=== PATIENT | female | born 1980 | race Caucasian/White ===

== ENCOUNTER 2016-09-22 16:44 | Inpatient (IN) | payer OTHER ==
[2016-09-22 17:58] LABS: Glucose,Whole Blood 66 mg/dL (75-99)
[2016-09-22] MEDS ORDERED: NALOXONE 0.4 MG/ML 1 ML VIAL IV PRN (18:19)
--- NOTE | 2016-09-22 18:25 | P.GSHP ---
History of Present Illness H&P Date: 09/22/16 Chief Complaint: Acute abdominal pain The patient is a 35-year-old female with history of previous gastric bypass. She reports severe onset abdominal pain of the left upper quadrant. She is unable to eat. She reports intractable nausea and vomiting. She has been dehydrated for at least 3 days with poor oral intake. She reports that her pain is moderate to severe and comes in spasms. She also reports symptom and diarrhea. As result she has developed food fear. She has episodes of hypoglycemic event with blood sugars between 30-60. With a history of gastric bypass, presentation with intestinal adhesions including internal hernia, intussusception and volvulus were described hence her admission. - Review of Systems Comment: CONSTITUTIONAL: Denies any fever or chills. History of unwanted weight gain and last one year. HEENT: Denies any trouble with vision, hearing or nosebleeds. No difficulty swallowing. LYMPHATIC: The patient denies any lumps and bumps around the neck. ENDOCRINE: Has thyroid disorders. Has recurrent hypoglycemic events. RESPIRATORY: Denies pneumonia. Denies any troubles with breathing or dyspnea on exertion. CARDIOVASCULAR: Denies any chest pain, palpitations, or recent heart attacks. GASTROINTESTINAL: Denies heart burn or bright red blood per rectum. Has intermittent constipation. GENITOURINARY: Denies any blood in urine or increased urinary frequency. She reports dark urine. MUSCULOSKELETAL: Has back pain, stiffness and joint arthritis. History of fracture of the cervical spine. NEUROLOGIC: Has intermittent numbness or tingling along the left upper arm. No seizure disorders or headaches. PSYCHIATRIC: Denies suidical ideation. History of depression. HEMATOLOGIC: Denies any abnormal bleeding or bruising. Past Medical History Past Medical History: Deep Vein Thrombosis (DVT), GERD/Reflux, Seizure Disorder , Thyroid Disorder Additional Past Medical History / Comment(s): HERNIATED CERVICAL DISC'S C4-C5. Panniculitis with surgery, DVT in right leg in 2007, VARICOSE VEINS, hypothyroid, recurrent UTIs, R leg numbness/tingling with foot drop, esophageal anastomatic stricture, dysphagia in past, seizure 2005, hiatal hernia, PUD, hypoglycemia intussusception of the bowel, morbid obesity status post Dalia-en-Y. History of Any Multi-Drug Resistant Organisms: MRSA Date of last positivie culture/infection: 01/2008 MDRO Source:: right arm Past Surgical History: Appendectomy, Bariatric Surgery, Section, Cholecystectomy, Orthopedic Surgery, Tonsillectomy Additional Past Surgical History / Comment(s): RECONSTRUCTION RT KNEE, C- SECTION x 3, DALIA-EN-Y(AUG 2012) Pt had panniculectomy 02/10/2014, diagnostic laproscopy with lysis of adhesions, EGD with dilation and foreign body removal, colonoscopy, hiatal hernia repair.LUMBAR PUNCTURE(NEG) 07/04/16 ADMISSION Past Anesthesia/Blood Transfusion Reactions: No Reported Reaction Past Psychological History: Depression Additional Psychological History / Comment(s): POST DEPRESSION. Pt resides with her spouse and 3 children. She is independent. She drives. Smoking Status: Never smoker Past Alcohol Use History: None Reported Additional Past Alcohol Use History / Comment(s): Patient is a lifelong nonsmoker. She denies any medical marijuana, marijuana, street drug. She drinks alcohol on a rare basis. She lives at home with her and 3 children that are 8, 10, 12 years of age. There are 2 dogs in the home. 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 Past Drug Use History: None Reported - Past Family History Father Family Medical History: GERD/Reflux, Hyperlipidemia, Hypertension, Sleep Apnea/ CPAP/BIPAP Additional Family Medical History / Comment(s): arthritis Mother Family Medical History: Asthma, Fibromyalgia, GERD/Reflux, Hyperlipidemia, Hypertension Additional Family Medical History / Comment(s): MS and spinal stenosis, depression Medications and Allergies Home Medications Medication Instructions Recorded Confirmed Type Calcium Carb-Vit D 250Mg-125Un 1 tab PO HS 07/04/16 09/22/16 History [Oscal 250+D] Cyanocobalamin [Vitamin B-12] 1,000 mcg PO HS 07/04/16 09/22/16 History Diazepam [Valium] 5 mg PO HS PRN 07/04/16 09/22/16 History Levothyroxine Sodium [Synthroid] 75 mcg PO HS 07/04/16 09/22/16 History Zolpidem [Ambien] 10 mg PO HS PRN 07/04/16 09/22/16 History ALPRAZolam [Xanax] 0.5 mg PO HS PRN 08/31/16 09/22/16 History Cholecalciferol [Vitamin D3] 1,000 unit PO HS 08/31/16 09/22/16 History Menthol [Icy Hot] 1 patch TRANSDERM DAILY PRN 08/31/16 09/22/16 History Multivitamins, Thera [Multivitamin] 1 tab PO HS 08/31/16 09/22/16 History Sertraline [Zoloft] 100 mg PO HS 08/31/16 09/22/16 History Acarbose [Precose] 300 mg PO HS 09/22/16 09/22/16 History HYDROcodone/APAP 7.5-325MG [Tillson 1 tab PO Q6HR PRN 09/22/16 09/22/16 History 7.5-325] Polyethylene Glycol 3350 [Miralax] 17 gm PO DAILY PRN 09/22/16 09/22/16 History Allergies Allergy/AdvReac Type Severity Reaction Status Date / Time latex Allergy Severe Anaphylaxis Verified 09/22/16 18:00 Penicillins Allergy Unknown Itching Verified 09/22/16 18:00 Surgical - Exam Vital Signs Temp Pulse Resp BP Pulse Ox 97.8 F 61 16 123/76 100 09/22/16 17:40 09/22/16 17:40 09/22/16 17:40 09/22/16 17:40 09/22/16 17:40 GENERAL: Well developed and in moderate distress. HEENT: No sclera icterus. Extraocular movements grossly intact. Moist buccal mucosa. Head is atraumatic, normocephalic. Hears conversational speech. No nasal drainage. NECK: Supple without lymphadenopathy. No JV distention. CHEST: Non-labored respirations and equal bilateral excursions. CARDIOVASCULAR: Regular rate and rhythm. Palpable 2+ radial pulses. ABDOMEN: Soft, focal tenderness along the left upper quadrant. She has left upper quadrant guarding. No rebound. No palpable masses on exam. MUSCULOSKELETAL: No clubbing, cyanosis or edema. NEUROLOGIC: No focal or lateralizing signs. Cranial nerves II-12 grossly within normal limits. PSYCH: Appropriate affect. Alert and oriented to person, place and time. Results - Labs 09/22/16 18:37 Abnormal Lab Results - Last 24 Hours (Table) 09/22/16 Range/Units 17:55 POC Glucose (mg/dL) 66 L (75-99) mg/dL Assessment and Plan (1) Hypoglycemia Status: Chronic (2) Morbid obesity Status: Chronic (3) BMI 45.0-49.9, adult Status: Chronic (4) Volvulus Status: Acute (5) Intussusception intestine Status: Acute (6) Chronic constipation Status: Chronic (7) Chronic pain Status: Chronic (8) Bowel obstruction Status: Acute (9) Hypothyroidism Status: Chronic (10) Intractable abdominal pain Status: Acute (11) History of Dalia-en-Y gastric bypass Status: Chronic Plan: 1. During my evaluation, she had a severe attack and spasm of her dominant pain along the left upper quadrant. Intramuscular and IV Dilaudid were immediately ordered. 2. With her history of gastric bypass, she will need urgent laparoscopy. Small bowel resection was described as intussusception and volvulus cannot be excluded for cause of her abdominal pain. 3. Recommend full inpatient hospitalization to spit for 2 nights. 4. Hypoglycemia protocol for history of recurrent hypoglycemic events. 5. IV fluid hydration for persistent dehydration 6. DVT prophylaxis. 7. Antibiotic prophylaxis for surgical intervention. 8. Recheck electrolytes for history of hypo-magnesia and chronic nausea. 9. Antiemetics advised. 10. Surgical distention with laparoscopy and small bowel resection were reviewed in detail including possibility of open technique for which patient and family had agreed to proceed.
[2016-09-22] MEDS ORDERED: HYDROmorphone 2 MG/ML 1 ML SYRINGE IV STA (18:27)
[2016-09-22] MEDS: HYDROmorphone 1 MG/ML 1 ML SYRINGE IVP PRN ×2 (18:52→22:37)
[2016-09-22 18:54] LABS: Glucose,Whole Blood 116 mg/dL (75-99)
[2016-09-22 18:59] LABS: Basophils # (A) 0.1 k/uL (0-0.2); Basophils % (A) 1 %; CH 31.4; CHCM 33.3; Eosinophils # (A) 0.1 k/uL (0-0.7); Eosinophils % (A) 2 %; HCT 41.1 % (34.0-46.0); HDW 2.19; HGB 13.4 gm/dL (11.4-16.0); Luc % (Auto) 2; Lymphocytes # (A) 2.1 k/uL (1.0-4.8); Lymphocytes % (A) 36 %; MCH 30.9 pg (25.0-35.0); MCHC 32.6 g/dL (31.0-37.0); MCV 94.7 fL (80.0-100.0); Mean Platelet Volume 6.6; Monocytes # (A) 0.4 k/uL (0-1.0); Monocytes % (A) 6 %; Neutrophils # (A) 3.1 k/uL (1.3-7.7); Neutrophils % (A) 54 %; RBC 4.34 m/uL (3.80-5.40); RDW 12.1 % (11.5-15.5); WBC 5.8 k/uL (3.8-10.6)
[2016-09-22] MEDS: ONDANSETRON 4 MG/2 ML VIAL IVP PRN (19:12)
[2016-09-22 19:15] LABS: ALT 40 U/L (9-52); AST 29 U/L (14-36); Alkaline Phosphatase 61 U/L (38-126); Anion Gap 11 mmol/L; Blood Urea Nitrogen 9 mg/dL (7-17); Calcium 9.5 mg/dL (8.4-10.2); Carbon Dioxide 30 mmol/L (22-30); Chloride 99 mmol/L (98-107); Glucose 110 mg/dL (74-99); Magnesium 1.9 mg/dL (1.6-2.3); Non-African American GFR(MDRD) >60 (>60 ml/min/1.73 sqM); Potassium 3.7 mmol/L (3.5-5.1); Sodium 140 mmol/L (137-145); Total Bilirubin 0.5 mg/dL (0.2-1.3); Total Protein 7.2 g/dL (6.3-8.2)
[2016-09-22] MEDS: ALBUTEROL NEBULIZED 2.5 MG/3 ML INHALATION SCH (19:18)
[2016-09-22] MEDS: METOCLOPRAMIDE 5 MG/ML 2 ML VIAL IVP SCH ×2 (19:19→23:47)
[2016-09-22] MEDS ORDERED: ZOLPIDEM 10 MG TAB PO PRN (19:21)
[2016-09-22] MEDS ORDERED: DIAZEPAM 5 MG TAB PO PRN (19:21)
[2016-09-22] MEDS ORDERED: ALPRAZolam 0.5 MG TAB PO PRN (19:21)
[2016-09-22] MEDS ORDERED: MENTHOL TRANSDERM PRN (19:21)
[2016-09-22] MEDS: SODIUM CHLORIDE 0.9% 1,000 ML IV SCH ×4 (20:05→23:39)
[2016-09-22] MEDS: DICYCLOMINE 20 MG TAB PO SCH (21:28)
[2016-09-22] MEDS: LEVOTHYROXINE 75 MCG TAB PO SCH (21:28)
[2016-09-22] MEDS: SERTRALINE 100 MG TAB PO SCH (21:28)
[2016-09-22 21:57] VITALS: BMI 45.2
[2016-09-23] MEDS: DEXTROSE 5%-0.9% NACL 1,000 ML IV SCH ×2 (01:27→11:06)
[2016-09-23] MEDS: ALBUTEROL NEBULIZED 2.5 MG/3 ML INHALATION SCH ×4 (07:32→19:04)
[2016-09-23] MEDS: DICYCLOMINE 20 MG TAB PO SCH ×2 (07:35→14:28)
[2016-09-23] MEDS: METOCLOPRAMIDE 5 MG/ML 2 ML VIAL IVP SCH ×2 (08:01→13:50)
[2016-09-23] MEDS: PANTOPRAZOLE 40 MG/10 ML VIAL IV SCH (08:01)
--- NOTE | 2016-09-23 09:05 | P.HPADDEND ---
H&P Addendum H&P Addendum Date: 09/23/16 Patient continues to have persistent abdominal pain. We'll proceed with laparoscopic exploration with possible small bowel resection possible open for intussusception versus volvulus.
[2016-09-23] MEDS: HYDROmorphone 1 MG/ML 1 ML SYRINGE IVP PRN ×2 (09:56→13:53)
[2016-09-23] MEDS: ONDANSETRON 4 MG/2 ML VIAL IVP PRN (09:57)
[2016-09-23] MEDS: ENOXAPARIN 40 MG/0.4 ML SYRINGE SQ SCH (09:58)
[2016-09-23] MEDS ORDERED: GENTAMICIN 400 MG in SODIUM CHLORIDE 0.9% 100 ML IVPB ONE (13:00)
[2016-09-23] MEDS ORDERED: CLINDAMYCIN 900 MG in DEXTROSE 5% IN WATER 50 ML IVPB ONE ×2 (13:00)
[2016-09-23] MEDS ORDERED: LACTATED RINGERS 1,000 ML IV ONE ×2 (15:12→20:15)
[2016-09-23] MEDS ORDERED: ONDANSETRON 4 MG/2 ML VIAL IVP ONE (15:17)
[2016-09-23] MEDS ORDERED: ePHEDrine 50 MG/ML 1 ML AMP ONE (16:39)
[2016-09-23] MEDS ORDERED: GLYCOPYRROLATE 0.2 MG/ML 2 ML VIAL ONE (16:39)
[2016-09-23] MEDS ORDERED: SUCCINYLCHOLINE CHLORIDE VIAL 200 MG/10 ML VIAL IV ONE (16:39)
[2016-09-23] MEDS ORDERED: NEOSTIGMINE 1 MG/ML 10 ML VIAL ONE (16:39)
[2016-09-23] MEDS ORDERED: LIDOCAINE 1% INJ 10MG/ML (20 ML MDV) ONE (16:39)
[2016-09-23] MEDS ORDERED: PROPOFOL 10 MG/ML 20 ML VIAL IV ONE (16:39)
[2016-09-23] MEDS ORDERED: ROCURONIUM BROMIDE 10 MG/ML 10 ML VIAL IV ONE (16:39)
[2016-09-23] MEDS ORDERED: MIDAZOLAM 2 MG/2 ML VIAL ONE (16:39)
[2016-09-23] MEDS ORDERED: fentaNYL (PF) 50 MCG/ML 2 ML AMP ONE (16:39)
[2016-09-23] MEDS ORDERED: ONDANSETRON 4 MG/2 ML VIAL ONE (16:39)
[2016-09-23] MEDS ORDERED: HYDROmorphone (PF) 1 MG/ML ONE (16:39)
[2016-09-23] MEDS ORDERED: BUPIVACAIN-EPI 0.25%-1:200,000 30 ML VIAL SQ ONE ×2 (17:20)
--- NOTE | 2016-09-23 19:41 | P.PCN ---
Date of Procedure: 09/23/16 Preoperative Diagnosis: Acute abdomen, history of gastric bypass, intermittent bowel obstruction obstruction, morbid obesity, BMI 45.2 Postoperative Diagnosis: Same, intussusception at the jejunojejunostomy, intra-abdominal adhesions, gastrojejunal ulcer without perforation, chronic Procedure(s) Performed: Laparoscopic lysis adhesions, laparoscopic revision of jejunojejunostomy with small bowel resection 2 with small bowel anastomoses 2, intraoperative esophagogastrojejunoscopy Anesthesia: GETA, local (60 mL 0.25 percent Marcaine with epinephrine) Surgeon: Nallely Bautista Estimated Blood Loss (ml): 50 Pathology: other (Jejunojejunostomy with intussusception) Condition: stable Disposition: floor Operative Findings: Intussusception jejunojejunostomy completely resected. Dalia limb anastomosed 20 cm distal to the biliopancreatic limb along the common channel. Biliopancreatic limb intact with Surgidac or green suture, common channel intact with Polysorb white suture, Dalia limb intact with silk or black suture, mesenteric defect completely closed, the scope demonstrates chronic gastrojejunal ulcer, [id number] anastomoses created. Diagram of new anatomy placed in chart for review.
[2016-09-23] MEDS ORDERED: SIMETHICONE 40 MG/0.6 ML DROPS 2,000 MG/30 ML BOTTLE PO PRN (19:52)
[2016-09-23] MEDS ORDERED: diphenhydrAMINE 50 MG/ML 1 ML VIAL IVP PRN (19:52)
[2016-09-23] MEDS ORDERED: HYOSCYAMINE ORAL DROPS 1.875 MG/15 ML BOTTLE PO PRN (19:52)
[2016-09-23] MEDS: HYDROmorphone 1 MG/ML 1 ML SYRINGE IVP ONE ×6 (19:56→20:24)
[2016-09-23] MEDS ORDERED: HYDROmorphone 1 MG/ML 1 ML SYRINGE IVP PRN (19:56)
[2016-09-23] MEDS ORDERED: SCOPOLAMINE 1.5MG/72HR PATCH TRANSDERM STA (19:58)
[2016-09-23] MEDS ORDERED: NALOXONE 0.4 MG/ML 1 ML VIAL IV PRN (20:00)
[2016-09-23] MEDS: ACETAMINOPHEN IV (For NPO) 1,000 MG in EMPTY BAG 1 BAG IVPB SCH ×2 (20:05→20:15)
[2016-09-23] MEDS ORDERED: LEVOFLOXACIN 750MG-D5W PMX 750 MG in DEXTROSE/WATER 1 150ML.BAG IVPB STA (20:06)
[2016-09-23] MEDS ORDERED: ACARBOSE 25 MG TAB PO SCH (21:00)
[2016-09-23] MEDS: 0.9% NACL WITH KCL 20 MEQ/L 1,000 ML IV SCH (22:21)
[2016-09-23] MEDS: HYDROmorphone PCA 5 MG/25 ML SYRINGE IV PRN (22:27)
[2016-09-23] MEDS: LEVOTHYROXINE 75 MCG TAB PO SCH (22:34)
[2016-09-23] MEDS: FAMOTIDINE 20 MG TAB PO SCH (22:34)
[2016-09-24 04:02] VITALS: RESP 16
[2016-09-24] MEDS: ACETAMINOPHEN IV (For NPO) 1,000 MG in EMPTY BAG 1 BAG IVPB SCH ×2 (05:02→16:19)
[2016-09-24] MEDS: DEXTROSE 5%-0.9% NACL 1,000 ML IV SCH ×4 (06:06→20:00)
[2016-09-24] MEDS: SERTRALINE 100 MG TAB PO SCH ×2 (06:07→20:14)
[2016-09-24] MEDS: 0.9% NACL WITH KCL 20 MEQ/L 1,000 ML IV SCH ×2 (06:08→07:07)
[2016-09-24 07:24] LABS: Basophils % (A) 0 %; CH 31.3; CHCM 32.8; Eosinophils # (A) 0.1 k/uL (0-0.7); Eosinophils % (A) 1 %; HCT 36.9 % (34.0-46.0); HGB 11.8 gm/dL (11.4-16.0); Luc # (Auto) 0.07; Luc % (Auto) 1; Lymphocytes # (A) 0.9 k/uL (1.0-4.8); Lymphocytes % (A) 13 %; MCH 30.7 pg (25.0-35.0); MCV 95.8 fL (80.0-100.0); Mean Platelet Volume 6.7; Monocytes # (A) 0.4 k/uL (0-1.0); Monocytes % (A) 6 %; Neutrophils # (A) 5.3 k/uL (1.3-7.7); Neutrophils % (A) 79 %; RBC 3.85 m/uL (3.80-5.40); RDW 12.2 % (11.5-15.5); WBC 6.8 k/uL (3.8-10.6)
[2016-09-24] MEDS: ALBUTEROL NEBULIZED 2.5 MG/3 ML INHALATION SCH ×4 (07:26→19:43)
[2016-09-24 07:32] LABS: Anion Gap 9 mmol/L; Blood Urea Nitrogen 5 mg/dL (7-17); Carbon Dioxide 23 mmol/L (22-30); Chloride 109 mmol/L (98-107); Magnesium 1.7 mg/dL (1.6-2.3); Non-African American GFR(MDRD) >60 (>60 ml/min/1.73 sqM); Potassium 3.9 mmol/L (3.5-5.1); Sodium 141 mmol/L (137-145)
[2016-09-24] MEDS: ENOXAPARIN 40 MG/0.4 ML SYRINGE SQ SCH (10:28)
[2016-09-24] MEDS: PANTOPRAZOLE 40 MG/10 ML VIAL IV SCH (10:28)
[2016-09-24] MEDS: FAMOTIDINE 20 MG TAB PO SCH ×2 (10:29→20:13)
--- NOTE | 2016-09-24 10:46 | OP ---
DATE OF SERVICE: 09/23/2016 SURGEON: CARLITA MATIAS MD FLOOR COVERING CONTRACTOR: NONE. PREOPERATIVE DIAGNOSES: 1. History of Dalia-en-Y gastric bypass. 2. Acute abdomen. 3. Intractable nausea and vomiting. 4. Dehydration. 5. Depression. 6. Chronic pain syndrome. 7. Reactive hypoglycemia. 8. Morbid obesity. 9. Body mass index 45.7. 10. Hypothyroidism. 11. History of small bowel obstruction. 12. Left upper quadrant abdominal pain. POSTOPERATIVE DIAGNOSES: 1. History of Dalia-en-Y gastric bypass. 2. Acute abdomen. 3. Intractable nausea and vomiting. 4. Dehydration. 5. Depression. 6. Chronic pain syndrome. 7. Reactive hypoglycemia. 8. Morbid obesity. 9. Body mass index 45.7. 10. Hypothyroidism. 11. History of small bowel obstruction. 12. Intussusception of the small intestine, left upper quadrant. 13. Intra-abdominal adhesions. 14. 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 OPERATION: 1. Laparoscopic enterectomy 2 with small bowel anastomosis 2. 2. Laparoscopic revision of jejunojejunostomy. 3. Intraoperative esophagogastrojejunoscopy. 4. Laparoscopic lysis adhesions over 1 hr. ANESTHESIA: General with 60 mL 0.25% Marcaine with epinephrine. ESTIMATED BLOOD LOSS: 50 mL. SPECIMENS: Jejunojejunostomy with intussusception. COMPLICATIONS: None. FINDINGS: 1. Intussusception along jejunojejunostomy causing acute and chronic abdominal pain. 2. Intra-abdominal adhesions about the Dalia limb including gastrojejunal anastomosis. 3. Gastrojejunal ulceration without perforation or hemorrhage. 4. Reconstruction of Dalia limb and common channel, 20 cm distal to anastomosis of biliopancreatic limb. 5. Common channel marked with Polysorb white suture. 6. Dalia limb marked with silk or black suture. 7. Biliopancreatic marked with Surgidac or green suture. 8. All the mesenteric defect including the newly reconstructed biliopancreatic and Dalia limb defects were closed using 2-0 silk. 9. Chronic gastrojejunal ulcer. 10. Diagram of new anatomy placed in chart for review. INDICATIONS: Selin Bowles is a 35-year-old female who has a history of Dalia-en-Y gastric bypas in August 2012. She had been doing well for the last 3+ years, however, in the last 1 to 2 years she had developed intermittent abdominal pain. As a result, she developed food fear including poor oral intake. She presented to the hospital with intractable nausea, vomiting, dehydration including acute abdomen. Given her history of gastric bypass, risks of volvulus was expected. Urgent surgical intervention with a diagnostic laparoscopy and small bowel resection were described. Prior to surgical intervention, she underwent IV fluid hydration. Possibilities of bowel resection was also described at length. Benefits and risks of surgical intervention were reviewed in detail. Informed consent was obtained. DESCRIPTION OF PROCEDURE: Patient was brought to the operating room, laid in supine on a split leg table. After general induction, the abdomen had been prepped and draped in standard fashion including placement of a Johnson catheter. With her history of Dalia-en-Y gastric bypass, an orogastric tube was held. Initial attention was brought to the right upper quadrant away from the foci of her pain of her left upper quadrant. A 0 degrees 10 mm millimeters laparoscopic trocar entry was performed along the right upper quadrant under direct localization. The abdomen was insufflated to 15 mmHg pressure, which she had tolerated well. Diagnostic laparoscopy did not demonstrate any adhesions of the lower abdomen or ventral abdominal wall hernias. Next, another 12 mm trocar had been placed along about the epigastrium. Her umbilicus was absent given her previous panniculectomy. Another 12 mm port was placed along the right anterior axillary line under direct visualization. Two more 12 mm trocars were placed in a similar fashion along the left anterior axillary line including along the left midclavicular line. Next a Yandel liver retractor was used to elevate the left lobe of liver and had been held in place using an iron collector of internal revenue. Adhesions of the Dalia limb, including gastric pouch were identified and taken down carefully using Sonicision. No injury had occurred to the small bowel or gastric pouch. Next attention was brought to identify her anatomy which included identifying the Dalia limb to the jejunojejunostomy. Similarly, the biliopancreatic limb was investigated. Attention was brought to evaluating the ileocecal valve proximally. The small bowel was ran proximal to the jejunojejunostomy whereby an active intussusception was indeed identified consistent with her history of acute abdomen including chronic intermittent abdominal pain. No active herniation of small bowel was found either along the previous jejunojejunostomy mesenteric defect or along the Morrow defect. As the three main portions of her surgery was identified, including the Dalia limb, common channel and biliopancreatic limb, each limb were carefully tagged. The Dalia limb was tagged using a silk suture otherwise black suture. The common channel was then marked using 2-0 Polysorb otherwise white suture. Finally, the biliopancreatic limb was marked with green suture, otherwise 2-0 Surgidac. Each sutures were tacked using Endo Stitch. Next attention was then brought to initial resection and reanastomosis of the resected jejunojejunostomy. Dalia limb was initially identified and then divided using a 60 mm vigil load. Next, the Dalia limb was reanastomosed 20 cm distal to the resected jejunostomy. Side to side anastomosis was performed. Along the antemesenteric border, electro- Bovie cautery was used to create enterotomies. One directional firing using 60 mm vigil load was performed. Next the enterotomy was closed after reapproximating the defect using 2-0 silk on an Endo stitch. The defect was then permanent closed using a 60 mm vigil load. Along the most proximal portion of the common channel, the biliopancreatic limb was still attached and the previous jejunostomy was completely resected using a 60 mm vigil load. The specimen was temporarily placed along the left upper quadrant under direct visualization. As to maintain the natural orientation and anatomy, the biliopancreatic limb was proposed for anastomosis along the common channel. The biliopancreatic limb and common channel were brought into position in a [id number] fashion. Enterotomies were performed along the antermesenteric border. Stay sutures of 2-0 silk was placed. Next 60 mm vigil CovMobile Iron TriStapler was fired in a one direction technique. Next, the enterotomy was closed after reapproximating the enterotomy using 2-0 silk. The enterotomy was finally closed using 60 mm vigil load. To address closure of the mesenteric defect, 2-0 silk on an Endo stitch and Lapra-Ty and was used to completely close the defect. Final endoscopic imaging were obtained. Hemostasis had been checked. Along the old jejunojejunostomy, the specimen was removed using an Endo Catch bag via the right upper quadrant midclavicular port. Final inspection demonstrated excellent hemostasis. All instruments and pneumoperitoneum were evacuated from the abdominal cavity. The fascial defects were found to be less than 8 mm in size. The incisions were reapproximated using 3-0 Polysorb for deep subcutaneous tissue and dermis. 4-0 Monocryl in a running subcuticular fashion was placed at the rest of incisions. Total of 60 mL 0.25% Marcaine with epinephrine was infiltrated to all wounds for postop analgesia. Dermabond was applied to the skin. Next attention was brought to the endoscopic portion of the case, whereby I went to the head of the bed. An Olympus adult gastroscope was passed along the posterior oropharynx down to the distal esophagus. Immediately along the gastrojejunal anastomosis at 12:00 position, a chronic ulceration was identified without perforation. The scope was placed 60 cm distal to the incisors. No other mucosal defects were identified. The GI tract was desufflated. The patient had tolerated the procedure well. The patient was extubated and taken to the postanesthesia care unit in stable condition. A diagram of her previous including her current reconstruction was placed in her chart. Intraoperative imaging was reviewed and discussed with her including a copy of the diagram as to her new anatomy. Her family was pleased with the level of care. JOHN
[2016-09-24] MEDS: MAGNESIUM SULFATE-D5W PMX 1 GM in DEXTROSE/WATER 1 100ML.BAG IVPB SCH ×3 (10:51→15:26)
[2016-09-24] MEDS: METOCLOPRAMIDE 5 MG/ML 2 ML VIAL IVP SCH (10:58)
[2016-09-24] MEDS: DICYCLOMINE 20 MG TAB PO SCH (10:58)
[2016-09-24] MEDS: HYDROmorphone PCA 5 MG/25 ML SYRINGE IV PRN (11:21)
--- NOTE | 2016-09-24 13:55 | P.PN ---
Subjective Principal diagnosis: Intussusception The patient is a 35-year-old female now postoperative day 1 status post small bowel resection 2 with revision of her jejunojejunostomy secondary to intussusception. She is now tolerating diet. Her abdominal pain is resolved. No reports of fevers or chills. She no longer has intermittent or chronic abdominal pain with eating. No further hypoglycemic episodes. Objective - Vital Signs Vital signs: Vital Signs Temp 98.6 F 09/24/16 07:00 Pulse 92 09/24/16 07:34 Resp 16 09/24/16 07:00 BP 125/79 09/24/16 07:00 Pulse Ox 95 09/24/16 07:00 Intake & Output 09/23/16 09/24/16 09/24/16 18:59 06:59 18:59 Intake Total 2066 500 320 Output Total 1000 250 Balance 1066 250 320 Intake: IV 2066 500 Oral 320 Output: Urine 1000 200 Estimated Blood Loss 50 Other: Voiding Method Toilet - Exam GENERAL: Well developed and in no acute distress. Pleasant. HEENT: No sclera icterus. Extraocular movements grossly intact. Moist buccal mucosa. Head is atraumatic, normocephalic. Hears conversational speech. No nasal drainage. NECK: Supple without lymphadenopathy. No JV distention. CHEST: Non-labored respirations and equal bilateral excursions. CARDIOVASCULAR: Regular rate and rhythm. Palpable 2+ radial pulses. ABDOMEN: Soft. Nondistended. Incisions clean dry and intact with Dermabond. Minimal gi-incisional tenderness. MUSCULOSKELETAL: No clubbing, cyanosis or edema. NEUROLOGIC: No focal or lateralizing signs. PSYCH: Appropriate affect. Alert and oriented to person, place and time. - Labs CBC & Chem 7: 09/24/16 00:01 09/24/16 06:45 Labs: Abnormal Lab Results - Last 24 Hours (Table) 09/24/16 09/24/16 Range/Units 00: 06:45 Lymphocytes # 0.9 L (1.0-4.8) k/uL Chloride 109 H (98-107) mmol/L BUN 5 L (7-17) mg/dL Calcium 8.0 L (8.4-10.2) mg/dL Assessment and Plan (1) Hypoglycemia Status: Chronic (2) Morbid obesity Status: Chronic (3) BMI 45.0-49.9, adult Status: Chronic (4) Volvulus Status: Acute (5) Intussusception intestine Status: Acute (6) Chronic constipation Status: Chronic (7) Chronic pain Status: Chronic (8) Bowel obstruction Status: Acute (9) Hypothyroidism Status: Chronic (10) Intractable abdominal pain Status: Acute (11) History of Dalia-en-Y gastric bypass Status: Chronic (12) S/P small bowel resection Status: Acute (13) Gastrojejunal ulcer Status: Acute (14) Dietary surveillance and counseling Status: Acute Plan: 1. She has responded well to surgery. Her acute on chronic abdominal pain is resolved. 2. New dietary guidelines including high protein diet of 75 g daily was reviewed. 3. Medical reconciliation was performed with discontinuation of absorbable some. Hypoglycemic events should now resolved but she is now able to tolerate diet. 4. Discharge instructions including no lifting over 4 pounds in 4 weeks were reviewed. 5. Continue with advancement of diet. Anticipate discharge in 24 hours. 6. Will start on Carafate including omeprazole for 4 weeks to treat chronic gastrojejunal ulcer.
--- NOTE | 2016-09-24 14:02 | P.DS ---
Providers Date of admission: 09/22/16 17:21 Expected date of discharge: 09/25/16 Attending physician: Nallely Bautista Primary care physician: Stated None - Discharge Diagnosis(es) (1) Hypoglycemia Current Visit: Yes Status: Chronic (2) Morbid obesity Current Visit: Yes Status: Chronic (3) BMI 45.0-49.9, adult Current Visit: Yes Status: Chronic (4) Volvulus Current Visit: Yes Status: Acute (5) Intussusception intestine Current Visit: Yes Status: Acute (6) Chronic constipation Current Visit: Yes Status: Chronic (7) Chronic pain Current Visit: Yes Status: Chronic (8) Bowel obstruction Current Visit: No Status: Acute (9) Hypothyroidism Current Visit: No Status: Chronic (10) Intractable abdominal pain Current Visit: No Status: Acute (11) History of Dalia-en-Y gastric bypass Current Visit: No Status: Chronic (12) S/P small bowel resection Current Visit: Yes Status: Acute (13) Gastrojejunal ulcer Current Visit: Yes Status: Acute (14) Dietary surveillance and counseling Current Visit: Yes Status: Acute Hospital Course: The patient was admitted for acute and chronic abdominal pain secondary to presumed volvulus versus intussusception. She underwent urgent surgical intervention whereby findings were consistent with active intussusception along the jejunojejunostomy from previous gastric bypass. She also had adhesions of the abdomen which were addressed. Her jejunojejunostomy was revised. Separately upper endoscopy demonstrated a chronic gastrojejunal ulceration without acute perforation or bleeding. She was started on antacids. She was able tolerate diet without further chronic abdominal pain which is now improved. Discharge diet of high protein shakes were addressed to also circumvent history of hypoglycemic episodes. Procedures: 1. Diagnostic laparoscopy. 2. Laparoscopic small bowel resection 2 with small bowel anastomosis 2, revision of jejunojejunostomy. 3. Intraoperative esophagogastrojejunoscopy. Patient Condition at Discharge: Stable Plan - Discharge Summary New Discharge Prescriptions: HYDROcodone/APAP [[place] Elixir 7.5-325Mg/15Ml] 15 ml PO Q6H PRN #480 solution PRN Reason: Pain Omeprazole 40 mg PO DAILY #30 capsule. Sucralfate [Carafate] 1 gm PO BID #480 ml Discharge Medication List Calcium Carb-Vit D 250Mg-125Un [Oscal 250+D] 1 tab PO HS 07/04/16 [History] Diazepam [Valium] 5 mg PO HS PRN 07/04/16 [History] Levothyroxine Sodium [Synthroid] 75 mcg PO HS 07/04/16 [History] Zolpidem [Ambien] 10 mg PO HS PRN 07/04/16 [History] ALPRAZolam [Xanax] 0.5 mg PO HS PRN 08/31/16 [History] Multivitamins, Thera [Multivitamin] 1 tab PO HS 08/31/16 [History] Sertraline [Zoloft] 100 mg PO HS 08/31/16 [History] Polyethylene Glycol 3350 [Miralax] 17 gm PO DAILY PRN 09/22/16 [History] HYDROcodone/APAP [[place] Elixir 7.5-325Mg/15Ml] 15 ml PO Q6H PRN #480 solution [Rx] Omeprazole 40 mg PO DAILY #30 capsule. 09/24/16 [Rx] Sucralfate [Carafate] 1 gm PO BID #480 ml 09/24/16 [Rx] Follow up Appointment(s)/Referral(s): Nallely Bautista MD [STAFF PHYSICIAN] - 09/28/16 ([place]) Patient Instructions/Handouts: *Surgery [facility] - Laparoscopy Discharge Instructions, Hydrocodone/Acetaminophen (By mouth), High Protein Diet (GEN), Bowel Resection (DC), Nutrition after Bariatric Surgery (GEN), Dalia-en-Y Gastric Bypass (DC) Activity/Diet/Wound Care/Special Instructions: No lifting over 4 pounds in 4 weeks. May shower. Recommend high protein diet at least 75 g daily with protein shakes. Bariatric full liquid diet. Discharge Disposition: HOME SELF-CARE
--- NOTE | 2016-09-24 14:04 | P.PN ---
Progress Note - Text To Whom It May Concern: Deni Bowles is under my general surgical care. She may return to work on 09/26/2016. She will remain under close surgical observation in the meantime. Sincerely, Nallely Bautista M.D., FACS, FICS, Dip ABOM Director of [facility] [place] Chief of General Surgery
--- NOTE | 2016-09-24 14:11 | P.PN ---
Progress Note - Text To Whom It May Concern: Selin Bowles is under my general surgical care. She may return to work on 09/26/2016. She will remain under close surgical observation in the meantime. Sincerely, Nallely Bautista M.D., FACS, FICS, Dip ABOM Director of [facility] [place] Chief of General Surgery
[2016-09-24] MEDS: HYDROcodone/APAP 15 ML SOLUTION PO PRN (20:13)
[2016-09-24] MEDS: LEVOTHYROXINE 75 MCG TAB PO SCH (20:13)
[2016-09-25] MEDS: HYDROcodone/APAP 15 ML SOLUTION PO PRN ×2 (01:20→09:38)
[2016-09-25 02:05] VITALS: PULSE 64
[2016-09-25] MEDS: DEXTROSE 5%-0.9% NACL 1,000 ML IV SCH (03:28)
[2016-09-25 07:31] VITALS: BP 122/57; TEMP 98.7
[2016-09-25] MEDS: ALBUTEROL NEBULIZED 2.5 MG/3 ML INHALATION SCH (07:36)
[2016-09-25] MEDS ORDERED: BISACODYL 5 MG TABLET.DR PO PRN (08:00)
--- NOTE | 2016-09-25 09:00 | P.PN ---
Progress Note - Text Patient reports needing more time for recovery. She will follow-up in the office prior to return to work.
[2016-09-25] MEDS: ENOXAPARIN 40 MG/0.4 ML SYRINGE SQ SCH (09:37)
[2016-09-25] MEDS: PANTOPRAZOLE 40 MG/10 ML VIAL IV SCH (09:38)
[2016-09-25] MEDS: FAMOTIDINE 20 MG TAB PO SCH (09:38)
== END 2016-09-25 11:11 | disposition home or self-care (01) | DRG 327 ==
LOC: 6PED 17:21 → 3SUR 09-23 17:03
PROVIDERS: ADMIT Surgery Plastic and Reconstructive Surgery; ATTEND Surgery Plastic and Reconstructive Surgery
PROC: 0DNA4ZZ Release Jejunum, Percutaneous Endoscopic Approach (ICD-10-PCS; principal; 2016-09-22)
PROC: 0DBA4ZZ Excision of Jejunum, Percutaneous Endoscopic Approach (ICD-10-PCS; principal; 2016-09-22)
PROC: 0D164ZA Bypass Stomach to Jejunum, Percutaneous Endoscopic Approach (ICD-10-PCS; principal; 2016-09-22)
DX: K95.89 Other complications of other bariatric procedure (principal); Z68.42 Body mass index [BMI] 45.0-49.9, adult; K28.9 Gastrojejunal ulcer, unspecified as acute or chronic, without hemorrhage or perforation; E16.1 Other hypoglycemia; E03.9 Hypothyroidism, unspecified; K91.3 Postprocedural intestinal obstruction; E86.0 Dehydration; F32.9 Major depressive disorder, single episode, unspecified; G89.4 Chronic pain syndrome; K21.9 Gastro-esophageal reflux disease without esophagitis; K66.0 Peritoneal adhesions (postprocedural) (postinfection); E66.01 Morbid (severe) obesity due to excess calories; Z82.49 Family history of ischemic heart disease and other diseases of the circulatory system; Z87.11 Personal history of peptic ulcer disease; Z87.440 Personal history of urinary (tract) infections; Z79.899 Other long term (current) drug therapy
CPT/HCPCS: 80051; 80053; 81025; 82310; 82565; 83735; 84100; 84520; 85025; 88307; 94640

== ENCOUNTER → 2017-09-14 | Outpatient (CLI) | payer OTHER ==
[2017-09-14 09:13] VITALS: BP 130/79; PULSE 80; RESP 20; TEMP 98.2; BMI 47.5
--- NOTE | 2017-11-04 17:58 | P.PN ---
Subjective Progress Note Date: 09/14/17 DATE OF SERVICE: 09/14/2017 CHIEF COMPLAINT: Follow up gastric bypass HISTORY OF PRESENT ILLNESS: Selin Bowles is a 36-year-old female who has a history of Dalia-en-Y gastric bypass performed in August of 2012. She is 5 years out. Her highest weight was 439 pounds for her 5 feet 6 inch frame. Her body mass index was 71.0. Her lowest weight was 223 pounds. She has gained 50 pounds since her lowest weight. Her body mass index is now up from 36.1 to 44.2. Her maintained weight loss is 145 pounds. Percent excess weight loss of 51%. She has gained 21 pounds in 1.5 years. She reports developing a stroke 1 year ago. She has been diagnosed with a broken cervical vertebra. She is now on Plavix and aspirin. She reported obtaining 70 pounds in 6 months as her previous weight was 295 pounds. She has completed a NAVA. She also complains of developing abdominal pain after starting medications. She had neck surgery with removal of the cervical vertebra. PAST MEDICAL HISTORY: 1. Super super morbid obesity. 2. Prior body mass index 71.0 3. Panniculitis, resolved. 4. Hypothyroidism. 5. Osteoarthritis. 6. Prior history of depression. 7. History of varicose veins. 8. History of methicillin-resistant Staphylococcus aureus infection. 9. History of stroke. PAST SURGICAL HISTORY: 1. Appendectomy. 2. Dalia-en-Y gastric bypass. 3. . 4. Cholecystectomy. 5. Reconstruction of the right ankle. 6. Tonsillectomy. 7. Panniculectomy of the abdomen. 8. Colonoscopy. 9. Removal of cervical vertebra. MEDICATIONS: 1. Zoloft. 2. Multivitamin. 3. Synthroid. 4. Xanax. 5. Plavix. 6. Aspirin. 7. Omeprazole. 8. Valium. ALLERGIES: 1. LATEX. 2. PENICILLIN. SOCIAL HISTORY: Lifelong nontobacco user. She is with her at bedside. FAMILY HISTORY: Pertinent for morbid obesity including diabetes and dyslipidemia, also hypertension within her family. REVIEW OF SYSTEMS: CONSTITUTIONAL: Highest weight of 439 pounds. Percent excess weight loss reduced from 74% down to 51%. Total weight gain of 71 pounds over the last 4 years. Body mass index reduced from 71.0 to 47.6. Percent excess weight loss of 51%. GASTROINTESTINAL: No reports of dumping syndrome. esophageal reflux disease. ENDOCRINE: Hypothyroidism. No reports of diabetes. MUSCULOSKELETAL: Osteoarthritis of right ankle, resolved. GENITOURINARY: History of pelvic pain. No kidney stones. HEENT: Denies any troubles with vision or hearing. CARDIOVASCULAR: No report of chest pain or heart attack. Prior history of DVT from the orthopedic procedures. RESPIRATORY: Prior history of dyspnea on exertion, resolved. No reports of sleep apnea. NEURO: No reports of stroke or seizure disorders. PSYCH: History of depression. No reports of anxiety or suicidal ideation. PHYSICAL EXAM: 0VITAL SIGNS: 5 feet 6 inches, 294 pounds. Body mass index 47.6. Vital Signs Temp 98.2 F 09/14/17 09:06 Pulse 80 09/14/17 09:06 Resp 20 09/14/17 09:06 BP 130/79 09/14/17 09:06 Pulse Ox GENERAL: Well-developed female in no acute distress. ABDOMEN: Actually soft, nontender, nondistended. HEENT: No scleral icterus. Extraocular movements grossly intact. No troubles with hearing. NECK: Supple with no lymphadenopathy. CHEST: Nonlabored respirations with equal bilateral excursion. MUSCULOSKELETAL: No clubbing, cyanosis or edema. NEURO: No focal or lateralizing signs. Cranial nerves 2 through 12 grossly within normal limits. PSYCH: Appropriate Affect. Alert and oriented to person, place and time. SKIN: Well perfused. Good skin turgor. ASSESSMENT: 1. Morbid obesity due to excess caloric intake. 2. Body mass index reduced from 71.0 down to 47.6 3. Status post Dalia-en-Y gastric bypass. 4. Status post massive weight loss of 145 pounds. 5. Weight regain following bariatric procedure. 6. History of hypothyroidism. 7. History of stroke. 8. Epigastric abdominal pain. PLAN: 1. Recommend bariatric panel. 2. Recommend CT of the abdomen and pelvis for history of abdominal pain where diverticulitis cannot be excluded. 3. Recommend upper endoscopy for evaluation of gastric stricture. Objective - Vital Signs Vital signs: Vital Signs Temp 98.2 F 09/14/17 09:06 Pulse 80 09/14/17 09:06 Resp 20 09/14/17 09:06 BP 130/79 09/14/17 09:06 Pulse Ox Intake & Output 09/13/17 09/14/17 09/14/17 18:59 06:59 18:59 Weight 133.719 kg
== END | disposition home or self-care (01) ==
LOC: BARWHC3 08:43
PROVIDERS: ATTEND Surgery Plastic and Reconstructive Surgery
DX: Z09 Encounter for follow-up examination after completed treatment for conditions other than malignant neoplasm (principal); E66.01 Morbid (severe) obesity due to excess calories; R63.4 Abnormal weight loss; E03.9 Hypothyroidism, unspecified; R10.13 Epigastric pain; M19.90 Unspecified osteoarthritis, unspecified site; Z86.14 Personal history of Methicillin resistant Staphylococcus aureus infection; Z90.49 Acquired absence of other specified parts of digestive tract; Z79.82 Long term (current) use of aspirin; Z79.02 Long term (current) use of antithrombotics/antiplatelets; Z79.899 Other long term (current) drug therapy; Z88.0 Allergy status to penicillin; Z68.42 Body mass index [BMI] 45.0-49.9, adult; Z98.890 Other specified postprocedural states; Z98.84 Bariatric surgery status; Z86.73 Personal history of transient ischemic attack (TIA), and cerebral infarction without residual deficits; Z91.040 Latex allergy status; Z83.3 Family history of diabetes mellitus
CPT/HCPCS: 99211

== ENCOUNTER 2017-10-18 08:35 | Day surgery (SDC) | payer OTHER ==
[2017-10-16 11:42] VITALS: BMI 48.7
--- NOTE | 2017-10-18 07:39 | P.GSHP ---
History of Present Illness H&P Date: 10/18/17 CHIEF COMPLAINT: GERD HISTORY OF PRESENT ILLNESS: The patient is a 36-year-old female who presents reports gastroesophageal reflux disease. Upper endoscopy was offered for further evaluation and management. PAST MEDICAL HISTORY: Please see list. PAST SURGICAL HISTORY: Please see list. MEDICATIONS: Please see list. ALLERGIES: Please see list. SOCIAL HISTORY: No illicit drug use FAMILY HISTORY: No reports of Crohn disease or ulcerative colitis. REVIEW OF ORGAN SYSTEMS: CONSTITUTIONAL: No reports of fevers or chills. GI: Denies any blood in stools or constipation. PHYSICAL EXAM: VITAL SIGNS: Stable GENERAL: Well-developed and pleasant in no acute distress. HEENT: No scleral icterus. Extraocular movements grossly intact. Moist buccal mucosa. NECK: Supple without lymphadenopathy. CHEST: Unlabored respirations. Equal bilateral excursions. CARDIOVASCULAR: Regular rate and rhythm. Distal 2+ pulses. ABDOMEN: Soft, nondistended. MUSCULOSKELETAL: No clubbing, cyanosis, or edema. ASSESSMENT: 1. Gastroesophageal reflux disease PLAN: 1. Recommend proceeding with an upper endoscopy Past Medical History Past Medical History: CVA/TIA, GERD/Reflux, Seizure Disorder, Thyroid Disorder Additional Past Medical History / Comment(s): HERNIATED CERVICAL DISC'S C4-C5. PFO CLOSURE 07/2017. RT SIDED NT FROM CVA 2016. OLD HX SEIZURES, NONE SINCE 2005. ABD PAIN LT SIDE 3-6 MONTHS; HX GASTRIC BYPASS 2011. Panniculitis with surgery, DVT in right leg in 2007, VARICOSE VEINS, hypothyroid, recurrent UTIs , R leg numbness/tingling with foot drop, esophageal anastomatic stricture, dysphagia in past, seizure 2005, hiatal hernia, PUD, hypoglycemia intussusception of the bowel, morbid obesity status post Dalia-en-Y. History of Any Multi-Drug Resistant Organisms: MRSA Date of last positivie culture/infection: 01/2008 MDRO Source:: right arm Past Surgical History: Appendectomy, Bariatric Surgery, Section, Cholecystectomy, Orthopedic Surgery, Tonsillectomy, Tubal Ligation Additional Past Surgical History / Comment(s): RECONSTRUCTION RT KNEE, C- SECTION x 3, DALIA-EN-Y(AUG 2012). Panniculectomy 02/10/2014. diagnostic laproscopy with lysis of adhesions, EGD, W/ dilation, FB EXC. Colonoscopy, hiatal hernia repair. C-5 removed May 17, 2017. NAVA; PFO closure in heart 07/11. RECONSTRUCTION DALIA-EN-Y 2016. Past Anesthesia/Blood Transfusion Reactions: No Reported Reaction Smoking Status: Never smoker - Past Family History Father Family Medical History: GERD/Reflux, Hyperlipidemia, Hypertension, Sleep Apnea/ CPAP/BIPAP Additional Family Medical History / Comment(s): arthritis Mother Family Medical History: Asthma, Fibromyalgia, GERD/Reflux, Hyperlipidemia, Hypertension Additional Family Medical History / Comment(s): MS and spinal stenosis, depression Medications and Allergies Home Medications Medication Instructions Recorded Confirmed Type Calcium Carb-Vit D 250Mg-125Un 1 tab PO HS 07/04/16 10/16/17 History [Oscal 250+D] Diazepam [Valium] 5 mg PO HS PRN 07/04/16 10/16/17 History Levothyroxine Sodium [Synthroid] 75 mcg PO HS 07/04/16 10/16/17 History ALPRAZolam [Xanax] 0.5 mg PO HS PRN 08/31/16 10/16/17 History Multivitamins, Thera [Multivitamin] 1 tab PO HS 08/31/16 10/16/17 History Sertraline [Zoloft] 100 mg PO HS 08/31/16 10/16/17 History Omeprazole 40 mg PO DAILY #30 capsule. 09/24/16 10/16/17 Rx Aspirin 81 mg PO DAILY 09/15/17 10/16/17 History Clopidogrel Bisulfate [Plavix] 75 mg PO DAILY 09/15/17 10/16/17 History Ferrous Sulfate [Feosol] 325 mg PO DAILY 10/16/17 10/16/17 History Zonisamide [Zonegran] 100 mg PO HS 10/16/17 10/16/17 History Allergies Allergy/AdvReac Type Severity Reaction Status Date / Time latex Allergy Severe Anaphylaxis Verified 10/16/17 11:20 Penicillins Allergy Unknown Itching Verified 10/16/17 11:20
[2017-10-18 09:11] VITALS: RESP 16; TEMP 97.6
[2017-10-18] MEDS ORDERED: LACTATED RINGERS 1,000 ML IV ONE (09:24)
[2017-10-18] MEDS ORDERED: GLYCOPYRROLATE 0.2 MG/ML 2 ML VIAL ONE (09:25)
[2017-10-18] MEDS ORDERED: PROPOFOL 10 MG/ML 20 ML VIAL IV ONE (09:25)
[2017-10-18] MEDS ORDERED: LIDOCAINE 1% INJ 10MG/ML (20 ML MDV) ONE (09:25)
--- NOTE | 2017-10-18 09:56 | P.PCN ---
Date of Procedure: 10/18/17 Description of Procedure: PREOPERATIVE DIAGNOSIS: Dysphagia. Epigastric abdominal pain. Morbid obesity. POSTOPERATIVE DIAGNOSIS: Dysphagia. Epigastric abdominal pain. Morbid obesity. Gastritis. Gastrojejunal stricture with chronic ulcer without perforation OPERATION: Esophagogastrojejunoscopy with balloon dilatation from 15 to 20 mm. Esophagogastrojejunoscopy with cold biopsy forceps along the gastric pouch. SURGEON: Nallely Bautista MD ANESTHESIA: MAC. INDICATIONS: The patient is a 36-year-old female who presents with a history of dysphagia, epigastric abdominal pain, nausea and vomiting. Benefits and risks of the procedure were described. Informed consent was obtained. DESCRIPTION: The patient was brought into the endoscopy suite and laid in the left lateral decubitus position. After a timeout was confirmed, the procedure was initiated. An Olympus gastroscope was passed along the posterior oropharynx down to the distal esophagus where the squamocolumnar junction was unremarkable. The gastric pouch was entered. A gastrojejunal stricture of 15 mm was found as the adult gastroscope was 9.5 mm in size. A [employer] balloon dilator was placed through the scope. Final insufflation up to 20 mm was performed with a total of 2 minutes. The scope was advanced up to 60 cm from the incisors into the Dalia limb. The mucosa of the gastrojejunal anastomosis was intact. However no chronic gastrojejunal marginal ulcer was encountered. No full-thickness injury was encountered. The GI tract was desufflated. The patient tolerated the procedure well. FINDINGS: Squamocolumnar junction unremarkable at 37 cm. Stricture of approximately 15 mm encountered. No chronic gastrojejunal ulceration encountered. Successful balloon dilatation to 20 mm. RECOMMENDATIONS: Upper endoscopy as needed Plan - Discharge Summary New Discharge Prescriptions: No Action Diazepam [Valium] 5 mg PO HS PRN PRN Reason: Insomnia Levothyroxine Sodium [Synthroid] 75 mcg PO HS Calcium Carb-Vit D 250Mg-125Un [Oscal 250+D] 1 tab PO HS Multivitamins, Thera [Multivitamin] 1 tab PO HS Sertraline [Zoloft] 100 mg PO HS ALPRAZolam [Xanax] 0.5 mg PO HS PRN PRN Reason: Anxiety Omeprazole 40 mg PO DAILY #30 capsule. Clopidogrel Bisulfate [Plavix] 75 mg PO DAILY Aspirin 81 mg PO DAILY Ferrous Sulfate [Feosol] 325 mg PO DAILY Zonisamide [Zonegran] 100 mg PO HS Discharge Medication List Calcium Carb-Vit D 250Mg-125Un [Oscal 250+D] 1 tab PO HS 07/04/16 [History] Diazepam [Valium] 5 mg PO HS PRN 07/04/16 [History] Levothyroxine Sodium [Synthroid] 75 mcg PO HS 07/04/16 [History] ALPRAZolam [Xanax] 0.5 mg PO HS PRN 08/31/16 [History] Multivitamins, Thera [Multivitamin] 1 tab PO HS 08/31/16 [History] Sertraline [Zoloft] 100 mg PO HS 08/31/16 [History] Omeprazole 40 mg PO DAILY #30 capsule. 09/24/16 [Rx] Aspirin 81 mg PO DAILY 09/15/17 [History] Clopidogrel Bisulfate [Plavix] 75 mg PO DAILY 09/15/17 [History] Ferrous Sulfate [Feosol] 325 mg PO DAILY 10/16/17 [History] Zonisamide [Zonegran] 100 mg PO HS 10/16/17 [History]
[2017-10-18 10:24] VITALS: BP 125/85; PULSE 67
== END 2017-10-18 10:37 | disposition home or self-care (01) ==
LOC: ORWHC2ENDO 08:35
PROVIDERS: ATTEND Surgery Plastic and Reconstructive Surgery
DX: K31.89 Other diseases of stomach and duodenum (principal); K29.50 Unspecified chronic gastritis without bleeding; K21.9 Gastro-esophageal reflux disease without esophagitis; E66.01 Morbid (severe) obesity due to excess calories; Z68.42 Body mass index [BMI] 45.0-49.9, adult; Z98.84 Bariatric surgery status; E16.2 Hypoglycemia, unspecified; I69.398 Other sequelae of cerebral infarction; M21.371 Foot drop, right foot; R20.9 Unspecified disturbances of skin sensation; R20.0 Anesthesia of skin; Z86.718 Personal history of other venous thrombosis and embolism; G40.909 Epilepsy, unspecified, not intractable, without status epilepticus; E03.9 Hypothyroidism, unspecified; Z86.14 Personal history of Methicillin resistant Staphylococcus aureus infection; F41.9 Anxiety disorder, unspecified; Z79.02 Long term (current) use of antithrombotics/antiplatelets; Z79.82 Long term (current) use of aspirin; Z79.899 Other long term (current) drug therapy
CPT/HCPCS: 81025; 88305; 43239; 43245; J2001; J2704; C1726; 43249

== ENCOUNTER → 2017-12-13 | Outpatient (CLI) | payer OTHER ==
[2017-12-13 16:01] VITALS: BP 135/79; PULSE 60; TEMP 98.1; BMI 47.5
--- NOTE | 2017-12-31 17:24 | P.PN ---
Subjective Progress Note Date: 12/13/17 DATE OF SERVICE: 12/13/2017 CHIEF COMPLAINT: Follow up gastric bypass HISTORY OF PRESENT ILLNESS: Selin Bowles is a 36-year-old female who has a history of Dalia-en-Y gastric bypass performed in August of 2012. She is over 5 years out. She is very concerned about her weight regain. She was reports left upper quadrant abdominal pain similar to her previous pain years ago. Prior, she had diagnostic laparoscopy with lysis of adhesions and revision of her jejunojejunostomy. Her highest weight was 439 pounds for her 5 feet 6 inch frame. Her body mass index was 71.0. Her lowest weight was 223 pounds. She has gained 50 pounds since her lowest weight. Her body mass index is now up from 36.1 to 47.5. Her maintained weight loss is 146 pounds. She has gained 1 pound in 3 months. Percent excess weight loss of 51%. She has gained 22 pounds in 1.5 years. PAST MEDICAL HISTORY: 1. Super super morbid obesity. 2. Prior body mass index 71.0, initial 3. Panniculitis, resolved. 4. Hypothyroidism. 5. Osteoarthritis. 6. Prior history of depression. 7. History of varicose veins. 8. History of methicillin-resistant Staphylococcus aureus infection. 9. History of stroke. PAST SURGICAL HISTORY: 1. Appendectomy. 2. Dalia-en-Y gastric bypass. 3. . 4. Cholecystectomy. 5. Reconstruction of the right ankle. 6. Tonsillectomy. 7. Panniculectomy of the abdomen. 8. Colonoscopy. 9. Removal of cervical vertebra. MEDICATIONS: 1. Zoloft. 2. Multivitamin. 3. Synthroid. 4. Xanax. 5. Plavix. 6. Aspirin. 7. Omeprazole. 8. Valium. ALLERGIES: 1. LATEX. 2. PENICILLIN. SOCIAL HISTORY: Lifelong nontobacco user. She is with her at bedside. FAMILY HISTORY: Pertinent for morbid obesity including diabetes and dyslipidemia, also hypertension within her family. REVIEW OF SYSTEMS: CONSTITUTIONAL: Her highest weight was 439 pounds for her 5 feet 6 inch frame. Her body mass index was 71.0. Her lowest weight was 223 pounds. She has gained 50 pounds since her lowest weight. Her body mass index is now up from 36.1 to 47.5. Her maintained weight loss is 146 pounds. She has gained 1 pound in 3 months. Percent excess weight loss of 51%. She has gained 22 pounds in 1.5 years. GASTROINTESTINAL: No reports of dumping syndrome. Esophageal reflux disease resolved. ENDOCRINE: Hypothyroidism. No reports of diabetes. MUSCULOSKELETAL: Osteoarthritis of right ankle, resolved. GENITOURINARY: History of pelvic pain, resolved. No kidney stones. HEENT: Denies any troubles with vision or hearing. CARDIOVASCULAR: No report of chest pain or heart attack. Prior history of DVT from the orthopedic procedures. RESPIRATORY: Prior history of dyspnea on exertion, resolved. No reports of sleep apnea. NEURO: No reports of stroke or seizure disorders. PSYCH: History of depression. No reports of anxiety or suicidal ideation. PHYSICAL EXAM: 0VITAL SIGNS: 5 feet 6 inches, 293 pounds. Body mass index 47.5 Vital Signs Temp 98.1 F 12/13/17 15:58 Pulse 60 12/13/17 15:58 Resp BP 135/79 12/13/17 15:58 Pulse Ox GENERAL: Well-developed female in no acute distress. ABDOMEN: Actually soft, nontender, nondistended. HEENT: No scleral icterus. Extraocular movements grossly intact. No troubles with hearing. NECK: Supple with no lymphadenopathy. CHEST: Nonlabored respirations with equal bilateral excursion. MUSCULOSKELETAL: No clubbing, cyanosis or edema. NEURO: No focal or lateralizing signs. Cranial nerves 2 through 12 grossly within normal limits. PSYCH: Appropriate Affect. Alert and oriented to person, place and time. SKIN: Well perfused. Good skin turgor. ASSESSMENT: 1. Morbid obesity due to excess caloric intake. 2. Body mass index reduced from 71.0 down to 47.5 3. Status post Dalia-en-Y gastric bypass. 4. Status post massive weight loss of 145 pounds. 5. Weight regain following bariatric procedure. 6. History of hypothyroidism. 7. History of stroke. 8. Epigastric abdominal pain. PLAN: 1. Recommend thyroid panel. 2. Recommend diagnostic laparoscopy for further evaluation and management. 3. Follow-up in January 2018. 4. Recommend food diary journal. Objective - Vital Signs Vital signs: Vital Signs Temp 98.1 F 12/13/17 15:58 Pulse 60 12/13/17 15:58 Resp BP 135/79 12/13/17 15:58 Pulse Ox Intake & Output 12/12/17 12/13/17 12/13/17 18:59 06:59 18:59 Weight 133.402 kg
== END | disposition home or self-care (01) ==
LOC: BARWHC3 15:18
PROVIDERS: ATTEND Surgery Plastic and Reconstructive Surgery
DX: Z09 Encounter for follow-up examination after completed treatment for conditions other than malignant neoplasm (principal); E66.01 Morbid (severe) obesity due to excess calories; R63.4 Abnormal weight loss; R10.13 Epigastric pain; Z86.69 Personal history of other diseases of the nervous system and sense organs; Z86.39 Personal history of other endocrine, nutritional and metabolic disease; Z98.84 Bariatric surgery status; Z68.42 Body mass index [BMI] 45.0-49.9, adult; Z88.0 Allergy status to penicillin; Z91.040 Latex allergy status; Z79.899 Other long term (current) drug therapy; Z79.82 Long term (current) use of aspirin
CPT/HCPCS: 99211

== ENCOUNTER → 2018-02-23 | Outpatient (CLI) | payer OTHER | END | disposition home or self-care (01) | LOC: LABPAT 11:07 | PROVIDERS: ATTEND Surgery Plastic and Reconstructive Surgery | DX: K46.0 Unspecified abdominal hernia with obstruction, without gangrene (principal) | CPT/HCPCS: 36415; 86850; 86900; 86901 ==

== ENCOUNTER 2018-03-02 09:19 | Day surgery (SDC) | payer OTHER ==
[2018-02-20 14:12] VITALS: BMI 46.7
--- NOTE | 2018-03-02 07:37 | P.GSHP ---
History of Present Illness H&P Date: 03/02/18 CHIEF COMPLAINT: History of intra-abdominal adhesions HISTORY OF PRESENT ILLNESS: The patient is a 37-year-old female who presents with history of intra-abdominal adhesions from multiple prior surgeries including increasing abdominal pain. She now presents for diagnostic laparoscopy including lysis of adhesions. PAST MEDICAL HISTORY: Please see list. PAST SURGICAL HISTORY: Please see list. MEDICATIONS: Please see list. ALLERGIES: Please see list. SOCIAL HISTORY: No illicit drug use FAMILY HISTORY: No reports of Crohn disease or ulcerative colitis. REVIEW OF ORGAN SYSTEMS: CONSTITUTIONAL: No reports of fevers or chills. GI: Denies any blood in stools or constipation. PHYSICAL EXAM: VITAL SIGNS: Stable GENERAL: Well-developed pleasant and in no acute distress. HEENT: No scleral icterus. Extraocular movements grossly intact. Moist buccal mucosa. NECK: Supple without lymphadenopathy. CHEST: Unlabored respirations. Equal bilateral excursions. CARDIOVASCULAR: Regular rate and rhythm. Distal 2+ pulses. ABDOMEN: Soft, diffuse abdominal tenderness. No peritonitis. MUSCULOSKELETAL: No clubbing, cyanosis, or edema. ASSESSMENT: 1. Diffuse abdominal pain. 2. History of multiple abdominal surgeries. 3. Intra-abdominal adhesions. PLAN: 1. Diagnostic laparoscopy with robotic lysis of adhesions were described in detail including risk of injury to the intestine, need for further surgery, and open technique. 2. DVT prophylaxis. 3. Antibiotic prophylaxis. Past Medical History Past Medical History: CVA/TIA, Deep Vein Thrombosis (DVT), GERD/Reflux, Neurologic Disorder, Seizure Disorder, Thyroid Disorder Additional Past Medical History / Comment(s): HERNIATED CERVICAL DISC'S C4-C5. PFO CLOSURE 07/2017. RT SIDED NT FROM CVA 2016. OLD HX SEIZURES, NONE SINCE 2005. ABD PAIN LT SIDE 3-6 MONTHS; HX GASTRIC BYPASS 2011, Migraines, DVT 2007 , easy bruises, hx intussusception,neck pain. Panniculitis with surgery, DVT in right leg in 2007, VARICOSE VEINS, hypothyroid, recurrent UTIs, R leg numbness/tingling with foot drop, esophageal anastomatic stricture, dysphagia in past, seizure 2005, hiatal hernia, PUD, hypoglycemia intussusception of the bowel, morbid obesity status post Dalia-en-Y. History of Any Multi-Drug Resistant Organisms: MRSA Date of last positivie culture/infection: 01/2008 MDRO Source:: right arm Past Surgical History: Adenoidectomy, Appendectomy, Bariatric Surgery, Section, Cholecystectomy, Orthopedic Surgery, Tonsillectomy, Tubal Ligation Additional Past Surgical History / Comment(s): RECONSTRUCTION RT KNEE, C- SECTION x 3, DALIA-EN-Y(AUG 2012). Panniculectomy 02/10/2014. diagnostic laproscopy with lysis of adhesions, EGD, W/ dilation, FB EXC. Colonoscopy, hiatal hernia repair. C-5 removed May 17, 2017. NAVA; PFO closure in heart 07/11. RECONSTRUCTION DALIA-EN-Y 2017. Past Anesthesia/Blood Transfusion Reactions: No Reported Reaction Past Psychological History: Depression Additional Psychological History / Comment(s): Hx POST DEPRESSION. Smoking Status: Never smoker Past Alcohol Use History: Rare Additional Past Alcohol Use History / Comment(s): Patient is a lifelong nonsmoker. She denies any medical marijuana, marijuana, street drug. She drinks alcohol on a rare basis. She lives at home with her and 3 children that are 8, 10, 12 years of age. There are 2 dogs in the home. 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 Past Drug Use History: None Reported - Past Family History Father Family Medical History: GERD/Reflux, Hyperlipidemia, Hypertension, Sleep Apnea/ CPAP/BIPAP Additional Family Medical History / Comment(s): arthritis Mother Family Medical History: Asthma, Fibromyalgia, GERD/Reflux, Hyperlipidemia, Hypertension Additional Family Medical History / Comment(s): MS and spinal stenosis, depression Medications and Allergies Home Medications Medication Instructions Recorded Confirmed Type Calcium Carb-Vit D 250Mg-125Un 1 tab PO HS 07/04/16 02/20/18 History [Oscal 250+D] Levothyroxine Sodium [Synthroid] 75 mcg PO DAILY 07/04/16 02/20/18 History Multivitamins, Thera [Multivitamin] 1 tab PO HS 08/31/16 02/20/18 History Aspirin 81 mg PO DAILY 09/15/17 02/20/18 History Zonisamide [Zonegran] 100 mg PO HS 10/16/17 02/20/18 History tiZANidine HCL [Zanaflex] 4 mg PO BID 12/13/17 02/20/18 History HYDROcodone/APAP 7.5-325MG [[place] 1 tab PO BID 02/20/18 02/20/18 History 7.5-325] Omeprazole 40 mg PO HS 02/20/18 02/20/18 History Allergies Allergy/AdvReac Type Severity Reaction Status Date / Time latex Allergy Severe Anaphylaxis Verified 02/20/18 13:55 Penicillins Allergy Unknown Itching Verified 02/20/18 13:55
[~2018-03-02 09:19] MED LIST: ACETAMINOPHEN IV (For NPO) 1,000 MG in EMPTY BAG 1 BAG IVPB ONE; DEXAMETHASONE SOD PHOSPHATE 10 MG/ML 1 ML VIAL IV ONE; ENOXAPARIN 40 MG/0.4 ML SYRINGE SQ STA; LACTATED RINGERS 1,000 ML IV SCH; ONDANSETRON 4 MG/2 ML VIAL IVP ONE; Pre Op ABX Message 1 EACH MISC MISCELLANE ONE; ceFAZolin IN SWFI 2 GM/20 ML SYRINGE IVP STA
[2018-03-02] MEDS ORDERED: CLINDAMYCIN 600 MG in DEXTROSE 5% IN WATER 50 ML IVPB STA ×2 (11:04)
[2018-03-02] MEDS ORDERED: GENTAMICIN 300 MG in SODIUM CHLORIDE 0.9% 100 ML IVPB ONE (11:15)
[2018-03-02] MEDS ORDERED: LIDOCAINE 1% 20 ML VIAL (10MG/ML) FOR IV START INTRADERMA ONE (11:35)
[2018-03-02 11:46] LABS: Basophils # (A) 0.1 k/uL (0-0.2); Basophils % (A) 1 %; Eosinophils # (A) 0.1 k/uL (0-0.7); Eosinophils % (A) 3 %; HCT 39.2 % (34.0-46.0); HGB 13.5 gm/dL (11.4-16.0); Lymphocytes # (A) 1.4 k/uL (1.0-4.8); Lymphocytes % (A) 32 %; MCH 32.7 pg (25.0-35.0); MCHC 34.5 g/dL (31.0-37.0); MCV 94.7 fL (80.0-100.0); Mean Platelet Volume 7.1; Monocytes # (A) 0.3 k/uL (0-1.0); Monocytes % (A) 6 %; Neutrophils # (A) 2.5 k/uL (1.3-7.7); Neutrophils % (A) 57 %; Platelet Count 242 k/uL (150-450); RBC 4.14 m/uL (3.80-5.40); RDW 12.6 % (11.5-15.5); WBC 4.4 k/uL (3.8-10.6)
[2018-03-02 11:56] LABS: Potassium 4.2 mmol/L (3.5-5.1)
[2018-03-02] MEDS ORDERED: MIDAZOLAM 2 MG/2 ML VIAL ONE (13:44)
[2018-03-02] MEDS ORDERED: NEOSTIGMINE 1 MG/ML 10 ML VIAL ONE (13:44)
[2018-03-02] MEDS ORDERED: ROCURONIUM BROMIDE 10 MG/ML 10 ML VIAL IV ONE (13:44)
[2018-03-02] MEDS ORDERED: fentaNYL (PF) 50 MCG/ML 2 ML AMP ONE (13:44)
[2018-03-02] MEDS ORDERED: PROPOFOL 10 MG/ML 20 ML VIAL IV ONE (13:44)
[2018-03-02] MEDS ORDERED: SUCCINYLCHOLINE CHLORIDE 100 MG/5 ML SYR IV ONE (13:44)
[2018-03-02] MEDS ORDERED: GLYCOPYRROLATE 0.2 MG/ML 2 ML VIAL ONE (13:44)
[2018-03-02] MEDS ORDERED: LIDOCAINE 1% INJ 10MG/ML (20 ML MDV) ONE (13:44)
[2018-03-02] MEDS ORDERED: BUPIVACAINE (PF) 0.5% 30 ML VIAL SQ ONE (14:18)
--- NOTE | 2018-03-02 15:11 | P.PCN ---
Date of Procedure: 03/02/18 Preoperative Diagnosis: Left upper quadrant abdominal pain, history of peritoneal adhesions, history of gastric bypass Postoperative Diagnosis: Same, internal hernia left upper quadrant, intermittent small bowel obstruction due to internal hernia Procedure(s) Performed: Robotics assisted lysis of adhesions, reduction and closure of internal hernia left upper quadrant mid to distal jejunal mesenteric defect Anesthesia: GETA, local Surgeon: Nallely Bautista Estimated Blood Loss (ml): 5 Pathology: none sent Condition: stable Disposition: same day Operative Findings: 1. Active partial small bowel obstruction from internal hernia and mesenteric defect along the jejunum. 2. Internal hernia reduced with closure of mesenteric defect consistent with left upper quadrant abdominal pain 3. Rest of small bowel investigated including gastrojejunostomy Dalia limb and common channel without additional volvulus identified
[2018-03-02 15:22] VITALS: RESP 18; TEMP 98.5
[2018-03-02] MEDS: HYDROmorphone 0.5 MG/0.5 ML SYRINGE IVP PRN ×3 (15:24→15:45)
[2018-03-02] MEDS: HYDROmorphone 1 MG/ML 1 ML SYRINGE IVP ONE ×2 (15:45→15:51)
[2018-03-02] MEDS ORDERED: fentaNYL (PF) 50 MCG/ML 2 ML AMP IV ONE (16:14)
[2018-03-02 16:49] VITALS: BP 119/76; PULSE 64
--- NOTE | 2018-03-05 18:12 | P.OP ---
Date of Procedure: 03/02/18 Description of Procedure: Date of Procedure: 03/02/18 SURGEON: CARLITA BAUTISTA MD PREOPERATIVE DIAGNOSES: 1. Left upper abdominal pain 2. History of peritoneal adhesions 3. Status post gastric bypass. 4. Status post massive weight loss, over 150+ pounds 5. Morbid obesity due to excess calories 6. Body mass index reduced from 73.1 down to 46.8 7. Hypothyroidism 8. Depressive disorder 9. Chronic pain syndrome POSTOPERATIVE DIAGNOSES: 1. Left upper abdominal pain 2. History of peritoneal adhesions 3. Status post gastric bypass. 4. Status post massive weight loss, over 150+ pounds 5. Morbid obesity due to excess calories 6. Body mass index reduced from 73.1 down to 46.8 7. Hypothyroidism 8. Depressive disorder 9. Chronic pain syndrome 10. Internal hernia, left upper quadrant 11. Intermittent small bowel obstruction due to internal hernia OPERATION: 1. Robotic-assisted laparoscopic lysis of adhesions with reduction and closure of internal hernia left upper quadrant mid to distal jejunal mesenteric defect Anesthesia: LILIBETHA, local Surgeon: Carlita Bautista Estimated Blood Loss (ml): 5 Pathology: none sent Condition: stable Disposition: same day COMPLICATIONS: None. Operative Findings: 1. Active partial small bowel obstruction from internal hernia and mesenteric defect along the jejunal mesenteric defect. 2. Internal hernia reduced with closure of mesenteric defect consistent with left upper quadrant abdominal pain 3. Rest of small bowel investigated including gastrojejunostomy Dalia limb and common channel without additional volvulus identified INDICATIONS: The patient is a 37-year-old female who presents over 6+ year out from a gastric bypass. She reports developing primarily left upper quadrant abdominal pain including new small bowel obstruction. She has a personal history of peritoneal adhesions. As her symptoms have progressed, diagnostic laparoscopy with lysis of adhesions was described. Robotic-assisted approach was described. Benefits and risks, including possibility of open technique were described at length. Informed consent was obtained. DESCRIPTION OF PROCEDURE: The patient was brought into the operating room and laid in supine position. After general induction, the abdomen had been prepped and draped in standard sterile fashion. Ioban draping was also placed. Prior to incision, a timeout protocol was confirmed with surgical team regarding the patient's name including procedures to be performed. The robot was primed prior to the procedure. A field block using local anestheti was placed along the proposed port sites. Initial incision was made with an #11 blade along the left upper quadrant. A 0 degree 5 mm laparoscopic trocar entry was performed. The abdomen was insufflated to 15 mmHg pressure she tolerated well. Diagnostic laparoscopy demonstrated redundant sigmoid colon. The liver was unremarkable. No inguinal hernias were identified. A 8 mm trocar was placed along the right lateral abdominal wall approximately 12 cm lateral to the lower midline. An 8 mm port was placed along the right lower quadrant under direct localization. A 8 mm robotic port was positioned along the right upper quadrant. Placements of the ports were 20 cm from the target anatomy and approximately 10 cm apart. The da Clementina XI robot was previously primed, prepped and draped. I then sat at the robot Da Clementina XI console where working arms of the robot including Bovie cautery connected to robotic scissors, graspers and vessel sealer by the assistant prosecuting attorney. In anterograde fashion, the gastric pouch including Dalia limb was investigated towards the jejunojejunostomy. No Morrow's defect was identified. Small bowel was found emanating from internal hernia of the jejunojejunostomy mesenteric defect. The jejunojejunostomy mesenteric defect was found and closed using 3-0 silk. The small bowel was re-investigated in a retrograde fashion as well as the antegrade fashion to confirm closure of all internal hernias including reduction of any small bowel volvulus. Adhesions by the Dalia limb was lysed using vessel sealer. Final inspection of the abdomen demonstrated adequate hemostasis including no enterotomies. All instruments and pneumoperitoneum were evacuated from the abdominal cavity. The da Clementina XI robot was undocked from the patient. I re-scrubbed into the case for closure of incisions. The incisions were reapproximated using 4-0 Monocryl in an interrupted subcuticular fashion. Liquid glue was applied to the skin. At the end of the procedure, needle, sponge, and instrument count had been verified correct by trim technician. The patient was taken to the postanesthesia care unit in stable condition.
== END 2018-03-02 17:18 | disposition home or self-care (01) ==
LOC: OR 09:19
PROVIDERS: ATTEND Surgery Plastic and Reconstructive Surgery
DX: K46.0 Unspecified abdominal hernia with obstruction, without gangrene (principal); K66.0 Peritoneal adhesions (postprocedural) (postinfection); K21.9 Gastro-esophageal reflux disease without esophagitis; Z98.84 Bariatric surgery status; E66.01 Morbid (severe) obesity due to excess calories; Z68.42 Body mass index [BMI] 45.0-49.9, adult; R63.4 Abnormal weight loss; E03.9 Hypothyroidism, unspecified; F32.9 Major depressive disorder, single episode, unspecified; G89.4 Chronic pain syndrome; M21.371 Foot drop, right foot; I69.898 Other sequelae of other cerebrovascular disease; Z86.718 Personal history of other venous thrombosis and embolism; Z79.82 Long term (current) use of aspirin; Z79.890 Hormone replacement therapy; Z79.891 Long term (current) use of opiate analgesic; Z79.899 Other long term (current) drug therapy; Z88.0 Allergy status to penicillin; Z91.040 Latex allergy status
CPT/HCPCS: 44238; S2900; 36415; 80051; 85025; 86850; 86900; 86901

== ENCOUNTER → 2022-01-19 | Outpatient (CLI) | payer OTHER ==
[2022-01-19 16:26] VITALS: BP 128/85; PULSE 64; TEMP 98.2; BMI 41.8
--- NOTE | 2022-01-19 16:52 | P.HPBAR ---
Bariatric H&P - History & Physicial H&P Date: 01/19/22 History & Physicial: Visit/CC: abdominal pain Patient initial contact: Initial weight: 187.787 kg Initial weight in pounds: 414.00 Height: 5 ft 6 in Initial BMI: 66.8 Last weight: Current weight: 117.48 kg Current weight in pounds: 259.00 Current BMI: 41.8 [place] body weight (based on NIH guidelines): 58.967 kg Excess body weight loss: 54.5% The patient is a 41 year-old F who presents for Bariatric Assessment. She comes in with weight loss of 40 pounds in 4 years. She reports pain along the left upper quadrant. Pain is worse with eating. She ate oatmeal and had problems with eating including mash potatoes and jello. Her pain is severe. May be an internal hernia. Recommend admission for possible bowel obstruction. Needs labs. Pain is going on for 1 year. Past Medical History Past Medical History: CVA/TIA, Deep Vein Thrombosis (DVT), GERD/Reflux, Neurologic Disorder, Seizure Disorder, Thyroid Disorder Additional Past Medical History / Comment(s): HERNIATED CERVICAL DISC'S C4-C5. PFO CLOSURE 07/2017. RT SIDED NT FROM CVA 2016. OLD HX SEIZURES, NONE SINCE 2005. ABD PAIN LT SIDE 3-6 MONTHS; HX GASTRIC BYPASS 2011, Migraines, DVT 2007, easy bruises, hx intussusception,neck pain. Panniculitis with surgery, DVT in right leg in 2007, VARICOSE VEINS, hypothyroid, recurrent UTIs, R leg numbness/tingling with foot drop, esophageal anastomatic stricture, dysphagia in past, seizure 2005, hiatal hernia, PUD, hypoglycemia intussusception of the bowel, morbid obesity status post Dalia-en-Y. History of Any Multi-Drug Resistant Organisms: MRSA Year Discovered:: 01/2008 MDRO Source:: right arm Past Surgical History: Adenoidectomy, Appendectomy, Bariatric Surgery, Section, Cholecystectomy, Orthopedic Surgery, Tonsillectomy, Tubal Ligation Additional Past Surgical History / Comment(s): RECONSTRUCTION RT KNEE, x 3, DALIA-EN-Y(AUG 2012). Panniculectomy 02/10/2014. diagnostic laproscopy with lysis of adhesions, EGD, W/ dilation, FB EXC. Colonoscopy, hiatal hernia repair. C-5 removed May 17, 2017. NAVA; PFO closure in heart 07/11/17. RECONSTRUCTION DALIA-EN-Y 2017. Past Anesthesia/Blood Transfusion Reactions: No Reported Reaction Past Psychological History: Depression Additional Psychological History / Comment(s): Hx POST DEPRESSION. Smoking Status: Never smoker Past Alcohol Use History: Rare Additional Past Alcohol Use History / Comment(s): Patient is a lifelong nonsmoker. She denies any medical marijuana, marijuana, street drug. She drinks alcohol on a rare basis. She lives at home with her and 3 children that are 8, 10, 12 years of age. There are 2 dogs in the home. 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 Past Drug Use History: None Reported - Past Family History Father Family Medical History: GERD/Reflux, Hyperlipidemia, Hypertension, Sleep Apnea/CPAP/BIPAP Additional Family Medical History / Comment(s): arthritis Mother Family Medical History: Asthma, Fibromyalgia, GERD/Reflux, Hyperlipidemia, Hypertension Additional Family Medical History / Comment(s): MS and spinal stenosis, depression Surgical - Exam Vital Signs Temp Pulse BP 98.2 F 64 128/85 01/19/22 16:17 01/19/22 16:17 01/19/22 16:17 Bariatric Checklist Checklist: Plan: Checklist: EGD: 1. Hiatal hernia: 2. H. Pylori: HgbA1c: Vitamin D: Smoking: Never smoker Primary care physician referral: Ashley THAPA in [facility] Psychiatry clearance: Cardiology clearance: Sleep study: Diet journal: VTE risk score: VTE risk level: Rehab needs at discharge:
== END | disposition home or self-care (01) ==
LOC: BARWHC3 15:04
PROVIDERS: ATTEND Surgery Plastic and Reconstructive Surgery
DX: R10.32 Left lower quadrant pain (principal)
CPT/HCPCS: 99211

== ENCOUNTER → 2022-01-21 | Outpatient (CLI) | payer OTHER ==
[2022-01-21 17:21] LABS: INR 0.9 (<1.2); Prothrombin Time 10.2 sec (9.0-12.0)
[2022-01-21 17:22] LABS: Partial Thromboplastin Time 22.7 sec (22.0-30.0)
[2022-01-21 23:11] LABS: HCT 36.5 % (37.2-46.3); HGB 11.3 g/dL (12.0-15.0); MCH 27.6 pg (27.0-32.0); Mean Platelet Volume 10.3 fL (9.5-12.2); NRBC Per 100 WBC 0 /100 WBCS (0.0-0.0); Platelet Count 312 X 10*3/uL (140-440); RDW 13.4 % (11.5-14.5); WBC 5.97 X 10*3/uL (4.50-10.00)
[2022-01-21 23:13] LABS: Magnesium 2.3 mg/dL (1.5-2.4)
[2022-01-21 23:14] LABS: ALT 19 U/L (8-44); AST 22 U/L (13-35); African American GFR (CKD) 127.5 (60.0-200.0); Albumin 4.3 g/dL (3.8-4.9); Albumin/Globulin Ratio 1.83 (1.60-3.17); Alkaline Phosphatase 70 U/L (41-126); BUN/Creat Ratio 16.84 Ratio (12.00-20.00); Blood Urea Nitrogen 11.5 mg/dL (9.0-27.0); Calcium 9.4 mg/dL (8.7-10.3); Carbon Dioxide 26.6 mmol/L (20.0-27.5); Chloride 106 mmol/L (96-109); Ferritin 8.8 ng/mL (10.0-291.0); Globulin 2.4 g/dL (1.6-3.3); Glucose 89 mg/dL (70-110); Iron 27 ug/dL (50-170); Phosphorus 3.6 mg/dL (2.4-5.1); Potassium 4.4 mmol/L (3.5-5.5); Sodium 143 mmol/L (135-145); Total Iron Binding Capacity 449 ug/dL (228-460); Total Protein 6.7 g/dL (6.2-8.2)
[2022-01-21 23:25] LABS: Chol/HDL Ratio 2.59 Ratio; LDL Cholesterol,Calculated 79.4 mg/dL (0.0-131.0); Prealbumin 19.7 mg/dL (18.0-42.0); VLDL Calculation 10.94 mg/dL (5.00-40.00)
[2022-01-24 08:56] LABS: Vit B1(Thiamine) 77 ug/L (38-122)
== END | disposition home or self-care (01) ==
LOC: LABWHC1 16:23
PROVIDERS: ATTEND Surgery Plastic and Reconstructive Surgery
DX: E66.01 Morbid (severe) obesity due to excess calories (principal)
CPT/HCPCS: 36415; 80053; 80061; 82306; 82525; 82607; 82728; 82746; 83036; 83540; 83550; 83735; 83970; 84100; 84134; 84255; 84425; 84443; 84590; 84630; 85027; 85610; 85730; 93005

== ENCOUNTER 2022-01-27 18:54 | Day surgery (SDC) | payer OTHER ==
[2022-01-26 13:38] VITALS: BMI 41.9
--- NOTE | 2022-01-27 08:03 | P.GSHP ---
History of Present Illness H&P Date: 01/27/22 CHIEF COMPLAINT: History of intra-abdominal adhesions HISTORY OF PRESENT ILLNESS: The patient is a 41-year-old female who presents with history of intra-abdominal adhesions from multiple prior surgeries including increasing abdominal pain. She now presents for diagnostic laparoscopy including lysis of adhesions. PAST MEDICAL HISTORY: Please see list. PAST SURGICAL HISTORY: Please see list. MEDICATIONS: Please see list. ALLERGIES: Please see list. SOCIAL HISTORY: No illicit drug use FAMILY HISTORY: No reports of Crohn disease or ulcerative colitis. REVIEW OF ORGAN SYSTEMS: CONSTITUTIONAL: No reports of fevers or chills. GI: Denies any blood in stools or constipation. PHYSICAL EXAM: VITAL SIGNS: Stable GENERAL: Well-developed pleasant and in no acute distress. HEENT: No scleral icterus. Extraocular movements grossly intact. Moist buccal mucosa. NECK: Supple without lymphadenopathy. CHEST: Unlabored respirations. Equal bilateral excursions. CARDIOVASCULAR: Regular rate and rhythm. Distal 2+ pulses. ABDOMEN: Soft, diffuse abdominal tenderness. No peritonitis. MUSCULOSKELETAL: No clubbing, cyanosis, or edema. ASSESSMENT: 1. Diffuse abdominal pain. 2. History of multiple abdominal surgeries. 3. Intra-abdominal adhesions. PLAN: 1. Robotic lysis of adhesions were described in detail including risk of injury to the intestine, need for further surgery, and open technique. 2. DVT prophylaxis. 3. Antibiotic prophylaxis. Past Medical History Past Medical History: CVA/TIA, Deep Vein Thrombosis (DVT), GERD/Reflux, Neurologic Disorder, Seizure Disorder, Thyroid Disorder Additional Past Medical History / Comment(s): HERNIATED CERVICAL DISC'S C4-C5. RT leg SIDED NT FROM CVA 2016. HX SEIZURES- NONE SINCE 2005. ABD PAIN LT SIDE 3-6 MONTHS; Migraines, DVT 2007, easy bruises, hx intussusception,neck pain, fx vertebra. Panniculitis with surgery, DVT in right leg in 2007, VARICOSE VEINS, hypothyroid, recurrent UTIs, R leg numbness/tingling with foot drop, esophageal anastomatic stricture, dysphagia in past, seizure 2005, hiatal hernia, PUD, hypoglycemia intussusception of the bowel, morbid obesity status post Dalia-en-Y. History of Any Multi-Drug Resistant Organisms: MRSA Date of last positivie culture/infection: 01/2008 MDRO Source:: right arm Past Surgical History: Adenoidectomy, Appendectomy, Bariatric Surgery, Section, Cholecystectomy, Orthopedic Surgery, Tonsillectomy, Tubal Ligation Additional Past Surgical History / Comment(s): RECONSTRUCTION RT KNEE, x 3, DALIA-EN-Y(AUG 2012). Panniculectomy , diagnostic laproscopy with lysis of adhesions, EGD, W/ dilation, . Colonoscopy, hiatal hernia repair. C-5 removed May 17, 2017. NAVA; PFO closure with disk in heart 07/11/17. RECONSTRUCTION DALIA-EN-Y 2016. Past Anesthesia/Blood Transfusion Reactions: No Reported Reaction Smoking Status: Never smoker - Past Family History Father Family Medical History: GERD/Reflux, Hyperlipidemia, Hypertension, Sleep Apnea/CPAP/BIPAP Additional Family Medical History / Comment(s): arthritis Mother Family Medical History: Cancer Additional Family Medical History / Comment(s): . Medications and Allergies Home Medications Medication Instructions Recorded Confirmed Type Levothyroxine Sodium [Synthroid] 100 mcg PO DAILY 07/04/16 01/26/22 History tiZANidine HCL [Zanaflex] 4 mg PO BID PRN 12/13/17 01/26/22 History HYDROcodone/APAP 7.5-325MG [[place] 1 tab PO TID 01/19/22 01/26/22 History 7.5-325] Terbinafine [LamISIL] 250 mg PO HS 01/19/22 01/26/22 History Allergies Allergy/AdvReac Type Severity Reaction Status Date / Time latex Allergy Severe Anaphylaxis Verified 01/26/22 13:27 Penicillins Allergy Severe Swelling Verified 01/26/22 13:27
[2022-01-27 17:42] VITALS: RESP 16; TEMP 96.9
--- NOTE | 2022-01-27 17:58 | P.OP ---
Date of Procedure: 01/27/22 Description of Procedure: SURGEON: CARLITA MATIAS MD PREOPERATIVE DIAGNOSES: 1. Left upper quadrant abdominal pain 2. History of intra-abdominal adhesions 3. History of gastric bypass 4. Morbid obesity due to excess calories, BMI 42.0 POSTOPERATIVE DIAGNOSES: 1. Left upper quadrant abdominal pain 2. History of intra-abdominal adhesions 3. History of gastric bypass 4. Morbid obesity due to excess calories, BMI 42.0 OPERATION: 1. Robotic-assisted da Clementina Xi laparoscopic lysis of adhesions ESTIMATED BLOOD LOSS: 5 mL. SPECIMENS REMOVED: None. COMPLICATIONS: None. OPERATIVE FINDINGS: 1. No ventral hernias identified. 2. Reconstruction of gastric bypass with Dalia-en-Y limb 100 cm Dalia limb to common channel 3. Biliopancreatic limb to common channel proximal to insertion of dalia limb 4. Abnormal adhesion at biliopancreatic limb to jejunum reconstruction lysed 5. Closure of mesenteric defect at jejunojejunostomy 6. Redundant sigmoid colon with moderate distention with risk of sigmoid volvulus INDICATIONS: The patient is a 41-year-old female who presents with abdominal distention, intermittent, severe generalized abdominal pain and history of multiple abdominal surgeries and adhesions. Surgical intervention with diagnostic laparoscopy, lysis of adhesions including small bowel resection were described. Informed consent was obtained. Robotic assisted laparoscopic approach was described. Benefits and risks of the procedure including but not limited to bleeding, infection, injury to the small bowel was described. Informed consent was obtained. DESCRIPTION OF PROCEDURE: Patient was brought to the operating room, placed in supine position. After general induction, the abdomen had been prepped and draped in standard sterile fashion. The robotic da Clementina XI system was primed. After a timeout protocol was performed, the patient had been prepped and draped in standard sterile fashion. The robot was docked along the right lateral abdomen. The patient was repositioned in with right side up. Please note prior to docking of the robot; however, a 5 mm 0 degrees laparoscopic trocar entry was performed along the left upper quadrant. The abdomen was insufflated to 15 mmHg pressure which she tolerated well. Diagnostic laparoscopy was performed. Next, three 8 mm robotic ports were placed along the right lateral abdominal wall. The camera 8-mm port was maintained along mid-lateral abdomen. Please note that the ports were placed at least 10 to 15 cm away from the target anatomy. Instruments including graspers and vessel sealer were interchanged by the assistant property manager. I had sat at the console. No evidence of incisional hernia was identified. The small bowel from the dalia limb to distal ileum was inspected. The small bowel was investigated from the terminal ileum to the ligament of Treitz with finding of abnormal adhesions of the reconstructed biliopancreatic limb to common channel just proximal to the Dalia limb. The dalia length was 100 cm. The adhesion was lysed. Intermesenteric defect of the biliopancreatic limb and common channel was identified for internal hernia and closed using 2-0 VLOC. The jejunojejunal mesenteric defect was closed completely to prevent bowel obstruction. The rest of the small bowel was unremarkable. Moderately distended and redundant sigmoid colon was identified with clinical risk of sigmoid volvulus. All pneumoperitoneum instruments were evacuated from the abdominal cavity. The incisions were reapproximated using 4-0 Monocryl in an interrupted subcuticular fashion. Please note along the trocar sites, local anesthetic was placed as a field block prior to insertion of all instruments. Exofin was applied to the skin. At the end of the procedure needle, sponge, and instrument count had been verified correct by the surgical tech. The patient was transferred to pos tanesthesia care unit in stable condition. Plan - Discharge Summary Discharge Rx Participant: Yes New Discharge Prescriptions: New Simethicone [Gas-X] 125 mg PO AC-TID PRN #20 capsule PRN Reason: Pain Acetaminophen Tab [Tylenol Tab] 1,000 mg PO Q6HR PRN #30 tablet PRN Reason: Pain Levothyroxine Sodium 125 mcg PO DAILY #30 tablet Continue tiZANidine HCL [Zanaflex] 4 mg PO BID PRN PRN Reason: Pain HYDROcodone/APAP 7.5-325MG [Poth 7.5-325] 1 tab PO TID Terbinafine [LamISIL] 250 mg PO HS Discontinued Levothyroxine Sodium [Synthroid] 100 mcg PO DAILY Discharge Medication List tiZANidine HCL [Zanaflex] 4 mg PO BID PRN 12/13/17 [History] HYDROcodone/APAP 7.5-325MG [Poth 7.5-325] 1 tab PO TID 01/19/22 [History] Terbinafine [LamISIL] 250 mg PO HS 01/19/22 [History] Acetaminophen Tab [Tylenol Tab] 1,000 mg PO Q6HR PRN #30 tablet 01/27/22 [Rx] Levothyroxine Sodium 125 mcg PO DAILY #30 tablet 01/27/22 [Rx] Simethicone [Gas-X] 125 mg PO AC-TID PRN #20 capsule 01/27/22 [Rx] [facility]Ref[facility] [place] [facility] [place] [facility] Patient Instructions/Handouts: Lysis of Abdominal Adhesions (DC), *Surgery [facility] - Managing Your Pain After Surgery Without Opioids Activity/Diet/Wound Care/Special Instructions: No lifting over 10 pounds in 2 weeks until February 10. January shower. No bath tub soaks for two weeks until February 10. Diet as tolerated. Use Tylenol, simethicone scheduled for the next 24-48 hours for best pain relief. Use ice along incisions for today to prevent swelling. Discharge Disposition: HOME SELF-CARE
[~2022-01-27 18:54] MED LIST changes: -ACETAMINOPHEN IV (For NPO) 1,000 MG in EMPTY BAG 1 BAG IVPB ONE; +ACETAMINOPHEN TAB 500 MG TAB ONE; +BUPIVACAIN-EPI 0.5%-1:200,000 30 ML VIAL SQ ONE; -DEXAMETHASONE SOD PHOSPHATE 10 MG/ML 1 ML VIAL IV ONE; +DEXAMETHASONE SOD PHOSPHATE 4 MG/ML 1 ML VIAL IV ONE; -ENOXAPARIN 40 MG/0.4 ML SYRINGE SQ STA; +GLYCOPYRROLATE 0.2 MG/ML 2 ML VIAL ONE; +HEPARIN SODIUM,PORCINE/PF 5,000 UNIT/0.5 ML SYRINGE SQ ONE; +HYDROmorphone (PF) 1 MG/ML ONE; +HYDROmorphone 0.5 MG/0.5 ML SYRINGE IVP PRN; +IV FLUID CONTINUATION 1,000 ML IV ONE; +KETOROLAC 15 MG/ML 1 ML VIAL ONE; +LACTATED RINGERS 1,000 ML IV ONE; +LIDOCAINE 1% (10MG/ML) FOR IV START INTRADERMA PRN; +LIDOCAINE 2% INJ 20 MG/ML (2 ML VIAL) ONE; +MIDAZOLAM 2 MG/2 ML VIAL IV PRN; +MIDAZOLAM 2 MG/2 ML VIAL ONE; +NEOSTIGMINE 1 MG/ML 10 ML VIAL ONE; +PROPOFOL 10 MG/ML 20 ML VIAL IV ONE; -Pre Op ABX Message 1 EACH MISC MISCELLANE ONE; +ROCURONIUM 10 MG/ML (5 ML VIAL) IV ONE; +SUCCINYLCHOLINE CHLORIDE 100 MG/5 ML SYR IV ONE; -ceFAZolin IN SWFI 2 GM/20 ML SYRINGE IVP STA; +diphenhydrAMINE 50 MG/ML 1 ML VIAL IVP ONE; +fentaNYL (PF) 50 MCG/ML 2 ML AMP ONE
[2022-01-27 19:15] VITALS: BP 109/69; PULSE 76
== END 2022-01-27 19:31 | disposition home or self-care (01) ==
LOC: OR 18:54
PROVIDERS: ATTEND Surgery Plastic and Reconstructive Surgery
DX: K66.0 Peritoneal adhesions (postprocedural) (postinfection) (principal); K56.1 Intussusception; Z86.73 Personal history of transient ischemic attack (TIA), and cerebral infarction without residual deficits; K21.9 Gastro-esophageal reflux disease without esophagitis; E03.9 Hypothyroidism, unspecified; G40.909 Epilepsy, unspecified, not intractable, without status epilepticus; Z87.19 Personal history of other diseases of the digestive system; G43.909 Migraine, unspecified, not intractable, without status migrainosus; I83.90 Asymptomatic varicose veins of unspecified lower extremity; Z87.440 Personal history of urinary (tract) infections; E66.01 Morbid (severe) obesity due to excess calories; Z68.41 Body mass index [BMI] 40.0-44.9, adult; Z98.84 Bariatric surgery status; Z87.11 Personal history of peptic ulcer disease; Z90.49 Acquired absence of other specified parts of digestive tract; Z98.891 History of uterine scar from previous surgery; Z98.51 Tubal ligation status; Z98.890 Other specified postprocedural states; Z83.79 Family history of other diseases of the digestive system; Z83.438 Family history of other disorder of lipoprotein metabolism and other lipidemia; Z82.49 Family history of ischemic heart disease and other diseases of the circulatory system; Z82.61 Family history of arthritis; Z84.89 Family history of other specified conditions; Z86.718 Personal history of other venous thrombosis and embolism; Z79.890 Hormone replacement therapy; Z79.891 Long term (current) use of opiate analgesic; Z79.899 Other long term (current) drug therapy; Z88.0 Allergy status to penicillin; Z91.040 Latex allergy status
CPT/HCPCS: 81025; 44180; J2250; J1200; J2710; J0690; J2405; J3010; J1170 ×2; J1885; J0330; J2704; J2001

== ENCOUNTER → 2022-01-27 | Outpatient (CLI) | payer OTHER ==
--- NOTE | 2022-01-23 12:24 | CT ---
EXAMINATION TYPE: CT abdomen pelvis w con DATE OF EXAM: 01/21/2022 HISTORY: Abd pain LUQ for months, diverticulitis CT DLP: 1626.6mGycm Automated Exposure Control for Dose Reduction was Utilized. CONTRAST: CT scan of the abdomen and pelvis is performed with oral and with IV Contrast, patient injected with 100ml mL of Isovue 300. COMPARISON: Prior CT August 11, 2016 FINDINGS: LUNG BASES: No significant abnormality is appreciated. LIVER/GB: Cholecystectomy clips are redemonstrated. PANCREAS: No significant abnormality is seen. SPLEEN: No significant abnormality is seen. ADRENALS: No significant abnormality is seen. KIDNEYS: No significant abnormality is seen. BOWEL: Oral contrast reaches level of the proximal transverse colon. Surgical changes from gastric by pass redemonstrated in the epigastric region. No suspicious small or large bowel dilatation. No signi ficant diverticulosis or CT evidence for acute diverticulitis. UTERUS/ADNEXA: Anteverted uterus redemonstrated. Tubal ligation clip along right aspect again seen. S econd clip posterior left cul-de-sac axial image 68 redemonstrated. LYMPH NODES: No greater than 1cm abdominal or pelvic lymph nodes are appreciated. OSSEOUS STRUCTURES: No significant abnormality is seen. OTHER: No significant additional abnormality is seen. IMPRESSION: No significant new or acute finding is seen to account for patient's clinical symptoms of left upper quadrant pain. No significant diverticulosis or CT evidence for acute diverticulitis.
== END | disposition home or self-care (01) ==
LOC: RADCTMAIN 11:59
PROVIDERS: ATTEND Surgery Plastic and Reconstructive Surgery
DX: K57.01 Diverticulitis of small intestine with perforation and abscess with bleeding (principal)
CPT/HCPCS: 74177; Q9967

== ENCOUNTER 2022-02-02 15:11 | Inpatient (IN) | payer OTHER ==
--- NOTE | 2022-02-02 16:07 | P.PN ---
Progress Note - Text Progress Note Date: 02/02/22 Patient sent from [facility] to [facility]. Xray shows bowel obstruction per report. Patient sent to ER for admission for bowel obstruction, history of gastric bypass.
[2022-02-02] MEDS ORDERED: SODIUM CHLORIDE 0.9% 2,000 ML IV STA (18:31)
[2022-02-02] MEDS ORDERED: MORPHINE SULFATE 4 MG/ML SYRINGE IV STA (18:47)
[2022-02-02] MEDS ORDERED: ONDANSETRON 4 MG/2 ML VIAL IVP STA (18:47)
--- NOTE | 2022-02-02 19:09 | ED ---
General Adult HPI - General Chief complaint: Recheck/Abnormal Lab/Rx Stated complaint: Recheck/Dehydration Time Seen by Provider: 02/02/22 18:31 Source: patient, RN notes reviewed Mode of arrival: ambulatory Limitations: no limitations - History of Present Illness Initial comments: This is a pleasant 41-year-old female who presents complaining of abdominal pain. The patient was sent in by her surgeon, Dr. Gillis for small bowel obstruction. Patient has not been able to eat. Patient states she had a bowel movement yesterday. Passing a minimal amount of gas. Had plain film x-rays done today at the surgeon's office and sent for hydration. Patient states the surgery was for adhesions. Patient has had continued pain since last when the surgery took place. This was a laparoscopic procedure. No headache, no fever or chills, no changes in vision or hearing, no sore throat or difficulty with speech, no neck pain, no chest pain or shortness of breath, no abdominal pain, no numbness or tingling, no extremity pain, no skin rashes or lesions. - Related Data Home Medications Medication Instructions Recorded Confirmed HYDROcodone/APAP 7.5-325MG [[place] 1 tab PO TID 01/19/22 02/02/22 7.5-325] Terbinafine [LamISIL] 250 mg PO HS 01/19/22 02/02/22 Cyanocobalamin [Vitamin B-12 1,000 mcg SQ QMONTHLY 02/02/22 02/02/22 Injection] Levothyroxine Sodium 125 mcg PO HS 02/02/22 02/02/22 Simethicone [Gas-X] 125 mg PO TID 02/02/22 02/02/22 Previous Rx's Medication Instructions Recorded Acetaminophen Tab [Tylenol Tab] 1,000 mg PO Q6HR PRN #30 tablet 01/27/22 Allergies Allergy/AdvReac Type Severity Reaction Status Date / Time latex Allergy Severe Anaphylaxis Verified 02/02/22 18:46 Penicillins Allergy Severe Swelling/Hi Verified 02/02/22 18:46 ves Review of Systems ROS Statement: Those systems with pertinent positive or pertinent negative responses have been documented in the HPI. ROS Other: All systems not noted in ROS Statement are negative. Past Medical History Past Medical History: CVA/TIA, Deep Vein Thrombosis (DVT), GERD/Reflux, Neurologic Disorder, Seizure Disorder, Thyroid Disorder Additional Past Medical History / Comment(s): HERNIATED CERVICAL DISC'S C4-C5. RT leg SIDED NT FROM CVA 2016. HX SEIZURES- NONE SINCE 2005. ABD PAIN LT SIDE 3-6 MONTHS; Migraines, DVT 2007, easy bruises, hx intussusception,neck pain, fx vertebra. Panniculitis with surgery, DVT in right leg in 2007, VARICOSE VEINS, hypothyroid, recurrent UTIs, R leg numbness/tingling with foot drop, esophageal anastomatic stricture, dysphagia in past, seizure 2005, hiatal hernia, PUD, hypoglycemia intussusception of the bowel, morbid obesity status post Dalia-en-Y. History of Any Multi-Drug Resistant Organisms: MRSA Date of last positivie culture/infection: 01/2008 MDRO Source:: right arm Past Surgical History: Adenoidectomy, Appendectomy, Bariatric Surgery, Section, Cholecystectomy, Orthopedic Surgery, Tonsillectomy, Tubal Ligation Additional Past Surgical History / Comment(s): RECONSTRUCTION RT KNEE, x 3, DALIA-EN-Y(AUG 2012). Panniculectomy , diagnostic laproscopy with lysis of adhesions, EGD, W/ dilation, . Colonoscopy, hiatal hernia repair. C-5 removed May 17, 2017. NAVA; PFO closure with disk in heart 07/11/17. RECONSTRUCTION DALIA-EN-Y 2016. Past Anesthesia/Blood Transfusion Reactions: No Reported Reaction Past Psychological History: Anxiety, Depression Smoking Status: Never smoker Past Alcohol Use History: Rare Past Drug Use History: None Reported - Past Family History Mother Family Medical History: Cancer Additional Family Medical History / Comment(s): . General Exam Limitations: no limitations General appearance: alert, in distress Head exam: Present: atraumatic, normocephalic, normal inspection Eye exam: Present: normal appearance, PERRL, EOMI. Absent: scleral icterus, conjunctival injection, periorbital swelling ENT exam: Present: normal exam, mucous membranes moist Neck exam: Present: normal inspection. Absent: tenderness, meningismus, lymphadenopathy Respiratory exam: Present: normal lung sounds bilaterally. Absent: respiratory distress, wheezes, rales, rhonchi, stridor Cardiovascular Exam: Present: regular rate, normal rhythm, normal heart sounds. Absent: systolic murmur, diastolic murmur, rubs, gallop, clicks GI/Abdominal exam: Present: soft, tenderness (Patient has tenderness to the left lower quadrant on palpation), guarding, normal bowel sounds. Absent: distended, rebound, rigid Extremities exam: Present: normal inspection, full ROM, normal capillary refill. Absent: tenderness, pedal edema, joint swelling, calf tenderness Back exam: Present: normal inspection Neurological exam: Present: alert, oriented X3, CN II-XII intact Psychiatric exam: Present: normal affect, normal mood Skin exam: Present: warm, dry, intact, normal color. Absent: rash Course Vital Signs 02/02/22 15:16 Temperature 98 F Pulse Rate 68 Respiratory 20 Rate Blood Pressure 126/81 O2 Sat by Pulse 97 Oximetry - Reevaluation(s) Reevaluation #1: 02/02/22 20:47 Medical record is reviewed Symptoms are improved pain montelongo, although the patient does have a bit more nausea Patient is informed of results and questions answered Patient in no distress - Consultations Consultation #1: Case discussed in detail with Dr. Gillis who requested admission for the patient. Medical Decision Making - Medical Decision Making Patient presents after having surgery last for adhesions. Patient has a partial small bowel obstruction. Patient was seen and assessed by her general surgeon. I spoke with Dr. Bautista who requests admission and hydration. Patient informed. She isn't feeling a bit better, pain montelongo, after fluids and pain medication. We'll keep the patient nothing by mouth. Patient admitted to surgery. The case was discussed in detail with ED attending physician. Presentation, findings, treatment plan discussed in detail. SupervisorDr. Rich - Lab Data Result diagrams: 02/02/22 19:04 02/02/22 19:04 Lab Results 02/02/22 02/02/22 02/02/22 Range/Units 19:04 19:04 19:04 WBC 6.6 (3.8-10.6) k/uL RBC 5.08 (3.80-5.40) m/uL Hgb 14.0 (11.4-16.0) gm/dL Hct 45.7 (34.0-46.0) % MCV 90.0 (80.0-100.0) fL MCH 27.5 (25.0-35.0) pg MCHC 30.5 L (31.0-37.0) g/dL RDW 13.6 (11.5-15.5) % Plt Count 289 (150-450) k/uL MPV 7.6 Neutrophils % 59 % Lymphocytes % 30 % Monocytes % 7 % Eosinophils % 2 % Basophils % 1 % Neutrophils # 3.9 (1.3-7.7) k/uL Lymphocytes # 2.0 (1.0-4.8) k/uL Monocytes # 0.4 (0-1.0) k/uL Eosinophils # 0.2 (0-0.7) k/uL Basophils # 0.0 (0-0.2) k/uL Sodium (137-145) mmol/L Potassium (3.5-5.1) mmol/L Chloride (98-107) mmol/L Carbon Dioxide (22-30) mmol/L Anion Gap mmol/L BUN (7-17) mg/dL Creatinine (0.52-1.04) mg/dL Est GFR (CKD-EPI)AfAm (>60 ml/min/1.73 sqM) Est GFR (CKD-EPI)NonAf (>60 ml/min/1.73 sqM) Glucose (74-99) mg/dL Calcium (8.4-10.2) mg/dL Total Bilirubin (0.2-1.3) mg/dL AST (14-36) U/L ALT (4-34) U/L Alkaline Phosphatase (38-126) U/L Total Protein (6.3-8.2) g/dL Albumin (3.5-5.0) g/dL Lipase (23-300) U/L Urine Color Yellow Urine Appearance Cloudy H (Clear) Urine pH 5.5 (5.0-8.0) Ur Specific Walton 1.030 (1.001-1.035) Urine Protein Trace H (Negative) Urine Glucose (UA) Negative (Negative) Urine Ketones 2+ H (Negative) Urine Blood Negative (Negative) Urine Nitrite Negative (Negative) Urine Bilirubin Negative (Negative) Urine Urobilinogen 3.0 (<2.0) mg/dL Ur Leukocyte Esterase Negative (Negative) Urine RBC 1 (0-5) /hpf Urine WBC 2 (0-5) /hpf Ur Squamous Epith Cells 5 H (0-4) /hpf Urine Bacteria Rare H (None) /hpf Urine Mucus Many H (None) /hpf Urine HCG, Qual Not Detected (Not Detectd) 02/02/22 Range/Units 19:04 WBC (3.8-10.6) k/uL RBC (3.80-5.40) m/uL Hgb (11.4-16.0) gm/dL Hct (34.0-46.0) % MCV (80.0-100.0) fL MCH (25.0-35.0) pg MCHC (31.0-37.0) g/dL RDW (11.5-15.5) % Plt Count (150-450) k/uL MPV Neutrophils % % Lymphocytes % % Monocytes % % Eosinophils % % Basophils % % Neutrophils # (1.3-7.7) k/uL Lymphocytes # (1.0-4.8) k/uL Monocytes # (0-1.0) k/uL Eosinophils # (0-0.7) k/uL Basophils # (0-0.2) k/uL Sodium 139 (137-145) mmol/L Potassium 4.2 (3.5-5.1) mmol/L Chloride 104 (98-107) mmol/L Carbon Dioxide 26 (22-30) mmol/L Anion Gap 9 mmol/L BUN 12 (7-17) mg/dL Creatinine 0.65 (0.52-1.04) mg/dL Est GFR (CKD-EPI)AfAm >90 (>60 ml/min/1.73 sqM) Est GFR (CKD-EPI)NonAf >90 (>60 ml/min/1.73 sqM) Glucose 86 (74-99) mg/dL Calcium 9.6 (8.4-10.2) mg/dL Total Bilirubin 0.6 (0.2-1.3) mg/dL AST 28 (14-36) U/L ALT 25 (4-34) U/L Alkaline Phosphatase 85 (38-126) U/L Total Protein 8.3 H (6.3-8.2) g/dL Albumin 5.1 H (3.5-5.0) g/dL Lipase 102 (23-300) U/L Urine Color Urine Appearance (Clear) Urine pH (5.0-8.0) Ur Specific Walton (1.001-1.035) Urine Protein (Negative) Urine Glucose (UA) (Negative) Urine Ketones (Negative) Urine Blood (Negative) Urine Nitrite (Negative) Urine Bilirubin (Negative) Urine Urobilinogen (<2.0) mg/dL Ur Leukocyte Esterase (Negative) Urine RBC (0-5) /hpf Urine WBC (0-5) /hpf Ur Squamous Epith Cells (0-4) /hpf Urine Bacteria (None) /hpf Urine Mucus (None) /hpf Urine HCG, Qual (Not Detectd) Disposition Clinical Impression: Partial small bowel obstruction Disposition: ADMITTED IP TO THIS [facility] Condition: Stable Time of Disposition: 20:46 Decision to Admit Reason: Admit from EC Decision Time: 20:46
[2022-02-02 19:42] LABS: Basophils % (A) 1 %; Eosinophils # (A) 0.2 k/uL (0-0.7); Eosinophils % (A) 2 %; HCT 45.7 % (34.0-46.0); Lymphocytes % (A) 30 %; MCH 27.5 pg (25.0-35.0); MCHC 30.5 g/dL (31.0-37.0); Mean Platelet Volume 7.6; Monocytes # (A) 0.4 k/uL (0-1.0); Monocytes % (A) 7 %; Neutrophils # (A) 3.9 k/uL (1.3-7.7); Neutrophils % (A) 59 %; Platelet Count 289 k/uL (150-450); RBC 5.08 m/uL (3.80-5.40); RDW 13.6 % (11.5-15.5); WBC 6.6 k/uL (3.8-10.6)
[2022-02-02 19:46] LABS: Appearance,Urine Cloudy (Clear); Bacteria,Urine Rare /hpf; Bilirubin,Urine Negative (Negative); Blood,Urine Negative (Negative); Color,Urine Yellow; Glucose,Urine (UA) Negative (Negative); Leukocyte Esterase,Urine Negative (Negative); Mucus,Urine Many /hpf; Nitrite,Urine Negative (Negative); PH, Urine 5.5 (5.0-8.0); Protein,Urine Trace (Negative); RBC,Urine 1 /hpf (0-5); Squamous Epithelial Cell,Urine 5 /hpf (0-4); WBC,Urine 2 /hpf (0-5)
[2022-02-02 19:53] LABS: ALT 25 U/L (4-34); AST 28 U/L (14-36); African American GFR (CKD) >90 (>60 ml/min/1.73 sqM); Albumin 5.1 g/dL (3.5-5.0); Alkaline Phosphatase 85 U/L (38-126); Anion Gap 9 mmol/L; Blood Urea Nitrogen 12 mg/dL (7-17); Calcium 9.6 mg/dL (8.4-10.2); Carbon Dioxide 26 mmol/L (22-30); Chloride 104 mmol/L (98-107); Glucose 86 mg/dL (74-99); Lipase 102 U/L (23-300); Non-African American GFR(CKD) >90 (>60 ml/min/1.73 sqM); Potassium 4.2 mmol/L (3.5-5.1); Sodium 139 mmol/L (137-145); Total Bilirubin 0.6 mg/dL (0.2-1.3); Total Protein 8.3 g/dL (6.3-8.2)
[2022-02-02 19:55] LABS: Ketones,Urine 2+ (Negative)
[2022-02-02] MEDS ORDERED: MORPHINE SULFATE 4 MG/ML SYRINGE IV PRN (20:48)
[2022-02-02] MEDS ORDERED: NALOXONE 0.4 MG/ML 1 ML VIAL IV PRN (20:48)
[2022-02-02] MEDS ORDERED: diphenhydrAMINE 50 MG/ML 1 ML VIAL IVP STA (21:17)
[2022-02-02] MEDS ORDERED: ACETAMINOPHEN IV (For NPO) 1,000 MG in EMPTY BAG 1 BAG IVPB ONE (21:21)
[2022-02-02] MEDS: PANTOPRAZOLE 40 MG/10 ML VIAL IV SCH (21:27)
[2022-02-02] MEDS: HYDROmorphone 1 MG/ML 1 ML SYRINGE IVP PRN (21:29)
[2022-02-02] MEDS: LORazepam 2 MG/ML INJ IV PRN (23:19)
[2022-02-02] MEDS: SODIUM CHLORIDE 0.9% 1,000 ML IV SCH (23:21)
[2022-02-03] MEDS: HYDROmorphone 1 MG/ML 1 ML SYRINGE IVP PRN ×4 (01:23→19:41)
[2022-02-03] MEDS: ONDANSETRON 4 MG/2 ML VIAL IVP PRN ×3 (01:29→17:19)
[2022-02-03] MEDS: LORazepam 2 MG/ML INJ IV PRN ×3 (05:57→21:40)
[2022-02-03] MEDS: SODIUM CHLORIDE 0.9% 1,000 ML IV SCH ×3 (06:19→17:10)
[2022-02-03] MEDS: PANTOPRAZOLE 40 MG/10 ML VIAL IV SCH (07:29)
[2022-02-03] MEDS: diphenhydrAMINE 50 MG/ML 1 ML VIAL IVP PRN (07:32)
--- NOTE | 2022-02-03 08:55 | XR ---
EXAMINATION TYPE: XR abdomen 2V DATE OF EXAM: 02/03/2022 CLINICAL DATA: 41-year-old female with abdominal pain, [facility] COMPARISON: 02/02/2022 FINDINGS: Lung bases are clear. PFO device noted. Surgical material below the GE junction. Additional cholecystectomy clips. No evidence for free intraperitoneal air. Surgical material left mid abdomen also noted. Scattered small air-fluid levels are present. Some increasing colonic air. No significant stool burde n. Bilateral tubal ligation clips located in the right side of the, unchanged from prior. IMPRESSION: Improving bowel gas pattern. Only a few scattered small air-fluid levels remain and there is increasi ng colonic air. Either improving small bowel obstruction or improving ileus.
[2022-02-03] MEDS: ACETAMINOPHEN IV (For NPO) 1,000 MG in EMPTY BAG 1 BAG IVPB SCH ×3 (10:34→23:01)
[2022-02-03] MEDS ORDERED: IV FLUID CONTINUATION 950 ML IV ONE (14:50)
[2022-02-03] MEDS ORDERED: PROPOFOL 10 MG/ML 20 ML VIAL IV ONE (14:50)
[2022-02-03] MEDS ORDERED: LIDOCAINE 2% INJ 20 MG/ML (2 ML VIAL) ONE (14:50)
[2022-02-03] MEDS ORDERED: HYDROmorphone (PF) 1 MG/ML ONE (14:50)
[2022-02-03] MEDS ORDERED: IOPAMIDOL CONTRAST (ORAL USE) VIAL PO PRN (15:04)
--- NOTE | 2022-02-03 15:04 | P.PCN ---
Date of Procedure: 02/03/22 Description of Procedure: PREOPERATIVE DIAGNOSES: 1. History of gastric ulcers 2. Nausea and vomiting. 3. History of gastric bypass. 4. Epigastric abdominal pain. POSTOPERATIVE DIAGNOSES: 1. History of gastric ulcers 2. Nausea and vomiting. 3. History of gastric bypass. 4. Epigastric abdominal pain. PROCEDURE PERFORMED: Esophagogastrojejunoscopy. SURGEON: Nallely Bautista MD ANESTHESIA: MAC. INDICATIONS: The patient is a 41-year-old female with prior history of Dalia-en-Y gastric bypass. She presents with history of gastrojejunal ulcer, epigastric abdominal pain, history obstruction. With history of Dalia-en-Y gastric bypass, upper endoscopy was offered for further evaluation and management. DESCRIPTION: Patient was brought to the endoscopy suite and laid in the left lateral decubitus position. After adequate IV sedation, a bite block was placed. An Olympus gastroscope was passed along the posterior oropharynx down to the distal esophagus where the squamocolumnar junction was found at approximately 38 cm from the incisors. The anastomosis was found at 42 cm, consistent with approximately 4 cm gastric pouch. The scope was advanced 60 cm from the incisors. No evidence of foreign body was found. No evidence of active gastrojejunal ulcerations were encountered. The GI tract was desufflated. The patient tolerated the procedure well. FINDINGS: 1. No acute gastrojejunal ulceration. 2. No foreign body found along the anastomosis. 3. Gastric pouch 4 cm 4. Jejunal limb 4 cm PLAN: 1. Recommend upper endoscopy as needed.
--- NOTE | 2022-02-03 17:06 | CT ---
EXAMINATION TYPE: CT abdomen pelvis w con CT DLP: 1811 mGycm, Automated exposure control for dose reduction was used. DATE OF EXAM: 02/03/2022 4:36 PM COMPARISON: CT abdomen pelvis most recent from 01/23/2022. CLINICAL INDICATION:Female, 41 years old with history of Bowel obstruction, gastric bypass; small bow el obstruction TECHNIQUE: Standard CT of the abdomen and pelvis following the administration of 75 cc of Isovue 37 0 IV contrast material. 3-D and MIP reformatted images were obtained from a separate workstation and submitted for review. Coronal and sagittal reformats were performed. FINDINGS: LOWER CHEST: Partially visualized atrial septum closure device. ABDOMEN LIVER: Unremarkable GALLBLADDER AND BILE DUCTS: Gallbladder is surgically absent with mild intrahepatic and extra hepatic biliary dilatation likely physiologic and a postcholecystectomy change. No evidence of choledocholit hiasis. PANCREAS: Unremarkable. SPLEEN: Unremarkable. ADRENAL GLANDS: Unremarkable. KIDNEYS AND URETERS: No evidence of hydronephrosis or renal calculus. The ureters are unremarkable. PELVIS BLADDER: Unremarkable REPRODUCTIVE: Right-sided surgical clips likely representing tubal ligation clip. ABDOMEN & PELVIS STOMACH AND BOWEL: Lack of oral contrast limits evaluation of the bowel. There is a few left upper qu adrant gas-filled small bowel loops of bowel measuring up to 2.8 cm. No definitive transition point t o suggest bowel obstruction. There is postsurgical change the stomach and small bowel consistent prio r history of gastric bypass. The transverse colon appears nondistended however the wall appears sligh tly thickened. There is stool within the cecum and ascending colon and descending colon to the rectum . PERITONEUM: No evidence of pneumoperitoneum or free fluid. VASCULATURE: No evidence of aortic aneurysm. MUSCULOSKELETAL: No acute osseous abnormalities. LYMPH NODES: No gross evidence for lymphadenopathy. SOFT TISSUE/ABDOMINAL WALL: Unremarkable IMPRESSION: 1. Postsurgical changes consistent with gastric bypass with a few loops of small bowel which are wit hin normal limits for distention and contain gas. Evaluation is limited without oral contrast. There is ingested contents within the colon and distal small bowel. Consider dedicated small bowel follow-t hrough if there remains concern for small bowel obstruction. 2. The transverse colon is nondistended with circumferentially thickened appearance of the eubanks, cor relate for colitis.
--- NOTE | 2022-02-03 19:59 | P.PN ---
Subjective Progress Note Date: 02/03/22 CHIEF COMPLAINT: Bowel obstruction HISTORY OF PRESENT ILLNESS: The patient is a 41-year-old female status post lysis of adhesions a week ago who presented back with abdominal pain. Initial diagnostic x-rays demonstrated ileus versus bowel obstruction and hence her admission. Patient complained primarily of epigastric and left upper quadrant abdominal pain. She completed upper endoscopy still with persistent pain. As a result additional diagnostic images were obtained. ROS: No bowel movements. No fevers or chills. No new chest pain. No productive sputum PHYSICAL EXAM: VITAL SIGNS: Reviewed CONSTITUTIONAL: Well developed and in no acute distress. EYES: Conjuctivae without sclera icterus. Extraocular movements grossly intact. HEAD, EARS, NOSE, THROAT: Moist buccal mucosa. Head is atraumatic, normocephalic. Hears conversational speech. No nasal drainage. RESPIRATORY: Non-labored respirations and equal bilateral excursions. CARDIOVASCULAR: Palpable 2+ radial pulses. ABDOMEN: Protuberant. Localized epigastric and left lower quadrant abdominal pain. MUSCULOSKELETAL: No gross deformity of the lower extremities noted. No clubbing. No cyanosis. SKIN: Good skin turgor. Well perfused. NEUROLOGIC: Cranial nerves II through XII grossly intact. No focal or lateralizing signs. PSYCH: Appropriate affect. Alert and oriented to person, place and time. CLINICAL LABS: Reviewed. STUDIES: Abdominal x-ray in the pelvic review demonstrates improved bowel gas pattern with air within the rectum. Abdominal x-ray report demonstrates improvement of ileus. ASSESSMENT: 1. Bowel obstruction, epigastric left lower quadrant abdominal pain 2. Status post gastric bypass 3. Morbid obesity excess calories, BMI 40.7 PLAN: 1. CT of the abdomen and pelvis was obtained to further elucidate bowel obstruction 2. In the interim pending computed tomography scan results, may start Bentyl for abdominal pain. 3. Upper endoscopy findings reviewed without ulcers. ADDENDUM: CT of the abdomen and pelvis reviewed without bowel obstruction. We'll start Bentyl. Objective - Vital Signs Vital signs: Vital Signs Temp 98.1 F 02/03/22 12:11 Pulse 60 02/03/22 12:11 Resp 16 02/03/22 12:11 BP 119/69 02/03/22 12:11 Pulse Ox 99 02/03/22 12:11 FiO2 Intake & Output 02/03/22 02/03/22 02/04/22 06:59 18:59 06:59 Intake Total 1560 1810 Balance 1560 1810 Weight 114.305 kg Intake: IV 50 Intake, IV Titration 1560 1760 Amount ACETAMINOPHEN IV (For NPO 200 ) 1,000 mg In Empty Bag 1 bag @ 400 mls/hr IVPB Q6H [facility] Rx#:[id number] Sodium Chloride 0.9% 1, 1560 1560 000 ml @ 130 mls/hr IV . Q7H42M [facility] Rx#:[id number] Other: Voiding Method Toilet Toilet # Bowel Movements 0 # Emeses 0 - Labs CBC & Chem 7: 02/02/22 19:04 02/02/22 19:04
[2022-02-03] MEDS: DICYCLOMINE 10 MG CAP PO SCH (20:27)
[2022-02-04] MEDS: HYDROmorphone 1 MG/ML 1 ML SYRINGE IVP PRN ×3 (01:04→16:03)
[2022-02-04] MEDS: diphenhydrAMINE 50 MG/ML 1 ML VIAL IVP PRN ×2 (02:47→10:33)
[2022-02-04] MEDS: ACETAMINOPHEN IV (For NPO) 1,000 MG in EMPTY BAG 1 BAG IVPB SCH (05:22)
[2022-02-04] MEDS: SODIUM CHLORIDE 0.9% 1,000 ML IV SCH ×2 (05:23→13:35)
[2022-02-04] MEDS: PANTOPRAZOLE 40 MG/10 ML VIAL IV SCH (08:35)
[2022-02-04] MEDS: DICYCLOMINE 10 MG CAP PO SCH ×2 (08:35→13:35)
[2022-02-04] MEDS: ONDANSETRON 4 MG/2 ML VIAL IVP PRN (09:58)
[2022-02-04] MEDS ORDERED: diphenhydrAMINE 50 MG CAP PO PRN (11:32)
[2022-02-04 12:30] VITALS: BP 96/63; PULSE 62; RESP 16; TEMP 97.7
--- NOTE | 2022-02-04 14:44 | P.DS ---
Providers Date of admission: 02/02/22 20:54 Expected date of discharge: 02/04/22 Attending physician: Nallely Bautista Consults: 02/04/22 13:34 Consult Physician Routine Consulting Provider: Sol Pickard Consult Reason/Comments: left abdominal rash, possible shingles Do you want consulting provider notified?: Yes Primary care physician: Nallely Bautista Hospital Course: Clinically improve her Bentyl. Diagnostic studies demonstrate resolution of bowel obstruction. Discharge home today. Patient Condition at Discharge: Stable Plan - Discharge Summary New Discharge Prescriptions: New Dicyclomine [Bentyl] 10 mg PO QID #120 capsule Continue HYDROcodone/APAP 7.5-325MG [[place] 7.5-325] 1 tab PO TID Terbinafine [LamISIL] 250 mg PO HS Acetaminophen Tab [Tylenol] 1,000 mg PO Q6HR PRN #30 tablet PRN Reason: Pain Simethicone [Gas-X] 125 mg PO TID Cyanocobalamin [Vitamin B-12 Injection] 1,000 mcg SQ QMONTHLY Levothyroxine Sodium 125 mcg PO HS Discharge Medication List HYDROcodone/APAP 7.5-325MG [[place] 7.5-325] 1 tab PO TID 01/19/22 [History] Terbinafine [LamISIL] 250 mg PO HS 01/19/22 [History] Acetaminophen Tab [Tylenol] 1,000 mg PO Q6HR PRN #30 tablet 01/27/22 [Rx] Cyanocobalamin [Vitamin B-12 Injection] 1,000 mcg SQ QMONTHLY 02/02/22 [History] Levothyroxine Sodium 125 mcg PO HS 02/02/22 [History] Simethicone [Gas-X] 125 mg PO TID 02/02/22 [History] Dicyclomine [Bentyl] 10 mg PO QID #120 capsule 02/04/22 [Rx] [place] [facility]ment[facility]Ref[place] [facility] [place] - [place]22 Patient Instructions/Handouts: Ileus (DC) Discharge Disposition: HOME SELF-CARE
== END 2022-02-04 16:45 | disposition home or self-care (01) | DRG 389 ==
LOC: EC 15:11 → 5NMEDONC 20:54
PROVIDERS: ADMIT Surgery Plastic and Reconstructive Surgery; ATTEND Surgery Plastic and Reconstructive Surgery
PROC: 0DJ08ZZ Inspection of Upper Intestinal Tract, Via Natural or Artificial Opening Endoscopic (ICD-10-PCS; principal; 2022-02-03 08:50)
DX: K56.600 Partial intestinal obstruction, unspecified as to cause (principal); Z68.41 Body mass index [BMI] 40.0-44.9, adult; K56.7 Ileus, unspecified; R21 Rash and other nonspecific skin eruption; E66.01 Morbid (severe) obesity due to excess calories; Z98.84 Bariatric surgery status; E03.9 Hypothyroidism, unspecified; E86.0 Dehydration; G40.909 Epilepsy, unspecified, not intractable, without status epilepticus; Z86.718 Personal history of other venous thrombosis and embolism; Z86.73 Personal history of transient ischemic attack (TIA), and cerebral infarction without residual deficits; Z87.11 Personal history of peptic ulcer disease; Z87.440 Personal history of urinary (tract) infections; Z87.74 Personal history of (corrected) congenital malformations of heart and circulatory system; Z88.0 Allergy status to penicillin; Z91.040 Latex allergy status; Z90.49 Acquired absence of other specified parts of digestive tract; Z87.19 Personal history of other diseases of the digestive system; Z98.51 Tubal ligation status
CPT/HCPCS: 36415; 43235; 74019; 74177; 80053; 81001; 81025; 83690; 85025; 96361; 96374; 96375; 99285

== ENCOUNTER → 2022-02-02 | Outpatient (CLI) | payer OTHER ==
--- NOTE | 2022-02-02 15:00 | XR ---
EXAMINATION TYPE: XR abdomen 2V DATE OF EXAM: 02/02/2022 COMPARISON: 11/05/2015 INDICATION: Possible scar tissue, colonic blockage TECHNIQUE: Abdomen is examined in the supine and upright views. FINDINGS: Nonspecific small bowel gas containing air is present. Air is within the transverse and proximal desc ending colon. Some differential air-fluid levels may be within the dilated small bowel loops. Psoas margins are normal. No organomegaly is present. Postsurgical bowel changes are in the left upper quadrant and within the mid left abdomen. IMPRESSION: 1. Nonspecific bowel gas within this prominent small bowel loops as well as normal transverse colon. Ileus and partial small bowel obstruction could be considered. No colonic obstruction is identified.
== END | disposition home or self-care (01) ==
LOC: RADXRMAIN 14:26
PROVIDERS: ATTEND Surgery Plastic and Reconstructive Surgery
DX: K56.600 Partial intestinal obstruction, unspecified as to cause (principal)
CPT/HCPCS: 74019

== ENCOUNTER 2022-02-24 08:27 | Day surgery (SDC) | payer OTHER ==
[2022-02-22 16:04] VITALS: BMI 41.9
[~2022-02-24 08:27] MED LIST changes: -ACETAMINOPHEN TAB 500 MG TAB ONE; -BUPIVACAIN-EPI 0.5%-1:200,000 30 ML VIAL SQ ONE; -DEXAMETHASONE SOD PHOSPHATE 4 MG/ML 1 ML VIAL IV ONE; -GLYCOPYRROLATE 0.2 MG/ML 2 ML VIAL ONE; -HEPARIN SODIUM,PORCINE/PF 5,000 UNIT/0.5 ML SYRINGE SQ ONE; -HYDROmorphone (PF) 1 MG/ML ONE; -HYDROmorphone 0.5 MG/0.5 ML SYRINGE IVP PRN; -IV FLUID CONTINUATION 1,000 ML IV ONE; -KETOROLAC 15 MG/ML 1 ML VIAL ONE; -LACTATED RINGERS 1,000 ML IV ONE; -LIDOCAINE 1% (10MG/ML) FOR IV START INTRADERMA PRN; -LIDOCAINE 2% INJ 20 MG/ML (2 ML VIAL) ONE; -MIDAZOLAM 2 MG/2 ML VIAL IV PRN; -MIDAZOLAM 2 MG/2 ML VIAL ONE; -NEOSTIGMINE 1 MG/ML 10 ML VIAL ONE; -ONDANSETRON 4 MG/2 ML VIAL IVP ONE; -PROPOFOL 10 MG/ML 20 ML VIAL IV ONE; -ROCURONIUM 10 MG/ML (5 ML VIAL) IV ONE; -SUCCINYLCHOLINE CHLORIDE 100 MG/5 ML SYR IV ONE; -diphenhydrAMINE 50 MG/ML 1 ML VIAL IVP ONE; -fentaNYL (PF) 50 MCG/ML 2 ML AMP ONE
--- NOTE | 2022-02-24 08:27 | P.GSHP ---
History of Present Illness H&P Date: 02/24/22 CHIEF COMPLAINT: Colon screen HISTORY OF PRESENT ILLNESS: The patient is a 41-year-old female who presents for colon screen. Lower endoscopy was offered for further evaluation and management. PAST MEDICAL HISTORY: Please see list. PAST SURGICAL HISTORY: Please see list. MEDICATIONS: Please see list. ALLERGIES: Please see list. SOCIAL HISTORY: No illicit drug use FAMILY HISTORY: No reports of Crohn disease or ulcerative colitis. REVIEW OF ORGAN SYSTEMS: CONSTITUTIONAL: No reports of fevers or chills. PHYSICAL EXAM: VITAL SIGNS: Stable GENERAL: Well-developed pleasant in no acute distress. HEENT: No scleral icterus. Extraocular movements grossly intact. Moist buccal mucosa. NECK: Supple without lymphadenopathy. CHEST: Unlabored respirations. Equal bilateral excursions. CARDIOVASCULAR: Regular rate and rhythm. Distal 2+ pulses. ABDOMEN: Soft, nontender, nondistended. MUSCULOSKELETAL: No clubbing, cyanosis, or edema. ASSESSMENT: 1. Colon screen. PLAN: 1. Recommend proceeding with a lower endoscopy Past Medical History Past Medical History: CVA/TIA, Deep Vein Thrombosis (DVT), GERD/Reflux, Neurologic Disorder, Seizure Disorder, Thyroid Disorder Additional Past Medical History / Comment(s): HERNIATED CERVICAL DISC'S C4-C5. RT leg SIDED NT FROM CVA 2016. HX SEIZURES- NONE SINCE 2005. ABD PAIN LT SIDE chronic; Migraines, DVT 2008 RIGHT LEG , easy bruises, hx intussusception,neck pain, fx vertebra,. Panniculitis with surgery, DVT in right leg in 2007, VARICOSE VEINS, hypothyroid, recurrent UTIs, R leg numbness/tingling with foot drop, esophageal anastomatic stricture, dysphagia in past, seizure 2005, hiatal hernia, PUD, hypoglycemia intussusception of the bowel, morbid obesity status post Dalia-en-Y. History of Any Multi-Drug Resistant Organisms: MRSA Date of last positivie culture/infection: 01/2008 MDRO Source:: right arm Past Surgical History: Adenoidectomy, Appendectomy, Bariatric Surgery, Section, Cholecystectomy, Orthopedic Surgery, Tonsillectomy, Tubal Ligation Additional Past Surgical History / Comment(s): RECONSTRUCTION RT KNEE, x 3, DALIA-EN-Y(AUG 2012). Panniculectomy, diagnostic laproscopy with lysis of adhesions x 3, EGD, W/ dilation, . Colonoscopy, hiatal hernia repair. C-5 FUSED May 17, 2017. NAVA; PFO closure with disk in heart 07/11/17. RECONSTRUCTION OF DALIA-EN-Y 2016. EGD Past Anesthesia/Blood Transfusion Reactions: No Reported Reaction Smoking Status: Never smoker - Past Family History Mother Family Medical History: Cancer Additional Family Medical History / Comment(s): Mom has MS. Medications and Allergies Home Medications Medication Instructions Recorded Confirmed Type HYDROcodone/APAP 7.5-325MG [[place] 1 tab PO TID 01/19/22 02/22/22 History 7.5-325] Terbinafine [LamISIL] 250 mg PO HS 01/19/22 02/22/22 History Cyanocobalamin [Vitamin B-12 1,000 mcg SQ QMONTHLY 02/02/22 02/22/22 History Injection] Levothyroxine Sodium 125 mcg PO HS 02/02/22 02/22/22 History Simethicone [Gas-X] 125 mg PO TID 02/02/22 02/22/22 History Dicyclomine [Bentyl] 20 mg PO BID 02/22/22 02/22/22 History Allergies Allergy/AdvReac Type Severity Reaction Status Date / Time latex Allergy Severe Anaphylaxis, Verified 02/22/22 14:46 TROUBLE BREATHING Penicillins Allergy Severe Swelling/Hi Verified 02/22/22 14:46 ves morphine Allergy Hives, Verified 02/22/22 14:46 ITCHING
[2022-02-24 09:32] VITALS: RESP 16; TEMP 97
[2022-02-24] MEDS ORDERED: PROPOFOL 10 MG/ML 20 ML VIAL IV ONE (10:10)
[2022-02-24 10:48] VITALS: BP 127/68; PULSE 72
--- NOTE | 2022-02-24 10:59 | P.PCN ---
Date of Procedure: 02/24/22 Description of Procedure: PREOPERATIVE DIAGNOSIS: Sigmoid volvulus Change in bowel habits POSTOPERATIVE DIAGNOSIS: Sigmoid volvulus Change in bowel habits OPERATION: Colonoscopy to the cecum, ileocecal valve and appendiceal orifice. Colonoscopy with cold forceps biopsy for microscopic colitis SURGEON: Nallely Bautista MD. ANESTHESIA: MAC. INDICATIONS: The patient is a 41-year-old female who presents with change in bowel habits. Benefits and risks were described and informed consent was obtained. DESCRIPTION OF PROCEDURE: The patient had undergone Sutab prep. The patient had been brought into the operating room and laid in the left lateral decubitus position. After adequate intravenous sedation, the rectum was examined with 2% lidocaine jelly. No external hemorrhoids were encountered. The rectal tone was within normal limits. No lesions were palpated in the rectal vault. An Olympus colonoscope was advanced until the cecum, ileocecal valve and appendiceal orifice were clearly viewed. The prep was good. No diverticulosis was encountered. No colonic polyps were found. No evidence of focal colitis was found. Retroflexion of the scope demonstrated grade 1 internal hemorrhoids without active bleeding or inflammation. The colon was desufflated. The patient had tolerated the procedure well. Withdrawal time was over 6 minutes. FINDINGS: Aronchick preparation quality scale 2 (1-5) Internal hemorrhoids, grade 1 No external prolapsed hemorrhoids. No arteriovenous malformations. No adenomatous polyps. Random biopsies for microscopic colitis RECOMMENDATIONS: Lower endoscopy in 6 years, 2027 Plan - Discharge Summary Discharge Rx Participant: Yes New Discharge Prescriptions: Continue HYDROcodone/APAP 7.5-325MG [[place] 7.5-325] 1 tab PO TID Terbinafine [LamISIL] 250 mg PO HS Simethicone [Gas-X] 125 mg PO TID Dicyclomine [Bentyl] 20 mg PO BID Cyanocobalamin [Vitamin B-12 Injection] 1,000 mcg SQ QMONTHLY Levothyroxine Sodium 125 mcg PO HS Discharge Medication List HYDROcodone/APAP 7.5-325MG [[place] 7.5-325] 1 tab PO TID 01/19/22 [History] Terbinafine [LamISIL] 250 mg PO HS 01/19/22 [History] Cyanocobalamin [Vitamin B-12 Injection] 1,000 mcg SQ QMONTHLY 02/02/22 [History] Levothyroxine Sodium 125 mcg PO HS 02/02/22 [History] Simethicone [Gas-X] 125 mg PO TID 02/02/22 [History] Dicyclomine [Bentyl] 20 mg PO BID 02/22/22 [History] Follow up Appointment(s)/Referral(s): Nallely Bautista MD [STAFF PHYSICIAN] - 03/04/22 (SURGERY DAY) Patient Instructions/Handouts: *Surgery [facility] - (Anesthesia) Endoscopy Discharge Instructions, Colonoscopy (DC) Activity/Diet/Wound Care/Special Instructions: Repeat colonoscopy at age [id number] Discharge Disposition: HOME SELF-CARE
[2022-02-24 11:07] LABS: HCT 38.6 % (34.0-46.0); HGB 12.6 gm/dL (11.4-16.0); MCH 29.7 pg (25.0-35.0); MCHC 32.7 g/dL (31.0-37.0); MCV 90.8 fL (80.0-100.0); Mean Platelet Volume 7.8; Platelet Count 249 k/uL (150-450); RBC 4.25 m/uL (3.80-5.40); RDW 14.2 % (11.5-15.5); WBC 5.6 k/uL (3.8-10.6)
== END 2022-02-24 11:23 | disposition home or self-care (01) ==
LOC: ORWHC2ENDO 08:27
PROVIDERS: ATTEND Surgery Plastic and Reconstructive Surgery
DX: R19.4 Change in bowel habit (principal); K57.30 Diverticulosis of large intestine without perforation or abscess without bleeding; K64.0 First degree hemorrhoids; G43.909 Migraine, unspecified, not intractable, without status migrainosus; R56.9 Unspecified convulsions; K21.9 Gastro-esophageal reflux disease without esophagitis; Z86.718 Personal history of other venous thrombosis and embolism; Z86.73 Personal history of transient ischemic attack (TIA), and cerebral infarction without residual deficits; Z79.890 Hormone replacement therapy; Z79.899 Other long term (current) drug therapy; Z88.5 Allergy status to narcotic agent; Z88.0 Allergy status to penicillin; Z91.040 Latex allergy status; Z98.1 Arthrodesis status
CPT/HCPCS: 81025; 86900; 86901; 88305; 85027; 86850; 45380; J2704

== ENCOUNTER 2022-03-04 05:32 | Inpatient (IN) | payer OTHER ==
[2022-03-02 09:53] VITALS: BMI 41.1
[~2022-03-04 05:32] MED LIST changes: +HEPARIN SODIUM,PORCINE/PF 5,000 UNIT/0.5 ML SYRINGE SQ PRN; -LACTATED RINGERS 1,000 ML IV SCH; +metroNIDAZOLE-NS PMX 500 MG in SALINE 1 100ML.BAG IVPB PRN
[2022-03-04] MEDS ORDERED: DEXAMETHASONE SOD PHOSPHATE 4 MG/ML 1 ML VIAL IV ONE (06:08)
[2022-03-04] MEDS ORDERED: MIDAZOLAM 2 MG/2 ML VIAL IV PRN (06:08)
[2022-03-04] MEDS ORDERED: SCOPOLAMINE 1 MG/72 HR PATCH TRANSDERM ONE (06:08)
[2022-03-04] MEDS ORDERED: ONDANSETRON 4 MG/2 ML VIAL IVP ONE (06:08)
[2022-03-04] MEDS: LACTATED RINGERS 1,000 ML IV SCH (06:45)
[2022-03-04] MEDS ORDERED: LIDOCAINE 1% (10MG/ML) FOR IV START INTRADERMA ONE (06:46)
[2022-03-04] MEDS ORDERED: HEPARIN SODIUM,PORCINE/PF 5,000 UNIT/0.5 ML SYRINGE SQ STA (06:54)
[2022-03-04] MEDS ORDERED: Antibiotics per Pharmacy 1 EACH MISC MISCELLANE PRN (06:54)
[2022-03-04] MEDS ORDERED: GABAPENTIN 300 MG CAP PO PRN (06:56)
[2022-03-04] MEDS ORDERED: SCOPOLAMINE 1 MG/72 HR PATCH TRANSDERM PRN (06:56)
--- NOTE | 2022-03-04 06:58 | P.GSHP ---
History of Present Illness H&P Date: 03/04/22 CHIEF COMPLAINT: History of sigmoid volvulus HISTORY OF PRESENT ILLNESS: The patient is a 41-year-old female with long- standing history of chronic constipation including large bowel obstruction secondary to sigmoid volvulus. She completed a colonoscopy which excluded underlying neoplasm. Now she presents for sigmoid colon resection. PAST MEDICAL HISTORY: Please see list. PAST SURGICAL HISTORY: Please see list. MEDICATIONS: Please see list. ALLERGIES: Please see list. SOCIAL HISTORY: No illicit drug use FAMILY HISTORY: No reports of Crohn disease or ulcerative colitis. REVIEW OF ORGAN SYSTEMS: CONSTITUTIONAL: Denies any fever or chills. HEENT: Denies any trouble with vision or nosebleeds. No difficulty swallowing. LYMPHATIC: The patient denies any lumps and bumps around the neck. ENDOCRINE: Denies any thyroid disorders. RESPIRATORY: Denies pneumonia. Denies any troubles with breathing or dyspnea on exertion. CARDIOVASCULAR: Denies any chest pain, palpitations, or recent heart attacks. GASTROINTESTINAL: Has constipation and recent colonoscopy 1 week ago. GENITOURINARY: Has increased urinary frequency. MUSCULOSKELETAL: Has back pain, stiffness, joint arthritis. NEUROLOGIC: Denies any numbness or tingling along the distal extremities. No se izure disorders or headaches. PSYCHIATRIC: Denies depression or suidical ideation. HEMATOLOGIC: Denies any abnormal bleeding or bruising. PHYSICAL EXAM: VITAL SIGNS: Stable GENERAL: Well-developed pleasant in no acute distress. HEENT: No scleral icterus. Extraocular movements grossly intact. Moist buccal mucosa. NECK: Supple without lymphadenopathy. CHEST: Unlabored respirations. Equal bilateral excursions. CARDIOVASCULAR: Regular rate and rhythm. Distal 2+ pulses. ABDOMEN: Soft, nontender, nondistended. MUSCULOSKELETAL: No clubbing, cyanosis, or edema. NERUO: Regular 2-12 grossly intact. PSYCH: Alert and oriented to person place and time. ASSESSMENT: 1. History of previous large bowel obstruction. 2. Sigmoid volvulus. 3. History of gastric bypass PLAN: 1. Benefits and risks of surgical intervention particular sigmoid volvulus reviewed in detail. Robotic-assisted approach was also described. 2. She has completed an enhanced colon recovery program. 3. DVT prophylaxis. 4. Antibiotic prophylaxis. Past Medical History Past Medical History: CVA/TIA, Deep Vein Thrombosis (DVT), GERD/Reflux, Neurologic Disorder, Seizure Disorder, Thyroid Disorder Additional Past Medical History / Comment(s): HERNIATED CERVICAL DISCS C4-C5 WITH NECK PAIN. Right leg numbness and tingling from CVA 2017. HX SEIZURES- NONE SINCE 2005. ABD PAIN LEFT SIDE chronic. Migraines. Hx DVT 2007, bruises easy. Hx Intussusception. Hx fractured vertebrae. Panniculitis with surgery, DVT in right leg in 2007, VARICOSE VEINS, hypothyroid, recurrent UTIs, R leg numbness/tingling with foot drop, esophageal anastomatic stricture, dysphagia in past, seizure 2005, hiatal hernia, PUD, hypoglycemia intussusception of the sherine wel, morbid obesity status post Dalia-en-Y. History of Any Multi-Drug Resistant Organisms: MRSA Date of last positivie culture/infection: 01/2008 MDRO Source:: right arm Past Surgical History: Adenoidectomy, Appendectomy, Bariatric Surgery, Section, Cholecystectomy, Orthopedic Surgery, Tonsillectomy, Tubal Ligation Additional Past Surgical History / Comment(s): RECONSTRUCTION RIGHT KNEE, C- SECTION X3, DALIA-EN-Y(AUG 2012), panniculectomy, diagnostic laproscopy with lysis of adhesions X3, EGD with dilation, colonoscopies, hiatal hernia repair, C-5 removed May 17, 2017, NAVA, PFO closure with disc in heart 07/11/17, RECONSTRUCTION OF DALIA-EN-Y 2017. Past Anesthesia/Blood Transfusion Reactions: No Reported Reaction Past Psychological History: Anxiety, Depression Additional Psychological History / Comment(s): Hx POST DEPRESSION. Smoking Status: Never smoker Past Alcohol Use History: Rare Additional Past Alcohol Use History / Comment(s): . Past Drug Use History: None Reported - Past Family History Father Family Medical History: GERD/Reflux, Hyperlipidemia, Hypertension, Sleep Apnea/CPAP/BIPAP Additional Family Medical History / Comment(s): arthritis Mother Family Medical History: Cancer Additional Family Medical History / Comment(s): Mom has MS. Medications and Allergies Home Medications Medication Instructions Recorded Confirmed Type HYDROcodone/APAP 7.5-325MG [[place] 1 tab PO TID 01/19/22 03/02/22 History 7.5-325] Terbinafine [LamISIL] 250 mg PO HS 01/19/22 03/02/22 History Cyanocobalamin [Vitamin B-12 1,000 mcg SQ QMONTHLY 02/02/22 03/04/22 History Injection] Levothyroxine Sodium 125 mcg PO HS 02/02/22 03/02/22 History Simethicone [Gas-X] 125 mg PO TID 02/02/22 03/02/22 History Dicyclomine [Bentyl] 20 mg PO BID 02/22/22 03/02/22 History Allergies Allergy/AdvReac Type Severity Reaction Status Date / Time latex Allergy Severe Anaphylaxis, Verified 03/02/22 09:42 TROUBLE BREATHING Penicillins Allergy Severe Swelling/Hi Verified 03/02/22 09:42 ves morphine Allergy Hives, Verified 03/02/22 09:42 ITCHING Surgical - Exam Vital Signs Temp Pulse Resp BP Pulse Ox 97.8 F 67 16 112/56 100 03/04/22 06:31 03/04/22 06:31 03/04/22 06:31 03/04/22 06:31 03/04/22 06:31
[2022-03-04] MEDS ORDERED: ACETAMINOPHEN TAB 500 MG TAB PO PRN (07:00)
[2022-03-04] MEDS ORDERED: ALVIMOPAN 12 MG CAPSULE PO PRN (07:00)
[2022-03-04 07:26] LABS: Basophils # (A) 0.1 k/uL (0-0.2); Basophils % (A) 1 %; Eosinophils # (A) 0.2 k/uL (0-0.7); Eosinophils % (A) 3 %; HCT 38.5 % (34.0-46.0); HGB 12.7 gm/dL (11.4-16.0); Lymphocytes # (A) 1.5 k/uL (1.0-4.8); Lymphocytes % (A) 32 %; MCH 29.6 pg (25.0-35.0); MCV 89.7 fL (80.0-100.0); Mean Platelet Volume 7.4; Monocytes # (A) 0.4 k/uL (0-1.0); Monocytes % (A) 9 %; Neutrophils # (A) 2.5 k/uL (1.3-7.7); Neutrophils % (A) 53 %; Platelet Count 234 k/uL (150-450); RBC 4.29 m/uL (3.80-5.40); RDW 14.2 % (11.5-15.5); WBC 4.7 k/uL (3.8-10.6)
[2022-03-04] MEDS: fentaNYL (PF) 50 MCG/ML 2 ML AMP IV PRN ×2 (07:30→13:00)
[2022-03-04 07:35] LABS: ALT 23 U/L (4-34); AST 32 U/L (14-36); African American GFR (CKD) >90 (>60 ml/min/1.73 sqM); Albumin 4.4 g/dL (3.5-5.0); Alkaline Phosphatase 71 U/L (38-126); Anion Gap 8 mmol/L; Blood Urea Nitrogen 13 mg/dL (7-17); Carbon Dioxide 24 mmol/L (22-30); Chloride 107 mmol/L (98-107); Glucose 89 mg/dL (74-99); Non-African American GFR(CKD) >90 (>60 ml/min/1.73 sqM); Potassium 4.4 mmol/L (3.5-5.1); Sodium 139 mmol/L (137-145); Total Bilirubin 0.3 mg/dL (0.2-1.3); Total Protein 7.1 g/dL (6.3-8.2)
[2022-03-04] MEDS ORDERED: SUCCINYLCHOLINE CHLORIDE VIAL 200 MG/10 ML VIAL IV ONE (07:42)
[2022-03-04] MEDS ORDERED: fentaNYL (PF) 50 MCG/ML 2 ML AMP ONE (07:42)
[2022-03-04] MEDS ORDERED: ROPIVACAINE 5 MG/ML 30 ML VIAL ONE (07:42)
[2022-03-04] MEDS ORDERED: NEOSTIGMINE 1 MG/ML 10 ML VIAL ONE (07:42)
[2022-03-04] MEDS ORDERED: SODIUM CHLORIDE 0.9% (PF) 10 ML VIAL ONE (07:42)
[2022-03-04] MEDS ORDERED: HYDROmorphone (PF) 1 MG/ML ONE (07:42)
[2022-03-04] MEDS ORDERED: LIDOCAINE 2% INJ 20 MG/ML (2 ML VIAL) ONE (07:42)
[2022-03-04] MEDS ORDERED: GLYCOPYRROLATE 0.2 MG/ML 2 ML VIAL ONE (07:42)
[2022-03-04] MEDS ORDERED: PROPOFOL 10 MG/ML 20 ML VIAL IV ONE (07:42)
[2022-03-04] MEDS ORDERED: MIDAZOLAM 2 MG/2 ML VIAL ONE (07:42)
[2022-03-04] MEDS ORDERED: ROCURONIUM 10 MG/ML (5 ML VIAL) IV ONE (07:42)
[2022-03-04] MEDS ORDERED: BUPIVACAIN-EPI 0.25%-1:200,000 30 ML VIAL SQ ONE (08:31)
[2022-03-04] MEDS ORDERED: LACTATED RINGERS 1,000 ML IV ONE ×2 (08:35→09:42)
--- NOTE | 2022-03-04 10:21 | P.ANPRN ---
Procedure Note - Anesthesia - Nerve Block Performed Bilateral Erector Spinae Single Time Out Performed: Yes ([id number]) Date of Procedure: 03/04/22 Procedure Start Time: :30 Procedure Stop Time: :34 Location of Patient: PreOp Indication: Acute Post-Operative Pain, Requested by Surgeon Specifically requested for management of pain by : Nallely Bautista Sedation Type: Sedate with meaningful contact maintained Preparation: Sterile Prep Position: Prone Catheter: None Needle Types: Pajunk Needle Gauge: 21 Ultrasound used to visualize needle placement: Yes Ultrasound used to observe medication spread: Yes Injectate: 0.5% Ropivacaine (see comment for volume) (15cc + 15cc nacl pf each side) Blood Aspirated: No Pain Paresthesia on Injection Noted: No Resistance on Injection: Normal Image Stored and Saved: Yes Events: Uneventful and Well Tolerated
--- NOTE | 2022-03-04 11:18 | P.OP ---
Date of Procedure: 03/04/22 Description of Procedure: SURGEON: CARLITA MATIAS MD PREOPERATIVE DIAGNOSES: 1. Intermittent large bowel obstruction due to recurrent sigmoid volvulus POSTOPERATIVE DIAGNOSES: 1. Intermittent large bowel obstruction due to recurrent sigmoid volvulus OPERATION: 1. Robotic-assisted daVinci Xi laparoscopic sigmoid colectomy with low anterior resection using 29 mm EEA Ethicon powered stapler 2. Intraoperative flexible sigmoidoscopy using colonoscope Anesthesia: GETA, local ESTIMATED BLOOD LOSS: 5 mL SPECIMENS REMOVED: Sigmoid colon COMPLICATIONS: None. Pathology: other (Sigmoid colectomy) Condition: stable Disposition: floor FINDINGS: 1. Low anterior resection with 29 mm EEA powered stapler INDICATIONS: The patient is a 41-year-old female with chronic abdominal pain due to recurrent intermittent bowel obstruction due to sigmoid volvulus. Surgical resection with colectomy described. Benefits and risks, including infection, bowel injury, ureteral injury, colostomy creation and possibility for additional surgery was discussed at length. Informed consent was obtained. All questions of the patient and family were answered. DESCRIPTION: Earlier the patient had undergone a bowel prep using the enhanced colon recovery program. The patient was transferred to the operating room and placed supine. A Johnson catheter was placed. The perineum was prepped and draped in the standard sterile fashion. The abdomen was then prepped and draped in standard sterile fashion as [place]an was placed along the abdomen to minimize any contamination of skin floor. After a timeout protocol was performed, attention was then brought to the left upper quadrant whereby a 0 degree 5 mm laparoscopic trocar entry was performed. The abdominal cavity was entered and insufflated to 15 mmHg pressure, which was tolerated well. Next a robotic 8-mm trocar was placed along the epigastrium 20 cm superior from the pelvis. A 12 mm port was placed along the right lateral upper quadrant. Ports were placed 10 cm apart from each other including 15-20 cm away from the target anatomy of the left pelvis. The 5-mm port was exchanged for an 8 mm robotic port. A 12 mm was placed along the left lateral abdominal wall. The 8- mm port was arranged along the left upper abdominal wall. The patient was the n placed in Trendelenburg position, at least 21. The robotic da Clementina XI system was primed. The robot was docked from the right side of the patient. Using atraumatic graspers and vessel sealer, the robotic system was docked and primed as described. Instruments were interchanged by the assistant professor of psychology including scissors, needle courtesy car driver, robotic stapler and vessel sealer. The robot stapler was prepared along the right lateral abdominal wall. Next, attention was brought to identify the sigmoid colon. The descending colon and sigmoid colon was mobilized along the white line of Toldt towards the pelvis. A stay suture using 3-0 silk was placed along the anterior serosa of the descending colon. The sigmoid mesentery was mobilized using a vessel sealer whereby the distal sigmoid colon was marked and tagged. Using fires of the robot stapler 60 mm green loads, the distal sigmoid colon was divided. Mobilization of the colon was performed to the pelvic brim along the sacral promontory. The mesentery of the sigmoid colon was mobilized towards the descending colon using a vessel sealer. The rest of the sigmoid colon mesentery was mobilized using vessel sealer. Additionally, the sigmoid colon was mobilized onto the colon to minimize injury to the ureters. Adhesions within the pelvis were dressed using vessel sealer. An intraoperative sigmoid colonoscopy was performed to decompress the area of the sigmoid volvulus including identifying sizers allowable up to 31 mm. Once confirmed I went back to the console. The colon was resected along the proximal rectum using green 60 mm loads. Next, I went back to the patient bedside where a 29 mm anvil was entered via the left upper quadrant 12 mm trocar site. A distal descending colotomy was made at the staple line for the anvil. The colotomy was closed using 60 mm green loads. The anvil was projected through the staple line and prepared for connection. A powered 29 mm EEA Ethicon stapler was entered via the rectum. The anvil was mated with the stapler for 1 minute. Both donuts were complete on both sides. I went to the foot of the bed to perform a sigmoidoscopy. A flexible colonoscope was inserted along the rectum and advanced to the anastomosis and proximally. No evidence of leaks were identified after normal saline solution over the anastomosis. The anastomosis was completely hemostatic. All irrigation fluid was removed. All needles were removed from the abdominal cavity. The robot was undocked. Via the left upper quadrant stapler site, the resected colon was brought out through incision. The fascial defect was oversewn using 0 Vicryl and a Stone Britt. Next all pneumoperitoneum including instruments were evacuated from the abdominal cavity. All incisions were copiously irrigated using dilute normal saline and hydrogen peroxide mixture. The trocar sites were reapproximated using 4-0 Monocryl in an interrupted subcuticular fashion. Local anesthetic was infiltrated to all wounds for postop analgesia. An Optifoam surgical dressing was placed over the colon extraction site. Exofin skin glue was applied to the rest of the skin incisions. The patient was extubated successfully. The patient was transferred to the postanesthesia care unit in stable condition. Patient's daughter Verito called over the telephone with updates on her mother's care.
[2022-03-04] MEDS ORDERED: diphenhydrAMINE 50 MG/ML 1 ML VIAL IVP ONE (11:24)
[2022-03-04] MEDS ORDERED: HYDROmorphone 0.5 MG/0.5 ML SYRINGE IVP ONE ×2 (11:35→13:15)
[2022-03-04] MEDS: HYDROmorphone 1 MG/ML 1 ML SYRINGE IVP PRN ×2 (14:31→20:14)
[2022-03-04] MEDS ORDERED: NALOXONE 0.4 MG/ML 1 ML VIAL IV PRN (19:01)
[2022-03-04] MEDS ORDERED: diphenhydrAMINE 50 MG/ML 1 ML VIAL IVP PRN (19:01)
[2022-03-04] MEDS: 0.9% NACL WITH KCL 20 MEQ/L 1,000 ML IV SCH (20:02)
[2022-03-04] MEDS: ACETAMINOPHEN IV (For NPO) 1,000 MG in EMPTY BAG 1 BAG IVPB SCH (20:02)
[2022-03-04] MEDS: METOCLOPRAMIDE 5 MG/ML 2 ML VIAL IVP PRN (20:04)
[2022-03-04] MEDS: DICYCLOMINE 10 MG CAP PO SCH (21:45)
[2022-03-04] MEDS: HEPARIN SODIUM,PORCINE/PF 5,000 UNIT/0.5 ML SYRINGE SQ SCH (21:46)
[2022-03-04] MEDS: FAMOTIDINE 20 MG TAB PO SCH (21:46)
[2022-03-04] MEDS: GABAPENTIN 300 MG CAP PO SCH (21:46)
[2022-03-04] MEDS: LEVOTHYROXINE 125 MCG TAB PO SCH (21:46)
[2022-03-04] MEDS: ONDANSETRON 4 MG/2 ML VIAL IVP SCH (23:45)
[2022-03-04] MEDS: metroNIDAZOLE-NS PMX 500 MG in SALINE 1 100ML.BAG IVPB SCH (23:46)
--- NOTE | 2022-03-05 01:50 | P.CONS ---
History of Present Illness - Reason for Consult Consult date: 03/05/22 - History of Present Illness The patient is a 31-year-old female with a PMH of hypothyroidism, seizure disorder, history of CVA, and recurrent sigmoid volvulus with bowel obstruction who was admitted for planned sigmoid colectomy. The patient underwent the procedure earlier today and was seen postoperatively on the surgical unit. She reported good control of her pain, currently at a 2 out of 10 at the time of interview on the left side of her abdomen. She reports having gotten out of bed to use the restroom. She has passed urine but has not had a bowel movement. Denied experiencing chest discomfort, shortness at, nausea, cough. Review of systems: Pertinent positives and negatives as discussed in HPI, a complete review of systems was performed and all other systems are negative. Physical examination: General: non toxic, no distress, appears at stated age, morbidly obese Derm: no unusual rashes/lesions, warm Head: atraumatic, normocephalic, symmetric Eyes: EOMI, no lid lag, anicteric sclera, pupils equal round reactive to light ENT: Nose and ears atraumatic Neck: No cervical lymphadenopathy, trachea midline, supple Mouth: no lip lesion, mucus membranes moist Cardiovascular: S1S2 reg, no murmur, positive dorsalis pedis pulse bilateral, no edema Lungs: CTA bilateral, no rhonchi, no rales, no accessory muscle use Abdominal: soft, postsurgical incisions intact, no guarding Ext: muscle strength 5 out of 5 in all 4 extremities grossly, no gross muscle atrophy, no contractures, Neuro: CN II-XI grossly intact, no gross focal neuro deficits Psych: Alert, oriented, appropriate affect Assessment/plan Chronic conditions: Hypothyroidism -Continue home medications Status post sigmoid resection -Defer management including pain control and DVT prophylaxis to the surgery service Past Medical History Past Medical History: CVA/TIA, Deep Vein Thrombosis (DVT), GERD/Reflux, Neurologic Disorder, Seizure Disorder, Thyroid Disorder Additional Past Medical History / Comment(s): HERNIATED CERVICAL DISCS C4-C5 WITH NECK PAIN. Right leg numbness and tingling from CVA 2016. HX SEIZURES- NONE SINCE 2005. ABD PAIN LEFT SIDE chronic. Migraines. Hx DVT 2007, bruises easy. Hx Intussusception. Hx fractured vertebrae. Panniculitis with surgery, DVT in right leg in 2007, VARICOSE VEINS, hypothyroid, recurrent UTIs, R leg numbness/tingling with foot drop, esophageal anastomatic stricture, dysphagia in past, seizure 2005, hiatal hernia, PUD, hypoglycemia intussusception of the bowel, morbid obesity status post Dalia-en-Y. History of Any Multi-Drug Resistant Organisms: MRSA Year Discovered:: 01/2008 MDRO Source:: right arm Past Surgical History: Adenoidectomy, Appendectomy, Bariatric Surgery, Section, Cholecystectomy, Orthopedic Surgery, Tonsillectomy, Tubal Ligation Additional Past Surgical History / Comment(s): RECONSTRUCTION RIGHT KNEE, C- SECTION X3, DALIA-EN-Y(AUG 2012), panniculectomy, diagnostic laproscopy with lysis of adhesions X3, EGD with dilation, colonoscopies, hiatal hernia repair, C-5 removed May 17, 2017, NAVA, PFO closure with disc in heart 07/11/17, RECONSTRUCTION OF DALIA-EN-Y 2016, Bowel blockage repaired 03/04/22 Past Anesthesia/Blood Transfusion Reactions: No Reported Reaction Past Psychological History: Anxiety, Depression Additional Psychological History / Comment(s): Hx POST DEPRESSION. Smoking Status: Never smoker Past Alcohol Use History: Rare Additional Past Alcohol Use History / Comment(s): . Past Drug Use History: None Reported - Past Family History Father Family Medical History: GERD/Reflux, Hyperlipidemia, Hypertension, Sleep Apnea/CPAP/BIPAP Additional Family Medical History / Comment(s): arthritis Mother Family Medical History: Cancer Additional Family Medical History / Comment(s): Mom has MS. Medications and Allergies Home Medications Medication Instructions Recorded Confirmed Type HYDROcodone/APAP 7.5-325MG [[place] 1 tab PO TID 01/19/22 03/02/22 History 7.5-325] Terbinafine [LamISIL] 250 mg PO HS 01/19/22 03/02/22 History Cyanocobalamin [Vitamin B-12 1,000 mcg SQ QMONTHLY 02/02/22 03/04/22 History Injection] Levothyroxine Sodium 125 mcg PO HS 02/02/22 03/02/22 History Simethicone [Gas-X] 125 mg PO TID 02/02/22 03/02/22 History Dicyclomine [Bentyl] 20 mg PO BID 02/22/22 03/02/22 History Allergies Allergy/AdvReac Type Severity Reaction Status Date / Time latex Allergy Severe Anaphylaxis, Verified 03/02/22 09:42 TROUBLE BREATHING Penicillins Allergy Severe Swelling/Hi Verified 03/02/22 09:42 ves morphine Allergy Hives, Verified 03/02/22 09:42 ITCHING Physical Exam Vitals: Vital Signs Temp Pulse Pulse Resp BP BP Pulse Ox 03/05/22 00:25 98.5 F 86 15 112/71 95 03/04/22 20:24 99.2 F 102 H 16 116/77 91 L 03/04/22 16:08 94 L 03/04/22 15:18 98.8 F 97 16 141/82 96 03/04/22 13:30 100 16 134/82 97 03/04/22 13:00 66 16 132/78 97 03/04/22 12:35 65 16 131/79 94 L 03/04/22 12:30 65 16 131/79 94 L 03/04/22 12:05 71 16 133/81 94 L 03/04/22 11:50 55 L 16 131/78 100 03/04/22 11:35 62 16 133/73 100 03/04/22 11:20 77 16 147/79 98 03/04/22 11:08 98.2 F 90 16 115/80 91 L 03/04/22 06:31 97.8 F 67 16 112/56 100 Intake and Output 03/04/22 03/04/22 03/05/22 14:59 22:59 06:59 Intake Total 2250 Output Total 160 250 650 Balance 2090 -250 -650 Intake: IV 2250 Output: Urine 110 250 650 Estimated Blood Loss 50 Other: Voiding Method Indwelling Catheter Weight 114.7 kg Results CBC & Chem 7: 03/04/22 07:16 03/04/22 07:16
[2022-03-05] MEDS: ACETAMINOPHEN IV (For NPO) 1,000 MG in EMPTY BAG 1 BAG IVPB SCH ×3 (03:23→12:37)
[2022-03-05] MEDS: ONDANSETRON 4 MG/2 ML VIAL IVP SCH ×3 (05:39→17:06)
[2022-03-05] MEDS: metroNIDAZOLE-NS PMX 500 MG in SALINE 1 100ML.BAG IVPB SCH ×3 (05:40→17:06)
[2022-03-05] MEDS: FAMOTIDINE 20 MG TAB PO SCH ×2 (07:22→21:03)
[2022-03-05] MEDS: ALVIMOPAN 12 MG CAPSULE PO SCH ×2 (07:22→21:03)
[2022-03-05] MEDS: DICYCLOMINE 10 MG CAP PO SCH ×2 (07:23→21:03)
[2022-03-05] MEDS: HEPARIN SODIUM,PORCINE/PF 5,000 UNIT/0.5 ML SYRINGE SQ SCH ×2 (07:23→21:06)
[2022-03-05] MEDS: GABAPENTIN 300 MG CAP PO SCH ×3 (07:23→21:06)
[2022-03-05] MEDS: LACTATED RINGERS 1,000 ML IV SCH (07:23)
[2022-03-05] MEDS: HYDROmorphone 1 MG/ML 1 ML SYRINGE IVP PRN ×4 (07:27→19:47)
[2022-03-05] MEDS: 0.9% NACL WITH KCL 20 MEQ/L 1,000 ML IV SCH ×3 (09:09→20:22)
[2022-03-05] MEDS: METOCLOPRAMIDE 5 MG/ML 2 ML VIAL IVP PRN ×2 (09:13→20:18)
[2022-03-05] MEDS: HYDROcodone/APAP 7.5-325MG 1 EACH TAB PO PRN (11:28)
[2022-03-05 11:31] LABS: Basophils # (A) 0.04 X 10*3/uL (0.00-0.10); Basophils % (A) 0.4 %; Eosinophils # (A) 0.06 X 10*3/uL (0.04-0.35); Eosinophils % (A) 0.6 %; HCT 34.7 % (37.2-46.3); HGB 10.9 g/dL (12.0-15.0); Immature Grans, Automated 0.2 %; Lymphocytes # (A) 1.34 X 10*3/uL (0.90-5.00); Lymphocytes % (A) 13.9 %; MCH 27.9 pg (27.0-32.0); MCHC 31.4 g/dL (32.0-37.0); MCV 88.7 fL (80.0-97.0); Mean Platelet Volume 10.8 fL (9.5-12.2); Monocytes # (A) 0.89 X 10*3/uL (0.20-1.00); Monocytes % (A) 9.2 %; NRBC Per 100 WBC 0 /100 WBCS (0.0-0.0); Neutrophils # (A) 7.28 X 10*3/uL (1.80-7.70); Neutrophils % (A) 75.7 %; Platelet Count 208 X 10*3/uL (140-440); RBC 3.91 X 10*6/uL (4.10-5.20); RDW 14.4 % (11.5-14.5); WBC 9.63 X 10*3/uL (4.50-10.00)
--- NOTE | 2022-03-05 11:44 | P.PN ---
Progress Note - Text Progress Note Date: 03/05/22 Patient is status post left colectomy for constipation. She feels mild incisional pain today. She's not had any flatus. On exam vital signs are stable. Abdomen soft. Status post colectomy for consultation. Patient will continue supportive care.
[2022-03-05 12:19] LABS: African American GFR (CKD) >90 (>60 ml/min/1.73 sqM); Anion Gap 3 mmol/L; Blood Urea Nitrogen 5 mg/dL (7-17); Calcium 8.2 mg/dL (8.4-10.2); Carbon Dioxide 26 mmol/L (22-30); Chloride 107 mmol/L (98-107); Glucose 88 mg/dL (74-99); Non-African American GFR(CKD) >90 (>60 ml/min/1.73 sqM); Potassium 4.3 mmol/L (3.5-5.1); Sodium 136 mmol/L (137-145)
[2022-03-05] MEDS ORDERED: ACETAMINOPHEN IV (For NPO) 1,000 MG in EMPTY BAG 1 BAG IVPB ONE (20:34)
[2022-03-05] MEDS: LEVOTHYROXINE 125 MCG TAB PO SCH (21:13)
[2022-03-06] MEDS: ONDANSETRON 4 MG/2 ML VIAL IVP SCH ×5 (01:14→23:56)
[2022-03-06] MEDS: HYDROmorphone 1 MG/ML 1 ML SYRINGE IVP PRN ×6 (01:33→23:56)
[2022-03-06] MEDS: 0.9% NACL WITH KCL 20 MEQ/L 1,000 ML IV SCH (05:49)
[2022-03-06] MEDS: DICYCLOMINE 10 MG CAP PO SCH ×2 (06:46→21:04)
[2022-03-06] MEDS: ALVIMOPAN 12 MG CAPSULE PO SCH ×2 (06:46→06:49)
[2022-03-06] MEDS: FAMOTIDINE 20 MG TAB PO SCH ×2 (06:46→21:04)
[2022-03-06] MEDS: HEPARIN SODIUM,PORCINE/PF 5,000 UNIT/0.5 ML SYRINGE SQ SCH ×2 (06:46→21:05)
[2022-03-06] MEDS: GABAPENTIN 300 MG CAP PO SCH ×3 (06:47→21:04)
[2022-03-06] MEDS: LACTATED RINGERS 1,000 ML IV SCH (06:47)
[2022-03-06 08:14] LABS: African American GFR (CKD) >90 (>60 ml/min/1.73 sqM); Anion Gap 6 mmol/L; Blood Urea Nitrogen 3 mg/dL (7-17); Calcium 8.3 mg/dL (8.4-10.2); Carbon Dioxide 21 mmol/L (22-30); Chloride 108 mmol/L (98-107); Glucose 84 mg/dL (74-99); Non-African American GFR(CKD) >90 (>60 ml/min/1.73 sqM); Sodium 135 mmol/L (137-145)
[2022-03-06 08:29] LABS: Potassium 5.6 mmol/L (3.5-5.1)
[2022-03-06] MEDS: SODIUM CHLORIDE 0.9% 1,000 ML IV SCH ×2 (10:12→21:16)
--- NOTE | 2022-03-06 10:15 | P.PN ---
Progress Note - Text Progress Note Date: 03/06/22 Patient's complaining of some incisional pain. She's had some flatus. On exam vital signs are stable. Abdomen soft. Incision sites are clean and intact. Patient will have her diet advanced to full liquid diet.
[2022-03-06] MEDS: METOCLOPRAMIDE 5 MG/ML 2 ML VIAL IVP PRN (10:44)
--- NOTE | 2022-03-06 14:21 | P.PN ---
Subjective Progress Note Date: 03/06/22 No new complaints today. Patient seen ambulate in the hallway without any distress. Still reports some pain in her abdomen after sitting down after walk. Her diet was advanced to full liquid diet. She has been passing flatus. Gen: awake, alert HEENT: normocephalic, atraumatic, good hearing acuity, moist mucous membranes Resp: good air exchange, breathing comfortably with no accessory muscle use CVS: good distal perfusion x 4, GI: soft, NTTP, ND : no SPT, no CVAT, simon catheter not present MSK: no pitting edema, no clubbing Neuro: non-focal, moving all extremities Psych: cooperative, euthymic mood Assessment/plan: Chronic conditions: Hypothyroidism -Continue home medications Status post sigmoid resection -Defer management including pain control and DVT prophylaxis to the surgery service Objective - Vital Signs Vital signs: Vital Signs Temp 97.6 F 03/06/22 13:54 Pulse 79 03/06/22 13:54 Resp 18 03/06/22 13:54 BP 119/82 03/06/22 13:54 Pulse Ox 97 03/06/22 13:54 FiO2 Intake & Output 03/05/22 03/06/22 03/06/22 18:59 06:59 18:59 Other: Voiding Method Indwelling Catheter Toilet Toilet # Voids 5 - Labs CBC & Chem 7: 03/05/22 07:55 03/06/22 07:10 Labs: Abnormal Lab Results - Last 24 Hours (Table) 03/06/22 Range/Units 07:10 Sodium 135 L (137-145) mmol/L Potassium 5.6 H (3.5-5.1) mmol/L Chloride 108 H (98-107) mmol/L Carbon Dioxide 21 L (22-30) mmol/L BUN 3 L (7-17) mg/dL Calcium 8.3 L (8.4-10.2) mg/dL
[2022-03-06] MEDS: HYDROcodone/APAP 7.5-325MG 1 EACH TAB PO PRN (18:07)
[2022-03-06] MEDS: LEVOTHYROXINE 125 MCG TAB PO SCH (21:04)
[2022-03-07] MEDS: ALVIMOPAN 12 MG CAPSULE PO SCH ×3 (00:18→20:37)
[2022-03-07] MEDS: HYDROmorphone 1 MG/ML 1 ML SYRINGE IVP PRN ×6 (05:09→20:39)
[2022-03-07] MEDS: ONDANSETRON 4 MG/2 ML VIAL IVP SCH ×3 (05:09→17:40)
[2022-03-07] MEDS: SODIUM CHLORIDE 0.9% 1,000 ML IV SCH ×2 (07:14→15:50)
[2022-03-07] MEDS: LACTATED RINGERS 1,000 ML IV SCH (07:15)
[2022-03-07] MEDS: DICYCLOMINE 10 MG CAP PO SCH ×2 (07:21→20:38)
[2022-03-07] MEDS: FAMOTIDINE 20 MG TAB PO SCH ×2 (07:22→20:38)
[2022-03-07] MEDS: GABAPENTIN 300 MG CAP PO SCH ×3 (07:22→20:38)
[2022-03-07] MEDS: HEPARIN SODIUM,PORCINE/PF 5,000 UNIT/0.5 ML SYRINGE SQ SCH ×2 (07:22→20:38)
--- NOTE | 2022-03-07 09:52 | P.PN ---
Subjective Progress Note Date: 03/07/22 No new complaints today. Plan for dc tomorrow if she tolerates advanced diet. Gen: awake, alert HEENT: normocephalic, atraumatic, good hearing acuity, moist mucous membranes Resp: good air exchange, breathing comfortably with no accessory muscle use CVS: good distal perfusion x 4, GI: soft, NTTP, ND : no SPT, no CVAT, simon catheter not present MSK: no pitting edema, no clubbing Neuro: non-focal, moving all extremities Psych: cooperative, euthymic mood Assessment/plan: Chronic conditions: Hypothyroidism -Continue home medications Status post sigmoid resection -Defer management including pain control and DVT prophylaxis to the surgery service Objective - Vital Signs Vital signs: Vital Signs Temp 98.5 F 03/07/22 07:50 Pulse 80 03/07/22 07:50 Resp 18 03/07/22 07:50 BP 110/63 03/07/22 07:50 Pulse Ox 96 03/07/22 07:50 FiO2 Intake & Output 03/06/22 03/07/22 03/07/22 18:59 06:59 18:59 Other: Voiding Method Toilet Toilet - Labs CBC & Chem 7: 03/05/22 07:55 03/06/22 07:10
[2022-03-07] MEDS: SIMETHICONE 80 MG CHEWABLE PO PRN (10:07)
[2022-03-07] MEDS: BENZOCAINE/MENTHOL LOZENG 1 EACH LOZENGE MUCOUS MEM PRN ×3 (10:17→23:08)
[2022-03-07] MEDS: NYSTATIN 100,000 UNIT/ML SUSP 500,000 UNIT/5 ML CUP PO SCH ×3 (13:10→20:39)
[2022-03-07] MEDS: HYDROcodone/APAP 7.5-325MG 1 EACH TAB PO PRN (15:03)
[2022-03-07] MEDS: LEVOTHYROXINE 125 MCG TAB PO SCH (20:38)
[2022-03-08] MEDS: HYDROmorphone 1 MG/ML 1 ML SYRINGE IVP PRN ×4 (00:30→12:49)
[2022-03-08] MEDS: SIMETHICONE 80 MG CHEWABLE PO PRN ×2 (00:30→11:31)
[2022-03-08] MEDS: ONDANSETRON 4 MG/2 ML VIAL IVP SCH ×3 (05:08→12:49)
[2022-03-08] MEDS: SODIUM CHLORIDE 0.9% 1,000 ML IV SCH (07:08)
[2022-03-08] MEDS: GABAPENTIN 300 MG CAP PO SCH (07:13)
[2022-03-08] MEDS: DICYCLOMINE 10 MG CAP PO SCH (07:13)
[2022-03-08] MEDS: FAMOTIDINE 20 MG TAB PO SCH (07:13)
[2022-03-08] MEDS: ALVIMOPAN 12 MG CAPSULE PO SCH (07:13)
[2022-03-08] MEDS: NYSTATIN 100,000 UNIT/ML SUSP 500,000 UNIT/5 ML CUP PO SCH ×2 (07:14→12:19)
[2022-03-08] MEDS: HEPARIN SODIUM,PORCINE/PF 5,000 UNIT/0.5 ML SYRINGE SQ SCH (07:14)
[2022-03-08 08:04] VITALS: BP 122/84; PULSE 91; RESP 18; TEMP 98.4
[2022-03-08] MEDS: HYDROcodone/APAP 7.5-325MG 1 EACH TAB PO PRN (09:46)
[2022-03-08] MEDS: BENZOCAINE/MENTHOL LOZENG 1 EACH LOZENGE MUCOUS MEM PRN (10:40)
[2022-03-08] MEDS: LACTATED RINGERS 1,000 ML IV SCH (11:17)
--- NOTE | 2022-03-08 11:29 | P.PN ---
Subjective Progress Note Date: 03/08/22 No new complaints today. Plan for dc tomorrow if she tolerates advanced diet. Gen: awake, alert HEENT: normocephalic, atraumatic, good hearing acuity, moist mucous membranes Resp: good air exchange, breathing comfortably with no accessory muscle use CVS: good distal perfusion x 4, GI: soft, NTTP, ND : no SPT, no CVAT, simon catheter not present MSK: no pitting edema, no clubbing Neuro: non-focal, moving all extremities Psych: cooperative, euthymic mood Assessment/plan: Chronic conditions: Hypothyroidism -Continue home medications Status post sigmoid resection -Defer management including pain control and DVT prophylaxis to the surgery service Objective - Vital Signs Vital signs: Vital Signs Temp 98.4 F 03/08/22 08:03 Pulse 91 03/08/22 08:03 Resp 18 03/08/22 08:03 BP 122/84 03/08/22 08:03 Pulse Ox 96 03/08/22 08:03 FiO2 Intake & Output 03/07/22 03/08/22 03/08/22 18:59 06:59 18:59 Intake Total 1000 Balance 1000 Intake: Intake, IV Titration 1000 Amount Sodium Chloride 0.9% 1, 1000 000 ml @ 100 mls/hr IV . Q10H [facility] Rx#:[id number] Other: Voiding Method Toilet # Bowel Movements 4 - Labs CBC & Chem 7: 03/05/22 07:55 03/06/22 07:10
--- NOTE | 2022-03-08 11:31 | P.PN ---
Subjective Progress Note Date: 03/08/22 CHIEF COMPLAINT: Sigmoid volvulus HISTORY OF PRESENT ILLNESS: The patient is a 41-year-old female status post low anterior resection/sigmoid resection due to sigmoid volvulus, 03/04/2022. Her pre-existing abdominal plane is now resolved. She reports appropriate incisional pain. She reports her last bowel movement did have some blood yesterday. She reports intolerance to bread that caused additional abdominal pain. She reports coughing and had felt a pop along the left upper quadrant incision followed by bruising. Overall, pain is tolerable. She is ambulating. ROS: No reports of nausea and vomiting. No fevers or chills. No new chest pain. No productive sputum PHYSICAL EXAM: VITAL SIGNS: Reviewed CONSTITUTIONAL: Well developed and in no acute distress. EYES: Conjuctivae without sclera icterus. Extraocular movements grossly intact. HEAD, EARS, NOSE, THROAT: Moist buccal mucosa. Head is atraumatic, normocephalic. Hears conversational speech. No nasal drainage. RESPIRATORY: Non-labored respirations and equal bilateral excursions. CARDIOVASCULAR: Palpable 2+ radial pulses. ABDOMEN: Dressing clean dry and intact. No shadowing. No peritonitis. Mild subcutaneous bruising of the left upper quadrant incision. No active bleeding. No signs of bleeding. MUSCULOSKELETAL: No gross deformity of the lower extremities noted. No clubbing. No cyanosis. SKIN: Good skin turgor. Well perfused. NEUROLOGIC: Cranial nerves II through XII grossly intact. No focal or laterali zing signs. PSYCH: Appropriate affect. Alert and oriented to person, place and time. CLINICAL LABS: Reviewed. Potassium elevated at 5.6 on 03/06/2022. ASSESSMENT: 1. Sigmoid volvulus status post low anterior resection PLAN: 1. Repeat CBC and basic metabolic panel. 2. Discharge instructions reviewed including low fiber diet without seeds for 4 weeks until April 04. 3. Discharge pending follow-up CBC and BMP Objective - Vital Signs Vital signs: Vital Signs Temp 98.4 F 03/08/22 08:03 Pulse 91 03/08/22 08:03 Resp 18 03/08/22 08:03 BP 122/84 03/08/22 08:03 Pulse Ox 96 03/08/22 08:03 FiO2 Intake & Output 07/04/22 07/05/22 07/05/22 18:59 06:59 18:59 Intake Total 1000 Balance 1000 Intake: Intake, IV Titration 1000 Amount Sodium Chloride 0.9% 1, 1000 000 ml @ 100 mls/hr IV . Q10H [facility] Rx#:[id number] Other: Voiding Method Toilet # Bowel Movements 4 - Labs CBC & Chem 7: 03/05/22 07:55 03/06/22 07:10
--- NOTE | 2022-03-08 12:40 | P.DS ---
Providers Date of admission: 03/04/22 05:32 Expected date of discharge: 03/08/22 Attending physician: Nallely Bautista Consults: 03/04/22 06:54 Consult Physician Routine Consulting Provider: [facility] Consult Reason/Comments: Anesthesia Care Do you want consulting provider notified?: Yes 03/04/22 19:06 Consult Physician Routine Consulting Provider: Kirstin Sinha Consult Reason/Comments: Medical management Do you want consulting provider notified?: Yes Primary care physician: Stated None Hospital Course: CHIEF COMPLAINT: Sigmoid volvulus HISTORY OF PRESENT ILLNESS: The patient is a 41-year-old female status post low anterior resection/sigmoid resection due to sigmoid volvulus, 03/04/2022. Her pre-existing abdominal plane is now resolved. She reports appropriate incisional pain. She reports her last bowel movement did have some blood yesterday. She reports intolerance to bread that caused additional abdominal pain. She reports coughing and had felt a pop along the left upper quadrant incision followed by bruising. Overall, pain is tolerable. She is ambulating. ROS: No reports of nausea and vomiting. No fevers or chills. No new chest pain. No productive sputum PHYSICAL EXAM: VITAL SIGNS: Reviewed CONSTITUTIONAL: Well developed and in no acute distress. EYES: Conjuctivae without sclera icterus. Extraocular movements grossly intact. HEAD, EARS, NOSE, THROAT: Moist buccal mucosa. Head is atraumatic, normocephalic. Hears conversational speech. No nasal drainage. RESPIRATORY: Non-labored respirations and equal bilateral excursions. CARDIOVASCULAR: Palpable 2+ radial pulses. ABDOMEN: Dressing clean dry and intact. No shadowing. No peritonitis. Mild subcutaneous bruising of the left upper quadrant incision. No active bleeding. No signs of bleeding. MUSCULOSKELETAL: No gross deformity of the lower extremities noted. No clubbing. No cyanosis. SKIN: Good skin turgor. Well perfused. NEUROLOGIC: Cranial nerves II through XII grossly intact. No focal or lateralizing signs. PSYCH: Appropriate affect. Alert and oriented to person, place and time. CLINICAL LABS: Reviewed. Potassium elevated at 5.6 on 03/06/2022. ASSESSMENT: 1. Sigmoid volvulus status post low anterior resection PLAN: 1. Repeat CBC and basic metabolic panel. 2. Discharge instructions reviewed including low fiber diet without seeds for 4 weeks until April 04. 3. Discharge pending follow-up CBC and BMP Patient Condition at Discharge: Stable Plan - Discharge Summary Discharge Rx Participant: Yes New Discharge Prescriptions: New Acetaminophen Tab [Tylenol Tab] 1,000 mg PO Q6HR PRN #30 tablet PRN Reason: Pain Continue HYDROcodone/APAP 7.5-325MG [[place] 7.5-325] 1 tab PO TID Terbinafine [LamISIL] 250 mg PO HS Simethicone [Gas-X] 125 mg PO TID Dicyclomine [Bentyl] 20 mg PO BID Cyanocobalamin [Vitamin B-12 Injection] 1,000 mcg SQ QMONTHLY Levothyroxine Sodium 125 mcg PO HS Discharge Medication List HYDROcodone/APAP 7.5-325MG [[place] 7.5-325] 1 tab PO TID 01/19/22 [History] Terbinafine [LamISIL] 250 mg PO HS 01/19/22 [History] Cyanocobalamin [Vitamin B-12 Injection] 1,000 mcg SQ QMONTHLY 02/02/22 [History] Levothyroxine Sodium 125 mcg PO HS 02/02/22 [History] Simethicone [Gas-X] 125 mg PO TID 02/02/22 [History] Dicyclomine [Bentyl] 20 mg PO BID 02/22/22 [History] Acetaminophen Tab [Tylenol Tab] 1,000 mg PO Q6HR PRN #30 tablet 03/08/22 [Rx] Follow up Appointment(s)/Referral(s): Nallely Bautsita MD [STAFF PHYSICIAN] - 03/15/22 (Telehealth) Patient Instructions/Handouts: *Surgery [facility] - Managing Your Pain After Surgery Without Opioids, Abdominal Binder (DC), Colectomy Diet (GEN), Laparoscopic Bowel Resection (GEN) Activity/Diet/Wound Care/Special Instructions: COLECTOMY Wear abdominal binder at all times for comfort. Please notify your pain specialist for narcotic pain meds. No lifting over 4 pounds in 4 weeks until Apr 04January shower. No bath tub soaks for two weeks until March 18. Avoid steak, tough meats and seeds such as raspberry seeds. No driving while on narcotics. Use Tylenol scheduled for the next 24-48 hours for best pain relief. Use ice along incisions for today to prevent swelling. Discharge Disposition: HOME SELF-CARE
[2022-03-08 13:49] LABS: African American GFR (CKD) >90 (>60 ml/min/1.73 sqM); Anion Gap 7 mmol/L; Blood Urea Nitrogen 5 mg/dL (7-17); Calcium 8.7 mg/dL (8.4-10.2); Carbon Dioxide 28 mmol/L (22-30); Chloride 103 mmol/L (98-107); Glucose 115 mg/dL (74-99); Non-African American GFR(CKD) >90 (>60 ml/min/1.73 sqM); Potassium 4.5 mmol/L (3.5-5.1); Sodium 138 mmol/L (137-145)
[2022-03-08 13:57] LABS: Basophils % (A) 0 %; Eosinophils # (A) 0.2 k/uL (0-0.7); Eosinophils % (A) 4 %; HCT 36.3 % (34.0-46.0); HGB 11.7 gm/dL (11.4-16.0); Lymphocytes # (A) 1.2 k/uL (1.0-4.8); Lymphocytes % (A) 20 %; MCH 29.7 pg (25.0-35.0); MCHC 32.2 g/dL (31.0-37.0); MCV 92.3 fL (80.0-100.0); Mean Platelet Volume 7.7; Monocytes # (A) 0.3 k/uL (0-1.0); Monocytes % (A) 6 %; Neutrophils # (A) 4.2 k/uL (1.3-7.7); Neutrophils % (A) 69 %; Platelet Count 254 k/uL (150-450); RBC 3.93 m/uL (3.80-5.40); RDW 14.5 % (11.5-15.5); WBC 6.1 k/uL (3.8-10.6)
== END 2022-03-08 14:29 | disposition home or self-care (01) | DRG 330 ==
LOC: 2ORMAIN 05:32 → 4SSUR 13:02
PROVIDERS: ADMIT Surgery Plastic and Reconstructive Surgery; ATTEND Surgery Plastic and Reconstructive Surgery
PROC: 0DJD8ZZ Inspection of Lower Intestinal Tract, Via Natural or Artificial Opening Endoscopic (ICD-10-PCS; principal; 2022-03-04 07:30)
PROC: 0DTN4ZZ Resection of Sigmoid Colon, Percutaneous Endoscopic Approach (ICD-10-PCS; principal; 2022-03-04 07:30)
PROC: 8E0W4CZ Robotic Assisted Procedure of Trunk Region, Percutaneous Endoscopic Approach (ICD-10-PCS; principal; 2022-03-04 07:30)
DX: K56.2 Volvulus (principal); Z68.41 Body mass index [BMI] 40.0-44.9, adult; E03.9 Hypothyroidism, unspecified; E66.01 Morbid (severe) obesity due to excess calories; K21.9 Gastro-esophageal reflux disease without esophagitis; I83.90 Asymptomatic varicose veins of unspecified lower extremity; Z79.891 Long term (current) use of opiate analgesic; Z79.899 Other long term (current) drug therapy; Z98.84 Bariatric surgery status; Z86.14 Personal history of Methicillin resistant Staphylococcus aureus infection; Z86.718 Personal history of other venous thrombosis and embolism; Z86.73 Personal history of transient ischemic attack (TIA), and cerebral infarction without residual deficits; Z87.74 Personal history of (corrected) congenital malformations of heart and circulatory system; Z88.5 Allergy status to narcotic agent; Z88.0 Allergy status to penicillin; Z91.040 Latex allergy status
CPT/HCPCS: 64999; 80048; 80053; 81025; 85025; 86850; 86900; 86901; 88307; 94760

== ENCOUNTER 2022-03-22 10:12 | Inpatient (IN) | payer OTHER ==
[2022-03-22] MEDS ORDERED: HYDROmorphone 0.5 MG/0.5 ML SYRINGE IVP PRN (10:22)
[2022-03-22] MEDS ORDERED: NALOXONE 0.4 MG/ML 1 ML VIAL IV PRN (10:22)
[2022-03-22] MEDS ORDERED: IOPAMIDOL CONTRAST (ORAL USE) VIAL PO PRN (10:23)
[2022-03-22] MEDS ORDERED: SODIUM CHLORIDE 0.9% 500 ML 500 ML IV STA (10:23)
--- NOTE | 2022-03-22 11:19 | ED ---
General Adult HPI - General Chief complaint: Abdominal Pain Stated complaint: Lower ABD Pain, PCP called Time Seen by Provider: 03/22/22 10:22 Source: patient, RN notes reviewed, old records reviewed Mode of arrival: ambulatory Limitations: no limitations - History of Present Illness Initial comments: 41-year-old female sent in by her surgeon Dr. Mack for computed tomography scan with oral contrast, IV fluids, antiemetics and pain medication. She is just over 2 weeks postop bowel resection. She's had significant vomiting and abdominal pain. She has had some small bowel movements. No fevers. She has had multiple abdominal surgeries in the past. - Related Data Home Medications Medication Instructions Recorded Confirmed HYDROcodone/APAP 7.5-325MG [[place] 1 tab PO TID 01/19/22 03/02/22 7.5-325] Terbinafine [LamISIL] 250 mg PO HS 01/19/22 03/02/22 Cyanocobalamin [Vitamin B-12 1,000 mcg SQ QMONTHLY 02/02/22 03/04/22 Injection] Levothyroxine Sodium 125 mcg PO HS 02/02/22 03/02/22 Simethicone [Gas-X] 125 mg PO TID 02/02/22 03/02/22 Dicyclomine [Bentyl] 20 mg PO BID 02/22/22 03/02/22 Previous Rx's Medication Instructions Recorded Acetaminophen Tab [Tylenol Tab] 1,000 mg PO Q6HR PRN #30 tablet 03/08/22 Simethicone [Gas-X] 125 mg PO AC-TID PRN #20 capsule 03/08/22 Allergies Allergy/AdvReac Type Severity Reaction Status Date / Time latex Allergy Severe Anaphylaxis, Verified 03/22/22 10:19 TROUBLE BREATHING Penicillins Allergy Severe Swelling/Hi Verified 03/22/22 10:19 ves morphine Allergy Hives, Verified 03/22/22 10:19 ITCHING Review of Systems ROS Statement: Those systems with pertinent positive or pertinent negative responses have been documented in the HPI. ROS Other: All systems not noted in ROS Statement are negative. Past Medical History Past Medical History: CVA/TIA, Deep Vein Thrombosis (DVT), GERD/Reflux, Neurologic Disorder, Seizure Disorder, Thyroid Disorder Additional Past Medical History / Comment(s): HERNIATED CERVICAL DISCS C4-C5 WITH NECK PAIN. Right leg numbness and tingling from CVA 2017. HX SEIZURES- NONE SINCE 2005. ABD PAIN LEFT SIDE chronic. Migraines. Hx DVT 2007, bruises easy. Hx Intussusception. Hx fractured vertebrae. Panniculitis with surgery, DVT in right leg in 2007, VARICOSE VEINS, hypothyroid, recurrent UTIs, R leg numbness/tingling with foot drop, esophageal anastomatic stricture, dysphagia in past, seizure 2005, hiatal hernia, PUD, hypoglycemia intussusception of the bowel, morbid obesity status post Dalia-en-Y. History of Any Multi-Drug Resistant Organisms: MRSA Date of last positivie culture/infection: 01/2008 MDRO Source:: right arm Past Surgical History: Adenoidectomy, Appendectomy, Bariatric Surgery, Section, Cholecystectomy, Orthopedic Surgery, Tonsillectomy, Tubal Ligation Additional Past Surgical History / Comment(s): RECONSTRUCTION RIGHT KNEE, C- SECTION X3, DALIA-EN-Y(AUG 2012), panniculectomy, diagnostic laproscopy with lysis of adhesions X3, EGD with dilation, colonoscopies, hiatal hernia repair, C-5 removed May 17, 2017, NAVA, PFO closure with disc in heart 07/11/17, RECONSTRUCTION OF DALIA-EN-Y 2017, Bowel blockage repaired 03/04/22 colonectomy 16 days ago Past Anesthesia/Blood Transfusion Reactions: No Reported Reaction Past Psychological History: Anxiety, Depression Smoking Status: Never smoker Past Alcohol Use History: Rare Past Drug Use History: None Reported - Past Family History Father Family Medical History: GERD/Reflux, Hyperlipidemia, Hypertension, Sleep Apnea/CPAP/BIPAP Additional Family Medical History / Comment(s): arthritis Mother Family Medical History: Cancer Additional Family Medical History / Comment(s): Mom has MS. General Exam Limitations: no limitations General appearance: alert, in no apparent distress Head exam: Present: atraumatic, normocephalic Eye exam: Present: normal appearance, PERRL ENT exam: Present: normal exam Neck exam: Present: normal inspection. Absent: tenderness, meningismus Respiratory exam: Present: normal lung sounds bilaterally. Absent: respiratory distress, wheezes Cardiovascular Exam: Present: regular rate, normal rhythm GI/Abdominal exam: Present: soft, tenderness, other (Incisions are well-healed). Absent: distended Extremities exam: Present: normal inspection, normal capillary refill Neurological exam: Present: alert, oriented X3, CN II-XII intact, normal gait. Absent: motor sensory deficit Psychiatric exam: Present: normal affect, normal mood Skin exam: Present: warm, dry, intact Course Vital Signs 03/22/22 10:15 Temperature 97.7 F Pulse Rate 65 Respiratory 18 Rate Blood Pressure 134/82 O2 Sat by Pulse 99 Oximetry Medical Decision Making - Medical Decision Making 41-year-old female sent over for admission with Dr. Bautista. IV will be established, laboratory testing will be performed these results are pending. CT with oral and IV contrast has been ordered, results pending. She'll be admitted for symptomatic control and further evaluation treatment. Disposition Clinical Impression: Abdominal pain, Intractable abdominal pain, Nausea & vomiting Disposition: ADMITTED IP TO THIS HOSP Condition: Stable Is patient prescribed a controlled substance at d/c from ED?: No Referrals: Rayna Guillen NPC [Primary Care Provider] - 1-2 days Time of Disposition: 11:18
[2022-03-22] MEDS: SODIUM CHLORIDE 0.9% 1,000 ML IV SCH ×2 (11:37→21:47)
[2022-03-22 11:39] LABS: Appearance,Urine Cloudy (Clear); Bilirubin,Urine Negative (Negative); Blood,Urine Negative (Negative); Color,Urine Yellow; Glucose,Urine (UA) Negative (Negative); Ketones,Urine Negative (Negative); Leukocyte Esterase,Urine Negative (Negative); Mucus,Urine Many /hpf; Nitrite,Urine Negative (Negative); Protein,Urine Trace (Negative); RBC,Urine 1 /hpf (0-5); Specific Gravity,Urine 1.038 (1.001-1.035); Squamous Epithelial Cell,Urine 6 /hpf (0-4); WBC,Urine 1 /hpf (0-5)
[2022-03-22] MEDS: ONDANSETRON 4 MG/2 ML VIAL IVP PRN ×2 (11:39→20:17)
[2022-03-22 11:47] LABS: ALT 20 U/L (4-34); AST 31 U/L (14-36); African American GFR (CKD) >90 (>60 ml/min/1.73 sqM); Alkaline Phosphatase 59 U/L (38-126); Amylase 53 U/L (30-110); Anion Gap 4 mmol/L; Blood Urea Nitrogen 14 mg/dL (7-17); Calcium 8.7 mg/dL (8.4-10.2); Carbon Dioxide 25 mmol/L (22-30); Chloride 109 mmol/L (98-107); Glucose 86 mg/dL (74-99); Lipase 118 U/L (23-300); Non-African American GFR(CKD) >90 (>60 ml/min/1.73 sqM); Potassium 4.7 mmol/L (3.5-5.1); Sodium 138 mmol/L (137-145); Total Bilirubin 0.5 mg/dL (0.2-1.3); Total Protein 6.8 g/dL (6.3-8.2)
[2022-03-22 12:00] LABS: Basophils # (A) 0.1 k/uL (0-0.2); Basophils % (A) 2 %; Eosinophils # (A) 0.1 k/uL (0-0.7); Eosinophils % (A) 2 %; HCT 37.5 % (34.0-46.0); HGB 11.5 gm/dL (11.4-16.0); Lymphocytes # (A) 1.6 k/uL (1.0-4.8); Lymphocytes % (A) 30 %; MCH 27.8 pg (25.0-35.0); MCHC 30.7 g/dL (31.0-37.0); MCV 90.7 fL (80.0-100.0); Mean Platelet Volume 7.4; Monocytes # (A) 0.3 k/uL (0-1.0); Monocytes % (A) 6 %; Neutrophils # (A) 3.2 k/uL (1.3-7.7); Neutrophils % (A) 59 %; Platelet Count 369 k/uL (150-450); RBC 4.13 m/uL (3.80-5.40); RDW 14.3 % (11.5-15.5); WBC 5.4 k/uL (3.8-10.6)
[2022-03-22 12:01] LABS: Partial Thromboplastin Time 22.5 sec (22.0-30.0); Prothrombin Time 10.7 sec (9.0-12.0)
[2022-03-22] MEDS: HYDROmorphone 1 MG/ML 1 ML SYRINGE IVP PRN ×3 (12:52→20:18)
--- NOTE | 2022-03-22 14:20 | CT ---
EXAMINATION TYPE: CT abdomen pelvis w con CT DLP: 2283.1 mGycm, Automated exposure control for dose reduction was used. DATE OF EXAM: 03/22/2022 1:41 PM COMPARISON: CT abdomen pelvis 02/03/2022 CLINICAL INDICATION:Female, 41 years old with history of abdominal pain; Abdominal pain surgery 16 da ys ago TECHNIQUE: Standard CT of the abdomen and pelvis following the administration of 100 cc of Isovue 3 00 IV contrast material and oral contrast. Coronal and sagittal reformats were performed. FINDINGS: LOWER CHEST: Atrial septum closer device. ABDOMEN LIVER: Unremarkable GALLBLADDER AND BILE DUCTS: Gallbladder is surgically absent with mild intrahepatic and extra hepatic biliary dilatation likely physiologic and a postcholecystectomy change. No evidence of choledocholit hiasis. PANCREAS: Unremarkable. SPLEEN: Unremarkable. ADRENAL GLANDS: Unremarkable. KIDNEYS AND URETERS: No evidence of hydronephrosis or renal calculus. Prominent left extrarenal pelvi s. PELVIS BLADDER: Unremarkable REPRODUCTIVE: Unremarkable. ABDOMEN & PELVIS STOMACH AND BOWEL: Postsurgical changes from gastric bypass. Additional postsurgical changes of the b owel with anastomosis demonstrated in the left upper quadrant and involving the sigmoid colon. A few left lower quadrant just filled small bowel loops measure up to 3.3 cm. No wall thickening or pneumat osis identified. PERITONEUM: No evidence of pneumoperitoneum or free fluid. VASCULATURE: No evidence of aortic aneurysm. MUSCULOSKELETAL: No acute osseous abnormalities LYMPH NODES: No gross evidence for lymphadenopathy. SOFT TISSUE/ABDOMINAL WALL: Subcutaneous foci stranding within the ventral wall likely related to med ication injection. IMPRESSION: Postsurgical changes of the stomach and bowel with a few loops of contrast filled mildly dilated smal l bowel in the left lower quadrant. Remaining bowel appears normal in caliber. This may represent a f ocal ileus versus partial small bowel obstruction. No wall thickening or pneumatosis identified. Cons ider dedicated small bowel follow-through if there is concern for small bowel obstruction.
[2022-03-22] MEDS ORDERED: ACETAMINOPHEN TAB 500 MG TAB PO PRN (17:08)
[2022-03-22] MEDS: DICYCLOMINE 20 MG TAB PO SCH (17:31)
[2022-03-22] MEDS: HYDROcodone/APAP 7.5-325MG 1 EACH TAB PO SCH ×2 (17:32→21:46)
[2022-03-22] MEDS: LEVOTHYROXINE 125 MCG TAB PO SCH (20:19)
--- NOTE | 2022-03-22 22:45 | P.GSHP ---
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 She was discharged home tolerating diet, pain controlled and having bowel movements. She had weekly follow ups in the office and was progressing. Today, she presented to the office with moderate to severe left upper quadrant and lower pain including inability to pass flatus. She reports having bowel movements. She reports going to her local ER with findings of diffuse gas. She reports her pain is severe with trouble with her bowel habits. She was directed to the ER for ileus including intractable abdominal pain. No hematemsis. No blood in stools. PAST MEDICAL HISTORY: See list and reviewed PAST SURGICAL HISTORY: See list and reviewed MEDICATIONS: See list and reviewed ALLERGIES: See list and reviewed SOCIAL HISTORY: See list and reviewed FAMILY HISTORY: See list and reviewed REVIEW OF ORGAN SYSTEMS: CONSTITUTIONAL: No fevers or chills. Has recent weight loss. Has morbid obesity. EYES: Denies any trouble with vision. No glasses. HEENT: No difficulties with hearing. No nosebleeds. No difficulty swallowing. RESPIRATORY: Denies pneumonia. Past DVT. CARDIOVASCULAR: Denies any chest pain, palpitations, or recent heart attacks. GASTROINTESTINAL: History of gastric bypass and intussussception. GENITOURINARY: Denies any blood in urine or increased urinary frequency. NEUROLOGICAL: History of stroke and prior seizure disorder. MUSCULOSKELETAL: Denies any back pain, stiffness or joint arthritis. SKIN: No current skin cancer. No rash. PSYCHIATRIC: Denies current depression or suicidal thoughts. ENDOCRINE: Denies current thyroid disorders. Denies any blood sugar glucose intolerance. HEME/LYMPHATIC: Denies any lumps and bumps around the neck. Past deep venous thrombosis. ALLERGY/IMMUNOLOGY: No immunoglobulin therapy. No immune deficiencies. BREAST: Denies current breast lumps, pain or nipple discharge. PHYSICAL EXAM: VITALS: Reviewed CONSTITUTIONAL: Well developed and in no acute distress. EYES: Conjuctivae without sclera icterus. Extraocular movements grossly intact . HEAD, EARS, NOSE, THROAT: Moist buccal mucosa. Head is atraumatic, normocephalic. Hears conversational speech. No nasal drainage. NECK: Supple. No JV distention. No thyroidomegaly. RESPIRATORY: Non-labored respirations and equal bilateral excursions. No gross wheezes. CARDIOVASCULAR: Palpable 2+ radial pulses. ABDOMEN: No infection. No cellulitis. Tender left lower quadrant and upper yary drant. LYMPH: No neck lymphadenopathy. MUSCULOSKELETAL: No clubbing cyanosis or edema. SKIN: Warm and well perfused with good skin turgor. NEUROLOGIC: Cranial nerves II through XII grossly intact. No focal or lateralizing signs. PSYCH: Appropriate affect. Alert and oriented to person, place and time. Displays appropriate insight. ASSESSMENT: 1. Intractable abdominal pain 2. History of sigmoid volvulus status post sigmoid resection 3. History of gastric bypass 4. Ileus PLAN: 1. Recommend CT of the abdomen and pelvis for assessment of obstruction vs ileus 2. Admission for intractable abdominal pain 3. IV fluid hydration. ADDENDUM: CT of the abdomen reviewed without anastomatic disruption of her sigmoid colectomy. No perforation. This is my independent interpretation CT report reviewed. LABS: Reviewed. PLAN: Resume home medications. Consultation to medicine. May need additional studies including small bowel follow through. Past Medical History Past Medical History: CVA/TIA, Deep Vein Thrombosis (DVT), GERD/Reflux, Neurologic Disorder, Seizure Disorder, Thyroid Disorder Additional Past Medical History / Comment(s): HERNIATED CERVICAL DISCS C4-C5 WITH NECK PAIN. Right leg numbness and tingling from CVA 2016. HX SEIZURES- NONE SINCE 2005. ABD PAIN LEFT SIDE chronic. Migraines. Hx DVT 2007, bruises easy. Hx Intussusception. Hx fractured vertebrae. Panniculitis with surgery, DVT in right leg in 2007, VARICOSE VEINS, hypothyroid, recurrent UTIs, R leg numbness/tingling with foot drop, esophageal anastomatic stricture, dysphagia in past, seizure 2005, hiatal hernia, PUD, hypoglycemia intussusception of the bowel, morbid obesity status post Dalia-en-Y. History of Any Multi-Drug Resistant Organisms: MRSA Date of last positivie culture/infection: 01/2008 MDRO Source:: right arm Past Surgical History: Adenoidectomy, Appendectomy, Bariatric Surgery, Section, Cholecystectomy, Orthopedic Surgery, Tonsillectomy, Tubal Ligation Additional Past Surgical History / Comment(s): RECONSTRUCTION RIGHT KNEE, C- SECTION X3, DALIA-EN-Y(AUG 2012), panniculectomy, diagnostic laproscopy with lysis of adhesions X3, EGD with dilation, colonoscopies, hiatal hernia repair, C-5 removed May 17, 2017, NAVA, PFO closure with disc in heart 07/11/17, RECONSTRUCTION OF DALIA-EN-Y 2016, Bowel blockage repaired 03/04/22 colonectomy 16 days ago Past Anesthesia/Blood Transfusion Reactions: No Reported Reaction Past Psychological History: Anxiety, Depression Additional Psychological History / Comment(s): Hx POST DEPRESSION. Smoking Status: Never smoker Past Alcohol Use History: Rare Additional Past Alcohol Use History / Comment(s): . Past Drug Use History: None Reported - Past Family History Father Family Medical History: GERD/Reflux, Hyperlipidemia, Hypertension, Sleep Apnea/CPAP/BIPAP Additional Family Medical History / Comment(s): arthritis Mother Family Medical History: Cancer Additional Family Medical History / Comment(s): Mom has MS. Medications and Allergies Home Medications Medication Instructions Recorded Confirmed Type HYDROcodone/APAP 7.5-325MG [[place] 1 tab PO QID 01/19/22 03/22/22 History 7.5-325] Terbinafine [LamISIL] 250 mg PO HS 01/19/22 03/22/22 History Cyanocobalamin [Vitamin B-12 1,000 mcg SQ QMONTHLY 02/02/22 03/22/22 History Injection] Levothyroxine Sodium 125 mcg PO HS 02/02/22 03/22/22 History Simethicone [Gas-X] 125 mg PO TID 02/02/22 03/22/22 History Dicyclomine [Bentyl] 20 mg PO BID 02/22/22 03/22/22 History Acetaminophen Tab [Tylenol Tab] 1,000 mg PO Q6HR PRN #30 tablet 03/08/22 03/22/22 Rx Simethicone [Gas-X] 125 mg PO AC-TID PRN #20 capsule 03/08/22 03/22/22 Rx Allergies Allergy/AdvReac Type Severity Reaction Status Date / Time latex Allergy Severe Anaphylaxis, Verified 03/22/22 11:51 TROUBLE BREATHING Penicillins Allergy Severe Swelling/Hi Verified 03/22/22 11:51 ves morphine Allergy Hives, Verified 03/22/22 11:51 ITCHING Surgical - Exam Vital Signs Temp Pulse Resp BP Pulse Ox 97.7 F 65 18 134/82 99 03/22/22 10:15 03/22/22 10:15 03/22/22 10:15 03/22/22 10:15 03/22/22 10:15 Results - Labs 03/22/22 10:55 03/22/22 10:55 Abnormal Lab Results - Last 24 Hours (Table) 03/22/22 03/22/22 03/22/22 Range/Units 10:55 10:55 10:55 MCHC 30.7 L (31.0-37.0) g/dL Chloride 109 H (98-107) mmol/L Urine Appearance Cloudy H (Clear) Ur Specific [place] 1.038 H (1.001-1.035) Urine Protein Trace H (Negative) Ur Squamous Epith Cells 6 H (0-4) /hpf Urine Mucus Many H (None) /hpf Diabetes panel 03/22/22 Range/Units 10:55 Sodium 138 (137-145) mmol/L Potassium 4.7 (3.5-5.1) mmol/L Chloride 109 H (98-107) mmol/L Carbon Dioxide 25 (22-30) mmol/L BUN 14 (7-17) mg/dL Creatinine 0.56 (0.52-1.04) mg/dL Glucose 86 (74-99) mg/dL Calcium 8.7 (8.4-10.2) mg/dL AST 31 (14-36) U/L ALT 20 (4-34) U/L Alkaline Phosphatase 59 (38-126) U/L Total Protein 6.8 (6.3-8.2) g/dL Albumin 4.0 (3.5-5.0) g/dL Calcium panel 03/22/22 Range/Units 10:55 Calcium 8.7 (8.4-10.2) mg/dL Albumin 4.0 (3.5-5.0) g/dL Pituitary panel 03/22/22 Range/Units 10:55 Sodium 138 (137-145) mmol/L Potassium 4.7 (3.5-5.1) mmol/L Chloride 109 H (98-107) mmol/L Carbon Dioxide 25 (22-30) mmol/L BUN 14 (7-17) mg/dL Creatinine 0.56 (0.52-1.04) mg/dL Glucose 86 (74-99) mg/dL Calcium 8.7 (8.4-10.2) mg/dL Adrenal panel 03/22/22 Range/Units 10:55 Sodium 138 (137-145) mmol/L Potassium 4.7 (3.5-5.1) mmol/L Chloride 109 H (98-107) mmol/L Carbon Dioxide 25 (22-30) mmol/L BUN 14 (7-17) mg/dL Creatinine 0.56 (0.52-1.04) mg/dL Glucose 86 (74-99) mg/dL Calcium 8.7 (8.4-10.2) mg/dL Total Bilirubin 0.5 (0.2-1.3) mg/dL AST 31 (14-36) U/L ALT 20 (4-34) U/L Alkaline Phosphatase 59 (38-126) U/L Total Protein 6.8 (6.3-8.2) g/dL Albumin 4.0 (3.5-5.0) g/dL
[2022-03-23] MEDS: HYDROmorphone 1 MG/ML 1 ML SYRINGE IVP PRN ×4 (00:49→23:41)
[2022-03-23] MEDS: DICYCLOMINE 20 MG TAB PO SCH ×3 (08:29→20:51)
[2022-03-23] MEDS: HYDROcodone/APAP 7.5-325MG 1 EACH TAB PO SCH ×4 (08:29→20:50)
[2022-03-23] MEDS: SODIUM CHLORIDE 0.9% 1,000 ML IV SCH ×2 (08:30→17:28)
[2022-03-23] MEDS ORDERED: PANTOPRAZOLE 40 MG/10 ML VIAL IVP SCH (10:15)
[2022-03-23] MEDS: PANTOPRAZOLE 40 MG TABLET PO SCH (10:16)
--- NOTE | 2022-03-23 10:47 | P.CONS ---
History of Present Illness - Reason for Consult Consult date: 03/23/22 Requesting physician: Nallely Bautista - Chief Complaint Abdominal Pain - History of Present Illness History of Presenting Illness: Patient is a very pleasant 41-year-old female with a past medical history of hypothyroidism, GERD, and extensive history of abdominal/gastric surgeries including Risa-en-Y gastric bypass in 2011 followed by rerouting of Risa-en-Y bypass in 2012, multiple colon dilation surgeries, surgeries x5 for removal of adhesions, and colon resection 19 days ago. Patient reports status post colon resection 19 days ago she began developing pain/discomfort in her abdomen approximately 5 days ago on 03/17/22 and reports on Monday03/18/22 had 2 episodes of "red slimy stool". She reports pain progressed and on Monday she continued to have worsening abdominal pain which was then accompanied by nausea and vomiting. Patient reports that she called her surgeon and made an appointment on Monday and after evaluation in office was instructed to come to the hospital for admission. Patient underwent full evaluation in the emergency department. CBC, coags, and CMP were unremarkable. Urinalysis was contaminated but not concerning for infection. Urine hCG was negative for . Patient underwent abdominal CT revealing postsurgical changes of the stomach and bowel with a few loops of contrast filled mildly dilated small bowel in the left lower quadrant possibly representing focal ileus versus partial small bowel obstruction. Patient was admitted under Gen. surgery team and we were consulted for medical management throughout her hospitalization. Patient seen and fully evaluated at the bedside this morning. She was eating breakfast and reports having increased pain after eating. Patient reports diffuse abdominal pain mainly left upper and lower quadrant. She denies having any recent fevers, chills, headache, lightheadedness, dizziness, chest pain, palpitations, or shortness of breath. She denies any further episodes of vomiting since arrival to the hospital. Patient reports last bowel movement was Monday03/18/22. Review of systems: Pertinent positives and negatives as discussed in HPI, a complete review of systems was performed and all other systems are negative. Physical exam: Vital signs reviewed and stable. General: Nontoxic, no distress and appears stated age. Derm: Skin warm and dry, normal coloration for ethnicity. Head: Atraumatic, normocephalic and symmetric. Eyes: EOMs intact, no lid lag, and anicteric sclera Mouth: no lip lesions, mucus membranes moist Cardiovascular: regular rate and rhythm with normal S1S2, no murmur, positive posterior tibial pulses bilaterally, and cap refill < 2 seconds. Lungs: Respirations even, regular, and unlabored on room air. Lungs CTA bilaterally, no rhonchi, no rales, no wheezing, and no accessory muscle usage. Abdominal: soft, postsurgical laparoscopic incisions appear to be healing well with no surrounding erythema or drainage. Abdomen nontender to palpation in left upper and lower quadrants., no guarding, no appreciable organomegaly Ext: ROM intact. No gross muscle atrophy, no edema, no contractures Neuro: Speech clear, face symmetrical and CN II-XII grossly intact with no noted focal neuro deficits Psych: Alert and oriented to person, place, time, and situation. Appropriate and pleasant affect. Assessment and Plan of Care: Intractable Abdominal pain Ileus Status post laparoscopic right colectomy with lower anterior resection 03/04/22 History of Risa-en-Y gastric bypass with revision/rerouting -Patient initially on low fiber diet, secondary to reports of increased pain and nausea diet has been decreased back down to clear liquid to general surgery team. -Maintain clear liquid diet and may advance after recommendations by general surgery team. -Continue IV fluid hydration -Continue medication regimen with Bentyl, Protonix, Mylicon, and Reglan -Management per primary admitting general surgery team -DVT prophylaxis with heparin Hypothyroidism -Continue daily medication regimen with levothyroxine Thank you for allowing us to participate in the care of this pleasant patient. Do not hesitate to contact us with questions. Someone can be reached from the [facility] hospitalist group all hours of the day at [phone] or via [employer] 8. David Best NP rendered care for this patient independently, reviewed the findings and plan as documented in the note above. I did not physically speak with or examine the patient on this date. Past Medical History Past Medical History: CVA/TIA, Deep Vein Thrombosis (DVT), GERD/Reflux, Neurologic Disorder, Seizure Disorder, Thyroid Disorder Additional Past Medical History / Comment(s): HERNIATED CERVICAL DISCS C4-C5 WITH NECK PAIN. Right leg numbness and tingling from CVA 2017. HX SEIZURES- NONE SINCE 2005. ABD PAIN LEFT SIDE chronic. Migraines. Hx DVT 2007, bruises easy. Hx Intussusception. Hx fractured vertebrae. Panniculitis with surgery, DVT in right leg in 2007, VARICOSE VEINS, hypothyroid, recurrent UTIs, R leg numbness/tingling with foot drop, esophageal anastomatic stricture, dysphagia in past, seizure 2005, hiatal hernia, PUD, hypoglycemia intussusception of the bowel, morbid obesity status post Risa-en-Y. History of Any Multi-Drug Resistant Organisms: MRSA Year Discovered:: 01/2008 MDRO Source:: right arm Past Surgical History: Adenoidectomy, Appendectomy, Bariatric Surgery, Section, Cholecystectomy, Orthopedic Surgery, Tonsillectomy, Tubal Ligation Additional Past Surgical History / Comment(s): RECONSTRUCTION RIGHT KNEE, C- SECTION X3, RISA-EN-Y(AUG 2012), panniculectomy, diagnostic laproscopy with lysis of adhesions X3, EGD with dilation, colonoscopies, hiatal hernia repair, C-5 removed May 17, 2017, NAVA, PFO closure with disc in heart 07/11/17, RECONSTRUCTION OF RSIA-EN-Y 2016, Bowel blockage repaired 03/04/22 colonectomy 16 days ago Past Anesthesia/Blood Transfusion Reactions: No Reported Reaction Past Psychological History: Anxiety, Depression Additional Psychological History / Comment(s): Hx POST DEPRESSION. Smoking Status: Never smoker Past Alcohol Use History: Rare Additional Past Alcohol Use History / Comment(s): . Past Drug Use History: None Reported - Past Family History Father Family Medical History: GERD/Reflux, Hyperlipidemia, Hypertension, Sleep Apnea/CPAP/BIPAP Additional Family Medical History / Comment(s): arthritis Mother Family Medical History: Cancer Additional Family Medical History / Comment(s): Mom has MS. Medications and Allergies Home Medications Medication Instructions Recorded Confirmed Type HYDROcodone/APAP 7.5-325MG [[place] 1 tab PO QID 01/19/22 03/22/22 History 7.5-325] Terbinafine [LamISIL] 250 mg PO HS 01/19/22 03/22/22 History Cyanocobalamin [Vitamin B-12 1,000 mcg SQ QMONTHLY 02/02/22 03/22/22 History Injection] Levothyroxine Sodium 125 mcg PO HS 02/02/22 03/22/22 History Simethicone [Gas-X] 125 mg PO TID 02/02/22 03/22/22 History Dicyclomine [Bentyl] 20 mg PO BID 02/22/22 03/22/22 History Acetaminophen Tab [Tylenol Tab] 1,000 mg PO Q6HR PRN #30 tablet 03/08/22 03/22/22 Rx Simethicone [Gas-X] 125 mg PO AC-TID PRN #20 capsule 03/08/22 03/22/22 Rx Allergies Allergy/AdvReac Type Severity Reaction Status Date / Time latex Allergy Severe Anaphylaxis, Verified 03/22/22 11:51 TROUBLE BREATHING Penicillins Allergy Severe Swelling/Hi Verified 03/22/22 11:51 ves morphine Allergy Hives, Verified 03/22/22 11:51 ITCHING Physical Exam Osteopathic Statement: *. No significant issues noted on an osteopathic structural exam other than those noted in the History and Physical/Consult. Vitals: Vital Signs Temp Pulse Pulse Resp BP BP Pulse Ox 03/23/22 01:48 98 F 62 16 95/62 98 03/22/22 20:20 77 16 03/22/22 19:28 97.7 F 77 16 105/65 99 03/22/22 14:43 97.6 F 50 L 16 122/82 100 03/22/22 14:00 97.6 F 52 L 16 122/82 100 03/22/22 12:50 69 20 119/76 100 03/22/22 10:15 97.7 F 65 18 134/82 99 Intake and Output 03/22/22 03/23/22 03/23/22 22:59 06:59 14:59 Intake Total 540 Balance 540 Intake: Oral 540 Other: # Voids 0 2 Results CBC & Chem 7: 03/22/22 10:55 03/22/22 10:55 Labs: Abnormal Lab Results - Last 24 Hours (Table) 03/22/22 03/22/22 03/22/22 Range/Units 10:55 10:55 10:55 MCHC 30.7 L (31.0-37.0) g/dL Chloride 109 H (98-107) mmol/L Urine Appearance Cloudy H (Clear) Ur Specific [place] 1.038 H (1.001-1.035) Urine Protein Trace H (Negative) Ur Squamous Epith Cells 6 H (0-4) /hpf Urine Mucus Many H (None) /hpf
--- NOTE | 2022-03-23 11:09 | XR ---
Abdomen HISTORY: Ileus Frontal view of the abdomen submitted and correlated to CT scan 03/22/2022 Contrast material is coarse into the colon. Postop changes are noted within the left hemiabdomen. No evident obstruction or pneumoperitoneum. Surgical clips present right upper quadrant. Lung bases are clear. Entire abdomen is not included on exam. IMPRESSION: Obstruction is not evident. Upper GI and small bowel follow-through not performed at this time due to patient's having had a meal. Reconsult as necessary.
[2022-03-23] MEDS: METOCLOPRAMIDE 5 MG/ML 2 ML VIAL IVP SCH ×3 (12:10→23:44)
--- NOTE | 2022-03-23 13:28 | P.PN ---
Subjective Progress Note Date: 03/23/22 CHIEF COMPLAINT: Intractable abdominal pain HISTORY OF PRESENT ILLNESS: The patient is a 41 year old female status post low anterior resection for sigmoid volvulus 03/04/22. Patient initially had been having small bowel movements at home with blood. Her last bowel movement was on Monday and again had small amount of blood and was small in size. Since then she has had no bowel movements or flatus. Patient reports having nausea. She complains of left sided abdominal pain. Patient does report pain after eating. She had pancakes this morning with increased pain and nausea. Computed tomography scan findings show evidence of ileus. Discussed with radiologist. Contrast goes through the whole bowel. Afebrile. WBC 5.4H 11.5 platelets 369 sodium 138 potassium 4.7 creatinine 0.6 abdominal x-ray obstruction is not evident. Upper GI and small bowel follow-through not performed at this time due to patient did have a meal and contrast went through the whole bowel on CAT scan. PHYSICAL EXAM: VITAL SIGNS: Reviewed GENERAL: Well-developed in no acute distress. HEENT: No sclera icterus. Extraocular movements grossly intact. Moist buccal mucosa. Head is atraumatic, normocephalic. Hears conversational speech. No nasal drainage. NECK: Supple without lymphadenopathy. CHEST: Non-labored respirations and equal bilateral excursions. CARDIOVASCULAR: Palpable 2+ radial pulses. ABDOMEN: Soft. Nondistended. Tenderness to palpation of the left side of the abdomen upper and lower. Incision sites clean dry and intact. MUSCULOSKELETAL: No clubbing or cyanosis. NEUROLOGIC: No focal or lateralizing signs. Cranial nerves II through XII grossly intact. PSYCH: Appropriate affect. Alert and oriented to person, place and time. SKIN: Well perfused. Good skin turgor. ASSESSMENT: 1. Intractable abdominal pain 2. Ileus 3. History of sigmoid volvulus status post sigmoid resection 4. History of gastric bypass PLAN: -Downgrade diet to clear liquids -Add Reglan 10 mg IV scheduled to help with bowel motility -Continue antiemetics -Add abdominal binder -Encourage patient to ambulate -Continue pain medication as needed -Continue gas drops -GI prophylaxis Protonix and DVT prophylaxis subcu heparin Physician Tool Trouble Shooter note has been reviewed by physician. Signing provider agrees with the documented findings, assessment, and plan of care. CHIEF COMPLAINT: Intractable abdominal pain HISTORY OF PRESENT ILLNESS: The patient is a 41 year old female status post low anterior resection for sigmoid volvulus 03/04/22. She comes in with intractable abdominal pain of the left upper abdomen after eating. She reports 10/10 pain with eating. She has history of gastric bypass. She reports no blood in stools. REVIEW OF ORGAN SYSTEMS: GASTROINTESTINAL: History of gastric bypass and intussussception. NEUROLOGICAL: History of stroke and prior seizure disorder. MUSCULOSKELETAL: Has chronic pain, stiffness. SKIN: No current skin cancer. No rash. PHYSICAL EXAM: VITALS: Reviewed CONSTITUTIONAL: Well developed and in no acute distress. EYES: Conjuctivae without sclera icterus. Extraocular movements grossly intact. HEAD, EARS, NOSE, THROAT: Moist buccal mucosa. Head is atraumatic, normocephalic. Hears conversational speech. No nasal drainage. RESPIRATORY: Non-labored respirations and equal bilateral excursions. No gross wheezes. CARDIOVASCULAR: Palpable 2+ radial pulses. ABDOMEN: Persistent left upper quadrant. No palpable hernia. MUSCULOSKELETAL: No clubbing cyanosis or edema. SKIN: Warm and well perfused with good skin turgor. NEUROLOGIC: Cranial nerves II through XII grossly intact. No focal or lateralizing signs. PSYCH: Appropriate affect. Alert and oriented to person, place and time. Displays appropriate insight. LABS: Reviewed. STUDIES: CT of the abdomen report reviewed with possible small bowel obstruction. ASSESSMENT: 1. Intractable abdominal pain, left upper/lower abdomen 2. History of sigmoid volvulus status post sigmoid resection 3. History of gastric bypass 4. Small bowel obstruction per CT scan PLAN: 1. Abdominal binder for abdominal pain 2. Reglan and motility agent for ileus 3. Additional studies pending clinical course Objective - Vital Signs Vital signs: Vital Signs Temp 97.9 F 03/23/22 07:10 Pulse 62 03/23/22 07:10 Resp 19 03/23/22 07:10 BP 101/65 03/23/22 07:10 Pulse Ox 98 03/23/22 07:10 FiO2 Intake & Output 03/22/22 03/23/22 03/23/22 18:59 06:59 18:59 Intake Total 540 180 Balance 540 180 Weight 116.12 kg Intake: Oral 540 180 Other: # Voids 0 2 - Labs CBC & Chem 7: 03/26/22 06:27 03/26/22 06:27
[2022-03-23] MEDS: ONDANSETRON 4 MG/2 ML VIAL IVP PRN ×2 (15:23→23:41)
[2022-03-23] MEDS: SIMETHICONE 80 MG CHEWABLE PO PRN (17:30)
[2022-03-23] MEDS: HEPARIN SODIUM,PORCINE/PF 5,000 UNIT/0.5 ML SYRINGE SQ SCH (20:51)
[2022-03-23] MEDS: LEVOTHYROXINE 125 MCG TAB PO SCH (20:51)
[2022-03-24] MEDS: METOCLOPRAMIDE 5 MG/ML 2 ML VIAL IVP SCH ×3 (05:55→18:02)
[2022-03-24] MEDS: SODIUM CHLORIDE 0.9% 1,000 ML IV SCH ×3 (05:55→22:12)
[2022-03-24] MEDS: ONDANSETRON 4 MG/2 ML VIAL IVP PRN ×2 (08:29→22:33)
[2022-03-24] MEDS: HYDROmorphone 1 MG/ML 1 ML SYRINGE IVP PRN ×5 (08:30→21:47)
[2022-03-24] MEDS: PANTOPRAZOLE 40 MG TABLET PO SCH (08:33)
[2022-03-24] MEDS: HEPARIN SODIUM,PORCINE/PF 5,000 UNIT/0.5 ML SYRINGE SQ SCH ×2 (08:33→22:13)
[2022-03-24] MEDS: DICYCLOMINE 20 MG TAB PO SCH ×4 (08:34→22:13)
[2022-03-24] MEDS ORDERED: SODIUM CHLORIDE 0.9% 500 ML 500 ML IV ONE (08:36)
--- NOTE | 2022-03-24 08:36 | P.PN ---
Subjective Progress Note Date: 03/24/22 Hospital Course: Patient is a very pleasant 41-year-old female with a past medical history of hypothyroidism, GERD, and extensive history of abdominal/gastric surgeries including Dalia-en-Y gastric bypass in 2011 followed by rerouting of Dalia-en-Y bypass in 2012, multiple colon dilation surgeries, surgeries x5 for removal of adhesions, and colon resection 19 days ago. Patient reports status post colon resection 19 days ago she began developing pain/discomfort in her abdomen approx imately 5 days ago on 03/17/22 and reports on Monday03/18/22 had 2 episodes of "red slimy stool". She reports pain progressed and on Monday03/20/22 she continued to have worsening abdominal pain which was then accompanied by nausea and vomiting. Patient reports that she called her surgeon and made an appointment on Monday and after evaluation in office was instructed to come to the hospital for admission. Patient underwent full evaluation in the emergency department. CBC, coags, and CMP were unremarkable. Urinalysis was contaminated but not concerning for infection. Urine hCG was negative for . Patient underwent abdominal CT revealing postsurgical changes of the stomach and bowel with a few loops of contrast filled mildly dilated small bowel in the left lower quadrant possibly representing focal ileus versus partial small bowel obstruction. Patient was admitted under Gen. surgery team and we were consulted for medical management throughout her hospitalization. Patient seen and fully evaluated at the bedside this morning. She was eating breakfast and reports having increased pain after eating. Patient reports diffuse abdominal pain mainly left upper and lower quadrant. She denies having any recent fevers, chills, headache, lightheadedness, dizziness, chest pain, palpitations, or shortness of breath. She denies any further episodes of vomiting since arrival to the hospital. Patient reports last bowel movement was Monday03/18/22. Physical exam: Pt seen and fully evaluated this morning. She reports continued abdominal cramping to left upper and lower quadrant accompanied by two episodes of nausea and vomiting overnight. She denies bowel movement or passing flatus, but does report having frequent eructation. Morning labs pending at this time. VSS with the exception of soft BPs with BP 94/60 this morning. Will administer a 500 cc bolus and reevaluate. Vital signs reviewed and stable. General: Nontoxic, no distress and appears stated age. Derm: Skin warm and dry, normal coloration for ethnicity. Head: Atraumatic, normocephalic and symmetric. Eyes: EOMs intact, no lid lag, and anicteric sclera Mouth: no lip lesions, mucus membranes moist Cardiovascular: regular rate and rhythm with normal S1S2, no murmur, positive posterior tibial pulses bilaterally, and cap refill < 2 seconds. Lungs: Respirations even, regular, and unlabored on room air. Lungs CTA bilaterally, no rhonchi, no rales, no wheezing, and no accessory muscle usage. Abdominal: soft, postsurgical laparoscopic incisions appear to be healing well with no surrounding erythema or drainage. Abdomen nontender to palpation in left upper and lower quadrants., no guarding, no appreciable organomegaly. BS hypoactive. Ext: ROM intact. No gross muscle atrophy, no edema, no contractures Neuro: Speech clear, face symmetrical and CN II-XII grossly intact with no noted focal neuro deficits Psych: Alert and oriented to person, place, time, and situation. Appropriate and pleasant affect. Assessment and Plan of Care: Intractable Abdominal pain Ileus Status post laparoscopic right colectomy with lower anterior resection 03/04/22 History of Dalia-en-Y gastric bypass with revision/rerouting -Patient initially on low fiber diet, secondary to reports of increased pain and nausea diet has been decreased back down to clear liquid to general surgery team. -Maintain clear liquid diet and may advance after recommendations by general surgery team. -Continue IV fluid hydration -Continue medication regimen with Bentyl, Protonix, Mylicon, and Reglan -Management per primary admitting general surgery team -DVT prophylaxis with heparin Hypotension -Administer 500 mL bolus and resume IV fluid hydration. -Monitor vital signs. Hypothyroidism -Continue daily medication regimen with levothyroxine Thank you for allowing us to participate in the care of this pleasant patient. Do not hesitate to contact us with questions. Someone can be reached from the [facility] [place] [place] all hours of the day at [phone] or via perfect serve. I reviewed the documentation as provided by the JENNY above, who is the original author of this note. I agree with the documented assessment and plan, with the following changes: none Objective - Vital Signs Vital signs: Vital Signs Temp 97.8 F 03/24/22 07:35 Pulse 61 03/24/22 07:35 Resp 20 03/24/22 07:35 BP 94/60 03/24/22 07:35 Pulse Ox 95 03/24/22 07:35 FiO2 Intake & Output 03/23/22 03/24/22 03/24/22 18:59 06:59 18:59 Intake Total 360 Balance 360 Intake: Oral 360 Other: Voiding Method Toilet # Voids 6 2 - Labs CBC & Chem 7: 03/24/22 06:57 03/24/22 06:57
[2022-03-24 10:50] LABS: HGB 10.2 g/dL (12.0-15.0); MCH 27.9 pg (27.0-32.0); MCHC 30.9 g/dL (32.0-37.0); MCV 90.4 fL (80.0-97.0); Mean Platelet Volume 10.6 fL (9.5-12.2); NRBC Per 100 WBC 0 /100 WBCS (0.0-0.0); Platelet Count 288 X 10*3/uL (140-440); RBC 3.65 X 10*6/uL (4.10-5.20); RDW 14.7 % (11.5-14.5); WBC 4.97 X 10*3/uL (4.50-10.00)
[2022-03-24 10:57] LABS: ALT 22 U/L (8-44); AST 22 U/L (13-35); African American GFR (CKD) 126.5 (60.0-200.0); Albumin 3.4 g/dL (3.8-4.9); Alkaline Phosphatase 51 U/L (41-126); BUN/Creat Ratio 11.71 Ratio (12.00-20.00); Blood Urea Nitrogen 8.2 mg/dL (9.0-27.0); Calcium 8.8 mg/dL (8.7-10.3); Carbon Dioxide 26.2 mmol/L (20.0-27.5); Chloride 105 mmol/L (96-109); Glucose 85 mg/dL (70-110); Non-African American GFR(CKD) 109.1 (60.0-200.0); Potassium 4.5 mmol/L (3.5-5.5); Sodium 140 mmol/L (135-145); Total Bilirubin <0.15 mg/dL (0.30-1.20); Total Protein 5.4 g/dL (6.2-8.2)
[2022-03-24] MEDS: HYDROcodone/APAP 7.5-325MG 1 EACH TAB PO SCH ×4 (11:28→21:44)
[2022-03-24] MEDS: SIMETHICONE 80 MG CHEWABLE PO PRN ×2 (11:56→18:03)
--- NOTE | 2022-03-24 15:46 | P.PN ---
Subjective Progress Note Date: 03/24/22 CHIEF COMPLAINT: Intractable abdominal pain HISTORY OF PRESENT ILLNESS: The patient is a 41 year old female status post low anterior resection for sigmoid volvulus 03/04/22. Patient continues to have left-sided abdominal pain. The pain is worse after eating. She describes it as a cramping pain. Patient still requiring the IV Dilaudid. Denies any bowel movements. She had 2 episodes of vomiting yesterday but those were after taking [place] on an empty stomach. Afebrile. BP 117/74 she did have some hypotension earlier in the morning. Patient reports that her blood pressure does usually run on the lower side. WBC is 4.97 Hgb 10.2 platelets are 288 sodium is 140 potassium 4.5 creatinine 0.7 PHYSICAL EXAM: VITAL SIGNS: Reviewed GENERAL: Well-developed in no acute distress. HEENT: No sclera icterus. Extraocular movements grossly intact. Moist buccal mucosa. Head is atraumatic, normocephalic. Hears conversational speech. No nasal drainage. NECK: Supple without lymphadenopathy. CHEST: Non-labored respirations and equal bilateral excursions. CARDIOVASCULAR: Palpable 2+ radial pulses. ABDOMEN: Soft. Nondistended. Tenderness to palpation of the left side of the abdomen upper and lower. Incision sites clean dry and intact. MUSCULOSKELETAL: No clubbing or cyanosis. NEUROLOGIC: No focal or lateralizing signs. Cranial nerves II through XII grossly intact. PSYCH: Appropriate affect. Alert and oriented to person, place and time. SKIN: Well perfused. Good skin turgor. ASSESSMENT: 1. Intractable abdominal pain possibly due to adhesions 2. Ileus 3. History of sigmoid volvulus status post sigmoid resection 4. History of gastric bypass PLAN: -Patient scheduled for robotic lysis of adhesions tomorrow, 03/25/[address] Bautista -Nothing by mouth after midnight -Continue Reglan -Continue antiemetics -Continue IV fluids -Encourage patient to ambulate -Continue pain medication as needed -Continue gas drops -GI prophylaxis Protonix and DVT prophylaxis subcu heparin Physician Chimney Builder note has been reviewed by physician. Signing provider agrees with the documented findings, assessment, and plan of care. CHIEF COMPLAINT: Intractable abdominal pain HISTORY OF PRESENT ILLNESS: The patient is a 41 year old female status post low anterior resection for sigmoid volvulus 03/04/22. She comes in with different character abdominal pain unrelated to her colectomy. No blood in stools. She reports decreased flatus. She has pain with any foods including liquids. REVIEW OF ORGAN SYSTEMS: GASTROINTESTINAL: History of gastric bypass and intussussception. NEUROLOGICAL: History of stroke and prior seizure disorder. MUSCULOSKELETAL: Has chronic pain, stiffness. SKIN: No current skin cancer. No rash. PHYSICAL EXAM: VITALS: Reviewed CONSTITUTIONAL: Well developed and in no acute distress. EYES: Conjuctivae without sclera icterus. Extraocular movements grossly intact. HEAD, EARS, NOSE, THROAT: Moist buccal mucosa. Head is atraumatic, normo cephalic. Hears conversational speech. No nasal drainage. RESPIRATORY: Non-labored respirations and equal bilateral excursions. No gross wheezes. CARDIOVASCULAR: Palpable 2+ radial pulses. ABDOMEN: Tender left upper quadrant. MUSCULOSKELETAL: No clubbing cyanosis or edema. SKIN: Warm and well perfused with good skin turgor. NEUROLOGIC: Cranial nerves II through XII grossly intact. No focal or lateralizing signs. PSYCH: Appropriate affect. Alert and oriented to person, place and time. Displays appropriate insight. LABS: Reviewed. Hgb down 11.5 to 10.2 STUDIES: CT of the abdomen report reviewed with possible small bowel obstruction. ASSESSMENT: 1. Intractable abdominal pain, left upper/lower abdomen 2. History of sigmoid volvulus status post sigmoid resection 3. History of gastric bypass 4. Small bowel obstruction per CT scan PLAN: 1. IV fluid hydration completed with persistent abdominal pain 2. Adhesions for cause of her abdominal pain described. Lysis of adhesions reviewed. 3. Recommend surgical intervention due to persistent abdominal pain despite conservative management. Objective - Vital Signs Vital signs: Vital Signs Temp 98.4 F 03/24/22 13:29 Pulse 70 03/24/22 13:29 Resp 20 03/24/22 13:29 BP 117/74 03/24/22 13:29 Pulse Ox 98 03/24/22 13:29 FiO2 Intake & Output 03/23/22 03/24/22 03/24/22 18:59 06:59 18:59 Intake Total 360 Balance 360 Intake: Oral 360 Other: Voiding Method Toilet # Voids 6 2 - Labs CBC & Chem 7: 03/26/22 06:27 03/26/22 06:27 Labs: Abnormal Lab Results - Last 24 Hours (Table) 03/24/22 03/24/22 Range/Units 06:57 06:57 RBC 3.65 L (4.10-5.20) X 10*6/uL Hgb 10.2 L (12.0-15.0) g/dL Hct 33.0 L (37.2-46.3) % MCHC 30.9 L (32.0-37.0) g/dL RDW 14.7 H (11.5-14.5) % Anion Gap 8.80 L (10.00-18.00) mmol/L BUN 8.2 L (9.0-27.0) mg/dL BUN/Creatinine Ratio 11.71 L (12.00-20.00) Ratio Total Bilirubin <0.15 L (0.30-1.20) mg/dL Total Protein 5.4 L (6.2-8.2) g/dL Albumin 3.4 L (3.8-4.9) g/dL
[2022-03-24] MEDS: LEVOTHYROXINE 125 MCG TAB PO SCH (22:13)
[2022-03-25] MEDS: METOCLOPRAMIDE 5 MG/ML 2 ML VIAL IVP SCH ×5 (00:27→23:46)
[2022-03-25] MEDS: HYDROmorphone 1 MG/ML 1 ML SYRINGE IVP PRN ×3 (01:52→11:50)
--- NOTE | 2022-03-25 07:06 | P.HPADDEND ---
H&P Addendum H&P Addendum Date: 03/25/22 Patient reports recurrent left upper quadrant abdominal pain 10 out of 10 in severity. Multiple diagnostic studies performed. Patient has history of peritoneal adhesions including gastric bypass. We'll proceed with diagnostic laparoscopy lysis of adhesions due to intractable abdominal pain.
[2022-03-25] MEDS: HEPARIN SODIUM,PORCINE/PF 5,000 UNIT/0.5 ML SYRINGE SQ SCH ×2 (07:29→21:07)
[2022-03-25] MEDS: HYDROcodone/APAP 7.5-325MG 1 EACH TAB PO SCH ×4 (08:03→21:07)
[2022-03-25] MEDS: PANTOPRAZOLE 40 MG TABLET PO SCH (08:03)
[2022-03-25] MEDS: SODIUM CHLORIDE 0.9% 1,000 ML IV SCH ×2 (08:03→18:23)
[2022-03-25] MEDS: DICYCLOMINE 20 MG TAB PO SCH ×4 (08:03→21:06)
--- NOTE | 2022-03-25 08:44 | P.PN ---
Subjective Progress Note Date: 03/25/22 Hospital Course: Patient is a very pleasant 41-year-old female with a past medical history of hypothyroidism, GERD, and extensive history of abdominal/gastric surgeries including Dalia-en-Y gastric bypass in 2011 followed by rerouting of Dalia-en-Y bypass in 2012, multiple colon dilation surgeries, surgeries x5 for removal of adhesions, and colon resection 19 days ago. Patient reports status post colon resection 19 days ago she began developing pain/discomfort in her abdomen approx imately 5 days ago on 03/17/22 and reports on Monday03/18/22 had 2 episodes of "red slimy stool". She reports pain progressed and on Monday03/20/22 she continued to have worsening abdominal pain which was then accompanied by nausea and vomiting. Patient reports that she called her surgeon and made an appointment on Monday and after evaluation in office was instructed to come to the hospital for admission. Patient underwent full evaluation in the emergency department. CBC, coags, and CMP were unremarkable. Urinalysis was contaminated but not concerning for infection. Urine hCG was negative for . Patient underwent abdominal CT revealing postsurgical changes of the stomach and bowel with a few loops of contrast filled mildly dilated small bowel in the left lower quadrant possibly representing focal ileus versus partial small bowel obstruction. Patient was admitted under Gen. surgery team and we were consulted for medical management throughout her hospitalization. Patient seen and fully evaluated at the bedside this morning. She was eating breakfast and reports having increased pain after eating. Patient reports diffuse abdominal pain mainly left upper and lower quadrant. She denies having any recent fevers, chills, headache, lightheadedness, dizziness, chest pain, palpitations, or shortness of breath. She denies any further episodes of vomiting since arrival to the hospital. Patient reports last bowel movement was Monday03/18/22. Physical exam: Pt seen and fully evaluated this morning. She reports left upper and lower abdominal quadrant cramping remains unchanged. She is scheduled to undergo lysis of adhesions later today with Dr. Bautista. Patient denies having any other complaints or concerns at this time. She is medically stable. Previous hypotension noted yesterday morning has remained improved since receiving 500 mL bolus. Vital signs reviewed and stable. General: Nontoxic, no distress and appears stated age. Derm: Skin warm and dry, normal coloration for ethnicity. Head: Atraumatic, normocephalic and symmetric. Eyes: EOMs intact, no lid lag, and anicteric sclera Mouth: no lip lesions, mucus membranes moist Cardiovascular: regular rate and rhythm with normal S1S2, no murmur, positive posterior tibial pulses bilaterally, and cap refill < 2 seconds. Lungs: Respirations even, regular, and unlabored on room air. Lungs CTA bilaterally, no rhonchi, no rales, no wheezing, and no accessory muscle usage. Abdominal: soft, postsurgical laparoscopic incisions appear to be healing well with no surrounding erythema or drainage. Abdomen nontender to palpation in left upper and lower quadrants., no guarding, no appreciable organomegaly. BS hypoactive. Ext: ROM intact. No gross muscle atrophy, no edema, no contractures Neuro: Speech clear, face symmetrical and CN II-XII grossly intact with no noted focal neuro deficits Psych: Alert and oriented to person, place, time, and situation. Appropriate and pleasant affect. Assessment and Plan of Care: Intractable Abdominal pain Ileus Status post laparoscopic right colectomy with lower anterior resection 03/04/22 History of Dalia-en-Y gastric bypass with revision/rerouting -NPO pending scheduled surgery later today and may advance diet as directed by primary admitting general surgery team. -Continue IV fluid hydration -Continue medication regimen with Bentyl, Protonix, Mylicon, and Reglan -Management per primary admitting general surgery team, patient is scheduled to undergo lysis of adhesions later today with Dr. Bautista. -DVT prophylaxis with heparin Hypotension, improved after IV fluid bolus. -Continue to monitor vital signs closely. Hypothyroidism -Continue daily medication regimen with levothyroxine Thank you for allowing us to participate in the care of this pleasant patient. Do not hesitate to contact us with questions. Someone can be reached from the [facility] [place] hospitalist group all hours of the day at [phone] or via [email or web address]. Objective - Vital Signs Vital signs: Vital Signs Temp 98.1 F 03/25/22 01:11 Pulse 67 03/25/22 01:11 Resp 15 03/25/22 01:11 BP 103/65 03/25/22 01:11 Pulse Ox 96 03/25/22 01:11 FiO2 Intake & Output 07/21/22 07/22/22 07/22/22 18:59 06:59 18:59 Other: Voiding Method Toilet # Voids 4 2 - Labs CBC & Chem 7: 03/24/22 06:57 03/24/22 06:57 Labs: Abnormal Lab Results - Last 24 Hours (Table) 03/24/22 03/24/22 Range/Units 06:57 06:57 RBC 3.65 L (4.10-5.20) X 10*6/uL Hgb 10.2 L (12.0-15.0) g/dL Hct 33.0 L (37.2-46.3) % MCHC 30.9 L (32.0-37.0) g/dL RDW 14.7 H (11.5-14.5) % Anion Gap 8.80 L (10.00-18.00) mmol/L BUN 8.2 L (9.0-27.0) mg/dL BUN/Creatinine Ratio 11.71 L (12.00-20.00) Ratio Total Bilirubin <0.15 L (0.30-1.20) mg/dL Total Protein 5.4 L (6.2-8.2) g/dL Albumin 3.4 L (3.8-4.9) g/dL
[2022-03-25] MEDS ORDERED: IV FLUID CONTINUATION 800 ML IV ONE (12:26)
[2022-03-25] MEDS ORDERED: DEXAMETHASONE SOD PHOSPHATE 4 MG/ML 1 ML VIAL IVP ONE (12:30)
[2022-03-25] MEDS ORDERED: ONDANSETRON 4 MG/2 ML VIAL IVP ONE ×2 (12:30→15:37)
[2022-03-25] MEDS ORDERED: SUCCINYLCHOLINE CHLORIDE 200 MG/10 ML VIAL IV ONE (12:44)
[2022-03-25] MEDS ORDERED: GLYCOPYRROLATE 0.2 MG/ML 2 ML VIAL ONE (12:44)
[2022-03-25] MEDS ORDERED: HYDROmorphone (PF) 1 MG/ML ONE (12:44)
[2022-03-25] MEDS ORDERED: fentaNYL (PF) 50 MCG/ML 2 ML AMP ONE (12:44)
[2022-03-25] MEDS ORDERED: PROPOFOL 10 MG/ML 20 ML VIAL IV ONE (12:44)
[2022-03-25] MEDS ORDERED: MIDAZOLAM 2 MG/2 ML VIAL ONE (12:44)
[2022-03-25] MEDS ORDERED: SODIUM CHLORIDE 0.9% 100 ML BAG ONE (12:44)
[2022-03-25] MEDS ORDERED: NEOSTIGMINE 1 MG/ML 10 ML VIAL ONE (12:44)
[2022-03-25] MEDS ORDERED: KETAMINE 10 MG/ML 20 ML VIAL ONE (12:44)
[2022-03-25] MEDS ORDERED: ceFAZolin 1,000 MG VIAL ONE (12:44)
[2022-03-25] MEDS ORDERED: LIDOCAINE 2% INJ 20 MG/ML (2 ML VIAL) ONE (12:44)
[2022-03-25] MEDS ORDERED: ROCURONIUM 10 MG/ML (5 ML VIAL) IV ONE (12:44)
[2022-03-25] MEDS ORDERED: BUPIVACAIN-EPI 0.25%-1:200,000 30 ML VIAL SQ ONE (13:12)
[2022-03-25] MEDS ORDERED: HYDROmorphone 0.5 MG/0.5 ML SYRINGE IVP ONE ×3 (15:37→16:02)
--- NOTE | 2022-03-25 15:42 | P.OP ---
Date of Procedure: 03/25/22 Description of Procedure: SURGEON: CARLITA MATIAS MD PREOPERATIVE DIAGNOSES: 1. Intractable left sided abdominal pain 2. Abnormal computed tomography scan for small bowel obstruction 3. History of gastric bypass 4. History of peritoneal adhesions 5. Morbid obesity due to excess calories, BMI 41.3 6. Hypothyroidism 7. Chronic pain syndrome 8. History of transient ischemic attack 9. History of deep venous thrombosis 10. History of seizure disorder POSTOPERATIVE DIAGNOSES: 1. Intussussception with intermittent small bowel obstruction, peritoneal adhesions 2. Interloop adhesions, left upper quadrant 3. History of gastric bypass 4. History of peritoneal adhesions 5. Morbid obesity due to excess calories, BMI 41.3 6. Hypothyroidism 7. Chronic pain syndrome 8. History of transient ischemic attack 9. History of deep venous thrombosis 10. History of seizure disorder 11. Intractable left sided abdominal pain 12. Abnormal computed tomography scan for small bowel obstruction OPERATION: 1. Robotic-assisted da Clementina Xi laparoscopic with extensive lysis of adhesions over 1 hr 2. Robotic-assisted da Clementina Xi laparoscopic small bowel enterectomy for intussussception ESTIMATED BLOOD LOSS: 10 mL. COMPLICATIONS: None. Pathology: other (small bowel) Condition: stable Disposition: floor Operative Findings: 1. Small bowel intussusception involving jejujenunostomy resected. 2. Abnormal interloop adhesions, left upper qaudrant lysed 3. No incisional hernias identified. 4. Long mesentery of the small bowel 5. Recent colectomy unremarkable 6. Abnormal adhesions of ileum to right pelvis, lysed 7. Biliopancreatic to common channel reconstruction with moderate adhesions lysed 8. No internal hernias identified of the jejunojejunostomy INDICATIONS: The patient is a 41-year-old female with recent colectomy who presents with new intractable left upper quadrant abdominal pain are related to recent surgery with left upper quadrant abdominal pain. Surgical intervention with diagnostic laparoscopy, lysis of adhesions were described. Informed consent was obtained. Robotic assisted laparoscopic approach was described. Benefits and risks of the procedure including but not limited to bleeding, infection, injury to the small bowel was described. Informed consent was obtained. DESCRIPTION OF PROCEDURE: Patient was brought to the operating room, placed in supine position. After general induction, the abdomen had been prepped and draped in standard sterile fashion. The robotic da Clementina XI system was primed. After a timeout protocol was performed, the patient had been prepped and draped in standard sterile fashion. The robot was docked along the right lateral abdomen. The patient was repositioned in with right side up. Please note prior to docking of the robot; however, a 5 mm 0 degrees laparoscopic trocar entry was performed along the left upper quadrant. The abdomen was insufflated to 15 mmHg pressure which she tolerated well. Diagnostic laparoscopy was performed. Next, three 8 mm robotic ports were placed along the right lateral abdominal wall. The camera 8-mm port was maintained along mid-lateral abdomen. Please note that the ports were placed at least 10 to 15 cm away from the target anatomy. Instruments including graspers and vessel sealer were interchanged by the railway yard assistant. I had sat at the console. No incisional hernia was identified. The small bowel from the gregg limb to distal ileum was inspected. Abnormal adhesions of the transverse mesocolon to the jejunostomy was identified and released. An active intussusception of the Gregg limb reconstruction was partially obstructing her jejunojejunostomy. Redundant blind limb of 5 cm was identified telescoping into the jejunojejunostomy of the Gregg limb. The right lower quadrant trocar was upsized to a 12 mm trocar. The redundant Gregg limb was resected using a 60 mm white staple load. To prevent further intussusception, interrupted 3-0 Vicryl 2 was placed at the seat of the jejunojejunostomy intussusception of the recently resected Gregg limb. Additionally, reconstruction of the biliopancreatic limb to common channel had multiple interloop adhesions which were lysed using vessel sealer. The small bowel was investigated from the terminal ileum to the ligament of Treitz with finding of redundant mesentery. Abnormal adhesions to the jejunojejunostomy was identified and divided. The Lopez defect and jejunojejunostomy mesenteric defects were previously scarred. The terminal ileum and cecum had a normal adhesions to the right lower quadrant pelvis which were lysed. Extensive lysis of adhesions over 1 hr was performed. The robot was undocked. All pneumoperitoneum instruments were evacuated from the abdominal cavity. Cart vandana-Yanick and 0 Vicryl was used to close the right lower quadrant trocar incision. The incisions were reapproximated using 4-0 Monocryl in an interrupted subcuticular fashion. Please note along the trocar sites, local anesthetic was placed as a field block prior to insertion of all instruments. Exofin was applied to the skin. At the end of the procedure needle, sponge, and instrument count had been verified correct by the mixing technician. The patient was transferred to postanesthesia care unit in stable condition.
[2022-03-25] MEDS ORDERED: diphenhydrAMINE 50 MG/ML 1 ML VIAL IVP ONE (16:03)
[2022-03-25] MEDS ORDERED: SODIUM CHLORIDE 0.9% 100 ML IV ONE (16:06)
[2022-03-25] MEDS: ACETAMINOPHEN IV (For NPO) 1,000 MG in EMPTY BAG 1 BAG IVPB SCH ×2 (17:47→23:45)
[2022-03-25] MEDS: HYDROmorphone PCA 10 MG/50 ML BAG IV PRN (18:12)
[2022-03-25] MEDS: KETOROLAC 15 MG/ML 1 ML VIAL IVP SCH ×2 (18:21→23:46)
[2022-03-25] MEDS: LEVOTHYROXINE 125 MCG TAB PO SCH (21:06)
[2022-03-25] MEDS: SIMETHICONE 40 MG/0.6 ML DROPS 2,000 MG/30 ML BOTTLE PO SCH ×2 (21:06→21:22)
[2022-03-26] MEDS: KETOROLAC 15 MG/ML 1 ML VIAL IVP SCH ×3 (06:21→17:33)
[2022-03-26] MEDS: HYDROmorphone PCA 10 MG/50 ML BAG IV PRN ×2 (06:22→20:37)
[2022-03-26] MEDS: METOCLOPRAMIDE 5 MG/ML 2 ML VIAL IVP SCH ×3 (06:30→17:33)
[2022-03-26] MEDS: ACETAMINOPHEN IV (For NPO) 1,000 MG in EMPTY BAG 1 BAG IVPB SCH ×2 (06:31→11:36)
[2022-03-26] MEDS: SODIUM CHLORIDE 0.9% 1,000 ML IV SCH ×2 (06:31→16:50)
[2022-03-26] MEDS: HYDROcodone/APAP 7.5-325MG 1 EACH TAB PO SCH ×4 (08:50→21:21)
[2022-03-26] MEDS: HEPARIN SODIUM,PORCINE/PF 5,000 UNIT/0.5 ML SYRINGE SQ SCH ×2 (08:50→21:20)
[2022-03-26] MEDS: DICYCLOMINE 20 MG TAB PO SCH ×4 (08:50→21:20)
[2022-03-26] MEDS: SIMETHICONE 40 MG/0.6 ML DROPS 2,000 MG/30 ML BOTTLE PO SCH ×4 (08:51→21:22)
[2022-03-26] MEDS: PANTOPRAZOLE 40 MG/10 ML VIAL IV SCH (08:51)
--- NOTE | 2022-03-26 10:57 | P.PN ---
Progress Note - Text Progress Note Date: 03/26/22 Patient's resting comfortably. Patient status post small bowel resection for partial small bowel obstruction. She denies any significant abdominal pain. On exam vessels are still. Abdomen soft. Status post small bowel resection. Patient will have her diet advanced once she has had her bowel functions returned.
--- NOTE | 2022-03-26 11:37 | P.PN ---
Subjective Progress Note Date: 03/26/22 No new complaints. Patient says her pain is much better. Diet to be advanced today. Gen: awake, alert HEENT: normocephalic, atraumatic, good hearing acuity, moist mucous membranes Resp: good air exchange, breathing comfortably with no accessory muscle use CVS: good distal perfusion x 4, GI: soft, NTTP, ND : no SPT, no CVAT, simon catheter not present MSK: no pitting edema, no clubbing Neuro: non-focal, moving all extremities Psych: cooperative, euthymic mood Assessment/plan: Intractable Abdominal pain Ileus Status post laparoscopic right colectomy with lower anterior resection 03/04/22 History of Dalia-en-Y gastric bypass with revision/rerouting -Advance diet as directed by primary admitting general surgery team. -Continue IV fluid hydration -Continue medication regimen with Bentyl, Protonix, Mylicon, and Reglan -Management per primary admitting general surgery team, patient is scheduled to undergo lysis of adhesions later today with Dr. Bautista. -DVT prophylaxis with heparin Hypotension, improved after IV fluid bolus. -Continue to monitor vital signs closely. Hypothyroidism -Continue daily medication regimen with levothyroxine Thank you for allowing us to participate in the care of this pleasant patient. Do not hesitate to contact us with questions. Someone can be reached from the [facility] hospitalist group all hours of the day at [phone] or via [employer]. Objective - Vital Signs Vital signs: Vital Signs Temp 98.3 F 03/26/22 07:46 Pulse 59 L 03/26/22 07:46 Resp 17 03/26/22 02:00 BP 109/70 03/26/22 07:46 Pulse Ox 99 03/26/22 07:46 FiO2 Intake & Output 03/25/22 03/26/22 03/26/22 18:59 06:59 18:59 Intake Total 1100 Output Total 10 Balance 1090 Intake: IV 1100 Output: Estimated Blood Loss 10 Other: Voiding Method Toilet # Voids 1 4 - Labs CBC & Chem 7: 03/24/22 06:57 03/24/22 06:57
[2022-03-26 11:45] LABS: HCT 35.1 % (37.2-46.3); HGB 10.5 g/dL (12.0-15.0); MCH 27.5 pg (27.0-32.0); MCHC 29.9 g/dL (32.0-37.0); MCV 91.9 fL (80.0-97.0); Mean Platelet Volume 11.2 fL (9.5-12.2); NRBC Per 100 WBC 0 /100 WBCS (0.0-0.0); Platelet Count 285 X 10*3/uL (140-440); RBC 3.82 X 10*6/uL (4.10-5.20); RDW 14.8 % (11.5-14.5); WBC 9.17 X 10*3/uL (4.50-10.00)
[2022-03-26 12:36] LABS: African American GFR (CKD) 126.5 (60.0-200.0); Albumin 3.7 g/dL (3.8-4.9); Albumin/Globulin Ratio 1.76 (1.60-3.17); BUN/Creat Ratio 9.14 Ratio (12.00-20.00); Blood Urea Nitrogen 6.4 mg/dL (9.0-27.0); Calcium 8.7 mg/dL (8.7-10.3); Globulin 2.1 g/dL (1.6-3.3); Non-African American GFR(CKD) 109.1 (60.0-200.0); Potassium 4.3 mmol/L (3.5-5.5); Total Bilirubin 0.2 mg/dL (0.30-1.20); Total Protein 5.8 g/dL (6.2-8.2)
[2022-03-26] MEDS: LEVOTHYROXINE 125 MCG TAB PO SCH (21:20)
[2022-03-27] MEDS: KETOROLAC 15 MG/ML 1 ML VIAL IVP SCH ×4 (00:50→16:58)
[2022-03-27] MEDS: METOCLOPRAMIDE 5 MG/ML 2 ML VIAL IVP SCH ×4 (00:50→16:58)
[2022-03-27] MEDS: SODIUM CHLORIDE 0.9% 1,000 ML IV SCH ×3 (00:53→20:34)
--- NOTE | 2022-03-27 08:47 | P.PN ---
Subjective Progress Note Date: 03/27/22 No new complaints today. Resting comfortably in bed. Gen: awake, alert HEENT: normocephalic, atraumatic, good hearing acuity, moist mucous membranes Resp: good air exchange, breathing comfortably with no accessory muscle use CVS: good distal perfusion x 4, GI: soft, NTTP, ND : no SPT, no CVAT, simon catheter not present MSK: no pitting edema, no clubbing Neuro: non-focal, moving all extremities Psych: cooperative, euthymic mood Assessment/plan: Intractable Abdominal pain Ileus Status post laparoscopic right colectomy with lower anterior resection 03/04/22 History of Dalia-en-Y gastric bypass with revision/rerouting -Advance diet as directed by primary admitting general surgery team. -Continue IV fluid hydration -Continue medication regimen with Bentyl, Protonix, Mylicon, and Reglan -Management per primary admitting general surgery team, patient is scheduled to undergo lysis of adhesions later today with Dr. Bautista. -DVT prophylaxis with heparin Hypotension, improved after IV fluid bolus. -Continue to monitor vital signs closely. Hypothyroidism -Continue daily medication regimen with levothyroxine Thank you for allowing us to participate in the care of this pleasant patient. Do not hesitate to contact us with questions. Someone can be reached from the [facility] hospitalist group all hours of the day at [phone] or via [employer]. Objective - Vital Signs Vital signs: Vital Signs Temp 98.3 F 03/27/22 08:00 Pulse 65 03/27/22 08:00 Resp 18 03/27/22 00:54 BP 97/61 03/27/22 08:00 Pulse Ox 96 03/27/22 08:00 FiO2 Intake & Output 03/26/22 03/27/22 03/27/22 18:59 06:59 18:59 Other: Voiding Method Toilet # Voids 2 # Bowel Movements 1 - Labs CBC & Chem 7: 03/26/22 06:27 03/26/22 06:27 Labs: Abnormal Lab Results - Last 24 Hours (Table) 03/26/22 03/26/22 Range/Units 06:27 06:27 RBC 3.82 L (4.10-5.20) X 10*6/uL Hgb 10.5 L (12.0-15.0) g/dL Hct 35.1 L (37.2-46.3) % MCHC 29.9 L (32.0-37.0) g/dL RDW 14.8 H (11.5-14.5) % BUN 6.4 L (9.0-27.0) mg/dL BUN/Creatinine Ratio 9.14 L (12.00-20.00) Ratio Total Bilirubin 0.20 L (0.30-1.20) mg/dL Total Protein 5.8 L (6.2-8.2) g/dL Albumin 3.7 L (3.8-4.9) g/dL
[2022-03-27] MEDS: DICYCLOMINE 20 MG TAB PO SCH ×4 (08:49→20:34)
[2022-03-27] MEDS: PANTOPRAZOLE 40 MG/10 ML VIAL IV SCH (08:49)
[2022-03-27] MEDS: SIMETHICONE 40 MG/0.6 ML DROPS 2,000 MG/30 ML BOTTLE PO SCH ×4 (08:49→20:34)
[2022-03-27] MEDS: HYDROcodone/APAP 7.5-325MG 1 EACH TAB PO SCH ×4 (08:49→20:35)
[2022-03-27] MEDS: HEPARIN SODIUM,PORCINE/PF 5,000 UNIT/0.5 ML SYRINGE SQ SCH ×2 (08:49→20:34)
[2022-03-27] MEDS: ONDANSETRON 4 MG/2 ML VIAL IVP PRN (10:36)
--- NOTE | 2022-03-27 13:09 | P.PN ---
Progress Note - Text Progress Note Date: 03/27/22 Patient's complaints of nausea. On exam vital signs are stable. Abdomen soft. Incision sites clean and intact. Status post small bowel resection for partial small bowel obstruction. Patient will resume her diet once her nausea has improved. We dysphagia discharged home hopefully tomorrow.
[2022-03-27] MEDS: HYDROmorphone PCA 10 MG/50 ML BAG IV PRN (15:15)
[2022-03-27] MEDS: LEVOTHYROXINE 125 MCG TAB PO SCH (20:34)
[2022-03-28] MEDS: KETOROLAC 15 MG/ML 1 ML VIAL IVP SCH ×3 (01:14→11:50)
[2022-03-28] MEDS: METOCLOPRAMIDE 5 MG/ML 2 ML VIAL IVP SCH ×3 (01:15→11:51)
[2022-03-28] MEDS: HYDROmorphone PCA 10 MG/50 ML BAG IV PRN ×2 (02:39→13:56)
[2022-03-28] MEDS: SODIUM CHLORIDE 0.9% 1,000 ML IV SCH ×2 (06:15→08:58)
[2022-03-28 07:51] VITALS: RESP 16
--- NOTE | 2022-03-28 08:28 | P.PN ---
Subjective Progress Note Date: 03/28/22 No new complaints today. Pt still with slight nausea and abd pain, but overall improved. Gen: awake, alert HEENT: normocephalic, atraumatic, good hearing acuity, moist mucous membranes Resp: good air exchange, breathing comfortably with no accessory muscle use CVS: good distal perfusion x 4, GI: soft, NTTP, ND : no SPT, no CVAT, simon catheter not present MSK: no pitting edema, no clubbing Neuro: non-focal, moving all extremities Psych: cooperative, euthymic mood Assessment/plan: Intractable Abdominal pain Ileus Status post laparoscopic right colectomy with lower anterior resection 03/04/22 History of Dalia-en-Y gastric bypass with revision/rerouting -Advance diet as directed by primary admitting general surgery team. -Continue IV fluid hydration -Continue medication regimen with Bentyl, Protonix, Mylicon, and Reglan -Management per primary admitting general surgery team, patient is scheduled to undergo lysis of adhesions later today with Dr. Bautista. -DVT prophylaxis with heparin Hypothyroidism -Continue daily medication regimen with levothyroxine Medically stable for discharge Thank you for allowing us to participate in the care of this pleasant patient. Do not hesitate to contact us with questions. Someone can be reached from the [facility] hospitalist group all hours of the day at [phone] or via [employer]. Objective - Vital Signs Vital signs: Vital Signs Temp 98 F 03/28/22 07:50 Pulse 64 03/28/22 07:50 Resp 16 03/28/22 07:50 BP 128/76 03/28/22 07:50 Pulse Ox 98 03/28/22 07:50 FiO2 Intake & Output 03/27/22 03/28/22 03/28/22 18:59 06:59 18:59 Intake Total 480 Balance 480 Intake: Oral 480 Other: Voiding Method Toilet # Voids 3 - Labs CBC & Chem 7: 03/26/22 06:27 03/26/22 06:27
[2022-03-28] MEDS: SIMETHICONE 40 MG/0.6 ML DROPS 2,000 MG/30 ML BOTTLE PO SCH ×2 (08:49→13:09)
[2022-03-28] MEDS: HEPARIN SODIUM,PORCINE/PF 5,000 UNIT/0.5 ML SYRINGE SQ SCH ×2 (08:49→08:52)
[2022-03-28] MEDS: PANTOPRAZOLE 40 MG/10 ML VIAL IV SCH (08:49)
[2022-03-28] MEDS: HYDROcodone/APAP 7.5-325MG 1 EACH TAB PO SCH ×2 (08:49→12:01)
[2022-03-28] MEDS: DICYCLOMINE 20 MG TAB PO SCH ×2 (08:49→12:01)
[2022-03-28 14:12] VITALS: BP 117/75; PULSE 68; TEMP 98.2
--- NOTE | 2022-03-28 16:33 | P.DS ---
Providers Date of admission: 03/22/22 10:23 Expected date of discharge: 03/28/22 Attending physician: Nallely Bautista Consults: 03/22/22 22:00 Consult Physician Routine Consulting Provider: Yrn Perkins Consult Reason/Comments: Medical management Do you want consulting provider notified?: Yes Primary care physician: Daniella Grider Hospital Course: POSTOPERATIVE DIAGNOSES: 1. Intussussception with intermittent small bowel obstruction, peritoneal adhesions 2. Interloop adhesions, left upper quadrant 3. History of gastric bypass 4. History of peritoneal adhesions 5. Morbid obesity due to excess calories, BMI 41.3 6. Hypothyroidism 7. Chronic pain syndrome 8. History of transient ischemic attack 9. History of deep venous thrombosis 10. History of seizure disorder 11. Intractable left sided abdominal pain 12. Abnormal computed tomography scan for small bowel obstruction CHIEF COMPLAINT: Intractable abdominal pain HISTORY OF PRESENT ILLNESS: The patient is a 41 year old female re-admitted for new left upper quadrant abdominal pain unrelated to her recent colectomy. Patient has pre-existing history of peritoneal adhesions. Despite conservative management, her symptoms progressed. Diagnostic laparoscopy and exploration was described. She is status post lysis of adhesions, 03/25/2022. She reported resolution of her intractable left sided abdominal pain. Intraoperative findings of intussusception with intermittent bowel obstruction reviewed. She was tolerating diet. She was passing flatus and had bowel movements. Her prior abdominal pain resolved. PHYSICAL EXAM: VITALS: Reviewed CONSTITUTIONAL: Well developed and in no acute distress. EYES: Conjuctivae without sclera icterus. Extraocular movements grossly intact. HEAD, EARS, NOSE, THROAT: Moist buccal mucosa. Head is atraumatic, normocephalic. Hears conversational speech. No nasal drainage. RESPIRATORY: Non-labored respirations and equal bilateral excursions. No gross wheezes. CARDIOVASCULAR: Palpable 2+ radial pulses. ABDOMEN: No peritonitis. Incisions clean, dry and intact. MUSCULOSKELETAL: No clubbing cyanosis or edema. SKIN: Warm and well perfused with good skin turgor. NEUROLOGIC: Cranial nerves II through XII grossly intact. No focal or lateralizing signs. PSYCH: Appropriate affect. Alert and oriented to person, place and time. Displays appropriate insight. PLAN: 1. Patient stable for discharge. 2. Low fiber diet is advised. 3. Recommend off work for 4 weeks, Apr 25. Procedures: OPERATION: 1. Robotic-assisted da Clementina Xi laparoscopic with extensive lysis of adhesions over 1 hr 2. Robotic-assisted da Clementina Xi laparoscopic small bowel enterectomy for intussussception ESTIMATED BLOOD LOSS: 10 mL. COMPLICATIONS: None. Pathology: other (small bowel) Condition: stable Disposition: floor Operative Findings: 1. Small bowel intussusception involving jejujenunostomy resected. 2. Abnormal interloop adhesions, left upper qaudrant lysed 3. No incisional hernias identified. 4. Long mesentery of the small bowel 5. Recent colectomy unremarkable 6. Abnormal adhesions of ileum to right pelvis, lysed 7. Biliopancreatic to common channel reconstruction with moderate adhesions lysed 8. No internal hernias identified of the jejunojejunostomy Patient Condition at Discharge: Stable Plan - Discharge Summary Discharge Rx Participant: Yes New Discharge Prescriptions: New Acetaminophen Tab [Tylenol Tab] 1,000 mg PO Q6HR PRN #30 tablet PRN Reason: Pain Simethicone [Gas-X] 125 mg PO AC-TID PRN #20 capsule PRN Reason: Pain Continue HYDROcodone/APAP 7.5-325MG [[place] 7.5-325] 1 tab PO QID Terbinafine [LamISIL] 250 mg PO HS Cyanocobalamin [Vitamin B-12 Injection] 1,000 mcg SQ QMONTHLY Levothyroxine Sodium 125 mcg PO HS Discontinued Simethicone [Gas-X] 125 mg PO TID Dicyclomine [Bentyl] 20 mg PO BID Acetaminophen Tab [Tylenol] 1,000 mg PO Q6HR PRN #30 tablet PRN Reason: Pain Simethicone [Gas-X] 125 mg PO AC-TID PRN #20 capsule PRN Reason: Pain Discharge Medication List HYDROcodone/APAP 7.5-325MG [[place] 7.5-325] 1 tab PO QID 01/19/22 [History] Terbinafine [LamISIL] 250 mg PO HS 01/19/22 [History] Cyanocobalamin [Vitamin B-12 Injection] 1,000 mcg SQ QMONTHLY 02/02/22 [History] Levothyroxine Sodium 125 mcg PO HS 02/02/22 [History] Acetaminophen Tab [Tylenol Tab] 1,000 mg PO Q6HR PRN #30 tablet 03/28/22 [Rx] Simethicone [Gas-X] 125 mg PO AC-TID PRN #20 capsule 03/28/22 [Rx] Follow up Appointment(s)/Referral(s): Daniella Grider MD [Primary Care Provider] - 03/30/22 11:00 am (APPOINTMENT AT [address] [place] [address] ) Nallely Bautista MD [STAFF PHYSICIAN] - 04/05/22 Patient Instructions/Handouts: *Surgery [facility] - Managing Your Pain After Surgery Without Opioids, Intussusception Surgical Repair in Children (DC), Bowel Resection (DC), Lysis of Abdominal Adhesions (DC) Activity/Diet/Wound Care/Special Instructions: Low fiber diet until, April 03. No lifting over 10 pounds in 2 weeks until Apr 08. January shower. No bath tub soaks for two weeks until Apr 08. Use Tylenol, simethicone scheduled for the next 24-48 hours for best pain relief. Use ice along incisions for today to prevent swelling. Discharge Disposition: HOME SELF-CARE
--- NOTE | 2022-03-28 16:33 | P.PN ---
Subjective Progress Note Date: 03/28/22 CHIEF COMPLAINT: Intractable abdominal pain HISTORY OF PRESENT ILLNESS: The patient is a 41 year old female status post lysis of adhesions, 03/25/2022. She reports resolution of her intractable left sided abdominal pain. Intraoperative findings of intussusception with intermittent bowel obstruction reviewed. She is now tolerating diet. She is passing flatus and had 4 bowel movements in the past 2 days. Patient only reports expected incisional pain. Prior abdominal pain resolved. REVIEW OF ORGAN SYSTEMS: GASTROINTESTINAL: History of gastric bypass and intussussception. NEUROLOGICAL: History of stroke and prior seizure disorder. MUSCULOSKELETAL: Has chronic pain, stiffness. SKIN: No current skin cancer. No rash. PHYSICAL EXAM: VITALS: Reviewed CONSTITUTIONAL: Well developed and in no acute distress. EYES: Conjuctivae without sclera icterus. Extraocular movements grossly intac t. HEAD, EARS, NOSE, THROAT: Moist buccal mucosa. Head is atraumatic, normocephalic. Hears conversational speech. No nasal drainage. RESPIRATORY: Non-labored respirations and equal bilateral excursions. No gross wheezes. CARDIOVASCULAR: Palpable 2+ radial pulses. ABDOMEN: No peritonitis. Incisions clean, dry and intact. MUSCULOSKELETAL: No clubbing cyanosis or edema. SKIN: Warm and well perfused with good skin turgor. NEUROLOGIC: Cranial nerves II through XII grossly intact. No focal or lateralizing signs. PSYCH: Appropriate affect. Alert and oriented to person, place and time. Di splays appropriate insight. LABS: Reviewed. Hgb down 10.2 to 10.3, post op ASSESSMENT: 1. Intractable abdominal pain, left upper/lower abdomen due to intussusception 2. History of gastric bypass PLAN: 1. Her prior abdominal pain is resolved. 2. Patient stable for discharge. 3. Low fiber diet is advised. 4. Recommend off work for 4 weeks, Apr 25. 5. Follow-up in the office Objective - Vital Signs Vital signs: Vital Signs Temp 98.2 F 03/28/22 14:00 Pulse 68 03/28/22 14:00 Resp 16 03/28/22 14:00 BP 117/75 03/28/22 14:00 Pulse Ox 98 03/28/22 14:00 FiO2 Intake & Output 03/27/22 03/28/22 03/28/22 18:59 06:59 18:59 Intake Total 480 Balance 480 Intake: Oral 480 Other: Voiding Method Toilet # Voids 3 1 - Labs CBC & Chem 7: 03/26/22 06:27 03/26/22 06:27
[2022-04-16] MEDS ORDERED: CYANOCOBALAMIN 1,000 MCG/ML 1 ML VIAL SQ SCH (09:00)
== END 2022-03-28 17:15 | disposition home or self-care (01) | DRG 336 ==
LOC: EC 10:12 → 4SSUR 10:23
PROVIDERS: ADMIT Surgery Plastic and Reconstructive Surgery; ATTEND Surgery Plastic and Reconstructive Surgery
PROC: 0DN84ZZ Release Small Intestine, Percutaneous Endoscopic Approach (ICD-10-PCS; 2022-03-25)
PROC: 0DNW4ZZ Release Peritoneum, Percutaneous Endoscopic Approach (ICD-10-PCS; 2022-03-25)
PROC: 0DNV4ZZ Release Mesentery, Percutaneous Endoscopic Approach (ICD-10-PCS; 2022-03-25)
PROC: 0DNL4ZZ Release Transverse Colon, Percutaneous Endoscopic Approach (ICD-10-PCS; 2022-03-25)
PROC: 8E0W4CZ Robotic Assisted Procedure of Trunk Region, Percutaneous Endoscopic Approach (ICD-10-PCS; 2022-03-25)
PROC: 0DBA4ZZ Excision of Jejunum, Percutaneous Endoscopic Approach (ICD-10-PCS; principal; 2022-03-25 13:30)
DX: K56.1 Intussusception (principal); K91.89 Other postprocedural complications and disorders of digestive system; Z68.41 Body mass index [BMI] 40.0-44.9, adult; K56.7 Ileus, unspecified; I95.9 Hypotension, unspecified; E66.01 Morbid (severe) obesity due to excess calories; G89.4 Chronic pain syndrome; K66.0 Peritoneal adhesions (postprocedural) (postinfection); K56.2 Volvulus; G40.909 Epilepsy, unspecified, not intractable, without status epilepticus; E03.9 Hypothyroidism, unspecified; K21.9 Gastro-esophageal reflux disease without esophagitis; F32.A Depression, unspecified; F41.9 Anxiety disorder, unspecified; Z98.84 Bariatric surgery status; Z86.73 Personal history of transient ischemic attack (TIA), and cerebral infarction without residual deficits; Z79.890 Hormone replacement therapy; R13.10 Dysphagia, unspecified; Z79.899 Other long term (current) drug therapy; Z82.49 Family history of ischemic heart disease and other diseases of the circulatory system; Z86.718 Personal history of other venous thrombosis and embolism; Z87.11 Personal history of peptic ulcer disease; Z87.440 Personal history of urinary (tract) infections; Z87.74 Personal history of (corrected) congenital malformations of heart and circulatory system; Z90.49 Acquired absence of other specified parts of digestive tract; Z88.5 Allergy status to narcotic agent; Z88.0 Allergy status to penicillin; Z91.040 Latex allergy status; Y84.8 Other medical procedures as the cause of abnormal reaction of the patient, or of later complication, without mention of misadventure at the time of the procedure
CPT/HCPCS: 36415; 74018; 74177; 80053; 81001; 81025; 82150; 83605; 83690; 83735; 85025; 85027; 85610; 85730; 88307; 96361; 96374; 96375; 99285

== ENCOUNTER 2022-11-22 10:43 | Emergency (ER) | payer OTHER ==
[2022-11-22 11:09] VITALS: TEMP 98
[2022-11-22 12:14] LABS: Basophils % (A) 1 %; Eosinophils # (A) 0.1 k/uL (0-0.7); Eosinophils % (A) 3 %; HCT 38.2 % (34.0-46.0); HGB 12.1 gm/dL (11.4-16.0); Lymphocytes # (A) 1.7 k/uL (1.0-4.8); Lymphocytes % (A) 36 %; MCH 26.8 pg (25.0-35.0); MCHC 31.6 g/dL (31.0-37.0); MCV 84.6 fL (80.0-100.0); Mean Platelet Volume 7.1; Monocytes # (A) 0.3 k/uL (0-1.0); Monocytes % (A) 7 %; Neutrophils # (A) 2.4 k/uL (1.3-7.7); Neutrophils % (A) 52 %; Platelet Count 311 k/uL (150-450); RBC 4.51 m/uL (3.80-5.40); RDW 15.8 % (11.5-15.5); WBC 4.6 k/uL (3.8-10.6)
[2022-11-22 12:23] LABS: ALT 26 U/L (4-34); AST 32 U/L (14-36); African American GFR (CKD) >90 (>60 ml/min/1.73 sqM); Albumin 4.5 g/dL (3.5-5.0); Alkaline Phosphatase 79 U/L (38-126); Amylase 40 U/L (30-110); Anion Gap 8 mmol/L; Blood Urea Nitrogen 10 mg/dL (7-17); Calcium 9.1 mg/dL (8.4-10.2); Carbon Dioxide 27 mmol/L (22-30); Chloride 104 mmol/L (98-107); Glucose 87 mg/dL (74-99); Lipase 124 U/L (23-300); Non-African American GFR(CKD) >90 (>60 ml/min/1.73 sqM); Potassium 4.4 mmol/L (3.5-5.1); Sodium 139 mmol/L (137-145); Total Bilirubin 0.4 mg/dL (0.2-1.3); Total Protein 7.4 g/dL (6.3-8.2)
[2022-11-22] MEDS ORDERED: HYDROmorphone 1 MG/ML 1 ML SYRINGE IVP STA ×3 (12:25→14:53)
[2022-11-22] MEDS ORDERED: SODIUM CHLORIDE 0.9% 1,000 ML IV STA (12:26)
[2022-11-22] MEDS ORDERED: ONDANSETRON 4 MG/2 ML VIAL IVP STA (12:26)
--- NOTE | 2022-11-22 12:35 | ED ---
Abdominal Pain HPI - General Source: patient, RN notes reviewed Mode of arrival: ambulatory Limitations: no limitations - History of Present Illness MD Complaint: abdominal pain Location: LLQ Associated Symptoms: nausea, vomiting - Related Data Patient : No <Oumou Muro - Last Filed: 11/26/22 16:14> <[email or web address] - Last Filed: 11/29/22 13:29> - General Chief Complaint: Abdominal Pain Stated Complaint: LLQ pain problem with surgical clips Time Seen by Provider: 11/22/22 12:06 - History of Present Illness Initial Comments: This is a 42-year-old female who presents to the emergency department for abdominal pain. Patient states that over the weekend, she went to the emergency department in [place], [place] for left lower quadrant pain. She had a computed tomography scan showing that the surgical clips from her tubal ligation and prior partial colectomy were intertwined with one another and adhesions. Patient states that she has been wanting a hysterectomy for a long period of time due to problems with menorrhagia and dysmenorrhea. When she followed up with her [employer], she told her that she was not comfortable performing a hysterectomy due to it being intertwined with surgical clips from a prior partial bowel resection. She advised she come to [facility] for a higher level of care and so Dr. Bautista, her general surgeon, can evaluate her as well. Reports nausea and vomiting associated with the left lower quadrant pain. Denies any fever/chills. Denies any changes in bowel habits. Denies any fevers, chills, sore throat, cough, dyspnea, chest pain, palpitations, diarrhea, back pain, or headaches. (Oumou Muro) - Related Data Home Medications Medication Instructions Recorded Confirmed Cyanocobalamin [Vitamin B-12 1,000 mcg SQ Q30D 02/02/22 11/24/22 Injection] FLUoxetine HCL [PROzac] 40 mg PO HS 11/22/22 11/24/22 HYDROcodone/APAP 7.5-325MG [Dedham 1 tab PO DAILY PRN 11/22/22 11/24/22 7.5-325] Levothyroxine Sodium [Synthroid] 137 mcg PO DAILY 11/22/22 11/24/22 Liraglutide [Saxenda] 1.2 mg SQ DAILY 11/22/22 11/24/22 Previous Rx's Medication Instructions Recorded Lactulose [Cephulac] 20 gm PO BID #473 ml 11/22/22 Ondansetron Odt [Zofran ODT] 4 mg PO Q8HR PRN #15 tab 11/22/22 Promethazine [Phenergan] 25 mg PO Q6HR PRN #15 tablet 11/22/22 Acetaminophen Tab [Tylenol Tab] 1,000 mg PO Q6HR PRN #30 tablet 11/26/22 Simethicone [Gas-X] 125 mg PO AC-TID PRN #20 capsule 11/26/22 traMADol HCl [Ultram] 50 mg PO Q6H PRN #10 tab 11/27/22 Allergies Allergy/AdvReac Type Severity Reaction Status Date / Time latex Allergy Severe Anaphylaxis Verified 11/24/22 19:34 Penicillins Allergy Severe Anaphylaxis Verified 11/24/22 19:34 /Hives morphine Allergy Hives, Verified 11/24/22 19:34 ITCHING NSAIDS (Non-Steroidal Allergy Hives/Gi Verified 11/24/22 19:34 Anti-Inflamma Issues Review of Systems ROS Other: All systems not noted in ROS Statement are negative. <Oumou Muro - Last Filed: 11/26/22 16:14> ROS Other: All systems not noted in ROS Statement are negative. <Clarence Valladares - Last Filed: 11/29/22 13:29> ROS Statement: Those systems with pertinent positive or pertinent negative responses have been documented in the HPI. Past Medical History Past Medical History: CVA/TIA, Deep Vein Thrombosis (DVT), GERD/Reflux, Neurologic Disorder, Thyroid Disorder Additional Past Medical History / Comment(s): HERNIATED CERVICAL DISCS C4-C5 WITH NECK PAIN. Right leg numbness and tingling from CVA 2016. HX SEIZURES- NONE SINCE 2005. ABD PAIN LEFT SIDE chronic. Migraines. Hx DVT 2007, bruises easy. Hx Intussusception. Hx fractured vertebrae. Panniculitis with surgery, DVT in right leg in 2007, VARICOSE VEINS, hypothyroid, recurrent UTIs, R leg numbness/tingling with foot drop, esophageal anastomatic stricture, dysphagia in past, seizure 2005, hiatal hernia, PUD, hypoglycemia intussusception of the bowel, morbid obesity status post Risa-en-Y. History of Any Multi-Drug Resistant Organisms: MRSA Date of last positivie culture/infection: 01/2008 MDRO Source:: right arm Past Surgical History: Adenoidectomy, Appendectomy, Bariatric Surgery, Section, Cholecystectomy, Orthopedic Surgery, Tonsillectomy, Tubal Ligation Additional Past Surgical History / Comment(s): RECONSTRUCTION RIGHT KNEE, C- SECTION X3, RISA-EN-Y(AUG 2012), panniculectomy, diagnostic laproscopy with lysis of adhesions X3, EGD with dilation, colonoscopies, hiatal hernia repair, C-5 removed May 17, 2017, NAVA, PFO closure with disc in heart 07/11/17, RECONSTRUCTION OF RISA-EN-Y 2016, Bowel blockage repaired 03/04/22 colonectomy 16 days ago Past Anesthesia/Blood Transfusion Reactions: No Reported Reaction Past Psychological History: Anxiety, Depression Smoking Status: Never smoker Past Alcohol Use History: Rare Past Drug Use History: None Reported - Past Family History Father Family Medical History: GERD/Reflux, Hyperlipidemia, Hypertension, Sleep Apnea/CPAP/BIPAP Additional Family Medical History / Comment(s): arthritis Mother Family Medical History: Cancer Additional Family Medical History / Comment(s): Mom has MS. <Oumou Muro - Last Filed: 11/26/22 16:14> General Exam Limitations: no limitations General appearance: alert, in distress Head exam: Present: atraumatic, normocephalic, normal inspection Respiratory exam: Present: normal lung sounds bilaterally. Absent: respiratory distress, wheezes, rales, rhonchi, stridor Cardiovascular Exam: Present: regular rate, normal rhythm, normal heart sounds. Absent: systolic murmur, diastolic murmur, rubs, gallop, clicks GI/Abdominal exam: Present: soft, tenderness (LLQ), normal bowel sounds. Absent: distended Neurological exam: Present: alert, oriented X3, CN II-XII intact Psychiatric exam: Present: normal affect, normal mood Skin exam: Present: warm, dry, intact, normal color. Absent: rash <Oumou Muro - Last Filed: 11/26/22 16:14> Course Vital Signs 11/22/22 11/22/22 11/22/22 11:04 13:12 14:58 Temperature 98 F Pulse Rate 77 71 Respiratory 20 18 Rate Blood Pressure 131/84 118/63 130/74 O2 Sat by Pulse 100 98 Oximetry 11/22/22 17:08 Temperature Pulse Rate 75 Respiratory 18 Rate Blood Pressure 112/69 O2 Sat by Pulse 100 Oximetry Medical Decision Making - Lab Data Result diagrams: 11/22/22 11:29 11/22/22 11:29 - Radiology Data Radiology results: report reviewed, image reviewed <Oumou Muro - Last Filed: 11/26/22 16:14> - Lab Data Result diagrams: 11/22/22 11:29 11/22/22 11:29 <Clarence Valladares - Last Filed: 11/29/22 13:29> - Medical Decision Making This is a 42-year-old female who presents to the emergency department for abdominal pain. Was pt. sent in by a medical professional or institution? @ -No Did you speak to anyone other than the patient for history? @ -No Did you review nursing and triage notes? @ -Yes, and I agree, it is accurate with regards to the patient's symptoms. Were old charts reviewed? @ -No Differential Diagnosis? @ -Differential Abdominal Pain Women: Diverticulosis, ischemic bowel, pancreatitis, hepatitis, UTI, gastroenteritis, AAA, incarcerated hernia, bowel obstruction, constipation, inflammatory bowel, hepatitis, peptic ulcer disease, splenic infarction, perforated viscus, vulvitis, ovarian torsion, PID, kidney stone, placenta abruption, this is not meant to be an all-inclusive list CT interpreted by me (1pt min.)? @ -Computed tomography scan of the abdomen and pelvis obtained. My interpreta tion identifies stool burden with no evidence of bowel wall thickening. What testing was considered but not performed? (CT, X-rays, U/S, labs)? Why? @ -None What meds were considered but not given? Why? @ -None Did you discuss the management of the patient with other professionals? @ -Yes, Dr. Bautista, who advised that her computed tomography scan is consistent with constipation and there are no life-threatening or otherwise actionable findings at this time. She also advised that the patient does have chronic problems with constipation, often secondary to narcotic use, and the constipation seems to be debilitating for her. Did you reconcile home meds? @ -No Was smoking cessation discussed for >3mins.? @ -No Was critical care preformed (if so, how long)? @ -No Were there social determinants of health that impacted care today? How? (Homelessness, low income, unemployed, alcoholism, drug addiction, transportation, low edu. Level, literacy, decrease access to med. care, prison, rehab)? @ -No Was there de-escalation of care discussed even if they declined? (Discuss DNR or withdrawal of care, Hospice)? @ -No What co-morbidities impacted this encounter? (DM, HTN, Smoking, COPD, CAD, Cancer, CVA, Hep., AIDS, mental health diagnosis, sleep apnea, morbid obesity)? @ -Morbid obesity, GERD, CVA Was patient admitted / discharged? @ -Discharged. Lab work obtained and found to be nonactionable. Computed tomography scan of the abdomen and pelvis is obtained as well, with findings consistent with constipation and no other acute abnormalities. Patient received a total of 3 mg of Dilaudid with no relief in symptoms whatsoever. We subsequently tried a dose of fentanyl, which only offered minor improvement to her symptoms. Because she is unable to take NSAIDs, medication options are limited. Case discussed with Dr. Bautista, who advised that there is nothing emergent to act on based on her current computed tomography scan findings, which only identify constipation at this time. Discussed with the patient that we don't have an indication to admit her at this time based on current imaging results. Patient does take [place] home, which she states has not been effective in managing her symptoms. Patient advised that she does not have a pain contract for short bursts of medication if symptoms temporarily get worse. Advised that I can provide a prescription for a 3 day course of Oxycodone in the event that is more effective for her than the [place]. She is advised to take this very sparingly when her pain is the most severe and to avoid taking it with the [place]. Discussed that she will need to be on medication to manage the constipation, especially with the narcotics. Prescription for lactulose provided with dosing instructions reviewed. Prescriptions for Zofran and Phenergan provided as well for additional nausea and vomiting. Instructed to follow up with her PCP and Dr. Bautista for reevaluation of symptoms. Undiagnosed new problem with uncertain prognosis? @ -None Drug Therapy requiring intensive monitoring for toxicity (Heparin, Nitro, Insulin, Cardizem)? @ -None Were any procedures done? @ -None Diagnosis/symptom? @ -LLQ abdominal pain, constipation Acute, or Chronic, or Acute on Chronic? @ -Acute Uncomplicated (without systemic symptoms) or Complicated (systemic symptoms)? @ -Uncomplicated Side effects of treatment? @ -None Exacerbation, Progression, or Severe Exacerbation] @ -Not applicable Poses a threat to life or bodily function? @ -No Return precautions reviewed in depth, the patient is instructed to return to the emergency department with any new, worsening, or concerning symptoms. Patient verbalized understanding. This case was discussed in detail with the attending ED physician, Dr. Valladares. Presentation, findings, and treatment plan discussed in detail as well. (Oumou Muro) - Lab Data Lab Results 11/22/22 11/22/22 11/22/22 Range/Units 11:29 11:29 11:29 WBC 4.6 (3.8-10.6) k/uL RBC 4.51 (3.80-5.40) m/uL Hgb 12.1 (11.4-16.0) gm/dL Hct 38.2 (34.0-46.0) % MCV 84.6 (80.0-100.0) fL MCH 26.8 (25.0-35.0) pg MCHC 31.6 (31.0-37.0) g/dL RDW 15.8 H (11.5-15.5) % Plt Count 311 (150-450) k/uL MPV 7.1 Neutrophils % 52 % Lymphocytes % 36 % Monocytes % 7 % Eosinophils % 3 % Basophils % 1 % Neutrophils # 2.4 (1.3-7.7) k/uL Lymphocytes # 1.7 (1.0-4.8) k/uL Monocytes # 0.3 (0-1.0) k/uL Eosinophils # 0.1 (0-0.7) k/uL Basophils # 0.0 (0-0.2) k/uL ESR (0-20) mm/hr PT (9.0-12.0) sec INR (<1.2) APTT (22.0-30.0) sec Sodium 139 (137-145) mmol/L Potassium 4.4 (3.5-5.1) mmol/L Chloride 104 (98-107) mmol/L Carbon Dioxide 27 (22-30) mmol/L Anion Gap 8 mmol/L BUN 10 (7-17) mg/dL Creatinine 0.59 (0.52-1.04) mg/dL Est GFR (CKD-EPI)AfAm >90 (>60 ml/min/1.73 sqM) Est GFR (CKD-EPI)NonAf >90 (>60 ml/min/1.73 sqM) Glucose 87 (74-99) mg/dL Plasma Lactic Acid Quintin (0.7-2.0) mmol/L Calcium 9.1 (8.4-10.2) mg/dL Total Bilirubin 0.4 (0.2-1.3) mg/dL AST 32 (14-36) U/L ALT 26 (4-34) U/L Alkaline Phosphatase 79 (38-126) U/L C-Reactive Protein (<1.0) mg/dL Total Protein 7.4 (6.3-8.2) g/dL Albumin 4.5 (3.5-5.0) g/dL Amylase 40 (30-110) U/L Lipase 124 (23-300) U/L Urine Color Light Yellow Urine Appearance Clear (Clear) Urine pH 5.5 (5.0-8.0) Ur Specific [place] >1.050 H (1.001-1.035) Urine Protein Negative (Negative) Urine Glucose (UA) Negative (Negative) Urine Ketones Negative (Negative) Urine Blood Negative (Negative) Urine Nitrite Negative (Negative) Urine Bilirubin Negative (Negative) Urine Urobilinogen <2.0 (<2.0) mg/dL Ur Leukocyte Esterase Small H (Negative) Urine RBC 2 (0-5) /hpf Urine WBC 1 (0-5) /hpf Ur Squamous Epith Cells 7 H (0-4) /hpf Urine Mucus Rare H (None) /hpf 11/22/22 11/22/22 11/22/22 Range/Units 12:57 12:57 12:57 WBC (3.8-10.6) k/uL RBC (3.80-5.40) m/uL Hgb (11.4-16.0) gm/dL Hct (34.0-46.0) % MCV (80.0-100.0) fL MCH (25.0-35.0) pg MCHC (31.0-37.0) g/dL RDW (11.5-15.5) % Plt Count (150-450) k/uL MPV Neutrophils % % Lymphocytes % % Monocytes % % Eosinophils % % Basophils % % Neutrophils # (1.3-7.7) k/uL Lymphocytes # (1.0-4.8) k/uL Monocytes # (0-1.0) k/uL Eosinophils # (0-0.7) k/uL Basophils # (0-0.2) k/uL ESR 8 (0-20) mm/hr PT 10.6 (9.0-12.0) sec INR 1.0 (<1.2) APTT 21.9 L (22.0-30.0) sec Sodium (137-145) mmol/L Potassium (3.5-5.1) mmol/L Chloride (98-107) mmol/L Carbon Dioxide (22-30) mmol/L Anion Gap mmol/L BUN (7-17) mg/dL Creatinine (0.52-1.04) mg/dL Est GFR (CKD-EPI)AfAm (>60 ml/min/1.73 sqM) Est GFR (CKD-EPI)NonAf (>60 ml/min/1.73 sqM) Glucose (74-99) mg/dL Plasma Lactic Acid Quintin 0.7 (0.7-2.0) mmol/L Calcium (8.4-10.2) mg/dL Total Bilirubin (0.2-1.3) mg/dL AST (14-36) U/L ALT (4-34) U/L Alkaline Phosphatase (38-126) U/L C-Reactive Protein (<1.0) mg/dL Total Protein (6.3-8.2) g/dL Albumin (3.5-5.0) g/dL Amylase (30-110) U/L Lipase (23-300) U/L Urine Color Urine Appearance (Clear) Urine pH (5.0-8.0) Ur Specific [place] (1.001-1.035) Urine Protein (Negative) Urine Glucose (UA) (Negative) Urine Ketones (Negative) Urine Blood (Negative) Urine Nitrite (Negative) Urine Bilirubin (Negative) Urine Urobilinogen (<2.0) mg/dL Ur Leukocyte Esterase (Negative) Urine RBC (0-5) /hpf Urine WBC (0-5) /hpf Ur Squamous Epith Cells (0-4) /hpf Urine Mucus (None) /hpf 11/22/22 Range/Units 12:57 WBC (3.8-10.6) k/uL RBC (3.80-5.40) m/uL Hgb (11.4-16.0) gm/dL Hct (34.0-46.0) % MCV (80.0-100.0) fL MCH (25.0-35.0) pg MCHC (31.0-37.0) g/dL RDW (11.5-15.5) % Plt Count (150-450) k/uL MPV Neutrophils % % Lymphocytes % % Monocytes % % Eosinophils % % Basophils % % Neutrophils # (1.3-7.7) k/uL Lymphocytes # (1.0-4.8) k/uL Monocytes # (0-1.0) k/uL Eosinophils # (0-0.7) k/uL Basophils # (0-0.2) k/uL ESR (0-20) mm/hr PT (9.0-12.0) sec INR (<1.2) APTT (22.0-30.0) sec Sodium (137-145) mmol/L Potassium (3.5-5.1) mmol/L Chloride (98-107) mmol/L Carbon Dioxide (22-30) mmol/L Anion Gap mmol/L BUN (7-17) mg/dL Creatinine (0.52-1.04) mg/dL Est GFR (CKD-EPI)AfAm (>60 ml/min/1.73 sqM) Est GFR (CKD-EPI)NonAf (>60 ml/min/1.73 sqM) Glucose (74-99) mg/dL Plasma Lactic Acid Quintin (0.7-2.0) mmol/L Calcium (8.4-10.2) mg/dL Total Bilirubin (0.2-1.3) mg/dL AST (14-36) U/L ALT (4-34) U/L Alkaline Phosphatase (38-126) U/L C-Reactive Protein <0.5 (<1.0) mg/dL Total Protein (6.3-8.2) g/dL Albumin (3.5-5.0) g/dL Amylase (30-110) U/L Lipase (23-300) U/L Urine Color Urine Appearance (Clear) Urine pH (5.0-8.0) Ur Specific [place] (1.001-1.035) Urine Protein (Negative) Urine Glucose (UA) (Negative) Urine Ketones (Negative) Urine Blood (Negative) Urine Nitrite (Negative) Urine Bilirubin (Negative) Urine Urobilinogen (<2.0) mg/dL Ur Leukocyte Esterase (Negative) Urine RBC (0-5) /hpf Urine WBC (0-5) /hpf Ur Squamous Epith Cells (0-4) /hpf Urine Mucus (None) /hpf Disposition Is patient prescribed a controlled substance at d/c from ED?: Yes When asked, does pt state using other controlled substances?: Yes If prescribed controlled substance>3 days was MAPS reviewed?: Prescribed <3 Days <Oumou Muro - Last Filed: 11/26/22 16:14> <Clarence Valladares - Last Filed: 11/29/22 13:29> Clinical Impression: LLQ abdominal pain, Constipation Disposition: HOME SELF-CARE Instructions (If sedation given, give patient instructions): Constipation (ED), Abdominal Pain (ED) Additional Instructions: Return to the emergency department with any new, worsening, or concerning symptoms. You can take the oxycodone up to every 6 hours as needed for pain. Be aware that this will be sedating and you should avoid taking [place] with it. You can alternate with the Zofran and Phenergan as needed for nausea and vomiting. Take the lactulose, as you do have a lot of stool build up in your abdomen and the pain medication will make you more constipated. Remain well- hydrated, begin taking a probiotic, and increase your fiber intake. Follow-up with your primary care provider and Dr. Bautista as scheduled below. Make sure that you request an official [employer] referral from your primary care provider during your follow-up appointment. Prescriptions: Lactulose [Cephulac] 20 gm PO BID #473 ml Promethazine [Phenergan] 25 mg PO Q6HR PRN #15 tablet PRN Reason: Nausea And Vomiting Ondansetron Odt [Zofran ODT] 4 mg PO Q8HR PRN #15 tab PRN Reason: Nausea And Vomiting Referrals: Nallely Bautista MD [STAFF PHYSICIAN] - 01/24/23 3:30 pm Tex Kay MD [Primary Care Provider] - 11/30/22 2:30 pm
[2022-11-22 13:30] LABS: Prothrombin Time 10.6 sec (9.0-12.0)
[2022-11-22 13:37] LABS: Partial Thromboplastin Time 21.9 sec (22.0-30.0)
--- NOTE | 2022-11-22 13:37 | CT ---
EXAMINATION TYPE: CT abdomen pelvis w con CT DLP: 1867.8 mGycm, Automated exposure control for dose reduction was used. DATE OF EXAM: 11/22/2022 1:28 PM COMPARISON: CT abdomen pelvis most recent from 03/22/2022. CLINICAL INDICATION:Female, 42 years old with history of Diffuse abdominal pain; Left sided abdominal pain. TECHNIQUE: Standard CT of the abdomen and pelvis following the administration of 100 cc of Isovue 3 70 IV contrast material. Coronal and sagittal reformats were performed. FINDINGS: LOWER CHEST: Visualized lungs are clear. Atrial septal closure device redemonstrated. ABDOMEN LIVER: Unremarkable GALLBLADDER AND BILE DUCTS: Gallbladder is surgically absent with mild intrahepatic and extra hepatic biliary dilatation likely physiologic and a postcholecystectomy change. No evidence of choledocholit hiasis. PANCREAS: Unremarkable. SPLEEN: Unremarkable. ADRENAL GLANDS: Unremarkable. KIDNEYS AND URETERS: No evidence of hydronephrosis or renal calculus. The kidneys enhance symmetrical ly without suspicious focal lesion. Prominent left extra renal pelvis redemonstrated. PELVIS BLADDER: Incompletely distended but grossly unremarkable. REPRODUCTIVE: Unremarkable. ABDOMEN & PELVIS STOMACH AND BOWEL: Surgical changes from gastric bypass. Additional postsurgical changes with anastom osis demonstrated within the upper quadrant and involving the sigmoid colon. The appendix is surgical ly absent. Postsurgical changes from partial colectomy. No evidence of wall thickening or surrounding inflammatory changes. No pneumatosis. No evidence of bowel obstruction. PERITONEUM: No evidence of pneumoperitoneum or free fluid. VASCULATURE: No evidence of aortic aneurysm. MUSCULOSKELETAL: No acute osseous abnormalities LYMPH NODES: No gross evidence for lymphadenopathy. SOFT TISSUE/ABDOMINAL WALL: Unremarkable IMPRESSION: 1. No acute abdominal/pelvic process. 2. Postsurgical changes redemonstrated.
[2022-11-22 14:59] VITALS: RESP 18
[2022-11-22 15:03] LABS: Appearance,Urine Clear (Clear); Bilirubin,Urine Negative (Negative); Blood,Urine Negative (Negative); Color,Urine Light Yellow; Glucose,Urine (UA) Negative (Negative); Ketones,Urine Negative (Negative); Leukocyte Esterase,Urine Small (Negative); Mucus,Urine Rare /hpf; Nitrite,Urine Negative (Negative); PH, Urine 5.5 (5.0-8.0); Protein,Urine Negative (Negative); RBC,Urine 2 /hpf (0-5); Squamous Epithelial Cell,Urine 7 /hpf (0-4); Urobilinogen,Urine <2.0 mg/dL (<2.0); WBC,Urine 1 /hpf (0-5)
[2022-11-22 15:30] LABS: Specific Gravity,Urine >1.050 (1.001-1.035)
[2022-11-22] MEDS ORDERED: fentaNYL (PF) 50 MCG/ML 2 ML AMP IVP ONE (16:16)
[2022-11-22] MEDS ORDERED: PROCHLORPERAZINE INJ 10 MG/2 ML VIAL IVP STA (16:16)
[2022-11-22 17:08] VITALS: BP 112/69; PULSE 75
--- NOTE | 2022-11-24 17:13 | P.PN ---
Progress Note - Text Progress Note Date: 11/24/22 Patient contacted the office when bariatric center due to intractable abdominal pain still persistent. I personally contacted patient and told him to direct themselves to the emergency room. I discussed case with emergency room provider. Admission advised with emergent lysis of adhesions due to intractable abdominal pain due to adhesions.
== END 2022-11-22 17:25 | disposition home or self-care (01) ==
LOC: EC 10:43
DX: R10.32 Left lower quadrant pain (principal); K59.00 Constipation, unspecified; E66.01 Morbid (severe) obesity due to excess calories; K21.9 Gastro-esophageal reflux disease without esophagitis; E03.9 Hypothyroidism, unspecified; F32.A Depression, unspecified; F41.9 Anxiety disorder, unspecified; Z79.890 Hormone replacement therapy; Z79.899 Other long term (current) drug therapy; Z86.73 Personal history of transient ischemic attack (TIA), and cerebral infarction without residual deficits; Z88.0 Allergy status to penicillin; Z88.6 Allergy status to analgesic agent; Z91.040 Latex allergy status; Z90.49 Acquired absence of other specified parts of digestive tract; Z98.84 Bariatric surgery status; Z68.41 Body mass index [BMI] 40.0-44.9, adult
CPT/HCPCS: 36415; 80053; 85652; 82150; 83605; 83690; 85025; 85610; 85730; 86140; 81001; 74177; 99284; 96374; 96375 ×3; 96376 ×2; 96361 ×2; J0780; J2405; J3010; J1170; Q9967

== ENCOUNTER 2022-11-24 18:28 | Observation (INO) | payer OTHER ==
[2022-11-24] MEDS ORDERED: SODIUM CHLORIDE 0.9% 500 ML 500 ML IV STA (19:13)
[2022-11-24] MEDS ORDERED: NALOXONE 0.4 MG/ML 1 ML VIAL IV PRN (19:13)
--- NOTE | 2022-11-24 19:26 | ED ---
Abdominal Pain HPI - General Chief Complaint: Abdominal Pain Stated Complaint: LLQ pain Time Seen by Provider: 11/24/22 18:30 Source: patient Mode of arrival: ambulatory Limitations: no limitations - History of Present Illness Initial Comments: This patient is a 42-year-old woman who presents with complaint of left lower quadrant pain. She notes that Dr. Bautista had sent her in to have admission. MD Complaint: abdominal pain Onset/Timin -: days(s) Location: LLQ Radiation: none Severity: moderate Quality: aching, sharp Consistency: colicky Improves With: nothing Worsens With: nothing Associated Symptoms: nausea - Related Data Home Medications Medication Instructions Recorded Confirmed HYDROcodone/APAP 7.5-325MG [[place] 1 tab PO TID 01/19/22 11/24/22 7.5-325] Cyanocobalamin [Vitamin B-12 1,000 mcg SQ Q30D 02/02/22 11/24/22 Injection] FLUoxetine HCL [PROzac] 40 mg PO HS 11/22/22 11/24/22 HYDROcodone/APAP 7.5-325MG [[place] 1 tab PO DAILY PRN 11/22/22 11/24/22 7.5-325] Levothyroxine Sodium [Synthroid] 137 mcg PO DAILY 11/22/22 11/24/22 Liraglutide [Saxenda] 1.2 mg SQ DAILY 11/22/22 11/24/22 Previous Rx's Medication Instructions Recorded Lactulose [Cephulac] 20 gm PO BID #473 ml 11/22/22 Ondansetron Odt [Zofran Odt] 4 mg PO Q8HR PRN #15 tab 11/22/22 Promethazine [Phenergan] 25 mg PO Q6HR PRN #15 tablet 11/22/22 oxyCODONE-APAP 7.5-325MG [Percocet 1 tab PO Q6HR PRN 3 Days #12 tab 11/22/22 7.5-325 mg] Allergies Allergy/AdvReac Type Severity Reaction Status Date / Time latex Allergy Severe Anaphylaxis Verified 11/24/22 19:34 Penicillins Allergy Severe Anaphylaxis Verified 11/24/22 19:34 /Hives morphine Allergy Hives, Verified 11/24/22 19:34 ITCHING NSAIDS (Non-Steroidal Allergy Hives/Gi Verified 11/24/22 19:34 Anti-Inflamma Issues Review of Systems ROS Statement: Those systems with pertinent positive or pertinent negative responses have been documented in the HPI. ROS Other: All systems not noted in ROS Statement are negative. Constitutional: Denies: fever, chills Respiratory: Denies: cough, dyspnea Cardiovascular: Denies: chest pain, palpitations, edema Gastrointestinal: Reports: abdominal pain, nausea. Denies: vomiting, diarrhea, constipation, melena, hematochezia Genitourinary: Denies: dysuria, frequency, hematuria, abnormal menses Musculoskeletal: Denies: back pain Skin: Denies: rash Neurological: Denies: headache, weakness, numbness Past Medical History Past Medical History: CVA/TIA, Deep Vein Thrombosis (DVT), GERD/Reflux, Neurologic Disorder, Thyroid Disorder Additional Past Medical History / Comment(s): HERNIATED CERVICAL DISCS C4-C5 WITH NECK PAIN. Right leg numbness and tingling from CVA 2016. HX SEIZURES- NONE SINCE 2005. ABD PAIN LEFT SIDE chronic. Migraines. Hx DVT 2007, bruises easy. Hx Intussusception. Hx fractured vertebrae. Panniculitis with surgery, DVT in right leg in 2007, VARICOSE VEINS, hypothyroid, recurrent UTIs, R leg numbness/tingling with foot drop, esophageal anastomatic stricture, dysphagia in past, seizure 2005, hiatal hernia, PUD, hypoglycemia intussusception of the bowel, morbid obesity status post Dalia-en-Y. History of Any Multi-Drug Resistant Organisms: MRSA Date of last positivie culture/infection: 01/2008 MDRO Source:: right arm Past Surgical History: Adenoidectomy, Appendectomy, Bariatric Surgery, Section, Cholecystectomy, Orthopedic Surgery, Tonsillectomy, Tubal Ligation Additional Past Surgical History / Comment(s): RECONSTRUCTION RIGHT KNEE, X3, DALIA-EN-Y(AUG 2012), panniculectomy, diagnostic laproscopy with lysis of adhesions X3, EGD with dilation, colonoscopies, hiatal hernia repair, C-5 removed May 17, 2017, NAVA, PFO closure with disc in heart 07/11/17, RECONSTRUCTION OF DALIA-EN-Y 2017, Bowel blockage repaired 03/04/22 colonectomy 16 days ago Past Anesthesia/Blood Transfusion Reactions: No Reported Reaction Past Psychological History: Anxiety, Depression Smoking Status: Never smoker Past Alcohol Use History: Rare Past Drug Use History: None Reported - Past Family History Father Family Medical History: GERD/Reflux, Hyperlipidemia, Hypertension, Sleep Apnea/CPAP/BIPAP Additional Family Medical History / Comment(s): arthritis Mother Family Medical History: Cancer Additional Family Medical History / Comment(s): Mom has MS. General Exam Limitations: no limitations General appearance: alert, in no apparent distress Head exam: Present: atraumatic, normocephalic Eye exam: Present: normal appearance. Absent: scleral icterus, conjunctival injection ENT exam: Present: normal oropharynx Neck exam: Present: normal inspection Respiratory exam: Present: normal lung sounds bilaterally. Absent: respiratory distress, wheezes, rales, rhonchi, stridor Cardiovascular Exam: Present: regular rate, normal rhythm, normal heart sounds. Absent: systolic murmur, diastolic murmur, rubs, gallop GI/Abdominal exam: Present: soft, tenderness (There is some mild left lower quadrant tenderness without rebound or guarding). Absent: distended, guarding, rebound, rigid, mass, pulsatile mass, hernia Extremities exam: Present: normal inspection, normal capillary refill. Absent: pedal edema, calf tenderness Back exam: Present: normal inspection. Absent: CVA tenderness (R), CVA tenderne ss (L) Neurological exam: Present: alert Skin exam: Present: warm, dry, intact, normal color. Absent: rash Course Vital Signs 11/24/22 18:30 Temperature 98.1 F Pulse Rate 73 Respiratory 20 Rate Blood Pressure 162/95 O2 Sat by Pulse 100 Oximetry Medical Decision Making - Medical Decision Making Patient is 42-year-old woman with left lower quadrant abdominal pain, directed to come the hospital by her surgeon with the expectation that she may end up requiring lysis of adhesions. Case was discussed with admitting physician and admitting orders written. Was pt. sent in by a medical professional or institution (, PA, SHOOTER HELPER, urgent care, hospital, or [place] health care facility...) When possible be specific @ -[Patient advised to come in by her surgeon Did you speak to anyone other than the patient for history (EMS, parent, family, police, friend...)? What history was obtained from this source @ -[Dr. Bautista Did you review nursing and triage notes (agree or disagree)? Why? @ -[I reviewed and agree with nursing and triage notes] Were old charts reviewed (outside hosp., previous admission, EMS record, old EKG, old radiological studies, urgent care reports/EKG's, [place] health care facility records)? Report findings @ -[No old charts were reviewed] Differential Diagnosis (chest pain, altered mental status, abdominal pain women, abdominal pain men, vaginal bleeding, weakness, fever, dyspnea, syncope, headache, dizziness, GI bleed, back pain, seizure, CVA, palpatations, mental health, musculoskeletal)? @ -[Differential Abdominal Pain Women: Appendicitis, Cholecystitis, diverticulosis, ischemic bowel, pancreatitis, hepatitis, UTI, gastroenteritis, AAA, incarcerated hernia, bowel obstruction, constipation, inflammatory bowel, hepatitis, peptic ulcer disease, splenic infarction, perforated viscus, vulvitis, ovarian torsion, PID, kidney stone, placenta abruption, this is not meant to be an all-inclusive list EKG interpreted by me (3pts min.). @ -[ X-rays interpreted by me (1pt min.). @ -[None done] CT interpreted by me (1pt min.). @ -[None done] U/S interpreted by me (1pt. min.). @ -[None done] What testing was considered but not performed or refused? (CT, X-rays, U/S, labs)? Why? @ -[None] What meds were considered but not given or refused? Why? @ -[None] Did you discuss the management of the patient with other professionals (professionals i.e. , PA, SHOOTER HELPER, lab, RT, psych nurse, social organization professor, rocket motor mechanic, teacher, aoc director intelligence officer, comp field case manager)? Give summary @ -[No] Was smoking cessation discussed for >3mins.? @ -[No] Was critical care preformed (if so, how long)? @ -[No] Were there social determinants of health that impacted care today? How? (Homelessness, low income, unemployed, alcoholism, drug addiction, transportation, low edu. Level, literacy, decrease access to med. care, fpc, rehab)? @ -[No] Was there de-escalation of care discussed even if they declined (Discuss DNR or withdrawal of care, Hospice)? DNR status @ -[No] What co-morbidities impacted this encounter? (DM, HTN, Smoking, COPD, CAD, Cancer, CVA, ARF, Chemo, Hep., AIDS, mental health diagnosis, sleep apnea, morbid obesity)? @ -[None] Was patient admitted / discharged? Hospital course, mention meds given and route, prescriptions, significant lab abnormalities, going to OR and other pertinent info. @ -[Admitted Undiagnosed new problem with uncertain prognosis? @ -[No] Drug Therapy requiring intensive monitoring for toxicity (Heparin, Nitro, Insulin, Cardizem)? @ -[No] Were any procedures done? @ -[No] Diagnosis/symptom? @ -[Acute left lower quadrant abdominal pain, uncomplicated Acute, or Chronic, or Acute on Chronic? @ -[default] Uncomplicated (without systemic symptoms) or Complicated (systemic symptoms)? @ -[default] Side effects of treatment? @ -[No] Exacerbation, Progression, or Severe Exacerbation? @ -[No] Poses a threat to life or bodily function? How? (Chest pain, [place], [place], pneumonia, PE, COPD, DKA, ARF, appy, cholecystitis, CVA, Diverticulitis, Homicidal, Suicidal, threat to staff... and all critical care pts) @ -[No] - Lab Data Result diagrams: 11/24/22 19:39 11/24/22 19:39 Disposition Clinical Impression: Intractable abdominal pain Disposition: ADMITTED IP TO THIS HOSP Condition: Good Is patient prescribed a controlled substance at d/c from ED?: No
[2022-11-24] MEDS: HYDROmorphone 0.5 MG/0.5 ML SYRINGE IVP PRN ×2 (19:57→22:13)
[2022-11-24 19:58] LABS: Basophils % (A) 1 %; Eosinophils # (A) 0.2 k/uL (0-0.7); Eosinophils % (A) 5 %; HCT 34.9 % (34.0-46.0); HGB 11.2 gm/dL (11.4-16.0); Lymphocytes % (A) 44 %; MCH 26.9 pg (25.0-35.0); MCHC 32.2 g/dL (31.0-37.0); MCV 83.6 fL (80.0-100.0); Mean Platelet Volume 7.2; Monocytes # (A) 0.4 k/uL (0-1.0); Monocytes % (A) 8 %; Neutrophils # (A) 1.8 k/uL (1.3-7.7); Neutrophils % (A) 40 %; Platelet Count 274 k/uL (150-450); RBC 4.17 m/uL (3.80-5.40); WBC 4.6 k/uL (3.8-10.6)
[2022-11-24] MEDS: SODIUM CHLORIDE 0.9% 1,000 ML IV SCH (19:58)
[2022-11-24] MEDS: ONDANSETRON 4 MG/2 ML VIAL IVP PRN (20:02)
[2022-11-24 20:12] LABS: ALT 26 U/L (4-34); AST 34 U/L (14-36); African American GFR (CKD) >90 (>60 ml/min/1.73 sqM); Albumin 3.7 g/dL (3.5-5.0); Alkaline Phosphatase 60 U/L (38-126); Amylase 33 U/L (30-110); Anion Gap 6 mmol/L; Blood Urea Nitrogen 8 mg/dL (7-17); Calcium 8.4 mg/dL (8.4-10.2); Carbon Dioxide 25 mmol/L (22-30); Chloride 106 mmol/L (98-107); Glucose 86 mg/dL (74-99); Lipase 76 U/L (23-300); Non-African American GFR(CKD) >90 (>60 ml/min/1.73 sqM); Potassium 4.3 mmol/L (3.5-5.1); Sodium 137 mmol/L (137-145); Total Bilirubin 0.2 mg/dL (0.2-1.3); Total Protein 6.2 g/dL (6.3-8.2)
--- NOTE | 2022-11-24 20:18 | XR ---
EXAMINATION TYPE: XR KUB DATE OF EXAM: 11/24/2022 COMPARISON: 03/23/2022 HISTORY: Abdominal pain TECHNIQUE: 2 views upright FINDINGS: There is no sign of intestinal obstruction or pneumoperitoneum. Fecal pattern is normal. No sign of a mass. No pathologic calcifications over the kidneys. Lung bases are clear. There are clips from cholecystectomy. There is a clip in the pelvis on the right side. IMPRESSION: Nonacute abdomen.
[2022-11-24] MEDS: FAMOTIDINE 20 MG/2 ML VIAL IV SCH (21:54)
[2022-11-24] MEDS ORDERED: HYDROmorphone 1 MG/ML 1 ML SYRINGE IVP PRN (22:49)
[2022-11-24] MEDS: oxyCODONE-APAP 7.5-325MG 1 EACH TAB PO PRN (23:28)
[2022-11-24] MEDS: LACTULOSE 20 GM/30 ML CUP PO SCH (23:29)
[2022-11-24] MEDS: LEVOTHYROXINE 137 MCG TAB PO SCH (23:33)
--- NOTE | 2022-11-25 00:15 | P.GSHP ---
History of Present Illness H&P Date: 11/24/22 CHIEF COMPLAINT: Intractable abdominal pain HISTORY OF PRESENT ILLNESS: The patient is a 42 year old with complex surgical history including Dalia-en-Y gastric bypass, sigmoid colectomy, lysis of a dhesions reports one month history of persistent left lower quadrant abdominal pain. She reports her pain became moderate to severe the last 48 hours. She reports change in bowel habits with her severe left lower quadrant. She has seen multiple consultants including production or plant engineer for incidental large symptomatic ovarian cysts. Additionally, patient was recently released from a local hospital for a follow-up with production or plant engineer included general surgeon due to her history of severe intra-abdominal adhesions. She reports an outside computed tomography scan demonstrated surgical clips within the pelvis causing the site of her pain of the left lower quadrant. Recent CT of the abdomen and pelvis demonstrated moderate stool. Due to her intractable abdominal pain and history of severe peritoneal adhesions, she was admitted. PAST MEDICAL HISTORY: See list and reviewed PAST SURGICAL HISTORY: See list and reviewed MEDICATIONS: See list and reviewed ALLERGIES: See list and reviewed SOCIAL HISTORY: See list and reviewed FAMILY HISTORY: See list and reviewed REVIEW OF ORGAN SYSTEMS: CONSTITUTIONAL: No fevers or chills. Has recent weight loss. Has morbid obesity. EYES: Denies any trouble with vision. No glasses. HEENT: No difficulties with hearing. No nosebleeds. No difficulty swallowing. RESPIRATORY: Denies pneumonia. Past DVT. CARDIOVASCULAR: Denies any chest pain, palpitations, or recent heart attacks. GASTROINTESTINAL: History of gastric bypass and intussussception. GENITOURINARY: Denies any blood in urine or increased urinary frequency. NEUROLOGICAL: History of stroke and prior seizure disorder. MUSCULOSKELETAL: Denies any back pain, stiffness or joint arthritis. SKIN: No current skin cancer. No rash. PSYCHIATRIC: Denies current depression or suicidal thoughts. ENDOCRINE: Denies current thyroid disorders. Denies any blood sugar glucose intolerance. HEME/LYMPHATIC: Denies any lumps and bumps around the neck. Past deep venous thrombosis. ALLERGY/IMMUNOLOGY: No immunoglobulin therapy. No immune deficiencies. BREAST: Denies current breast lumps, pain or nipple discharge. PHYSICAL EXAM: VITALS: Reviewed CONSTITUTIONAL: Well developed and in no acute distress. EYES: Conjuctivae without sclera icterus. Extraocular movements grossly intact . HEAD, EARS, NOSE, THROAT: Moist buccal mucosa. Head is atraumatic, normocephalic. Hears conversational speech. No nasal drainage. NECK: Supple. No JV distention. No thyroidomegaly. RESPIRATORY: Non-labored respirations and equal bilateral excursions. No gross wheezes. CARDIOVASCULAR: Palpable 2+ radial pulses. ABDOMEN: No infection. No cellulitis. Tender left lower quadrant and upper yary drant. LYMPH: No neck lymphadenopathy. MUSCULOSKELETAL: No clubbing cyanosis or edema. SKIN: Warm and well perfused with good skin turgor. NEUROLOGIC: Cranial nerves II through XII grossly intact. No focal or lateralizing signs. PSYCH: Appropriate affect. Alert and oriented to person, place and time. Displays appropriate insight. STUDIES: CT the of the abdomen and pelvis from 11/22/2022 reviewed demonstrating moderate stool within the ascending transverse descending colon. Ovarian cysts identified. This is my independent interpretation. No free air identified. ASSESSMENT: 1. Intractable abdominal pain, left lower quadrant 2. Ovarian cysts 3. Chronic constipation 4. Personal history peritoneal adhesions. PLAN: 1. Admission for intractable abdominal pain 2. Due to intractable abdominal pain, robotic lysis of adhesions described. She is elevated risk due to multiple abdominal procedures Past Medical History Past Medical History: CVA/TIA, Deep Vein Thrombosis (DVT), GERD/Reflux, Neurologic Disorder, Thyroid Disorder Additional Past Medical History / Comment(s): HERNIATED CERVICAL DISCS C4-C5 W ITH NECK PAIN. Right leg numbness and tingling from CVA 2016. HX SEIZURES- NONE SINCE 2005. ABD PAIN LEFT SIDE chronic. Migraines. Hx DVT 2007, bruises easy. Hx Intussusception. Hx fractured vertebrae. Panniculitis with surgery, DVT in right leg in 2007, VARICOSE VEINS, hypothyroid, recurrent UTIs, R leg numbness/tingling with foot drop, esophageal anastomatic stricture, dysphagia in past, seizure 2005, hiatal hernia, PUD, hypoglycemia intussusception of the bowel, morbid obesity status post Dalia-en-Y. History of Any Multi-Drug Resistant Organisms: MRSA Date of last positivie culture/infection: 01/2008 MDRO Source:: right arm Past Surgical History: Adenoidectomy, Appendectomy, Bariatric Surgery, Section, Cholecystectomy, Orthopedic Surgery, Tonsillectomy, Tubal Ligation Additional Past Surgical History / Comment(s): RECONSTRUCTION RIGHT KNEE, X3, DALIA-EN-Y(AUG 2012), panniculectomy, diagnostic laproscopy with lysis of adhesions X3, EGD with dilation, colonoscopies, hiatal hernia repair, C-5 removed May 17, 2017, NAVA, PFO closure with disc in heart 07/11/17, RECONSTRUCTION OF DALIA-EN-Y 2016, Bowel blockage repaired 03/04/22 colonectomy 16 days ago Past Anesthesia/Blood Transfusion Reactions: No Reported Reaction Past Psychological History: Anxiety, Depression Additional Psychological History / Comment(s): Hx POST DEPRESSION. Smoking Status: Never smoker Past Alcohol Use History: Rare Additional Past Alcohol Use History / Comment(s): . Past Drug Use History: None Reported - Past Family History Father Family Medical History: GERD/Reflux, Hyperlipidemia, Hypertension, Sleep Apnea/CPAP/BIPAP Additional Family Medical History / Comment(s): arthritis Mother Family Medical History: Cancer Additional Family Medical History / Comment(s): Mom has MS. Medications and Allergies Home Medications Medication Instructions Recorded Confirmed Type HYDROcodone/APAP 7.5-325MG [[place] 1 tab PO TID 01/19/22 11/24/22 History 7.5-325] Cyanocobalamin [Vitamin B-12 1,000 mcg SQ Q30D 02/02/22 11/24/22 History Injection] FLUoxetine HCL [PROzac] 40 mg PO HS 11/22/22 11/24/22 History HYDROcodone/APAP 7.5-325MG [[place] 1 tab PO DAILY PRN 11/22/22 11/24/22 History 7.5-325] Lactulose [Cephulac] 20 gm PO BID #473 ml 11/22/22 11/24/22 Rx Levothyroxine Sodium [Synthroid] 137 mcg PO DAILY 11/22/22 11/24/22 History Liraglutide [Saxenda] 1.2 mg SQ DAILY 11/22/22 11/24/22 History Ondansetron Odt [Zofran Odt] 4 mg PO Q8HR PRN #15 tab 11/22/22 11/24/22 Rx Promethazine [Phenergan] 25 mg PO Q6HR PRN #15 tablet 11/22/22 11/24/22 Rx oxyCODONE-APAP 7.5-325MG [Perc[place] 1 tab PO Q6HR PRN 3 Days #12 tab 11/22/22 11/24/22 Rx 7.5-325 mg] Allergies Allergy/AdvReac Type Severity Reaction Status Date / Time latex Allergy Severe Anaphylaxis Verified 11/24/22 19:34 Penicillins Allergy Severe Anaphylaxis Verified 11/24/22 19:34 /Hives morphine Allergy Hives, Verified 11/24/22 19:34 ITCHING NSAIDS (Non-Steroidal Allergy Hives/Gi Verified 11/24/22 19:34 Anti-Inflamma Issues Surgical - Exam Vital Signs Temp Pulse Resp BP Pulse Ox 98.1 F 73 20 162/95 100 11/24/22 18:30 11/24/22 18:30 11/24/22 18:30 11/24/22 18:30 11/24/22 18:30 Results - Labs 11/24/22 19:39 11/24/22 19:39 Abnormal Lab Results - Last 24 Hours (Table) 11/24/22 11/24/22 Range/Units 19:39 19:39 Hgb 11.2 L (11.4-16.0) gm/dL RDW 16.0 H (11.5-15.5) % Total Protein 6.2 L (6.3-8.2) g/dL Diabetes panel 11/24/22 Range/Units 19:39 Sodium 137 (137-145) mmol/L Potassium 4.3 (3.5-5.1) mmol/L Chloride 106 (98-107) mmol/L Carbon Dioxide 25 (22-30) mmol/L BUN 8 (7-17) mg/dL Creatinine 0.59 (0.52-1.04) mg/dL Glucose 86 (74-99) mg/dL Calcium 8.4 (8.4-10.2) mg/dL AST 34 (14-36) U/L ALT 26 (4-34) U/L Alkaline Phosphatase 60 (38-126) U/L Total Protein 6.2 L (6.3-8.2) g/dL Albumin 3.7 (3.5-5.0) g/dL Calcium panel 11/24/22 Range/Units 19:39 Calcium 8.4 (8.4-10.2) mg/dL Albumin 3.7 (3.5-5.0) g/dL Pituitary panel 11/24/22 Range/Units 19:39 Sodium 137 (137-145) mmol/L Potassium 4.3 (3.5-5.1) mmol/L Chloride 106 (98-107) mmol/L Carbon Dioxide 25 (22-30) mmol/L BUN 8 (7-17) mg/dL Creatinine 0.59 (0.52-1.04) mg/dL Glucose 86 (74-99) mg/dL Calcium 8.4 (8.4-10.2) mg/dL Adrenal panel 11/24/22 Range/Units 19:39 Sodium 137 (137-145) mmol/L Potassium 4.3 (3.5-5.1) mmol/L Chloride 106 (98-107) mmol/L Carbon Dioxide 25 (22-30) mmol/L BUN 8 (7-17) mg/dL Creatinine 0.59 (0.52-1.04) mg/dL Glucose 86 (74-99) mg/dL Calcium 8.4 (8.4-10.2) mg/dL Total Bilirubin 0.2 (0.2-1.3) mg/dL AST 34 (14-36) U/L ALT 26 (4-34) U/L Alkaline Phosphatase 60 (38-126) U/L Total Protein 6.2 L (6.3-8.2) g/dL Albumin 3.7 (3.5-5.0) g/dL
[2022-11-25] MEDS: HYDROmorphone 1 MG/ML 1 ML SYRINGE IVP PRN ×7 (00:31→23:07)
[2022-11-25] MEDS: PROMETHAZINE 25 MG TAB PO PRN ×2 (00:35→09:38)
[2022-11-25] MEDS: ONDANSETRON 4 MG/2 ML VIAL IVP PRN ×3 (03:02→23:07)
[2022-11-25] MEDS: SODIUM CHLORIDE 0.9% 1,000 ML IV SCH ×3 (06:57→21:32)
[2022-11-25] MEDS ORDERED: FLUoxetine HCL 20 MG CAP PO SCH (09:00)
[2022-11-25] MEDS ORDERED: SCOPOLAMINE 1 MG/72 HR PATCH TRANSDERM STA (09:07)
[2022-11-25] MEDS: LEVOTHYROXINE 137 MCG TAB PO SCH (09:39)
[2022-11-25] MEDS: FAMOTIDINE 20 MG/2 ML VIAL IV SCH ×2 (10:11→20:54)
[2022-11-25] MEDS: LACTULOSE 20 GM/30 ML CUP PO SCH ×2 (10:18→22:03)
[2022-11-25] MEDS: oxyCODONE-APAP 7.5-325MG 1 EACH TAB PO PRN ×2 (10:22→21:32)
[2022-11-25] MEDS ORDERED: NEOSTIGMINE 1 MG/ML 10 ML VIAL ONE (17:53)
[2022-11-25] MEDS ORDERED: MIDAZOLAM 2 MG/2 ML VIAL ONE (17:53)
[2022-11-25] MEDS ORDERED: PROPOFOL 10 MG/ML 20 ML VIAL IV ONE (17:53)
[2022-11-25] MEDS ORDERED: ROCURONIUM 10 MG/ML (5 ML VIAL) IV ONE (17:53)
[2022-11-25] MEDS ORDERED: GLYCOPYRROLATE 0.2 MG/ML 2 ML VIAL ONE (17:53)
[2022-11-25] MEDS ORDERED: HEPARIN SODIUM,PORCINE 5,000 UNIT/ML 1 ML VIAL ONE (17:53)
[2022-11-25] MEDS ORDERED: fentaNYL (PF) 50 MCG/ML 2 ML AMP ONE (17:53)
[2022-11-25] MEDS ORDERED: SUCCINYLCHOLINE CHLORIDE 200 MG/10 ML VIAL IV ONE (17:53)
[2022-11-25] MEDS ORDERED: LIDOCAINE 2% INJ 20 MG/ML (2 ML VIAL) ONE (17:53)
[2022-11-25] MEDS ORDERED: LACTATED RINGERS 900 ML IV ONE (17:58)
[2022-11-25] MEDS ORDERED: SODIUM CHLORIDE 0.9% 50 ML with ceFAZolin 2,000 MG IV ONE ×2 (18:15)
[2022-11-25] MEDS ORDERED: BUPIVACAIN-EPI 0.25%-1:200,000 30 ML VIAL SQ ONE (18:31)
[2022-11-25] MEDS: diphenhydrAMINE 50 MG/ML 1 ML VIAL IVP PRN (21:33)
--- NOTE | 2022-11-25 21:41 | P.OP ---
Date of Procedure: 11/25/22 Description of Procedure: SURGEON: CARLITA MATIAS MD PREOPERATIVE DIAGNOSES: 1. Intractable left lower quadrant abdominal pain 2. History of gastric bypass POSTOPERATIVE DIAGNOSES: 1. Intractable left lower quadrant abdominal pain 2. History of gastric bypass OPERATION: 1. Robotic-assisted da Clementina Xi laparoscopic with extensive lysis of adhesions over 1 hr 2. Removal of multiple foreign bodies including tubal ligation clip ESTIMATED BLOOD LOSS: 5 mL. SPECIMENS REMOVED: None. COMPLICATIONS: None. OPERATIVE FINDINGS: 1. No ventral hernias identified. 2. Moderate pelvic adhesions including the left lower quadrant involving left ovary, fallopian tube lysed for cause of intractable abdominal pain All ovaries unremarkable and without ovarian cyst Uterus unremarkable Colorectal anastomosis unremarkable Foreign body, tubal ligation clip free-floating and removed from right tube Complete resection of the bilateral fallopian tube was confirmed from prior tubal ligation Pelvic adhesions due to inflammatory reaction from cristino in pelvis removed Colorectal anastomosis uninvolved in adhesions INDICATIONS: The patient is a 42-year-old female who presents with epigastric abdominal pain including left upper quadrant abdominal pain. Surgical intervention with diagnostic laparoscopy, lysis of adhesions were described. Informed consent was obtained. Robotic assisted laparoscopic approach was described. Benefits and risks of the procedure including but not limited to bleeding, infection, injury to the small bowel was described. Informed consent was obtained. DESCRIPTION OF PROCEDURE: Patient was brought to the operating room, placed in supine position. After general induction, the abdomen had been prepped and draped in standard sterile fashion. The robotic da Clementina XI system was primed. After a timeout protocol was performed, the patient had been prepped and draped in standard sterile fashion. The robot was docked along the right lateral abdomen. The patient was repositioned in with right side up. Please note prior to docking of the robot; however, a 5 mm 0 degrees laparoscopic trocar entry was performed along the left upper quadrant. The abdomen was insufflated to 15 mmHg pressure which she tolerated well. Diagnostic laparoscopy was performed. Next, three 8 mm robotic ports were placed along the right lateral abdominal wall. The camera 8-mm port was maintained along mid-lateral abdomen. Please note that the ports were placed at least 10 to 15 cm away from the target anatomy. Instruments including graspers and vessel sealer were interchanged by the embalmer assistant. I had sat at the console. No evidence of incisional hernia was identified. The rest of the abdomen was unremarkable for small bowel pathology. The small bowel from the gregg limb to distal ileum was inspected. The small bowel was investigated from the terminal ileum to the ligament of Treitz with finding of redundant mesentery with active small bowel volvulus involving the jejunum to the jejunojejunostomy mesenteric defect. Abnormal adhesions to the jejunojejunostomy was identified and divided. The mesentery small bowel volvulus were reduced. Adhesions along the epigastrium linvolving the transverse colon to the gregg limb with an active internal hernia was lysed using vessel sealer. No herniation of bowel was found along the Lopez defect or jejunojejunostomy mesenteric defect. Adhesion of gastrojejunal anastomosis to the anterior abdominal wall was released. Moderate gaseous distention of sigmoid colon was identified with an active sigmoid volvulus similarly reduced secondary to highly redundant colon. The terminal ileum and cecum was unremarkable. Extensive lysis of adhesions over 1 hr was performed. The small bowel was viable.The robot was undocked. All pneumoperitoneum instruments were evacuated from the abdominal cavity. The incisions were reapproximated using 4-0 Monocryl in an interrupted subcuticular fashion. Please note along the trocar sites, local anesthetic was placed as a field block prior to insertion of all instruments. Exofin was applied to the skin. At the end of the procedure needle, sponge, and instrument count had been verified correct by the ground control approach technician. The patient was transferred to postanesthesia care unit in stable condition.Robotic lysis of adhesions over 1 hour with moderate adhesions identified along the left pelvis due to foreign bodies of clips and surgical cristino. All ovaries released from surrounding adhesions. Images obtained. Remaining free clips removed from tubal ligation fallopian tubes completely resected from prior tubal ligation. Ovaries without cysts. Uterus within normal limits. Anastomosis within normal limits.
[2022-11-26] MEDS: HYDROmorphone 1 MG/ML 1 ML SYRINGE IVP PRN ×8 (01:30→22:30)
[2022-11-26] MEDS: LACTULOSE 20 GM/30 ML CUP PO SCH ×3 (01:31→20:26)
[2022-11-26] MEDS: SODIUM CHLORIDE 0.9% 1,000 ML IV SCH ×2 (02:39→21:25)
[2022-11-26] MEDS: diphenhydrAMINE 50 MG/ML 1 ML VIAL IVP PRN ×2 (06:41→20:36)
[2022-11-26] MEDS: FAMOTIDINE 20 MG/2 ML VIAL IV SCH ×2 (09:01→20:26)
[2022-11-26] MEDS: oxyCODONE-APAP 7.5-325MG 1 EACH TAB PO PRN ×3 (09:01→21:21)
[2022-11-26] MEDS: METOCLOPRAMIDE 5 MG/ML 2 ML VIAL IVP SCH ×4 (09:01→23:11)
--- NOTE | 2022-11-26 09:30 | P.PN ---
Progress Note - Text Progress Note Date: 11/26/22 Spoke to patient and nurse via phone. Notified that covering provider will round. Intra-operative findings reviewed with preoperative left lower quadrant abdominal pain resolved following surgery. Discharge criteria per rounding provider.
--- NOTE | 2022-11-26 11:28 | P.PN ---
Subjective Progress Note Date: 11/26/22 Principal diagnosis: Abdominal pain 42-year-old female underwent laparoscopic lysis of adhesions yesterday. Today complaining of pain and nausea. Doing better currently. Objective - Vital Signs Vital signs: Vital Signs Temp 98.2 F 11/26/22 07:00 Pulse 86 11/26/22 07:00 Resp 18 11/26/22 07:00 BP 138/82 11/26/22 07:00 Pulse Ox 97 11/26/22 07:00 FiO2 Intake & Output 11/25/22 11/26/22 11/26/22 18:59 06:59 18:59 Intake Total 950 500 Output Total 5 Balance 950 495 Intake: IV 950 500 Output: Estimated Blood Loss 5 Other: Voiding Method Toilet Toilet # Voids 3 2 - Exam Abdomen: Soft, nondistended, incisions clean and dry - Labs CBC & Chem 7: 11/24/22 19:39 11/24/22 19:39 Assessment and Plan (1) Abdominal pain Narrative/Plan: 42-year-old female doing well after laparoscopic lysis of adhesions yesterday. Apparently having too much nausea to be discharged thus far today. Possible discharge later today if nausea improves. Current Visit: No Status: Acute Code(s): R10.9 - UNSPECIFIED ABDOMINAL PAIN SNOMED Code(s): 56480899
[2022-11-26] MEDS: ONDANSETRON 4 MG/2 ML VIAL IVP PRN ×2 (15:07→22:31)
[2022-11-26] MEDS: LEVOTHYROXINE 137 MCG TAB PO SCH (20:26)
[2022-11-27] MEDS: HYDROmorphone 1 MG/ML 1 ML SYRINGE IVP PRN ×4 (00:49→10:16)
[2022-11-27] MEDS: diphenhydrAMINE 50 MG/ML 1 ML VIAL IVP PRN (02:07)
[2022-11-27] MEDS: SODIUM CHLORIDE 0.9% 1,000 ML IV SCH (02:09)
[2022-11-27] MEDS: METOCLOPRAMIDE 5 MG/ML 2 ML VIAL IVP SCH ×2 (04:32→10:19)
[2022-11-27] MEDS: ONDANSETRON 4 MG/2 ML VIAL IVP PRN (06:44)
[2022-11-27 07:50] VITALS: BP 98/56; PULSE 65; RESP 18; TEMP 97.6
[2022-11-27] MEDS: LACTULOSE 20 GM/30 ML CUP PO SCH (08:39)
[2022-11-27] MEDS: FAMOTIDINE 20 MG/2 ML VIAL IV SCH (08:39)
[2022-11-27] MEDS: oxyCODONE-APAP 7.5-325MG 1 EACH TAB PO PRN (08:39)
--- NOTE | 2022-11-27 10:25 | P.DS ---
Providers Date of admission: 11/24/22 19:13 Expected date of discharge: 11/27/22 Attending physician: Nallely Bautista Primary care physician: Tex Kay - Discharge Diagnosis(es) (1) Abdominal pain Patient underwent laparoscopic lysis of adhesions 2 days ago. Doing better today. Having some nausea yesterday that has improved. She is tolerating diet. Pain is well-controlled. She would like to go home. Incisions are clean and dry. We'll discharge. Follow-up as outpatient. Current Visit: No Status: Acute Patient Condition at Discharge: Good Plan - Discharge Summary Discharge Rx Participant: Yes New Discharge Prescriptions: New Simethicone [Gas-X] 125 mg PO AC-TID PRN #20 capsule PRN Reason: Pain Acetaminophen Tab [Tylenol Tab] 1,000 mg PO Q6HR PRN #30 tablet PRN Reason: Pain Continue FLUoxetine HCL [PROzac] 40 mg PO HS Cyanocobalamin [Vitamin B-12 Injection] 1,000 mcg SQ Q30D Levothyroxine Sodium [Synthroid] 137 mcg PO DAILY HYDROcodone/APAP 7.5-325MG [[place] 7.5-325] 1 tab PO DAILY PRN PRN Reason: Pain Liraglutide [Saxenda] 1.2 mg SQ DAILY Promethazine [Phenergan] 25 mg PO Q6HR PRN #15 tablet PRN Reason: Nausea And Vomiting Ondansetron Odt [Zofran ODT] 4 mg PO Q8HR PRN #15 tab PRN Reason: Nausea And Vomiting Lactulose [Cephulac] 20 gm PO BID #473 ml Discontinued HYDROcodone/APAP 7.5-325MG [[place] 7.5-325] 1 tab PO TID oxyCODONE-APAP 7.5-325MG [[place] 7.5-325 mg] 1 tab PO Q6HR PRN 3 Days #12 tab PRN Reason: Pain Discharge Medication List Cyanocobalamin [Vitamin B-12 Injection] 1,000 mcg SQ Q30D 02/02/22 [History] FLUoxetine HCL [PROzac] 40 mg PO HS 11/22/22 [History] HYDROcodone/APAP 7.5-325MG [[place] 7.5-325] 1 tab PO DAILY PRN 11/22/22 [History] Lactulose [Cephulac] 20 gm PO BID #473 ml 11/22/22 [Rx] Levothyroxine Sodium [Synthroid] 137 mcg PO DAILY 11/22/22 [History] Liraglutide [Saxenda] 1.2 mg SQ DAILY 11/22/22 [History] Ondansetron Odt [Zofran ODT] 4 mg PO Q8HR PRN #15 tab 11/22/22 [Rx] Promethazine [Phenergan] 25 mg PO Q6HR PRN #15 tablet 11/22/22 [Rx] Acetaminophen Tab [Tylenol Tab] 1,000 mg PO Q6HR PRN #30 tablet 11/26/22 [Rx] Simethicone [Gas-X] 125 mg PO AC-TID PRN #20 capsule 11/26/22 [Rx] Follow up Appointment(s)/Referral(s[facility] [place] [facility] - 12/21/22 ( Please be advised that Michele will be on leave from November 28 to December 19. ) Tex Kay MD [Primary Care Provider] - 1-2 days Patient Instructions/Handouts: *[facility] - Managing Your Pain After Surgery Without Opioids, Lysis of Abdominal Adhesions (GEN) Activity/Diet/Wound Care/Special Instructions: No lifting over 10 pounds in 2 weeks until December 09. May shower. No bath tub soaks for two weeks until December 09. Diet as tolerated. Use Tylenol and ibuprofen or Aleve scheduled for the next 24-48 hours for best pain relief. Use ice along incisions for today to prevent swelling. Discharge Disposition: HOME SELF-CARE
== END 2022-11-27 11:38 | disposition home or self-care (01) ==
LOC: EC 18:28 → INTOOBSV 19:13 → 4SSUR 19:13
PROVIDERS: ADMIT Surgery Plastic and Reconstructive Surgery; ATTEND Surgery Plastic and Reconstructive Surgery
DX: K66.0 Peritoneal adhesions (postprocedural) (postinfection) (principal); Z98.84 Bariatric surgery status; Z90.49 Acquired absence of other specified parts of digestive tract; Z79.891 Long term (current) use of opiate analgesic; Z79.890 Hormone replacement therapy; Z79.899 Other long term (current) drug therapy; E66.01 Morbid (severe) obesity due to excess calories; Z68.41 Body mass index [BMI] 40.0-44.9, adult; N83.209 Unspecified ovarian cyst, unspecified side; Z98.51 Tubal ligation status
CPT/HCPCS: 96376; 96361; 96374; 99285; 36415; 80053; 82150; 83690; 85025; 81025; 74018; 49329; G0378 ×4; J2250; J0330; J1200 ×3; J1644; J2710; J2765 ×2; J2405 ×4; J0690; J3010; J1170 ×4; J2704; J2001

== ENCOUNTER → 2022-12-21 | Outpatient (CLI) | payer OTHER ==
[2022-12-21 15:56] VITALS: BP 130/75; PULSE 62; TEMP 98.4; BMI 42.1
--- NOTE | 2022-12-21 16:12 | P.PN ---
Progress Note - Text Progress Note Date: 12/21/22 To whom it may concern: Slein Hightower is under my medical care. She may return to work December 05, 2022. She will require episodic visits for management. Regards, Nallely Bautista MD, FACS
--- NOTE | 2022-12-21 16:18 | P.BASOAP ---
Subjective Progress Note Date: 12/21/22 DATE OF SERVICE: 12/21/2022 CHIEF COMPLAINT: Follow up gastric bypass HISTORY OF PRESENT ILLNESS: Selin Bowles is a 89year-old female who is status post dalia-en-Y gastric bypass performed in August of 2012. She is 11 years postop. She is status post lysis of adhesions due to left lower quadrant abdominal pain, 11/25/21. She is less than 1 month post op. She is still having bowel movement. She is on saxenda. She reports new abdominal pain different from her recent surgery. She presents on follow-up for new type of abdominal pain. Her highest weight was 439 pounds for her 5 feet 6 inch frame. [place] body weight of 154 pounds. Her body mass index was 71.0. Her lowest weight was 223 pounds. She comes in to 260 pounds from 251 pounds from 258 pounds, 2 years ago. She has gained 9 pounds in 2 years. Lifetime weight loss of 179 pounds. Lifetime percent excess weight loss 63%. She is 106 pounds overweight. PHYSICAL EXAM: VITAL SIGNS: 5 feet 6 inches, 260 pounds. Body mass index 42.1 Vital Signs Temp 98.4 F 12/21/22 15:53 Pulse 62 12/21/22 15:53 Resp BP 130/75 12/21/22 15:53 Pulse Ox FiO2 GENERAL: Well-developed female in no acute distress. ABDOMEN: No palpable incisional hernias. Tender left upper abdomen. HEENT: No scleral icterus. Extraocular movements grossly intact. No troubles with hearing. NECK: Supple with no lymphadenopathy. CHEST: Nonlabored respirations with equal bilateral excursion. MUSCULOSKELETAL: No clubbing, cyanosis or edema. NEURO: No focal or lateralizing signs. Cranial nerves 2 through 12 grossly within normal limits. PSYCH: Appropriate Affect. Alert and oriented to person, place and time. SKIN: Well perfused. Good skin turgor. ASSESSMENT: 1. Morbid obesity due to excess caloric intake. 2. Body mass index reduced from 71.0 down to 421. 3. Status post Dalia-en-Y gastric bypass. 4. Hypothyroidism. 5. History of stroke. 6. Acute onset abdominal pain with prior history of bowel obstruction 7. Status post lysis of adhesions PLAN: 1. Recommend lysis of adhesions due to recurrent abdominal pain especially if worsening. 2. Recommend trial of bentyl. 3. Stop saxend due to exacerbated abdominal pain. Objective - Vital Signs Vital signs: Vital Signs Temp 98.4 F 12/21/22 15:53 Pulse 62 12/21/22 15:53 Resp BP 130/75 12/21/22 15:53 Pulse Ox FiO2 Intake & Output 12/20/22 12/21/22 12/21/22 18:59 06:59 18:59 Weight 118.388 kg Assessment/Plan Plan: Date: 12/21/22 Initial Weight: 187.787 kg Initial BMI: 66.8 Current Weight: 118.388 kg Current BMI: 42.1 Type of Surgery: Total Volume in Band: Previous Volume: Volume Removed: Volume Added: Band Size:
== END ==
LOC: BARWHC3 15:15
PROVIDERS: ATTEND Surgery Plastic and Reconstructive Surgery
DX: E66.01 Morbid (severe) obesity due to excess calories (principal); Z98.890 Other specified postprocedural states; E03.9 Hypothyroidism, unspecified; Z98.84 Bariatric surgery status; Z91.040 Latex allergy status; Z88.0 Allergy status to penicillin; Z88.5 Allergy status to narcotic agent; R10.12 Left upper quadrant pain; Z88.6 Allergy status to analgesic agent; Z68.41 Body mass index [BMI] 40.0-44.9, adult; Z79.890 Hormone replacement therapy; Z86.73 Personal history of transient ischemic attack (TIA), and cerebral infarction without residual deficits
CPT/HCPCS: 99211

== ENCOUNTER 2023-02-06 07:16 | Inpatient (IN) | payer OTHER ==
[2023-02-03 08:43] VITALS: BMI 42.4
--- NOTE | 2023-02-06 07:05 | P.GSHP ---
History of Present Illness H&P Date: 02/06/23 CHIEF COMPLAINT: Colon screen HISTORY OF PRESENT ILLNESS: The patient is a 42-year-old female who presents for colon screen. Lower endoscopy was offered for further evaluation and management. PAST MEDICAL HISTORY: Please see list. PAST SURGICAL HISTORY: Please see list. MEDICATIONS: Please see list. ALLERGIES: Please see list. SOCIAL HISTORY: No illicit drug use FAMILY HISTORY: No reports of Crohn disease or ulcerative colitis. REVIEW OF ORGAN SYSTEMS: CONSTITUTIONAL: No reports of fevers or chills. PHYSICAL EXAM: VITAL SIGNS: Stable GENERAL: Well-developed pleasant in no acute distress. HEENT: No scleral icterus. Extraocular movements grossly intact. Moist buccal mucosa. NECK: Supple without lymphadenopathy. CHEST: Unlabored respirations. Equal bilateral excursions. CARDIOVASCULAR: Regular rate and rhythm. Distal 2+ pulses. ABDOMEN: Soft, nontender, nondistended. MUSCULOSKELETAL: No clubbing, cyanosis, or edema. ASSESSMENT: 1. Colon screen. PLAN: 1. Recommend proceeding with a lower endoscopy Past Medical History Past Medical History: CVA/TIA, Deep Vein Thrombosis (DVT), GERD/Reflux, Neurologic Disorder, Osteoarthritis (OA), Seizure Disorder, Thyroid Disorder Additional Past Medical History / Comment(s): HERNIATED CERVICAL DISCS C4-C5 WITH NECK PAIN. Right leg numbness and tingling from CVA 2016. HX SEIZURES- NONE SINCE 2005. ABD PAIN LEFT SIDE chronic. Migraines. Hx DVT 2007, bruises easy. Hx Intussusception. Hx fractured vertebrae. Varicose veins. Panniculitis with surgery, DVT in right leg in 2007, VARICOSE VEINS, hypothyroid, recurrent UTIs, R leg numbness/tingling with foot drop, esophageal anastomatic stricture, dysphagia in past, seizure 2005, hiatal hernia, PUD, hypoglycemia intussusception of the bowel, morbid obesity status post Dalia-en-Y. History of Any Multi-Drug Resistant Organisms: MRSA Date of last positivie culture/infection: 01/2008 MDRO Source:: right arm Past Surgical History: Adenoidectomy, Appendectomy, Bariatric Surgery, Bowel Resection, Section, Cholecystectomy, Hernia Repair, Orthopedic Surgery, Tonsillectomy, Tubal Ligation Additional Past Surgical History / Comment(s): RECONSTRUCTION RIGHT KNEE, C- SECTION X3, DALIA-EN-Y(AUG 2012), panniculectomy, diagnostic laproscopy with lysis of adhesions X5, EGD with dilation, colonoscopies, hiatal hernia repair, C-5 removed May 17, 2017, NAVA, PFO closure with disc in heart 07/11/17, RECONSTRUCTION OF DALIA-EN-Y 2016, bowel blockage repaired 03/04/22, colonectomy, bowel resection X2. Past Anesthesia/Blood Transfusion Reactions: No Reported Reaction Past Psychological History: Anxiety, Depression Additional Psychological History / Comment(s): Hx POST DEPRESSION. Smoking Status: Never smoker Past Alcohol Use History: Rare Past Drug Use History: None Reported - Past Family History Mother Family Medical History: Cancer Additional Family Medical History / Comment(s): Mom has MS. Medications and Allergies Home Medications Medication Instructions Recorded Confirmed Type Cyanocobalamin [Vitamin B-12 1,000 mcg SQ Q30D 02/02/22 02/03/23 History Injection] FLUoxetine HCL [PROzac] 40 mg PO HS 11/22/22 02/03/23 History HYDROcodone/APAP 7.5-325MG [[place] 1 tab PO TID 11/22/22 02/03/23 History 7.5-325] Dicyclomine [Bentyl] 20 mg PO QID 02/03/23 02/03/23 History Lactulose [Cephulac] 20 gm PO BID PRN 02/03/23 02/03/23 History Levothyroxine Sodium 150 mcg PO QAM 02/03/23 02/03/23 History Allergies Allergy/AdvReac Type Severity Reaction Status Date / Time latex Allergy Severe Anaphylaxis Verified 02/03/23 08:43 Penicillins Allergy Severe Anaphylaxis Verified 02/03/23 08:43 /Hives morphine Allergy Hives, Verified 02/03/23 08:43 ITCHING NSAIDS (Non-Steroidal Allergy Hives/Gi Verified 02/03/23 08:43 Anti-Inflamma Issues
[~2023-02-06 07:16] MED LIST changes: -HEPARIN SODIUM,PORCINE/PF 5,000 UNIT/0.5 ML SYRINGE SQ PRN; +LIDOCAINE 1% (10MG/ML) FOR IV START INTRADERMA PRN; -metroNIDAZOLE-NS PMX 500 MG in SALINE 1 100ML.BAG IVPB PRN
[2023-02-06] MEDS: LACTATED RINGERS 1,000 ML IV SCH (07:36)
[2023-02-06] MEDS ORDERED: PROPOFOL 10 MG/ML 20 ML VIAL IV ONE (08:21)
--- NOTE | 2023-02-06 08:55 | P.PCN ---
Date of Procedure: 02/06/23 Description of Procedure: PREOPERATIVE DIAGNOSIS: History of sigmoid volvulus Chronic constipation Rectal pain POSTOPERATIVE DIAGNOSIS: Large bowel obstruction due to sigmoid stricture OPERATION: Colonoscopy to the sigmoid colon. SURGEON: Nallely Bautista MD. ANESTHESIA: MAC. INDICATIONS: The patient is a 42-year-old female who presents with chronic constipation and rectal pain for the past 1-2 months.Benefits and risks were described and informed consent was obtained. DESCRIPTION OF PROCEDURE: The patient had undergone GoLYTELY. She had been brought into the operating room and laid in the left lateral decubitus position. After adequate intravenous sedation, the rectum was examined with 2% lidocaine jelly. No external hemorrhoids were encountered. The rectal tone was within normal limits. No lesions were palpated in the rectal vault. An Olympus colonoscope was advanced along the rectum were two lumens were identified. A blind rectal stump of 20-30 cm was identified. A very narrow lumen less than 10 mm was identified at 15 cm from the anal verge however unable to cannulate with scope. Features consistent with large bowel obstruction. As the patient posed high risk for perforation with persistence of the procedure, the procedure was discontinued. The colon was desufflated. The patient had tolerated the procedure well. Withdrawal time was over 6 minutes. FINDINGS: [place] preparation quality scale 1+ (1-5) Large bowel obstruction with acute sigmoid stricture from anastomosis. No external prolapsed hemorrhoids. Scope advanced to sigmoid colon at 30 cm of blind lumen. No arteriovenous malformations. No adenomatous polyps. No focal colitis. RECOMMENDATIONS: Urgent barium enema advised for further diagnostic studies for large bowel obstruction Plan - Discharge Summary Discharge Rx Participant: Yes New Discharge Prescriptions: Continue FLUoxetine HCL [PROzac] 40 mg PO HS Dicyclomine [Bentyl] 20 mg PO QID Levothyroxine Sodium 150 mcg PO QAM Cyanocobalamin [Vitamin B-12 Injection] 1,000 mcg SQ Q30D HYDROcodone/APAP 7.5-325MG [[place] 7.5-325] 1 tab PO TID Lactulose [Cephulac] 20 gm PO BID PRN PRN Reason: GI ISSUES Discharge Medication List Cyanocobalamin [Vitamin B-12 Injection] 1,000 mcg SQ Q30D 02/02/22 [History] FLUoxetine HCL [PROzac] 40 mg PO HS 11/22/22 [History] HYDROcodone/APAP 7.5-325MG [[place] 7.5-325] 1 tab PO TID 11/22/22 [History] Dicyclomine [Bentyl] 20 mg PO QID 02/03/23 [History] Lactulose [Cephulac] 20 gm PO BID PRN 02/03/23 [History] Levothyroxine Sodium 150 mcg PO QAM 02/03/23 [History] Follow up Appointment(s)/Referral(s[place] [facility] [place] - 02/15/23 Patient Instructions/Handouts: Constipation (DC) Discharge Disposition: HOME SELF-CARE
[2023-02-06] MEDS ORDERED: ACETAMINOPHEN TAB 325 MG TAB PO PRN (09:11)
[2023-02-06] MEDS ORDERED: NALOXONE 0.4 MG/ML 1 ML VIAL IV PRN (09:11)
--- NOTE | 2023-02-06 09:11 | P.PN ---
Progress Note - Text Progress Note Date: 02/06/23 Patient has new findings of acute stricture of the sigmoid colon/large bowel obstruction. Recommend a needed admission for acute large bowel obstruction with barium enema for further surgical intervention. Inpatient hospitalization advised for greater than 2 nights.
[2023-02-06] MEDS: ONDANSETRON 4 MG/2 ML VIAL IVP PRN (09:20)
[2023-02-06] MEDS: METOCLOPRAMIDE 5 MG/ML 2 ML VIAL IVP PRN ×2 (14:08→21:49)
--- NOTE | 2023-02-06 15:03 | FL ---
EXAMINATION TYPE: FL barium enema DATE OF EXAM: 02/06/2023 COMPARISON: CT abdomen and pelvis November 22, 2022 HISTORY: Sigmoid stricture, incomplete colonoscopy. History of prior gastric bypass surgery and addit ional bowel surgeries. TECHNIQUE: A single contrast barium enema study is performed. A total of 57 seconds of fluoroscopic time was utilized during procedure and images obtained. Total dose area product (DAP) in uGy*m?, mG y*cm? (or similar): n/a. FINDINGS: Numerous surgical sutures in prior bowel surgery in the left abdomen along with overlying t he pelvis as site of sigmoid colon. Additional surgical sutures in the epigastric region from gastric bypass procedure. Gas is seen in nondistended rectum. Overall non-obstructive bowel gas pattern. Cho lecystectomy clips are redemonstrated. Single contrast study be performed due to prior bowel surgery. There is successful filling to the cec um. No obstructing or constricting mass or neoplasm. No significant stricture is identified. Few dive rticula in the sigmoid colon. Appendix was not filled. The terminal ileum was not refluxed. IMPRESSION: Successful filling to the cecum. No significant colonic or sigmoid stricture.
[2023-02-06] MEDS ORDERED: LACTULOSE 20 GM/30 ML CUP PO PRN (17:21)
--- NOTE | 2023-02-06 17:24 | P.PN ---
Subjective Progress Note Date: 02/06/23 CHIEF COMPLAINT: Abdominal pain with large bowel obstruction HISTORY OF PRESENT ILLNESS: The patient is a 42-year-old female who presented with change in bowel habits and, pain. Colonoscopy demonstrates anastomotic stricture from diverticulitis. She completed a barium enema. She reports moderate severe left lower quadrant abdominal pain following her enema ROS: No fevers or chills. No new chest pain. No productive sputum PHYSICAL EXAM: VITAL SIGNS: Reviewed CONSTITUTIONAL: Well developed and in no acute distress. EYES: Conjuctivae without sclera icterus. Extraocular movements grossly intact. HEAD, EARS, NOSE, THROAT: Moist buccal mucosa. Head is atraumatic, normocephalic. Hears conversational speech. No nasal drainage. RESPIRATORY: Non-labored respirations and equal bilateral excursions. CARDIOVASCULAR: Palpable 2+ radial pulses. ABDOMEN: Tender left lower quadrant. MUSCULOSKELETAL: No gross deformity of the lower extremities noted. No clubbing. No cyanosis. SKIN: Good skin turgor. Well perfused. NEUROLOGIC: Cranial nerves II through XII grossly intact. No focal or lateralizing signs. PSYCH: Appropriate affect. Alert and oriented to person, place and time. CLINICAL LABS: Reviewed. STUDIES: Barium enema review demonstrates sigmoid diverticulosis at area of anastomosis/stricture. This is my independent interpretation. ASSESSMENT: 1. Large bowel obstruction due to diverticulitis at anastomosis PLAN: 1. Colonic dilation versus surgical resection prescribed due to pain and obstructive symptoms 2. Inpatient hospitalization described for potential surgical resection of anastomotic stricture due to diverticulitis Objective - Vital Signs Vital signs: Vital Signs Temp 97.8 F 02/06/23 14:03 Pulse 88 02/06/23 14:03 Resp 18 02/06/23 14:03 BP 120/70 02/06/23 14:03 Pulse Ox 96 02/06/23 14:03 FiO2 Intake & Output 02/05/23 02/06/23 02/06/23 18:59 06:59 18:59 Intake Total 200 Balance 200 Weight 119.4 kg Intake: IV 200
[2023-02-06] MEDS: DICYCLOMINE 20 MG TAB PO SCH ×2 (17:53→21:52)
[2023-02-06] MEDS: HYDROcodone/APAP 7.5-325MG 1 EACH TAB PO SCH (21:50)
[2023-02-06] MEDS: FLUoxetine HCL 20 MG CAP PO SCH (21:52)
[2023-02-06] MEDS: HYDROmorphone 1 MG/ML 1 ML SYRINGE IVP PRN (23:40)
[2023-02-07] MEDS: HYDROmorphone 1 MG/ML 1 ML SYRINGE IVP PRN ×5 (02:11→23:12)
[2023-02-07] MEDS: LACTATED RINGERS 1,000 ML IV SCH (05:01)
[2023-02-07] MEDS: LEVOTHYROXINE 75 MCG TAB PO SCH (06:15)
[2023-02-07] MEDS: HYDROcodone/APAP 7.5-325MG 1 EACH TAB PO SCH ×3 (06:16→21:03)
[2023-02-07] MEDS: DICYCLOMINE 20 MG TAB PO SCH ×4 (06:16→21:03)
[2023-02-07] MEDS: PANTOPRAZOLE 40 MG/10 ML VIAL IV SCH (06:17)
[2023-02-07 07:41] LABS: Basophils % (A) 1 %; Eosinophils # (A) 0.1 k/uL (0-0.7); Eosinophils % (A) 3 %; HCT 31.7 % (34.0-46.0); HGB 9.8 gm/dL (11.4-16.0); Hypochromasia Moderate; Lymphocytes # (A) 1.8 k/uL (1.0-4.8); Lymphocytes % (A) 40 %; MCH 26.1 pg (25.0-35.0); MCV 84.1 fL (80.0-100.0); Mean Platelet Volume 7.6; Monocytes # (A) 0.3 k/uL (0-1.0); Monocytes % (A) 6 %; Neutrophils # (A) 2.2 k/uL (1.3-7.7); Neutrophils % (A) 48 %; Platelet Count 317 k/uL (150-450); RBC 3.78 m/uL (3.80-5.40); RDW 15.7 % (11.5-15.5); WBC 4.5 k/uL (3.8-10.6)
[2023-02-07 08:30] LABS: ALT 40 U/L (4-34); AST 35 U/L (14-36); African American GFR (CKD) >90 (>60 ml/min/1.73 sqM); Albumin 3.2 g/dL (3.5-5.0); Albumin/Globulin Ratio 1.3; Alkaline Phosphatase 87 U/L (38-126); Anion Gap 6 mmol/L; Blood Urea Nitrogen 10 mg/dL (7-17); Calcium 8.3 mg/dL (8.4-10.2); Carbon Dioxide 27 mmol/L (22-30); Chloride 105 mmol/L (98-107); Globulin 2.5 g/dL; Glucose 84 mg/dL (74-99); Non-African American GFR(CKD) >90 (>60 ml/min/1.73 sqM); Potassium 3.9 mmol/L (3.5-5.1); Sodium 138 mmol/L (137-145); Total Bilirubin 0.3 mg/dL (0.2-1.3); Total Protein 5.7 g/dL (6.3-8.2)
[2023-02-07] MEDS: METOCLOPRAMIDE 5 MG/ML 2 ML VIAL IVP PRN (09:26)
[2023-02-07] MEDS ORDERED: PEG 3350 (420 GM/BTL) + LYTES 4,000 ML BOTTLE PO ONE (12:00)
--- NOTE | 2023-02-07 13:37 | P.PN ---
Subjective Progress Note Date: 02/07/23 CHIEF COMPLAINT: Abdominal pain with large bowel obstruction HISTORY OF PRESENT ILLNESS: The patient is a 42-year-old female who presented with change in bowel habits and abdominal pain. Colonoscopy demonstrates anastomotic stricture from diverticulitis. Barium enema report stated successful filling to the cecum. No significant clonic or sigmoid stricture. Patient still reporting left-sided abdominal pain. Denies any nausea or vomiting. She did tolerate a regular diet last night. Patient reports that her stools remain clear. PHYSICAL EXAM: VITAL SIGNS: Reviewed. GENERAL: Well-developed in no acute distress. HEENT: No sclera icterus. Extraocular movements grossly intact. Moist buccal mucosa. Head is atraumatic, normocephalic. ABDOMEN: Soft. Nondistended. Tenderness with palpation a left side of abdomen NEUROLOGIC: Alert and oriented. Cranial nerves II through XII grossly intact. ASSESSMENT: 1. Large bowel obstruction due to diverticulitis is at the anastomosis PLAN: -Start clear liquid diet today -We'll give 1 L of [place] bowel prep today -Patient scheduled for colonoscopy with dilation tomorrow, 02/08/[address] Bautista -Nothing by mouth after midnight -Continue supportive care Physician Land Agent note has been reviewed by physician. Signing provider agrees with the documented findings, assessment, and plan of care. Objective - Vital Signs Vital signs: Vital Signs Temp 98.1 F 02/07/23 07:15 Pulse 60 02/07/23 08:08 Resp 18 02/07/23 08:08 BP 121/64 02/07/23 07:15 Pulse Ox 98 02/07/23 07:15 FiO2 Intake & Output 02/06/23 02/07/23 02/07/23 18:59 06:59 18:59 Intake Total 380 Balance 380 Weight 119.4 kg Intake: IV 200 Oral 180 Other: # Voids 3 3 # Bowel Movements 2 - Labs CBC & Chem 7: 02/07/23 07:26 02/07/23 07:26 Labs: Abnormal Lab Results - Last 24 Hours (Table) 02/07/23 02/07/23 Range/Units 07:26 07:26 RBC 3.78 L (3.80-5.40) m/uL Hgb 9.8 L (11.4-16.0) gm/dL Hct 31.7 L (34.0-46.0) % RDW 15.7 H (11.5-15.5) % Calcium 8.3 L (8.4-10.2) mg/dL ALT 40 H (4-34) U/L Total Protein 5.7 L (6.3-8.2) g/dL Albumin 3.2 L (3.5-5.0) g/dL
[2023-02-07] MEDS: ONDANSETRON 4 MG/2 ML VIAL IVP PRN (18:18)
[2023-02-07 20:17] VITALS: RESP 16
[2023-02-07] MEDS: FLUoxetine HCL 20 MG CAP PO SCH (21:03)
[2023-02-08] MEDS: HYDROmorphone 1 MG/ML 1 ML SYRINGE IVP PRN ×5 (02:21→15:26)
[2023-02-08] MEDS: METOCLOPRAMIDE 5 MG/ML 2 ML VIAL IVP PRN ×2 (02:47→08:53)
[2023-02-08] MEDS: LEVOTHYROXINE 75 MCG TAB PO SCH (04:12)
[2023-02-08] MEDS: PANTOPRAZOLE 40 MG/10 ML VIAL IV SCH (08:38)
[2023-02-08] MEDS: LACTATED RINGERS 1,000 ML IV SCH (08:51)
[2023-02-08] MEDS: HYDROcodone/APAP 7.5-325MG 1 EACH TAB PO SCH ×2 (08:54→15:25)
[2023-02-08] MEDS: DICYCLOMINE 20 MG TAB PO SCH ×2 (08:54→13:50)
[2023-02-08 09:12] LABS: HCT 35.4 % (34.0-46.0); HGB 10.8 gm/dL (11.4-16.0); Hypochromasia Moderate; MCH 25.9 pg (25.0-35.0); MCHC 30.5 g/dL (31.0-37.0); MCV 84.9 fL (80.0-100.0); Mean Platelet Volume 7.8; Platelet Count 293 k/uL (150-450); RBC 4.16 m/uL (3.80-5.40); RDW 15.9 % (11.5-15.5); WBC 3.8 k/uL (3.8-10.6)
[2023-02-08 09:25] LABS: African American GFR (CKD) >90 (>60 ml/min/1.73 sqM); Anion Gap 8 mmol/L; Blood Urea Nitrogen 4 mg/dL (7-17); Carbon Dioxide 26 mmol/L (22-30); Chloride 105 mmol/L (98-107); Glucose 79 mg/dL (74-99); Non-African American GFR(CKD) >90 (>60 ml/min/1.73 sqM); Potassium 4.4 mmol/L (3.5-5.1); Sodium 139 mmol/L (137-145)
[2023-02-08] MEDS ORDERED: LIDOCAINE 2% INJ 20 MG/ML (2 ML VIAL) ONE (11:24)
[2023-02-08] MEDS ORDERED: PROPOFOL 10 MG/ML 20 ML VIAL IV ONE (11:24)
[2023-02-08] MEDS ORDERED: IV FLUID CONTINUATION 400 ML IV ONE (11:30)
--- NOTE | 2023-02-08 13:29 | P.PCN ---
Date of Procedure: 02/08/23 Description of Procedure: PREOPERATIVE DIAGNOSIS: Colorectal anastomotic stricture with bowel obstruction POSTOPERATIVE DIAGNOSIS: Colorectal anastomotic stricture with bowel obstruction OPERATION: Colonoscopy with balloon dilation, 14 mm Colonoscopy to the ascending colon. SURGEON: Nallely Bautista MD. ANESTHESIA: MAC. INDICATIONS: The patient is a 61-year-old female who presents for colonoscopy screening. Benefits and risks were described and informed consent was obtained. DESCRIPTION OF PROCEDURE: The patient had undergone Golytely prep. The patient had been brought into the operating room and laid in the left lateral decubitus position. After adequate intravenous sedation, the rectum was examined with 2% lidocaine jelly. No external hemorrhoids were encountered. The rectal tone was within normal limits. A balloon dilator, iAdvize at the 15 mm balloon was inserted and the colonoscope. The stricture 8-mm dilated to 14 mm was dilated without full thickness perforation. The scope was advanced to the ascending colon. The colon was desufflated. The patient had tolerated the procedure well. Withdrawal time was over 6 minutes. FINDINGS: [place] preparation quality scale 2 (1-5) Internal hemorrhoids, grade 1 Anastomotic stricture dilated to 14 mm from 8 mm No external prolapsed hemorrhoids. No arteriovenous malformations. No adenomatous polyps. No focal colitis. RECOMMENDATIONS: Repeat colonic dilation in 1 month May start diet Plan - Discharge Summary Discharge Rx Participant: Yes New Discharge Prescriptions: Continue FLUoxetine HCL [PROzac] 40 mg PO HS Dicyclomine [Bentyl] 20 mg PO QID Levothyroxine Sodium 150 mcg PO QAM Cyanocobalamin [Vitamin B-12 Injection] 1,000 mcg SQ Q30D HYDROcodone/APAP 7.5-325MG [[place] 7.5-325] 1 tab PO TID Lactulose [Cephulac] 20 gm PO BID PRN PRN Reason: GI ISSUES Discharge Medication List Cyanocobalamin [Vitamin B-12 Injection] 1,000 mcg SQ Q30D 02/02/22 [History] FLUoxetine HCL [PROzac] 40 mg PO HS 11/22/22 [History] HYDROcodone/APAP 7.5-325MG [[place] 7.5-325] 1 tab PO TID 11/22/22 [History] Dicyclomine [Bentyl] 20 mg PO QID 02/03/23 [History] Lactulose [Cephulac] 20 gm PO BID PRN 02/03/23 [History] Levothyroxine Sodium 150 mcg PO QAM 02/03/23 [History] Follow up Appointment(s)/Referral(s): [facility] [NON-STAFF] - 02/15/23 Patient Instructions/Handouts: Constipation (DC)
[2023-02-08 15:25] VITALS: BP 131/60; PULSE 63; TEMP 98
[2023-02-08] MEDS: ONDANSETRON 4 MG/2 ML VIAL IVP PRN (15:26)
--- NOTE | 2023-02-08 15:56 | P.DS ---
Providers Date of admission: 02/06/23 09:12 Expected date of discharge: 02/08/23 Attending physician: Nallely Bautista Primary care physician: Tex Kay Hospital Course: Discharge diagnosis Colorectal anastomotic stricture with bowel obstruction Hospital course The patient is a 42-year-old female who presented with change in bowel habits and abdominal pain. Colonoscopy demonstrates anastomotic stricture from diverticulitis. Barium enema report stated successful filling to the cecum. No significant clonic or sigmoid stricture. Patient is status post colonoscopy with the balloon dilation. Patient reports improvement in pain. She is tolerating diet. She has been up and ambulating. Recommend a repeat colonic dilation in 1 month if patient continues to have symptoms. Patient is stable for discharge. Please refer to chart for any further details. Physician [employer] Officer note has been reviewed by physician. Signing provider agrees with the documented findings, assessment, and plan of care. Patient Condition at Discharge: Stable Plan - Discharge Summary Discharge Rx Participant: Yes New Discharge Prescriptions: Continue FLUoxetine HCL [PROzac] 40 mg PO HS Dicyclomine [Bentyl] 20 mg PO QID Levothyroxine Sodium 150 mcg PO QAM Cyanocobalamin [Vitamin B-12 Injection] 1,000 mcg SQ Q30D HYDROcodone/APAP 7.5-325MG [[place] 7.5-325] 1 tab PO TID Lactulose [Cephulac] 20 gm PO BID PRN PRN Reason: GI ISSUES Discharge Medication List Cyanocobalamin [Vitamin B-12 Injection] 1,000 mcg SQ Q30D 02/02/22 [History] FLUoxetine HCL [PROzac] 40 mg PO HS 11/22/22 [History] HYDROcodone/APAP 7.5-325MG [[place] 7.5-325] 1 tab PO TID 11/22/22 [History] Dicyclomine [Bentyl] 20 mg PO QID 02/03/23 [History] Lactulose [Cephulac] 20 gm PO BID PRN 02/03/23 [History] Levothyroxine Sodium 150 mcg PO QAM 02/03/23 [History] Follow up Appointment(s)/Ref[place] [facility] [place] - 02/15/23 Patient Instructions/Handouts: Constipation (DC) Activity/Diet/Wound Care/Special Instructions: Patient can return to work on 02/10/2023 Discharge Disposition: HOME SELF-CARE
[2023-02-14] MEDS ORDERED: CYANOCOBALAMIN 1,000 MCG/ML 1 ML VIAL SQ SCH (06:00)
== END 2023-02-08 17:01 | disposition home or self-care (01) | DRG 389 ==
LOC: ORWHC2ENDO 07:16 → 4SSUR 08:42 → ORWHC2ENDO 09:12
PROVIDERS: ADMIT Surgery Plastic and Reconstructive Surgery; ATTEND Surgery Plastic and Reconstructive Surgery
PROC: 0DJD8ZZ Inspection of Lower Intestinal Tract, Via Natural or Artificial Opening Endoscopic (ICD-10-PCS; 2023-02-06)
PROC: 0D7K8ZZ Dilation of Ascending Colon, Via Natural or Artificial Opening Endoscopic (ICD-10-PCS; principal; 2023-02-08 13:10)
DX: K56.699 Other intestinal obstruction unspecified as to partial versus complete obstruction (principal); K57.32 Diverticulitis of large intestine without perforation or abscess without bleeding; F32.A Depression, unspecified; F41.9 Anxiety disorder, unspecified; Z86.73 Personal history of transient ischemic attack (TIA), and cerebral infarction without residual deficits; G40.909 Epilepsy, unspecified, not intractable, without status epilepticus; E07.9 Disorder of thyroid, unspecified; K21.9 Gastro-esophageal reflux disease without esophagitis; M19.90 Unspecified osteoarthritis, unspecified site; E03.9 Hypothyroidism, unspecified; Z79.890 Hormone replacement therapy; Z87.440 Personal history of urinary (tract) infections; Z87.19 Personal history of other diseases of the digestive system; Z98.84 Bariatric surgery status; Z86.14 Personal history of Methicillin resistant Staphylococcus aureus infection; H54.7 Unspecified visual loss; K64.0 First degree hemorrhoids; Z79.899 Other long term (current) drug therapy; Z86.718 Personal history of other venous thrombosis and embolism; Z87.11 Personal history of peptic ulcer disease; Z87.74 Personal history of (corrected) congenital malformations of heart and circulatory system; Z90.49 Acquired absence of other specified parts of digestive tract; Z98.51 Tubal ligation status; Z88.0 Allergy status to penicillin; Z88.5 Allergy status to narcotic agent; Z88.6 Allergy status to analgesic agent
CPT/HCPCS: 45330; 45386; 74270; 80048; 80053; 81025; 85025; 85027; 86850; 86900; 86901

== ENCOUNTER → 2023-02-15 | Outpatient (CLI) | payer OTHER ==
[2023-02-15 13:25] VITALS: BP 136/87; PULSE 76; TEMP 98.3; BMI 42.7
--- NOTE | 2023-02-15 14:35 | P.BASOAP ---
Subjective Progress Note Date: 02/15/23 So improvement with Dilation of colonoscopy. Needs new labs. TSH needs to be aggressively corrected. She is doing protein shakes and needs to get up to 80 grams. Plan for aggressive TSH correction. Objective - Vital Signs Vital signs: Vital Signs Temp 98.3 F 02/15/23 13:23 Pulse 76 02/15/23 13:23 Resp BP 136/87 02/15/23 13:23 Pulse Ox FiO2 Intake & Output 02/14/23 02/15/23 02/15/23 18:59 06:59 18:59 Weight 120.202 kg Assessment/Plan Plan: Date: 02/15/23 Initial Weight: 187.787 kg Initial BMI: 66.8 Current Weight: 120.202 kg Current BMI: 42.7 Type of Surgery: Total Volume in Band: Previous Volume: Volume Removed: Volume Added: Band Size:
[2023-02-15 16:39] LABS: INR 0.9 (<1.2)
[2023-02-15 16:40] LABS: Partial Thromboplastin Time 22.8 sec (22.0-30.0)
[2023-02-15 21:04] LABS: % Iron Saturation 10.39 (12.00-45.00); BUN/Creat Ratio 18.83 Ratio (12.00-20.00); Blood Urea Nitrogen 11.3 mg/dL (9.0-27.0); Chloride 106 mmol/L (96-109); Chol/HDL Ratio 2.27 Ratio; Glucose 90 mg/dL (70-110); Iron 40 UG/DL (50-170); Magnesium 2.1 mg/dL (1.5-2.4); Potassium 4.8 mmol/L (3.5-5.5); Sodium 142 mmol/L (135-145); Total Iron Binding Capacity 385 UG/DL (228-460); VLDL Calculation 12.48 mg/dL (5.00-40.00)
[2023-02-15 21:05] LABS: ALT 28 U/L (8-44); AST 28 U/L (13-35); Alkaline Phosphatase 87 U/L (41-126); Calcium 9.3 mg/dL (8.7-10.3); Total Bilirubin 0.2 mg/dL (0.3-1.2)
[2023-02-15 23:56] LABS: Prealbumin 16.4 mg/dL (18.0-42.0)
[2023-02-16 00:21] LABS: HCT 36.8 % (37.2-46.3); HGB 10.9 d/dL (12.0-15.0); MCH 26.3 pg (27.0-32.0); MCHC 29.6 d/dL (32.0-37.0); MCV 88.9 FL (80.0-97.0); Mean Platelet Volume 11.2 FL (9.5-12.2); NRBC Per 100 WBC 0 X 10*3/uL (0.00-0.01); Platelet Count 261 X 10*3/uL (140-440); RBC 4.14 X 10*6/uL (4.10-5.20); RDW 18.6 % (11.5-14.5); WBC 5.28 X 10*3/uL (4.50-10.00)
[2023-02-17 07:08] LABS: Vit B1(Thiamine) 76 ug/L (38-122)
== END ==
LOC: BARWHC3 13:09
PROVIDERS: ATTEND Surgery Plastic and Reconstructive Surgery
DX: E66.01 Morbid (severe) obesity due to excess calories (principal); Z68.41 Body mass index [BMI] 40.0-44.9, adult; Z91.040 Latex allergy status; Z88.0 Allergy status to penicillin; Z88.5 Allergy status to narcotic agent; Z88.6 Allergy status to analgesic agent
CPT/HCPCS: 80053; 80061; 82306; 82525; 82607; 82728; 82746; 83036; 83540; 83550; 83735; 83970; 84100; 84134; 84255; 84425; 84443; 84590; 84630; 85027; 85610; 85730; 99211

== ENCOUNTER → 2023-02-15 | Outpatient (CLI) | payer OTHER | END | disposition home or self-care (01) | LOC: LABWHC1 14:41 | PROVIDERS: ATTEND Surgery Plastic and Reconstructive Surgery | DX: Z53.9 Procedure and treatment not carried out, unspecified reason (principal) ==

== ENCOUNTER 2023-03-13 06:11 | Day surgery (SDC) | payer OTHER ==
[2023-03-09 08:34] VITALS: BMI 42.7
[2023-03-13] MEDS ORDERED: LACTATED RINGERS 1,000 ML IV SCH (07:10)
[2023-03-13 07:17] VITALS: TEMP 98.3
[2023-03-13] MEDS ORDERED: LIDOCAINE 2% INJ 20 MG/ML (2 ML VIAL) ONE (07:33)
[2023-03-13] MEDS ORDERED: PROPOFOL 10 MG/ML 20 ML VIAL IV ONE (07:33)
--- NOTE | 2023-03-13 07:41 | P.GSHP ---
History of Present Illness H&P Date: 03/13/23 CHIEF COMPLAINT: GERD and colon stricture HISTORY OF PRESENT ILLNESS: The patient is a 42-year-old female who presents with gastroesophageal reflux disease and sigmoid colon stricture. Upper and lower endoscopy were offered for further evaluation and management. PAST MEDICAL HISTORY: Please see list. PAST SURGICAL HISTORY: Please see list. MEDICATIONS: Please see list. ALLERGIES: Please see list. SOCIAL HISTORY: No illicit drug use FAMILY HISTORY: No reports of Crohn disease or ulcerative colitis. REVIEW OF ORGAN SYSTEMS: CONSTITUTIONAL: No reports of fevers or chills. PHYSICAL EXAM: VITAL SIGNS: Stable GENERAL: Well-developed pleasant in no acute distress. HEENT: No scleral icterus. Extraocular movements grossly intact. Moist buccal mucosa. NECK: Supple without lymphadenopathy. CHEST: Unlabored respirations. Equal bilateral excursions. CARDIOVASCULAR: Regular rate and rhythm. Distal 2+ pulses. ABDOMEN: Soft, nondistended. MUSCULOSKELETAL: No clubbing, cyanosis, or edema. ASSESSMENT: 1. Gastroesophageal reflux disease 2. Sigmoid colon stricture PLAN: 1. Recommend proceeding with an upper and lower endoscopy Past Medical History Past Medical History: CVA/TIA, Deep Vein Thrombosis (DVT), GERD/Reflux, Neurolo gic Disorder, Osteoarthritis (OA), Seizure Disorder, Thyroid Disorder Additional Past Medical History / Comment(s): HERNIATED CERVICAL DISCS C4-C5 WITH NECK PAIN. Right leg numbness and tingling from CVA 2016. HX SEIZURES- NONE SINCE 2005. ABD PAIN LEFT SIDE chronic. Migraines. Hx DVT 2007, bruises easy. Hx Intussusception. Hx fractured vertebrae. Varicose veins. Panniculitis with surgery, DVT in right leg in 2007, VARICOSE VEINS, hypothyroid, recurrent UTIs, R leg numbness/tingling with foot drop, esophageal anastomatic stricture, dysphagia in past, seizure 2005, hiatal hernia, PUD, hypoglycemia intussusception of the bowel, morbid obesity status post Dalia-en-Y. History of Any Multi-Drug Resistant Organisms: MRSA Date of last positivie culture/infection: 01/2008 MDRO Source:: right arm Past Surgical History: Adenoidectomy, Appendectomy, Back Surgery, Bariatric Surgery, Bowel Resection, Section, Cholecystectomy, Hernia Repair, Orthopedic Surgery, Tonsillectomy, Tubal Ligation Additional Past Surgical History / Comment(s): RECONSTRUCTION RIGHT KNEE, C- SECTION X3, DALIA-EN-Y(AUG 2012), panniculectomy, diagnostic laproscopy with lysis of adhesions X5, EGD with dilation, colonoscopies, hiatal hernia repair, C-5 removed May 17, 2017, NAVA, PFO closure with disc in heart 07/11/17, RECONSTRUCTION OF DALIA-EN-Y 2017, bowel blockage repaired 03/04/22, colonectomy, bowel resection X2. Past Anesthesia/Blood Transfusion Reactions: No Reported Reaction Additional Past Anesthesia/Blood Transfusion Reaction / Comment(s): No blood transfusion Smoking Status: Never smoker - Past Family History Mother Family Medical History: Cancer Additional Family Medical History / Comment(s): Mom has MS. Medications and Allergies Home Medications Medication Instructions Recorded Confirmed Type Cyanocobalamin [Vitamin B-12 1,000 mcg SQ Q30D 02/02/22 03/13/23 History Injection] FLUoxetine HCL [PROzac] 40 mg PO HS 11/22/22 03/13/23 History HYDROcodone/APAP 7.5-325MG [[place] 1 tab PO TID 11/22/22 03/13/23 History 7.5-325] Levothyroxine Sodium 150 mcg PO QAM 02/03/23 03/13/23 History Ergocalciferol [Vitamin D2 (1250 50,000 unit PO WEEKLY 02/20/23 03/13/23 History Mcg = 57412 Iu)] Allergies Allergy/AdvReac Type Severity Reaction Status Date / Time latex Allergy Severe Anaphylaxis Verified 03/13/23 07:22 Penicillins Allergy Severe Anaphylaxis Verified 03/13/23 07:22 /Hives morphine Allergy Hives, Verified 03/13/23 07:22 ITCHING NSAIDS (Non-Steroidal Allergy Hives/Gi Verified 03/13/23 07:22 Anti-Inflamma Issues Surgical - Exam Vital Signs Temp Pulse Resp BP Pulse Ox 98.3 F 66 18 160/87 100 03/13/23 07:16 03/13/23 07:16 03/13/23 07:16 03/13/23 07:16 03/13/23 07:16
--- NOTE | 2023-03-13 07:57 | P.PCN ---
Date of Procedure: 03/13/23 Description of Procedure: PREOPERATIVE DIAGNOSIS: Dysphagia. History gastrojejunal stricture POSTOPERATIVE DIAGNOSIS: Dysphagia. Upper esophageal stenosis Gastrojejunal stricture Gastric ulcers, multiple with bleeding. OPERATION: Esophagogastrojejunoscopy with balloon dilatation from 15 to 18 mm for gastric stricture Esophagogastrojejunoscopy with rigid dilator, 51-Palestinian to address upper esophageal stenosis Esophagogastrojejunoscopy with cold forceps biopsy, gastric pouch SURGEON: Nallely Bautista MD ANESTHESIA: MAC. INDICATIONS: The patient is a 42-year-old female who presents with a history of dysphagia, including nausea and vomiting. Benefits and risks of the procedure were described. Informed consent was obtained. DESCRIPTION: The patient was brought into the endoscopy suite and laid in the left lateral decubitus position. After a timeout was confirmed, the procedure was initiated. An Olympus gastroscope was passed along the posterior oropharynx down to the distal esophagus where the squamocolumnar junction was unremarkable. Upper esophageal stenosis was identified. The gastric pouch was entered. A gastrojejunal stricture of 15 mm was found as the adult gastroscope was 9.5 mm in size. Attention was brought to the upper esophageal stenosis. A rigid dilator, 54 Palestinian was placed over a guidewire to 45 cm from the incisors and left for 2 minutes after exchanging the scope. A [employer] balloon dilator was placed through the scope. The scope was reentered for balloon dilation of the gastrojejunal anastomosis. Final insufflation from 15 to 18 mm was performed with a total of 2 minutes. The scope was advanced up to 60 cm from the incisors into the Dalia limb. Cold forceps biopsies were obtained of the gastric pouch were multiple gastric ulcers less than 3 mm rectal bleeding was identified. The mucosa of the gastrojejunal anastomosis was intact. No chronic gastrojejunal marginal ulcer was encountered. No full-thickness injury was encountered. The GI tract was desufflated. The patient tolerated the procedure well. FINDINGS: Squamocolumnar junction unremarkable at 37 cm. Stricture of approximately 15 mm encountered. Upper esophageal stenosis Rigid dilation of upper esophageal sphincter, 54-Palestinian No chronic gastrojejunal ulceration encountered. Multiple punctate gastric ulcers or bleeding. Successful balloon dilatation to 18 mm. RECOMMENDATIONS: Upper endoscopy as needed.
--- NOTE | 2023-03-13 08:15 | P.PCN ---
Date of Procedure: 03/13/23 Description of Procedure: PREOPERATIVE DIAGNOSIS: Colorectal anastomotic stricture with bowel obstruction POSTOPERATIVE DIAGNOSIS: Colorectal anastomotic stricture with bowel obstruction OPERATION: Colonoscopy for sigmoidoscopy with balloon dilation from 10 mm to 15 mm SURGEON: Nallely Bautista MD. ANESTHESIA: MAC. INDICATIONS: The patient is a 42-year-old female who presents colorectal anastomotic stricture with obstruction Benefits and risks were described and informed consent was obtained. DESCRIPTION OF PROCEDURE: The patient had undergone Golytely prep. The patient had been brought into the operating room and laid in the left lateral decubitus position. After adequate intravenous sedation, the rectum was examined with 2% lidocaine jelly. No external hemorrhoids were encountered. The rectal tone was within normal limits. A balloon dilator, [employer] at the 15 mm balloon was inserted and the colonoscope. The stricture 10-mm dilated to 15 mm was dilated without full thickness perforation. The scope was advanced to the descending colon. The colon was desufflated. The patient had tolerated the procedure well. Withdrawal time was over 6 minutes. FINDINGS: Aronchick preparation quality scale 1 (1-5) Internal hemorrhoids, grade 1 Anastomotic stricture dilated to 15 mm from 10 mm No external prolapsed hemorrhoids. No arteriovenous malformations. No adenomatous polyps. No focal colitis. RECOMMENDATIONS: Repeat in 3 to 4 weeks Plan - Discharge Summary New Discharge Prescriptions: Continue FLUoxetine HCL [PROzac] 40 mg PO HS Levothyroxine Sodium 150 mcg PO QAM Ergocalciferol [Vitamin D2 (1250 Mcg = 00204 Iu)] 50,000 unit PO WEEKLY Cyanocobalamin [Vitamin B-12 Injection] 1,000 mcg SQ Q30D HYDROcodone/APAP 7.5-325MG [[place] 7.5-325] 1 tab PO TID Discharge Medication List Cyanocobalamin [Vitamin B-12 Injection] 1,000 mcg SQ Q30D 02/02/22 [History] FLUoxetine HCL [PROzac] 40 mg PO HS 11/22/22 [History] HYDROcodone/APAP 7.5-325MG [[place] 7.5-325] 1 tab PO TID 11/22/22 [History] Levothyroxine Sodium 150 mcg PO QAM 02/03/23 [History] Ergocalciferol [Vitamin D2 (1250 Mcg = 60488 Iu)] 50,000 unit PO WEEKLY 02/20/23 [History] Follow up Appointment(s)/Referral(s): [facility] [NON-STAFF] - 03/22/23 Patient Instructions/Handouts: Esophageal Dilation (DC) Discharge Disposition: HOME SELF-CARE
[2023-03-13 08:37] VITALS: BP 125/71; PULSE 76; RESP 17
== END 2023-03-13 08:55 | disposition home or self-care (01) ==
LOC: ORWHC2ENDO 06:11
PROVIDERS: ATTEND Surgery Plastic and Reconstructive Surgery
DX: K29.50 Unspecified chronic gastritis without bleeding (principal); K21.00 Gastro-esophageal reflux disease with esophagitis, without bleeding; K57.32 Diverticulitis of large intestine without perforation or abscess without bleeding; E03.9 Hypothyroidism, unspecified; K25.9 Gastric ulcer, unspecified as acute or chronic, without hemorrhage or perforation; G40.909 Epilepsy, unspecified, not intractable, without status epilepticus; M19.90 Unspecified osteoarthritis, unspecified site; Z86.73 Personal history of transient ischemic attack (TIA), and cerebral infarction without residual deficits; Z98.84 Bariatric surgery status; Z90.89 Acquired absence of other organs; Z90.49 Acquired absence of other specified parts of digestive tract; Z98.891 History of uterine scar from previous surgery; Z98.51 Tubal ligation status; Z91.040 Latex allergy status; Z88.0 Allergy status to penicillin; Z79.899 Other long term (current) drug therapy
CPT/HCPCS: 81025; 43239; 43245; 43249; 45340; J2704; J2001; C1726; C1727; 88305

== ENCOUNTER → 2023-04-15 | Outpatient (CLI) | payer OTHER ==
[2023-04-16 07:33] LABS: Basophils # (A) 0.06 X 10*3/uL (0.00-0.10); Basophils % (A) 0.8 %; Eosinophils # (A) 0.23 X 10*3/uL (0.04-0.35); HCT 37.7 % (37.2-46.3); HGB 11.8 d/dL (12.0-15.0); Lymphocytes # (A) 1.72 X 10*3/uL (0.90-5.00); Lymphocytes % (A) 22.8 %; MCH 27.6 pg (27.0-32.0); MCHC 31.3 d/dL (32.0-37.0); MCV 88.1 FL (80.0-97.0); Mean Platelet Volume 10.8 FL (9.5-12.2); Monocytes # (A) 0.63 X 10*3/uL (0.20-1.00); Monocytes % (A) 8.3 %; NRBC Per 100 WBC 0 X 10*3/uL (0.00-0.01); Neutrophils % (A) 64.8 %; Platelet Count 241 X 10*3/uL (140-440); RBC 4.28 X 10*6/uL (4.10-5.20); RDW 17.9 % (11.5-14.5); WBC 7.56 X 10*3/uL (4.50-10.00)
[2023-04-16 07:58] LABS: BUN/Creat Ratio 12.67 Ratio (12.00-20.00); Blood Urea Nitrogen 7.6 mg/dL (9.0-27.0); Chloride 106 mmol/L (96-109); Glucose 83 mg/dL (70-110); Potassium 4.1 mmol/L (3.5-5.5); Sodium 140 mmol/L (135-145)
[2023-04-16 07:59] LABS: ALT 22 U/L (8-44); AST 27 U/L (13-35); Albumin 4.2 d/dL (3.8-4.9); Alkaline Phosphatase 83 U/L (41-126); Calcium 9.4 mg/dL (8.7-10.3); Carbon Dioxide 24.7 mmol/L (21.6-31.8); Globulin 2.1 d/dL (1.6-3.3); Total Bilirubin <0.2 mg/dL (0.3-1.2); Total Protein 6.3 d/dL (6.2-8.2)
== END | disposition home or self-care (01) ==
LOC: LABPAT 10:15
PROVIDERS: ATTEND Surgery Plastic and Reconstructive Surgery
DX: Z01.812 Encounter for preprocedural laboratory examination (principal)
CPT/HCPCS: 80053; 85025; 93005

== ENCOUNTER 2023-04-20 09:04 | Day surgery (SDC) | payer OTHER ==
[2023-04-12 15:55] VITALS: BMI 42.7
--- NOTE | 2023-04-20 06:32 | P.GSHP ---
History of Present Illness H&P Date: 04/20/23 CHIEF COMPLAINT: History of intra-abdominal adhesions HISTORY OF PRESENT ILLNESS: The patient is a 42-year-old female who presents with history of intra-abdominal adhesions from multiple prior surgeries including increasing abdominal pain. She now presents for diagnostic laparoscopy including lysis of adhesions. PAST MEDICAL HISTORY: Please see list. PAST SURGICAL HISTORY: Please see list. MEDICATIONS: Please see list. ALLERGIES: Please see list. SOCIAL HISTORY: No illicit drug use FAMILY HISTORY: No reports of Crohn disease or ulcerative colitis. REVIEW OF ORGAN SYSTEMS: CONSTITUTIONAL: No reports of fevers or chills. GI: Has constipation. PHYSICAL EXAM: VITAL SIGNS: Stable GENERAL: Well-developed pleasant and in no acute distress. HEENT: No scleral icterus. Extraocular movements grossly intact. Moist buccal mucosa. NECK: Supple without lymphadenopathy. CHEST: Unlabored respirations. Equal bilateral excursions. CARDIOVASCULAR: Regular rate and rhythm. Distal 2+ pulses. ABDOMEN: Soft, diffuse abdominal tenderness. No peritonitis. MUSCULOSKELETAL: No clubbing, cyanosis, or edema. ASSESSMENT: 1. Diffuse abdominal pain. 2. History of multiple abdominal surgeries. 3. Intra-abdominal adhesions. PLAN: 1. Robotic lysis of adhesions were described in detail including risk of injury to the intestine, need for further surgery, and open technique. 2. DVT prophylaxis. 3. Antibiotic prophylaxis. Past Medical History Past Medical History: CVA/TIA, Deep Vein Thrombosis (DVT), GERD/Reflux, Neurologic Disorder, Osteoarthritis (OA), Seizure Disorder, Thyroid Disorder Additional Past Medical History / Comment(s): HERNIATED CERVICAL DISCS C4-C5 WITH NECK PAIN. Right leg numbness and tingling with right foot drop from CVA 2016. HX SEIZURES- NONE SINCE 2005. ABD PAIN LEFT SIDE chronic. Migraines. Hx DVT in right leg 2007, bruises easy. Hx Intussusception. Hx fractured vertebrae. Varicose veins. Hx Panniculitis with surgery. Hypothyroid. Recurrent UTI's. Esophageal anastomatic stricture, hx dysphagia. Hiatal hernia. PUD. Hypoglycemia. Hx Intussusception of bowel. History of Any Multi-Drug Resistant Organisms: MRSA Date of last positivie culture/infection: 01/2008 MDRO Source:: right arm Past Surgical History: Adenoidectomy, Appendectomy, Back Surgery, Bariatric Surgery, Bowel Resection, Section, Cholecystectomy, Hernia Repair, Orthopedic Surgery, Tonsillectomy, Tubal Ligation Additional Past Surgical History / Comment(s): RECONSTRUCTION RIGHT KNEE, C- SECTION X3, RISA-EN-Y(AUG 2012), panniculectomy, diagnostic laproscopy with lysis of adhesions X5, EGD with dilation, colonoscopies, hiatal hernia repair, C-5 removed May 17, 2017, NAVA, PFO closure with disc in heart 07/11/17, RECONSTRUCTION OF RISA-EN-Y 2017, bowel blockage repaired 03/04/22, colonectomy, bowel resection X2, EGD. Past Anesthesia/Blood Transfusion Reactions: No Reported Reaction Additional Past Anesthesia/Blood Transfusion Reaction / Comment(s): No blood transfusion. Past Psychological History: Anxiety, Depression Additional Psychological History / Comment(s): HX POST DEPRESSION. Smoking Status: Never smoker Past Alcohol Use History: Rare Past Drug Use History: None Reported - Past Family History Mother Family Medical History: Cancer Additional Family Medical History / Comment(s): Mom has MS. Medications and Allergies Home Medications Medication Instructions Recorded Confirmed Type Cyanocobalamin [Vitamin B-12 1,000 mcg SQ Q30D 02/02/22 04/12/23 History Injection] HYDROcodone/APAP 7.5-325MG [[place] 1 tab PO TID PRN 11/22/22 04/12/23 History 7.5-325] Levothyroxine Sodium 150 mcg PO QAM 02/03/23 04/12/23 History Ergocalciferol [Vitamin D2 (1250 50,000 unit PO MO 02/20/23 04/12/23 History Mcg = 65346 Iu)] Ondansetron [Zofran] 4 mg PO Q12HR PRN 03/22/23 04/12/23 History Cholecalciferol [Vitamin D3 (25 2,500 unit PO DAILY 04/12/23 04/12/23 History Mcg = 1000 Iu)] Omeprazole [PriLOSEC] 40 mg PO QAM 04/12/23 04/12/23 History Allergies Allergy/AdvReac Type Severity Reaction Status Date / Time latex Allergy Severe Anaphylaxis Verified 04/12/23 15:37 Penicillins Allergy Severe Anaphylaxis Verified 04/12/23 15:37 /Hives morphine Allergy Hives, Verified 04/12/23 15:37 ITCHING NSAIDS (Non-Steroidal Allergy Hives/Gi Verified 04/12/23 15:37 Anti-Inflamma Issues
[~2023-04-20 09:04] MED LIST changes: +DEXAMETHASONE SOD PHOSPHATE 4 MG/ML 1 ML VIAL IV ONE; +LACTATED RINGERS 1,000 ML IV SCH; -LIDOCAINE 1% (10MG/ML) FOR IV START INTRADERMA PRN; +ONDANSETRON 4 MG/2 ML VIAL IVP ONE; +ceFAZolin 3 GM in SODIUM CHLORIDE 0.9% 100 ML IVPB PRN
[2023-04-20] MEDS ORDERED: MIDAZOLAM 2 MG/2 ML VIAL IVP ONE (09:45)
[2023-04-20] MEDS ORDERED: fentaNYL (PF) 50 MCG/ML 2 ML AMP IVP ONE (09:45)
[2023-04-20] MEDS ORDERED: DEXAMETHASONE SOD PHOSPHATE 4 MG/ML 1 ML VIAL ONE (09:53)
[2023-04-20] MEDS ORDERED: BUPIVACAIN-EPI 0.5%-1:200,000 30 ML VIAL ONE (09:53)
[2023-04-20] MEDS ORDERED: LIDOCAINE 2% INJ 20 MG/ML (2 ML VIAL) ONE (09:53)
[2023-04-20] MEDS ORDERED: NEOSTIGMINE 1 MG/ML 10 ML VIAL ONE (09:53)
[2023-04-20] MEDS ORDERED: PROPOFOL 10 MG/ML 20 ML VIAL IV ONE (09:53)
[2023-04-20] MEDS ORDERED: HEPARIN SODIUM,PORCINE 5,000 UNIT/ML 1 ML VIAL ONE (09:53)
[2023-04-20] MEDS ORDERED: HYDROmorphone (PF) 1 MG/ML ONE (09:53)
[2023-04-20] MEDS ORDERED: ROCURONIUM 10 MG/ML (5 ML VIAL) IV ONE (09:53)
[2023-04-20] MEDS ORDERED: SODIUM CHLORIDE 0.9% (PF) 10 ML VIAL ONE (09:53)
[2023-04-20] MEDS ORDERED: GLYCOPYRROLATE 0.2 MG/ML 2 ML VIAL ONE (09:53)
[2023-04-20] MEDS ORDERED: fentaNYL (PF) 50 MCG/ML 2 ML AMP ONE (09:53)
[2023-04-20] MEDS ORDERED: MIDAZOLAM 2 MG/2 ML VIAL ONE (09:53)
[2023-04-20] MEDS ORDERED: SUCCINYLCHOLINE CHLORIDE 200 MG/10 ML VIAL IV ONE (09:53)
[2023-04-20] MEDS ORDERED: LIDOCAINE 1%-EPI 1:100,000 50 ML VIAL SQ ONE (10:26)
[2023-04-20] MEDS ORDERED: LACTATED RINGERS 1,000 ML IV ONE (11:51)
[2023-04-20 12:09] VITALS: TEMP 97
--- NOTE | 2023-04-20 12:09 | P.ANPRN ---
Procedure Note - Anesthesia - Nerve Block Performed Bilateral Erector Spinae Single Time Out Performed: Yes ([id number]) Date of Procedure: 04/20/23 Procedure Start Time: 09:45 Procedure Stop Time: 09:51 Location of Patient: PreOp Indication: Acute Post-Operative Pain, Requested by Surgeon Specifically requested for management of pain by : Nallely Bautista Sedation Type: Sedate with meaningful contact maintained Preparation: Sterile Prep Position: Prone Catheter: None Needle Types: Pajunk Needle Gauge: 21 Ultrasound used to visualize needle placement: Yes Ultrasound used to observe medication spread: Yes Injectate: 0.5% Ropivacaine (see comment for volume) (15cc + 10cc nacl pf) Blood Aspirated: No Pain Paresthesia on Injection Noted: No Resistance on Injection: Normal Image Stored and Saved: Yes Events: Uneventful and Well Tolerated
[2023-04-20] MEDS: fentaNYL (PF) 50 MCG/ML 2 ML AMP IV PRN ×2 (12:26→12:30)
[2023-04-20] MEDS ORDERED: droPERidol 5 MG/2 ML VIAL IVP ONE (12:38)
[2023-04-20 13:23] VITALS: RESP 18
[2023-04-20 14:17] VITALS: BP 107/70; PULSE 78
--- NOTE | 2023-05-15 21:51 | P.OP ---
Date of Procedure: 04/20/23 Description of Procedure: SURGEON: CARLITA MATIAS MD PREOPERATIVE DIAGNOSES: 1. Left upper quadrant abdominal pain 2. History of intra-abdominal adhesions 3. History of gastric bypass 4. Morbid obesity due to excess calories, BMI 43.1 5. Chronic abdominal pain 6. Chronic pain syndrome 7. Gastroesophageal reflux disease 8. Hypothyroidism 9. History of stroke 10. History of deep venous thrombosis 11. Migraines POSTOPERATIVE DIAGNOSES: 1. Left upper quadrant abdominal pain due to peritoneal adhesions 2. History of intra-abdominal adhesions 3. History of gastric bypass 4. Morbid obesity due to excess calories, BMI 43.1 5. Chronic abdominal pain 6. Chronic pain syndrome 7. Gastroesophageal reflux disease 8. Hypothyroidism 9. History of stroke 10. History of deep venous thrombosis 11. Migraines OPERATION: 1. Robotic-assisted da Clementina Xi laparoscopic lysis of adhesions ESTIMATED BLOOD LOSS: 5 mL. SPECIMENS REMOVED: None. COMPLICATIONS: None. OPERATIVE FINDINGS: 1. No ventral hernias identified. 2. Reconstruction of gastric bypass with Dalia-en-Y limb 100 cm Dalia limb to common channel 3. Abnormal adhesion at biliopancreatic limb to jejunum reconstruction lysed 4. Closure of mesenteric defect at jejunojejunostomy INDICATIONS: The patient is a 42-year-old female who presents with a personal history of chronic abdominal pain due to adhesions and gastric bypass. Surgical intervention with diagnostic laparoscopy, lysis of adhesions including small bowel resection were described. Informed consent was obtained. Robotic assisted laparoscopic approach was described. Benefits and risks of the procedure including but not limited to bleeding, infection, injury to the small bowel was described. Informed consent was obtained. DESCRIPTION OF PROCEDURE: Patient was brought to the operating room, placed in supine position. After general induction, the abdomen had been prepped and draped in standard sterile fashion. The robotic da Clementina XI system was primed. After a timeout protocol was performed, the patient had been prepped and draped in standard sterile fashion. The robot was docked along the right lateral abdomen. The patient was repositioned in with right side up. Please note prior to docking of the robot; however, a 5 mm 0 degrees laparoscopic trocar entry was performed along the left upper quadrant. The abdomen was insufflated to 15 mmHg pressure which she tolerated well. Diagnostic laparoscopy was performed. Next, three 8 mm robotic ports were placed along the right lateral abdominal wall. The camera 8-mm port was maintained along mid-lateral abdomen. Please note that the ports were placed at least 10 to 15 cm away from the target anatomy. Instruments including graspers and vessel sealer were interchanged by the data entry assistant. I had sat at the console. No evidence of incisional hernia was identified. The small bowel from the dalia limb to distal ileum was inspected. The small bowel was investigated from the terminal ileum to the ligament of Treitz with finding of abnormal adhesions of the reconstructed biliopancreatic limb to common channel just proximal to the Dalia limb. A jejunojejunostomy mesenteric defect was identified and closed using 2-0 . The jejunojejunal mesenteric defect was closed completely to prevent bowel obstruction. The rest of the small bowel was unremarkable. Additional abnormal adhesions involving the really practically was lysed using scissors vessel sealer for 30 minutes. No other adhesions were from of the pelvis or colorectal anastomosis. The uterus was bulky with bilateral ovarian cysts. Adhesion of the left ovary to pelvis was lysed. All pneumoperitoneum instruments were evacuated from the abdominal cavity. The incisions were reapproximated using 4-0 Monocryl in an interrupted subcuticular fashion. Please note along the trocar sites, local anesthetic was placed as a field block prior to insertion of all instruments. Exofin was applied to the skin. At the end of the procedure needle, sponge, and instrument count had been verified correct by the surgical resident. The patient was transferred to postanesthesia care unit in stable condition. Plan - Discharge Summary Discharge Rx Participant: Yes New Discharge Prescriptions: New Cyclobenzaprine [Flexeril] 10 mg PO TID #30 tab Simethicone [Gas-X] 125 mg PO AC-TID PRN #20 capsule PRN Reason: Pain Continue Levothyroxine Sodium 150 mcg PO QAM Ergocalciferol [Vitamin D2 (1250 Mcg = 72474 Iu)] 50,000 unit PO MO Cyanocobalamin [Vitamin B-12 Injection] 1,000 mcg SQ Q30D HYDROcodone/APAP 7.5-325MG [[place] 7.5-325] 1 tab PO TID PRN PRN Reason: Pain Ondansetron [Zofran] 4 mg PO Q12HR PRN PRN Reason: Nausea Omeprazole [PriLOSEC] 40 mg PO QAM Cholecalciferol [Vitamin D3 (25 Mcg = 1000 Iu)] 2,500 unit PO DAILY Discharge Medication List Cyanocobalamin [Vitamin B-12 Injection] 1,000 mcg SQ Q30D 02/02/22 [History] HYDROcodone/APAP 7.5-325MG [[place] 7.5-325] 1 tab PO TID PRN 11/22/22 [History] Levothyroxine Sodium 150 mcg PO QAM 02/03/23 [History] Ergocalciferol [Vitamin D2 (1250 Mcg = 94459 Iu)] 50,000 unit PO MO 02/20/23 [History] Ondansetron [Zofran] 4 mg PO Q12HR PRN 03/22/23 [History] Cholecalciferol [Vitamin D3 (25 Mcg = 1000 Iu)] 2,500 unit PO DAILY 04/12/23 [History] Omeprazole [PriLOSEC] 40 mg PO QAM 04/12/23 [History] Cyclobenzaprine [Flexeril] 10 mg PO TID #30 tab 04/20/23 [Rx] Simethicone [Gas-X] 125 mg PO AC-TID PRN #20 capsule 04/20/23 [Rx] Follow up [facility]ment(s[facility] [place] [facility] - [facility]26[facility]23 1:30 pm Patient Instructions/Handouts: *Surgery [facility] - (Anesthesia) Discharge Instructions Outpatient Surgery, Lysis of Abdominal Adhesions (DC) Activity/Diet/Wound Care/Special Instructions: Using antibacterial soap. No lifting over 10 pounds 2 weeks, May 04January shower. No bathtub soaks for 2 weeks, May 04 Use ice along incisions for today to prevent swelling. Take tylenol, simethicone scheduled for 3 days for best pain relief Discharge Disposition: HOME SELF-CARE
== END 2023-04-20 14:28 | disposition home or self-care (01) ==
LOC: OR 09:04
PROVIDERS: ATTEND Surgery Plastic and Reconstructive Surgery
DX: K66.0 Peritoneal adhesions (postprocedural) (postinfection) (principal); E66.01 Morbid (severe) obesity due to excess calories; K21.9 Gastro-esophageal reflux disease without esophagitis; G89.18 Other acute postprocedural pain; E03.9 Hypothyroidism, unspecified; G89.4 Chronic pain syndrome; Z68.41 Body mass index [BMI] 40.0-44.9, adult; G40.909 Epilepsy, unspecified, not intractable, without status epilepticus; M19.90 Unspecified osteoarthritis, unspecified site; Z86.73 Personal history of transient ischemic attack (TIA), and cerebral infarction without residual deficits; Z90.49 Acquired absence of other specified parts of digestive tract; Z86.718 Personal history of other venous thrombosis and embolism; Z90.89 Acquired absence of other organs; Z98.51 Tubal ligation status; Z86.59 Personal history of other mental and behavioral disorders; Z98.891 History of uterine scar from previous surgery; Z79.890 Hormone replacement therapy; Z79.899 Other long term (current) drug therapy; Z98.84 Bariatric surgery status; Z91.040 Latex allergy status; Z88.0 Allergy status to penicillin; Z88.6 Allergy status to analgesic agent
CPT/HCPCS: 81025; 64999; 44180; J2250; J0330; J1644; J1100; J2710; J0690; J2405; J3010; J1170; J2704; J1790; J2001

== ENCOUNTER 2023-11-24 10:14 | Day surgery (SDC) | payer OTHER ==
--- NOTE | 2023-11-24 09:37 | P.GSHP ---
History of Present Illness H&P Date: 11/24/23 CHIEF COMPLAINT: History of intra-abdominal adhesions HISTORY OF PRESENT ILLNESS: The patient is a 43-year-old female who presents with history of intra-abdominal adhesions from multiple prior surgeries including increasing left lower quadrant abdominal pain for over 6 months. Pain has been intractable with multiple ER visits as result. She now presents for diagnostic laparoscopy including lysis of adhesions. PAST MEDICAL HISTORY: Please see list. PAST SURGICAL HISTORY: Please see list. MEDICATIONS: Please see list. ALLERGIES: Please see list. SOCIAL HISTORY: No illicit drug use FAMILY HISTORY: No reports of Crohn disease or ulcerative colitis. REVIEW OF ORGAN SYSTEMS: CONSTITUTIONAL: Denies any fever or chills. HEENT: Denies any trouble with vision, hearing or nosebleeds. No difficulty swallowing. LYMPHATIC: The patient denies any lumps and bumps around the neck. ENDOCRINE: Denies any thyroid disorders. Denies any blood sugar glucose intolerance. RESPIRATORY: Denies pneumonia. Denies any troubles with breathing or dyspnea on exertion. CARDIOVASCULAR: Denies any chest pain, palpitations, or recent heart attacks. GASTROINTESTINAL: History of intermittent constipation including rectal dilation. GENITOURINARY: Denies any blood in urine or increased urinary frequency. MUSCULOSKELETAL: Has back pain, stiffness, joint arthritis. NEUROLOGIC: Denies any numbness or tingling along the distal extremities. History of seizure disorder PSYCHIATRIC: Denies depression or suidical ideation. HEMATOLOGIC: Denies any abnormal bleeding or bruising. BREASTS: Denies any breast lumps, pain or nipple discharge. PHYSICAL EXAM: GENERAL: Well-developed pleasant male in no acute distress. HEENT: No scleral icterus. Extraocular movements grossly intact. Moist buccal mucosa. NECK: Supple without lymphadenopathy. CHEST: Unlabored respirations. Equal bilateral excursions. CARDIOVASCULAR: Regular rate and rhythm. Distal 2+ pulses. ABDOMEN: Soft, nondistended. Left lower quadrant abdominal pain MUSCULOSKELETAL: No clubbing, cyanosis, or edema. SKIN: Well perfused. PSYCH: Alert and oriented to self, place and time ASSESSMENT: 1. Left lower quadrant abdominal pain 2. History of multiple abdominal surgeries. 3. Intra-abdominal adhesions. 4. Morbid obesity due to excess calories PLAN: 1. Robotic lysis of adhesions were described in detail including risk of injury to the intestine, need for further surgery, and open technique. 2. DVT prophylaxis. 3. Antibiotic prophylaxis. 4. Patient is elevated risk due to multiple comorbidities Past Medical History Past Medical History: CVA/TIA, Deep Vein Thrombosis (DVT), GERD/Reflux, Neurologic Disorder, Osteoarthritis (OA), Seizure Disorder, Thyroid Disorder, Vascular Disorder Additional Past Medical History / Comment(s): HERNIATED CERVICAL DISCS C4-C5 WITH NECK PAIN. Right leg numbness and tingling with right foot drop from CVA 2016. HX SEIZURES- NONE SINCE 2005. ABD PAIN LEFT SIDE chronic. Migraines. Hx DV T in right leg 2007, bruises easy. Hx Intussusception. Hx fractured vertebrae. Varicose veins. Hx Panniculitis with surgery. Hypothyroid. Recurrent UTI's. Esophageal anastomatic stricture, hx dysphagia. Hiatal hernia. PUD. Hypoglycemia. Hx Intussusception of bowel. History of Any Multi-Drug Resistant Organisms: MRSA Date of last positivie culture/infection: 01/2008 MDRO Source:: right arm Past Surgical History: Adenoidectomy, Appendectomy, Back Surgery, Bariatric Surgery, Bowel Resection, Section, Cholecystectomy, Hernia Repair, Orthopedic Surgery, Tonsillectomy, Tubal Ligation Additional Past Surgical History / Comment(s): RECONSTRUCTION RIGHT KNEE, X3, RISA-EN-Y(AUG 2012), panniculectomy, diagnostic laproscopy with lysis of adhesions X5, EGD with dilation, colonoscopies, hiatal hernia repair, C-5 removed May 17, 2017, NAVA, PFO closure with disc in heart 07/11/17, RECONSTRUCTION OF RISA-EN-Y 2017, bowel blockage repaired 03/04/22, colonectomy, bowel resection X2, EGD. Past Anesthesia/Blood Transfusion Reactions: No Reported Reaction Additional Past Anesthesia/Blood Transfusion Reaction / Comment(s): No blood transfusion. Smoking Status: Never smoker - Past Family History Mother Family Medical History: Cancer Additional Family Medical History / Comment(s): Mom has MS. breast and esphageal Medications and Allergies Home Medications Medication Instructions Recorded Confirmed Type HYDROcodone/APAP 7.5-325MG [[place] 1 tab PO TID PRN 11/22/22 11/21/23 History 7.5-325] Levothyroxine Sodium 150 mcg PO QAM 02/03/23 11/21/23 History Ergocalciferol [Vitamin D2 (1250 50,000 unit PO DAILY 02/20/23 11/21/23 History Mcg = 76450 Iu)] Ondansetron [Zofran] 4 mg PO Q12HR PRN 03/22/23 11/21/23 History ALPRAZolam [Xanax] 0.25 mg PO DAILY PRN 11/21/23 11/21/23 History Adapex(Unk) 37.5 mg PO DAILY 11/21/23 11/21/23 History Allergies Allergy/AdvReac Type Severity Reaction Status Date / Time latex Allergy Severe Anaphylaxis Verified 11/21/23 14:35 Penicillins Allergy Severe Anaphylaxis Verified 11/21/23 14:35 /Hives morphine Allergy Hives, Verified 11/21/23 14:35 ITCHING NSAIDS (Non-Steroidal Allergy Hives/Gi Verified 11/21/23 14:35 Anti-Inflamma Issues
[~2023-11-24 10:14] MED LIST changes: -DEXAMETHASONE SOD PHOSPHATE 4 MG/ML 1 ML VIAL IV ONE; -LACTATED RINGERS 1,000 ML IV SCH; -ONDANSETRON 4 MG/2 ML VIAL IVP ONE; +Pre Op ABX Message 1 EACH MISC MISCELLANE ONE; +SCOPOLAMINE 1 MG/72 HR PATCH TRANSDERM STA; -ceFAZolin 3 GM in SODIUM CHLORIDE 0.9% 100 ML IVPB PRN
[2023-11-24] MEDS ORDERED: ONDANSETRON 4 MG/2 ML VIAL ONE (10:22)
[2023-11-24] MEDS: ACETAMINOPHEN TAB 500 MG TAB PO STA (10:50)
[2023-11-24] MEDS: HEPARIN SODIUM,PORCINE 5,000 UNIT/ML 1 ML VIAL SQ STA (10:59)
[2023-11-24] MEDS: LACTATED RINGERS 1,000 ML IV ONE ×2 (11:13→15:23)
[2023-11-24] MEDS: MIDAZOLAM 2 MG/2 ML VIAL IVP ONE ×2 (11:22→11:29)
[2023-11-24] MEDS: fentaNYL (PF) 50 MCG/ML 2 ML AMP IVP ONE (11:22)
[2023-11-24] MEDS: ONDANSETRON 4 MG/2 ML VIAL IVP ONE (11:32)
[2023-11-24] MEDS: DEXAMETHASONE SOD PHOSPHATE 4 MG/ML 1 ML VIAL IVP ONE (11:33)
[2023-11-24] MEDS: SCOPOLAMINE 1 MG/72 HR PATCH TRANSDERM ONE (11:33)
[2023-11-24 11:35] LABS: ALT 33 U/L (4-34); AST 78 U/L (14-36); African American GFR (CKD) >90 (>60 ml/min/1.73 sqM); Albumin 3.6 g/dL (3.5-5.0); Alkaline Phosphatase 41 U/L (38-126); Anion Gap 4 mmol/L; Blood Urea Nitrogen 12 mg/dL (7-17); Calcium 8.4 mg/dL (8.4-10.2); Carbon Dioxide 24 mmol/L (22-30); Chloride 108 mmol/L (98-107); Glucose 88 mg/dL (74-99); Non-African American GFR(CKD) >90 (>60 ml/min/1.73 sqM); Sodium 136 mmol/L (137-145); Total Bilirubin 1.5 mg/dL (0.2-1.3); Total Protein 6.4 g/dL (6.3-8.2)
[2023-11-24 11:36] LABS: Potassium 5.5 mmol/L (3.5-5.1)
--- NOTE | 2023-11-24 12:03 | P.ANPRN ---
Procedure Note - Anesthesia - Nerve Block Performed Bilateral Erector Spinae Single Time Out Performed: Yes (1124) Date of Procedure: 11/24/23 Procedure Start Time: :25 Procedure Stop Time: :32 Location of Patient: PreOp Indication: Acute Post-Operative Pain, Requested by Surgeon Specifically requested for management of pain by : Nallely Bautista Sedation Type: Sedate with meaningful contact maintained Preparation: Sterile Prep Position: Prone Catheter: None Needle Types: Pajunk Needle Gauge: 21 Ultrasound used to visualize needle placement: Yes Ultrasound used to observe medication spread: Yes Injectate: 0.5% Ropivacaine (see comment for volume) (20cc each side) Blood Aspirated: No Pain Paresthesia on Injection Noted: No Resistance on Injection: Normal Image Stored and Saved: Yes Events: Uneventful and Well Tolerated
[2023-11-24] MEDS ORDERED: LIDOCAINE 1% INJ 10MG/ML (20 ML MDV) ONE (12:16)
[2023-11-24] MEDS ORDERED: ROPIVACAINE 5 MG/ML 30 ML VIAL ONE (12:16)
[2023-11-24] MEDS ORDERED: PHENYLEPHRINE-0.9% NACL SYG 1,000 MCG/10 ML SYRINGE ONE (12:16)
[2023-11-24] MEDS ORDERED: SUGAMMADEX SODIUM 200 MG/2 ML SDV IV ONE (12:16)
[2023-11-24] MEDS ORDERED: ROCURONIUM 10 MG/ML (5 ML VIAL) IV ONE (12:16)
[2023-11-24] MEDS ORDERED: PROPOFOL 10 MG/ML 20 ML VIAL IV ONE (12:16)
[2023-11-24] MEDS ORDERED: fentaNYL (PF) 50 MCG/ML 2 ML AMP ONE (12:16)
[2023-11-24] MEDS ORDERED: ePHEDrine 50 MG/ML 1 ML VIAL ONE (12:16)
[2023-11-24] MEDS ORDERED: MIDAZOLAM 2 MG/2 ML VIAL ONE (12:16)
[2023-11-24] MEDS ORDERED: SUCCINYLCHOLINE CHLORIDE 200 MG/10 ML VIAL IV ONE (12:16)
[2023-11-24] MEDS: LIDOCAINE 1%-EPI 1:100,000 50 ML VIAL SQ ONE ×2 (12:42→12:50)
[2023-11-24] MEDS: SODIUM CHLORIDE 0.9% 50 ML with ceFAZolin 1,000 MG IV ONE ×2 (12:50)
[2023-11-24 14:19] VITALS: TEMP 97.4
[2023-11-24] MEDS: HYDROmorphone 0.5 MG/0.5 ML SYRINGE IVP ONE ×3 (14:25→14:55)
[2023-11-24] MEDS ORDERED: HYDROcodone/APAP 7.5-325MG 1 EACH TAB ONE (15:46)
[2023-11-24] MEDS: HYDROcodone/APAP 7.5-325MG 1 EACH TAB PO ONE (15:47)
[2023-11-24 16:06] VITALS: BP 109/62; PULSE 70; RESP 16
--- NOTE | 2023-12-09 18:02 | P.OP ---
Date of Procedure: 11/24/23 Description of Procedure: SURGEON: CARLITA MATIAS MD PREOPERATIVE DIAGNOSES: 1. Left upper quadrant abdominal pain with intractable abdominal pain 2. History of gastric bypass 3. History of intra-abdominal adhesions 4. Morbid obesity due to excess calories, BMI 40.8 5. History of transient ischemic attack 6. History of deep venous thrombosis 7. History of cerebrovascular accident 8. Gastroesophageal reflux disease 9. Migraines 10. History of seizure disorder 11. Hypothyroidism 12. Generalized anxiety disorder 13. Depressive disorder POSTOPERATIVE DIAGNOSES: 1. Left upper quadrant abdominal pain with intractable abdominal pain due to adhesions and intussusception 2. History of gastric bypass 3. History of intra-abdominal adhesions 4. Morbid obesity due to excess calories, BMI 40.8 5. History of transient ischemic attack 6. History of deep venous thrombosis 7. History of cerebrovascular accident 8. Gastroesophageal reflux disease 9. Migraines 10. History of seizure disorder 11. Hypothyroidism 12. Generalized anxiety disorder 13. Depressive disorder OPERATION: 1. Robotic-assisted da Clementina Xi laparoscopic with extensive lysis of adhesions over 1 hr ESTIMATED BLOOD LOSS: 5 mL. SPECIMENS REMOVED: None. COMPLICATIONS: None. OPERATIVE FINDINGS: 1. She has revision of gastric bypass at the jejunojejunostomy. 2. At least 4 cm excess length identified at anastomotic points including of biliopancreatic limb and Dalia limb. 3. Presence of intussusception identified and reduced. 4. Abnormal adhesions at jejunojejunostomy site lysed using vessel sealer. 5. Colon unremarkable. 6. Stay suture placed at redundant limbs using 3-0 Vicryl. If unresponsive to treatment, may require resection of redundant small bowel INDICATIONS: The patient is a 43-year-old female who presents with intractable left upper quadrant abdominal pain after eating. Surgical intervention with diagnostic laparoscopy, lysis of adhesions were described. Informed consent was obtained. Robotic assisted laparoscopic approach was described. Benefits and risks of the procedure including but not limited to bleeding, infection, injury to the small bowel was described. Informed consent was obtained. DESCRIPTION OF PROCEDURE: Patient was brought to the operating room, placed in supine position. After general induction, the abdomen had been prepped and draped in standard sterile fashion. The robotic da Clementina XI system was primed. After a timeout protocol was performed, the patient had been prepped and draped in standard sterile fashion. The robot was docked along the right lateral abdomen. Please note prior to docking of the robot; however, a 5 mm 0 degrees laparoscopic trocar entry was performed along the left upper quadrant. The abdomen was insufflated to 15 mmHg pressure which she tolerated well. Diagnostic laparoscopy was performed. Next, three 8 mm robotic ports were placed along the right lateral abdominal wall. The camera 8-mm port was maintained along mid-lateral abdomen. Please note that the ports were placed at least 10 to 15 cm away from the target anatomy. Instruments including graspers and vessel sealer were interchanged by the recreational assistant. I had sat at the console. No incisional hernia was identified. The small bowel from the dalia limb to distal ileum was inspected. The small bowel was investigated from the terminal ileum to the ligament of Treitz with finding of redundant mesentery. Abnormal adhesions to the jejunojejunostomy was identified and divided due to reconstruction jejunojejunostomy. Revision of gastric bypass at the jejunojejunostomy confirmed. At least 4 cm excess length identified at anastomotic points including of biliopancreatic limb and Dalia limb. Presence of intussusception identified and reduced involving the jejunojejunostomy. Abnormal adhesions at jejunojejunostomy site was lysed using vessel sealer. No herniation of bowel was found along the Lopez defect or jejunojejunostomy mesenteric defect. Extensive lysis of adhesions over 1 hr was performed. Redundant blind limbs were found at the left upper quadrant with intussusception. Small bowel was tacked together using 2-0 VLOC. Colon unremarkable. Stay suture placed at redundant limbs using 3-0 Vicryl. The small bowel was viable.The robot was undocked. All pneumoperitoneum instruments were evacuated from the abdominal cavity. The incisions were reapproximated using 4-0 Monocryl in an interrupted subcuticular fashion. Please note along the trocar sites, local anesthetic was placed as a field block prior to insertion of all instruments. Exofin was applied to the skin. At the end of the procedure needle, sponge, and instrument count had been verified correct by the surgical product sales consultant. The patient was transferred to postanesthesia care unit in stable condition. Plan - Discharge Summary Discharge Rx Participant: No New Discharge Prescriptions: New Cyclobenzaprine [Flexeril] 10 mg PO TID #30 tab Simethicone [Gas-X] 125 mg PO AC-TID PRN #20 capsule PRN Reason: Pain Acetaminophen Tab [Tylenol Tab] 1,000 mg PO Q6HR PRN #30 tablet PRN Reason: Pain Continue Levothyroxine Sodium 150 mcg PO QAM ALPRAZolam [Xanax] 0.25 mg PO DAILY PRN PRN Reason: Anxiety HYDROcodone/APAP 7.5-325MG [[place] 7.5-325] 1 tab PO TID PRN PRN Reason: Pain Ondansetron [Zofran] 4 mg PO Q12HR PRN PRN Reason: Nausea Adapex(Unk) 37.5 mg PO DAILY Discharge Medication List HYDROcodone/APAP 7.5-325MG [[place] 7.5-325] 1 tab PO TID PRN 11/22/22 [History] Levothyroxine Sodium 150 mcg PO QAM 02/03/23 [History] Ondansetron [Zofran] 4 mg PO Q12HR PRN 03/22/23 [History] ALPRAZolam [Xanax] 0.25 mg PO DAILY PRN 11/21/23 [History] Adapex(Unk) 37.5 mg PO DAILY 11/21/23 [History] Acetaminophen Tab [Tylenol Tab] 1,000 mg PO Q6HR PRN #30 tablet 11/24/23 [Rx] Cyclobenzaprine [Flexeril] 10 mg PO TID #30 tab 11/24/23 [Rx] Simethicone [Gas-X] 125 mg PO AC-TID PRN #20 capsule 11/24/23 [Rx] [facility]ment[facility] [facility] [place] 11/29/23 4:00 pm Patient Instructions/Handouts: *Surgery [facility] - (Anesthesia) Discharge Instructions Outpatient Surgery, Lysis of Abdominal Adhesions (DC) Activity/Diet/Wound Care/Special Instructions: Using antibacterial soap. No lifting over 10 pounds for 2 weeks, December 07January shower. No bathtub soaks for 2 weeks, December 07 Wear abdominal binder daily for comfort except for showering. Use ice along incisions for today to prevent swelling. Take tylenol, simethicone scheduled for 3 days for best pain relief Discharge Disposition: HOME SELF-CARE
== END 2023-11-24 16:45 | disposition home or self-care (01) ==
LOC: OR 10:14
PROVIDERS: ATTEND Surgery Plastic and Reconstructive Surgery
DX: K66.0 Peritoneal adhesions (postprocedural) (postinfection) (principal); R10.32 Left lower quadrant pain; E66.01 Morbid (severe) obesity due to excess calories; Z86.73 Personal history of transient ischemic attack (TIA), and cerebral infarction without residual deficits; K21.9 Gastro-esophageal reflux disease without esophagitis; M19.90 Unspecified osteoarthritis, unspecified site; G40.909 Epilepsy, unspecified, not intractable, without status epilepticus; F41.9 Anxiety disorder, unspecified; F32.A Depression, unspecified; E03.9 Hypothyroidism, unspecified; Z90.49 Acquired absence of other specified parts of digestive tract; Z98.891 History of uterine scar from previous surgery; Z90.89 Acquired absence of other organs; Z98.51 Tubal ligation status; Z98.890 Other specified postprocedural states; Z80.3 Family history of malignant neoplasm of breast; Z79.890 Hormone replacement therapy; Z79.899 Other long term (current) drug therapy; Z91.040 Latex allergy status; Z88.0 Allergy status to penicillin; Z88.6 Allergy status to analgesic agent; Z88.5 Allergy status to narcotic agent; G89.18 Other acute postprocedural pain
CPT/HCPCS: 81025; 64999; 80053; 43644; J2250; J0330; J1644; J1100; J2405; J0690; J2001; J3010; J2795; J2704; J1170; J2371

== ENCOUNTER → 2024-01-03 | Outpatient (CLI) | payer OTHER ==
--- NOTE | 2024-01-03 16:35 | P.BASOAP ---
Subjective Progress Note Date: 01/03/24 DATE OF SERVICE: 01/03/24 CHIEF COMPLAINT: Status post gastric bypass HISTORY OF PRESENT ILLNESS: Selin Bowles is a 43-year-old female status post gastric bypass performed in August of 2012. She is 12 years postop. She has personal history of chronic abdominal pain. She is status post lysis of adhesions, 11/24/2023. She is 6 weeks postop. She reports vomiitng for 2 weeks with nausea. She has intractable nausea. She has missed work. She could not get out of work. She reports taking Adipex last month. She has lost 20 to 40 pounds from Adipex. She comes in with new symptoms unrelated to her lower abdominal pain that has resolved. "I think I have an ulcer," unrelated to her recent surgery. She is urinating only and her urine is dark. Her highest weight was 439 pounds for her 5 feet 6 inch frame. Her body mass index was 71.0. Her lowest weight was 223 pounds. She has gained 23 pounds since her lowest weight. Her body mass index is now up from 36.1 to 39.7. Her maintained weight loss is 193 pounds. Lifetime percent excess weight loss of 68 %. She is 92 pounds overweight. PAST MEDICAL HISTORY: 1. Morbid obesity due to excess calories, BMI 71.0, initial 2. Chronic pain syndrome 3. Hypothyroidism. 4. Osteoarthritis bilateral knees 5. Depressive disorder 6. Generalized anxiety disorder 7. Gastroesophageal reflux disease PAST SURGICAL HISTORY: 1. Appendectomy. 2. Dalia-en-Y gastric bypass. 3. . 4. Cholecystectomy. 5. Reconstruction of the right ankle. 6. Tonsillectomy. 7. Panniculectomy of the abdomen. 8. Colonoscopy. 9. Removal of cervical vertebra. 10. Revision of jejunojejunostomy 11. Sigmoid colectomy for sigmoid volvulus MEDICATIONS: Home Medications Medication Instructions Recorded Confirmed HYDROcodone/APAP 7.5-325MG [[place] 1 tab PO QID PRN 11/22/22 02/16/24 7.5-325] Levothyroxine Sodium 150 mcg PO QAM 02/03/23 02/16/24 Ondansetron [Zofran] 4 mg PO Q12HR PRN 03/22/23 02/16/24 ALPRAZolam [Xanax] 0.5 mg PO BID PRN 01/25/24 02/16/24 Omeprazole 40 mg PO HS 02/06/24 02/16/24 Sucralfate [Carafate] 1 gm PO BID 02/06/24 02/16/24 Scopolamine 1 mg/72 Hr Patch 1 patch TRANSDERM Q72H 02/13/24 02/16/24 [TransDerm Scop] diazePAM [Valium] 2 mg PO HS 02/13/24 02/16/24 Previous Rx's Medication Instructions Recorded Dicyclomine [Bentyl] 20 mg PO QID #120 tablet 01/25/24 Lactulose [Cephulac] 30 ml PO DAILY #1000 ml 01/25/24 ALLERGIES: Allergies Allergy/AdvReac Type Severity Reaction Status Date / Time latex Allergy Severe Anaphylaxis Verified 02/16/24 09:44 Penicillins Allergy Severe Anaphylaxis Verified 02/16/24 09:44 /Hives morphine Allergy Hives, Verified 02/16/24 09:44 ITCHING, Swelling NSAIDS (Non-Steroidal Allergy Hives/Gi Verified 02/16/24 09:44 Anti-Inflamma Issues SOCIAL HISTORY: Lifelong nontobacco user. FAMILY HISTORY: Pertinent for morbid obesity including diabetes and dyslipidemia, also hypertension within her family. REVIEW OF SYSTEMS: CONSTITUTIONAL: Her highest weight was 439 pounds for her 5 feet 6 inch frame. Her body mass index was 71.0. Her lowest weight was 223 pounds. GASTROINTESTINAL: No reports of dumping syndrome. Esophageal reflux disease ENDOCRINE: Hypothyroidism. No reports of diabetes. MUSCULOSKELETAL: Osteoarthritis of right ankle, resolved. GENITOURINARY: History of pelvic pain, resolved. No kidney stones. HEENT: Denies any troubles with vision or hearing. CARDIOVASCULAR: No report of chest pain or heart attack. Prior history of DVT from the orthopedic procedures. RESPIRATORY: Prior history of dyspnea on exertion, resolved. No reports of sleep apnea. NEURO: No reports of stroke or seizure disorders. PSYCH: History of depression. No reports of anxiety or suicidal ideation. PHYSICAL EXAM: PHYSICAL EXAM: VITAL SIGNS: 5 feet 6 inches, 246 pounds. Body mass index 39.7 Vital Signs Temp 98.2 F 01/03/24 16:41 Pulse 88 01/03/24 16:41 Resp 16 01/03/24 16:41 BP 139/81 01/03/24 16:41 Pulse Ox FiO2 GENERAL: Well-developed female in no acute distress. ABDOMEN: Actually soft, nontender, nondistended. HEENT: No scleral icterus. Extraocular movements grossly intact. No troubles with hearing. NECK: Supple with no lymphadenopathy. CHEST: Nonlabored respirations with equal bilateral excursion. MUSCULOSKELETAL: No clubbing, cyanosis or edema. NEURO: No focal or lateralizing signs. Cranial nerves 2 through 12 grossly within normal limits. PSYCH: Appropriate Affect. Alert and oriented to person, place and time. SKIN: Well perfused. Good skin turgor. LABS: Reviewed. Liver enzymes elevated. ASSESSMENT: 1. Morbid obesity due to excess caloric intake. 2. Body mass index reduced from 71.0 down to 39.7 3. Status post Dalia-en-Y gastric bypass. 4. Hypothyroidism 5. Epigastric abdominal pain 6. Nausea vomiting 7. Dehydration 8. Elevated liver enzymes PLAN: 1. She has low oral intake with low urine output and features consistent with dehydration. Recommend 2 L normal saline IV bolus 2. Recommend upper endoscopy for risk of gastrojejunal ulcer and epigastric abdominal pain 3. Scopolamine patch ordered. Assessment/Plan Plan: Date: Initial Weight: 187.787 kg Initial BMI: Current Weight: Current BMI: Type of Surgery: Total Volume in Band: Previous Volume: Volume Removed: Volume Added: Band Size:
[2024-01-03 16:54] VITALS: BP 139/81; PULSE 88; RESP 16; TEMP 98.2; BMI 39.6
== END ==
LOC: BARWHC3 16:02
PROVIDERS: ATTEND Surgery Plastic and Reconstructive Surgery
DX: E66.01 Morbid (severe) obesity due to excess calories (principal); R74.8 Abnormal levels of other serum enzymes; E86.0 Dehydration; R11.2 Nausea with vomiting, unspecified; R10.13 Epigastric pain; E03.9 Hypothyroidism, unspecified; Z68.39 Body mass index [BMI] 39.0-39.9, adult; Z98.84 Bariatric surgery status; Z90.3 Acquired absence of stomach [part of]; Z91.040 Latex allergy status; Z88.0 Allergy status to penicillin; Z88.5 Allergy status to narcotic agent; Z88.8 Allergy status to other drugs, medicaments and biological substances; Z79.890 Hormone replacement therapy
CPT/HCPCS: 99211

== ENCOUNTER → 2024-01-05 | Outpatient (CLI) | payer OTHER ==
[~2024-01-05] MED LIST changes: -Pre Op ABX Message 1 EACH MISC MISCELLANE ONE; -SCOPOLAMINE 1 MG/72 HR PATCH TRANSDERM STA; +SODIUM CHLORIDE 0.9% 500 ML 500 ML in EMPTY BAG 1 BAG IV PRN
[2024-01-05] MEDS: SODIUM CHLORIDE 0.9% 2,000 ML IV NR (07:37)
[2024-01-05 08:11] VITALS: BP 125/78; PULSE 78; RESP 14; TEMP 97.9
== END ==
LOC: PROCWHC3 07:02
PROVIDERS: ATTEND Surgery Plastic and Reconstructive Surgery
DX: E86.0 Dehydration (principal)
CPT/HCPCS: 96360; 96361

== ENCOUNTER 2024-01-08 06:41 | Day surgery (SDC) | payer OTHER ==
[2024-01-05 08:57] VITALS: BMI 40.7
--- NOTE | 2024-01-08 06:18 | P.GSHP ---
History of Present Illness H&P Date: 01/08/24 CHIEF COMPLAINT: GERD HISTORY OF PRESENT ILLNESS: The patient is a 43-year-old female who should pain, dysphagia, history of gastric bypass for over 6 months and presents reports gastroesophageal reflux disease. Upper endoscopy was offered for further evaluation and management. PAST MEDICAL HISTORY: Please see list. PAST SURGICAL HISTORY: Please see list. MEDICATIONS: Please see list. ALLERGIES: Please see list. SOCIAL HISTORY: No illicit drug use FAMILY HISTORY: No reports of Crohn disease or ulcerative colitis. REVIEW OF ORGAN SYSTEMS: CONSTITUTIONAL: No reports of fevers or chills. GI: Denies any blood in stools or constipation. PHYSICAL EXAM: VITAL SIGNS: Stable GENERAL: Well-developed and pleasant in no acute distress. HEENT: No scleral icterus. Extraocular movements grossly intact. Moist buccal mucosa. NECK: Supple without lymphadenopathy. CHEST: Unlabored respirations. Equal bilateral excursions. CARDIOVASCULAR: Regular rate and rhythm. Distal 2+ pulses. ABDOMEN: Soft, nondistended. MUSCULOSKELETAL: No clubbing, cyanosis, or edema. ASSESSMENT: 1. Gastroesophageal reflux disease PLAN: 1. Recommend proceeding with an upper endoscopy Past Medical History Past Medical History: CVA/TIA, Deep Vein Thrombosis (DVT), GERD/Reflux, Neurologic Disorder, Osteoarthritis (OA), Seizure Disorder, Thyroid Disorder, Vascular Disorder Additional Past Medical History / Comment(s): HERNIATED CERVICAL DISCS C4-C5 WITH NECK PAIN. Right leg numbness and tingling with right foot drop from CVA 2016. HX SEIZURES- NONE SINCE 2005. ABD PAIN LEFT SIDE chronic. Migraines. Hx DVT in right leg 2007, bruises easy. Hx Intussusception. Hx fractured vertebrae. Varicose veins. Hx Panniculitis with surgery. Hypothyroid. Recurrent UTI's. Esophageal anastomatic stricture, hx dysphagia. Hiatal hernia. PUD. Hypoglycemia. Hx Intussusception of bowel. History of Any Multi-Drug Resistant Organisms: MRSA Date of last positivie culture/infection: 01/2008 MDRO Source:: right arm Past Surgical History: Adenoidectomy, Appendectomy, Back Surgery, Bariatric Surgery, Bowel Resection, Section, Cholecystectomy, Hernia Repair, Orthopedic Surgery, Tonsillectomy, Tubal Ligation Additional Past Surgical History / Comment(s): RECONSTRUCTION RIGHT KNEE, C- SECTION X3, RISA-EN-Y(AUG 2012), panniculectomy, diagnostic laproscopy with lysis of adhesions X5, EGD with dilation, colonoscopies, hiatal hernia repair, C-5 removed May 17, 2017, NAVA, PFO closure with disc in heart 07/11/17, RECONSTRUCTION OF RISA-EN-Y 2016, bowel blockage repaired 03/04/22, colonectomy, bowel resection X2, EGD. Past Anesthesia/Blood Transfusion Reactions: No Reported Reaction Additional Past Anesthesia/Blood Transfusion Reaction / Comment(s): No blood transfusion. Smoking Status: Never smoker - Past Family History Mother Family Medical History: Cancer Additional Family Medical History / Comment(s): Mom has MS. breast and esphageal Medications and Allergies Home Medications Medication Instructions Recorded Confirmed Type HYDROcodone/APAP 7.5-325MG [[place] 1 tab PO TID PRN 11/22/22 01/05/24 History 7.5-325] Levothyroxine Sodium 150 mcg PO QAM 02/03/23 01/05/24 History Ondansetron [Zofran] 8 mg PO Q12HR PRN 03/22/23 01/05/24 History ALPRAZolam [Xanax] 0.5 mg PO DAILY PRN 11/21/23 01/05/24 History Scopolamine 1 mg/72 Hr Patch 1 patch TRANSDERM Q72H #4 patch 01/03/24 01/05/24 Rx [TransDerm Scop] Cyclobenzaprine [Flexeril] 10 mg PO HS 01/05/24 01/05/24 History Promethazine [Phenergan] 25 mg PO Q6HR PRN 01/05/24 01/05/24 History Allergies Allergy/AdvReac Type Severity Reaction Status Date / Time latex Allergy Severe Anaphylaxis Verified 01/05/24 08:31 Penicillins Allergy Severe Anaphylaxis Verified 01/05/24 08:31 /Hives morphine Allergy Hives, Verified 01/05/24 08:31 ITCHING NSAIDS (Non-Steroidal Allergy Hives/Gi Verified 01/05/24 08:31 Anti-Inflamma Issues
[2024-01-08] MEDS: LACTATED RINGERS 1,000 ML IV SCH (07:47)
[2024-01-08] MEDS ORDERED: PROPOFOL 10 MG/ML 20 ML VIAL IV ONE (08:09)
[2024-01-08] MEDS ORDERED: LIDOCAINE 2% (PF) 20 MG/ML 5 ML VIAL ONE (08:09)
[2024-01-08 08:16] VITALS: RESP 16; TEMP 98
--- NOTE | 2024-01-08 09:03 | P.PCN ---
Date of Procedure: 01/08/24 Description of Procedure: PREOPERATIVE DIAGNOSIS: Dysphagia. POSTOPERATIVE DIAGNOSIS: Dysphagia. Morbid obesity. Gastrojejunal stricture without chronic ulcer without perforation OPERATION: Esophagogastrojejunoscopy with balloon dilatation from 15 to 20 mm. SURGEON: Nallely Bautista MD ANESTHESIA: MAC. INDICATIONS: The patient is a 43-year-old female who presents with a history of dysphagia. Benefits and risks of the procedure were described. Informed consent was obtained. DESCRIPTION: The patient was brought into the endoscopy suite and laid in the left lateral decubitus position. After a timeout was confirmed, the procedure was initiated. An Olympus gastroscope was passed along the posterior oropharynx down to the distal esophagus where the squamocolumnar junction was unremarkable. The gastric pouch was entered. A gastrojejunal stricture of 15 mm was found as the adult gastroscope was 9.5 mm in size. A [place] balloon dilator was placed through the scope. Final insufflation up to 20 mm was performed with a total of 2 minutes. The scope was advanced up to 60 cm from the incisors into the [place] limb. The mucosa of the gastrojejunal anastomosis was intact. No chronic gastrojejunal marginal ulcer was encountered. No full-thickness injury was encountered. The GI tract was desufflated. The patient tolerated the procedure well. FINDINGS: Squamocolumnar junction unremarkable at 40 cm. Stricture of approximately 15 mm encountered. No chronic gastrojejunal ulceration encountered at anastomosis, 43 cm Successful balloon dilatation to 20 mm. Gastric pouch 3 cm RECOMMENDATIONS: Liquid diet. Upper endoscopy as needed. Plan - Discharge Summary Discharge Rx Participant: No New Discharge Prescriptions: Continue Levothyroxine Sodium 150 mcg PO QAM ALPRAZolam [Xanax] 0.5 mg PO DAILY PRN PRN Reason: Anxiety Scopolamine 1 mg/72 Hr Patch [TransDerm Scop] 1 patch TRANSDERM Q72H #4 patch Cyclobenzaprine [Flexeril] 10 mg PO HS HYDROcodone/APAP 7.5-325MG [[place] 7.5-325] 1 tab PO TID PRN PRN Reason: Pain Ondansetron [Zofran] 8 mg PO Q12HR PRN PRN Reason: Nausea Promethazine [Phenergan] 25 mg PO Q6HR PRN PRN Reason: Nausea Discharge Medication List HYDROcodone/APAP 7.5-325MG [[place] 7.5-325] 1 tab PO TID PRN 11/22/22 [History] Levothyroxine Sodium 150 mcg PO QAM 02/03/23 [History] Ondansetron [Zofran] 8 mg PO Q12HR PRN 03/22/23 [History] ALPRAZolam [Xanax] 0.5 mg PO DAILY PRN 11/21/23 [History] Scopolamine 1 mg/72 Hr Patch [TransDerm Scop] 1 patch TRANSDERM Q72H #4 patch 01/03/24 [Rx] Cyclobenzaprine [Flexeril] 10 mg PO HS 01/05/24 [History] Promethazine [Phenergan] 25 mg PO Q6HR PRN 01/05/24 [History] [facility] [place] [facility] Patient Instructions/Handouts: Esophageal Dilation (DC) Activity/Diet/Wound Care/Special Instructions: Diet as tolerated Discharge Disposition: HOME SELF-CARE
[2024-01-08 09:47] VITALS: BP 129/80; PULSE 58
== END 2024-01-08 09:21 | disposition home or self-care (01) ==
LOC: ORWHC2ENDO 06:41
PROVIDERS: ATTEND Surgery Plastic and Reconstructive Surgery
DX: K56.699 Other intestinal obstruction unspecified as to partial versus complete obstruction (principal); R13.10 Dysphagia, unspecified; K31.89 Other diseases of stomach and duodenum; Z98.84 Bariatric surgery status; K21.9 Gastro-esophageal reflux disease without esophagitis; E66.01 Morbid (severe) obesity due to excess calories; Z68.41 Body mass index [BMI] 40.0-44.9, adult; G40.909 Epilepsy, unspecified, not intractable, without status epilepticus; E07.9 Disorder of thyroid, unspecified; G43.909 Migraine, unspecified, not intractable, without status migrainosus; Z79.890 Hormone replacement therapy; Z79.899 Other long term (current) drug therapy; Z86.718 Personal history of other venous thrombosis and embolism; F41.8 Other specified anxiety disorders; Z88.0 Allergy status to penicillin; Z88.5 Allergy status to narcotic agent; Z88.6 Allergy status to analgesic agent; Z91.040 Latex allergy status; Z90.49 Acquired absence of other specified parts of digestive tract
CPT/HCPCS: 81025; 43245; J2704; J2001; C1726; 43249

== ENCOUNTER 2024-01-25 09:18 | Emergency (ER) | payer OTHER ==
--- NOTE | 2024-01-25 09:42 | ED ---
Abdominal Pain HPI - General Chief Complaint: Abdominal Pain Stated Complaint: Abd Pain Time Seen by Provider: 01/25/24 09:40 Source: patient, RN notes reviewed, old records reviewed Mode of arrival: ambulatory Limitations: no limitations - History of Present Illness Initial Comments: 43-year-old female presented to the ER with a chief complaint of left lower quadrant abdominal pain. Patient has a past medical history significant of bowel resection by Dr. Bautista. Patient states last surgery was approximately 1 month ago. Left lower quadrant abdominal pain that began last night and has been persistent. Patient describes it as a sharp pain. She has had a small bowel movement since pain has started. Denies flatulence. She does report she has multiple known adhesions and will need another bowel resection soon. She also describes persistent nausea for the past 2 months. She has been using a scopolamine patch with mild relief. She denies any fevers, chills, chest pain, shortness of breath, urinary complaints or peripheral edema. - Related Data Home Medications Medication Instructions Recorded Confirmed HYDROcodone/APAP 7.5-325MG [[place] 1 tab PO QID PRN 11/22/22 01/25/24 7.5-325] Levothyroxine Sodium 150 mcg PO DAILY 02/03/23 01/25/24 Ondansetron [Zofran] 4 mg PO Q12HR PRN 03/22/23 01/25/24 ALPRAZolam [Xanax] 0.5 mg PO BID PRN 01/25/24 01/25/24 Previous Rx's Medication Instructions Recorded Scopolamine 1 mg/72 Hr Patch 1 patch TRANSDERM Q72H #4 patch 01/03/24 [TransDerm Scop] Dicyclomine [Bentyl] 20 mg PO QID #120 tablet 01/25/24 Lactulose [Cephulac] 30 ml PO DAILY #1000 ml 01/25/24 Allergies Allergy/AdvReac Type Severity Reaction Status Date / Time latex Allergy Severe Anaphylaxis Verified 01/25/24 11:03 Penicillins Allergy Severe Anaphylaxis Verified 01/25/24 11:03 /Hives morphine Allergy Hives, Verified 01/25/24 11:03 ITCHING, Swelling NSAIDS (Non-Steroidal Allergy Hives/Gi Verified 01/25/24 11:03 Anti-Inflamma Issues Review of Systems ROS Statement: Those systems with pertinent positive or pertinent negative responses have been documented in the HPI. ROS Other: All systems not noted in ROS Statement are negative. Past Medical History Past Medical History: CVA/TIA, Deep Vein Thrombosis (DVT), GERD/Reflux, Neurologic Disorder, Osteoarthritis (OA), Seizure Disorder, Thyroid Disorder, Vascular Disorder Additional Past Medical History / Comment(s): HERNIATED CERVICAL DISCS C4-C5 WITH NECK PAIN. Right leg numbness and tingling with right foot drop from CVA 2017. HX SEIZURES- NONE SINCE 2005. ABD PAIN LEFT SIDE chronic. Migraines. Hx DVT in right leg 2007, bruises easy. Hx Intussusception. Hx fractured vertebrae. Varicose veins. Hx Panniculitis with surgery. Hypothyroid. Recurrent UTI's. Esophageal anastomatic stricture, hx dysphagia. Hiatal hernia. PUD. Hypoglycemia. Hx Intussusception of bowel. History of Any Multi-Drug Resistant Organisms: None Reported, MRSA Date of last positivie culture/infection: 01/2008 MDRO Source:: right arm Past Surgical History: Adenoidectomy, Appendectomy, Back Surgery, Bariatric Surgery, Bowel Resection, Section, Cholecystectomy, Hernia Repair, Orthopedic Surgery, Tonsillectomy, Tubal Ligation Additional Past Surgical History / Comment(s): RECONSTRUCTION RIGHT KNEE, C- SECTION X3, RISA-EN-Y(AUG 2012), panniculectomy, diagnostic laproscopy with lysis of adhesions X5, EGD with dilation, colonoscopies, hiatal hernia repair, C-5 removed May 17, 2017, NAVA, PFO closure with disc in heart 07/11/17, RECONSTRUCTION OF RISA-EN-Y 2017, bowel blockage repaired 03/04/22, colonectomy, bowel resection X2, EGD. Past Anesthesia/Blood Transfusion Reactions: No Reported Reaction Additional Past Anesthesia/Blood Transfusion Reaction / Comment(s): No blood transfusion. Past Psychological History: Anxiety, Depression Smoking Status: Never smoker - Past Family History Mother Family Medical History: Cancer Additional Family Medical History / Comment(s): Mom has MS. breast and esphageal General Exam Limitations: no limitations General appearance: alert, other (in pain) Respiratory exam: Present: normal lung sounds bilaterally. Absent: respiratory distress, wheezes, rales, rhonchi, stridor Cardiovascular Exam: Present: regular rate, normal rhythm, normal heart sounds. Absent: systolic murmur, diastolic murmur, rubs, gallop, clicks GI/Abdominal exam: Present: soft, tenderness (left sided especially left lower quadrant), normal bowel sounds, other (Multiple healed laparoscopic surgical incisions on abdomen.) Neurological exam: Present: alert, oriented X3, CN II-XII intact Skin exam: Present: warm, dry, intact, normal color. Absent: rash Course Vital Signs 01/25/24 01/25/24 01/25/24 09:21 09:35 10:20 Temperature 98.0 F Pulse Rate 78 77 64 Respiratory 16 14 20 Rate Blood Pressure 141/97 119/77 130/72 O2 Sat by Pulse 97 96 99 Oximetry 01/25/24 01/25/24 01/25/24 11:00 12:50 14:10 Temperature 98.4 F 97.6 F Pulse Rate 70 63 52 L Respiratory 14 20 20 Rate Blood Pressure 128/80 126/72 115/62 O2 Sat by Pulse 100 97 100 Oximetry - Reevaluation(s) Reevaluation #1: 01/25/24 12:[address] Bautista who advises on prescription of Bentyl and lactulose. Patient evaluated by Dr. Bautista in the ER. She states she will schedule an outpatient surgery and patient can be discharged after fleet enema and fluids. Medical Decision Making - Medical Decision Making Was pt. sent in by a medical professional or institution (, PA, RETAIL POS SPECIALIST, urgent care, hospital, or halfway...) When possible be specific @ -No Did you speak to anyone other than the patient for history (EMS, parent, family, police, friend...)? What history was obtained from this source @ -No Did you review nursing and triage notes (agree or disagree)? Why? @ -I reviewed and agree with nursing and triage notes Were old charts reviewed (outside hosp., previous admission, EMS record, old EKG, old radiological studies, urgent care reports/EKG's, halfway records)? Report findings @ -No old charts were reviewed Differential Diagnosis (chest pain, altered mental status, abdominal pain women, abdominal pain men, vaginal bleeding, weakness, fever, dyspnea, syncope, headache, dizziness, GI bleed, back pain, seizure, CVA, palpatations, mental health, musculoskeletal)? @ -Differential Abdominal Pain Women:Appendicitis, Cholecystitis, diverticulosis, ischemic bowel, pancreatitis, hepatitis, UTI, gastroenteritis, AAA, incarcerated hernia, bowel obstruction, constipation, inflammatory bowel, hepatitis, peptic ulcer disease, splenic infarction, perforated viscus, vulvitis, ovarian torsion, PID, kidney stone, placenta abruption, this is not meant to be an all-inclusive list EKG interpreted by me (3pts min.). @ -None X-rays interpreted by me (1pt min.). @ -None done CT interpreted by me (1pt min.). @ -CT abdomen pelvis significant for anal rectal junction suspected stricture at the anastomotic site with upstream dilation of stool. Mild colitis of descending colon. U/S interpreted by me (1pt. min.). @ -None done What testing was considered but not performed or refused? (CT, X-rays, U/S, labs)? Why? @ -None What meds were considered but not given or refused? Why? @ -None Did you discuss the management of the patient with other professionals (professionals i.e. , PA, RETAIL POS SPECIALIST, lab, RT, psych nurse, psychiatric social worker supervisor, apprentice painter brush, teacher, artillery officer, shoe caser)? Give summary @ -No Was smoking cessation discussed for >3mins.? @ -No Was critical care preformed (if so, how long)? @ -No Were there social determinants of health that impacted care today? How? (Home lessness, low income, unemployed, alcoholism, drug addiction, transportation, low edu. Level, literacy, decrease access to med. care, long-term, rehab)? @ -No Was there de-escalation of care discussed even if they declined (Discuss DNR or withdrawal of care, Hospice)? DNR status @ -No What co-morbidities impacted this encounter? (DM, HTN, Smoking, COPD, CAD, Cancer, CVA, ARF, Chemo, Hep., AIDS, mental health diagnosis, sleep apnea, morbid obesity)? @ -None Was patient admitted / discharged? Hospital course, mention meds given and route, prescriptions, significant lab abnormalities, going to OR and other pertinent info. @ -Discharge. 43-year-old female presented to the ER with chief complaint of left-sided abdominal pain. Patient has an extensive history of bowel resections and follows up with Dr. Bautista. History and physical exam completed. Vitals stable. Patient nontoxic-appearing and in no signs of acute distress. Left-sided abdominal pain to palpation with normal bowel sounds. Patient laying in position due to pain. Laboratory studies obtained unimpressive. Urine showing trace ketones concerning of mild dehydration. CT abdomen pelvis performed due to patient's extensive surgical history. CT abdomen pelvis significant for anorectal junction suspecting stricture of anastomotic site. Mild colitis of descending colon. Patient received IV fluids, Dilaudid and Zofran for symptom control. Case discussed with Dr. Bautista who evaluated patient in the ER. She recommended outpatient follow-up and a fleet enema prior to discharge. Patient started on bentyl and lactulose per Dr. Bautista. Return parameters discussed. Patient discharged in stable condition. Patient verbally expressed understanding and agreement with care plan. Case discussed with ED attending, Dr. Chery. Undiagnosed new problem with uncertain prognosis? @ -No Drug Therapy requiring intensive monitoring for toxicity (Heparin, Nitro, Insulin, Cardizem)? @ -No Were any procedures done? @ -No Diagnosis/symptom? @ -Anorectal stricture/colitis Acute, or Chronic, or Acute on Chronic? @ -Acute Uncomplicated (without systemic symptoms) or Complicated (systemic symptoms)? @ -Complicated Side effects of treatment? @ -No Exacerbation, Progression, or Severe Exacerbation? @ -No Poses a threat to life or bodily function? How? (Chest pain, [place], [place], pneumonia, PE, COPD, DKA, ARF, appy, cholecystitis, CVA, Diverticulitis, Homicidal, Suicidal, threat to staff... and all critical care pts) @ -No - Lab Data Result diagrams: 01/25/24 09:43 01/25/24 09:43 Lab Results 01/25/24 01/25/24 01/25/24 Range/Units 09:43 09:43 09:43 WBC 6.6 (3.8-10.6) k/uL RBC 4.28 (3.80-5.40) m/uL Hgb 12.1 (11.4-16.0) gm/dL Hct 37.8 (34.0-46.0) % MCV 88.5 (80.0-100.0) fL MCH 28.4 (25.0-35.0) pg MCHC 32.0 (31.0-37.0) g/dL RDW 13.9 (11.5-15.5) % Plt Count 245 (150-450) k/uL MPV 7.9 Neutrophils % 71 % Lymphocytes % 20 % Monocytes % 5 % Eosinophils % 1 % Basophils % 1 % Neutrophils # 4.7 (1.3-7.7) k/uL Lymphocytes # 1.3 (1.0-4.8) k/uL Monocytes # 0.4 (0-1.0) k/uL Eosinophils # 0.1 (0-0.7) k/uL Basophils # 0.0 (0-0.2) k/uL Sodium 139 (137-145) mmol/L Potassium 4.3 (3.5-5.1) mmol/L Chloride 109 H (98-107) mmol/L Carbon Dioxide 26 (22-30) mmol/L Anion Gap 4 mmol/L BUN 11 (7-17) mg/dL Creatinine 0.39 L (0.52-1.04) mg/dL Est GFR (CKD-EPI)AfAm >90 (>60 ml/min/1.73 sqM) Est GFR (CKD-EPI)NonAf >90 (>60 ml/min/1.73 sqM) Glucose 97 (74-99) mg/dL Plasma Lactic Acid Quintin 0.8 (0.7-2.0) mmol/L Calcium 9.0 (8.4-10.2) mg/dL Total Bilirubin 0.7 (0.2-1.3) mg/dL AST 32 (14-36) U/L ALT 20 (4-34) U/L Alkaline Phosphatase 71 (38-126) U/L Total Protein 6.4 (6.3-8.2) g/dL Albumin 3.6 (3.5-5.0) g/dL Amylase 43 (30-110) U/L Lipase 126 (23-300) U/L Urine Color Urine Appearance (Clear) Urine pH (5.0-8.0) Ur Specific [place] (1.001-1.035) Urine Protein (Negative) Urine Glucose (UA) (Negative) Urine Ketones (Negative) Urine Blood (Negative) Urine Nitrite (Negative) Urine Bilirubin (Negative) Urine Urobilinogen (<2.0) mg/dL Ur Leukocyte Esterase (Negative) Urine RBC (0-5) /hpf Urine WBC (0-5) /hpf Ur Squamous Epith Cells (0-4) /hpf Urine Mucus (None) /hpf Urine HCG, Qual (Not Detectd) 01/25/24 01/25/24 Range/Units 10:02 10:02 WBC (3.8-10.6) k/uL RBC (3.80-5.40) m/uL Hgb (11.4-16.0) gm/dL Hct (34.0-46.0) % MCV (80.0-100.0) fL MCH (25.0-35.0) pg MCHC (31.0-37.0) g/dL RDW (11.5-15.5) % Plt Count (150-450) k/uL MPV Neutrophils % % Lymphocytes % % Monocytes % % Eosinophils % % Basophils % % Neutrophils # (1.3-7.7) k/uL Lymphocytes # (1.0-4.8) k/uL Monocytes # (0-1.0) k/uL Eosinophils # (0-0.7) k/uL Basophils # (0-0.2) k/uL Sodium (137-145) mmol/L Potassium (3.5-5.1) mmol/L Chloride (98-107) mmol/L Carbon Dioxide (22-30) mmol/L Anion Gap mmol/L BUN (7-17) mg/dL Creatinine (0.52-1.04) mg/dL Est GFR (CKD-EPI)AfAm (>60 ml/min/1.73 sqM) Est GFR (CKD-EPI)NonAf (>60 ml/min/1.73 sqM) Glucose (74-99) mg/dL Plasma Lactic Acid [place] (0.7-2.0) mmol/L Calcium (8.4-10.2) mg/dL Total Bilirubin (0.2-1.3) mg/dL AST (14-36) U/L ALT (4-34) U/L Alkaline Phosphatase (38-126) U/L Total Protein (6.3-8.2) g/dL Albumin (3.5-5.0) g/dL Amylase (30-110) U/L Lipase (23-300) U/L Urine Color Yellow Urine Appearance Cloudy H (Clear) Urine pH 6.5 (5.0-8.0) Ur Specific [place] 1.015 (1.001-1.035) Urine Protein Negative (Negative) Urine Glucose (UA) Negative (Negative) Urine Ketones Trace H (Negative) Urine Blood Small H (Negative) Urine Nitrite Negative (Negative) Urine Bilirubin Negative (Negative) Urine Urobilinogen 2.0 (<2.0) mg/dL Ur Leukocyte Esterase Negative (Negative) Urine RBC <1 (0-5) /hpf Urine WBC 1 (0-5) /hpf Ur Squamous Epith Cells 11 H (0-4) /hpf Urine Mucus Rare H (None) /hpf Urine HCG, Qual Not Detected (Not Detectd) - Radiology Data Radiology results: report reviewed, image reviewed Disposition Clinical Impression: Anorectal stricture, Colitis Disposition: HOME SELF-CARE Condition: Stable Instructions (If sedation given, give patient instructions): Colitis (ED) Additional Instructions: Please follow-up with Dr. Bautista. Take Bentyl and lactulose as prescribed. Return to the ER for any new or worsening concerns. Prescriptions: Dicyclomine [Bentyl] 20 mg PO QID #120 tablet Lactulose [Cephulac] 30 ml PO DAILY #1000 ml Is patient prescribed a controlled substance at d/c from ED?: No Referrals: Girish Dinh MD [Primary Care Provider] - 1-2 days Nallely Bautista MD [STAFF PHYSICIAN] - 1-2 days Time of Disposition: 07:26
[2024-01-25 09:49] LABS: Basophils % (A) 1 %; Eosinophils # (A) 0.1 k/uL (0-0.7); Eosinophils % (A) 1 %; HCT 37.8 % (34.0-46.0); HGB 12.1 gm/dL (11.4-16.0); Lymphocytes # (A) 1.3 k/uL (1.0-4.8); Lymphocytes % (A) 20 %; MCH 28.4 pg (25.0-35.0); MCV 88.5 fL (80.0-100.0); Mean Platelet Volume 7.9; Monocytes # (A) 0.4 k/uL (0-1.0); Monocytes % (A) 5 %; Neutrophils # (A) 4.7 k/uL (1.3-7.7); Neutrophils % (A) 71 %; Platelet Count 245 k/uL (150-450); RBC 4.28 m/uL (3.80-5.40); RDW 13.9 % (11.5-15.5); WBC 6.6 k/uL (3.8-10.6)
[2024-01-25 10:14] LABS: ALT 20 U/L (4-34); African American GFR (CKD) >90 (>60 ml/min/1.73 sqM); Albumin 3.6 g/dL (3.5-5.0); Amylase 43 U/L (30-110); Anion Gap 4 mmol/L; Blood Urea Nitrogen 11 mg/dL (7-17); Carbon Dioxide 26 mmol/L (22-30); Chloride 109 mmol/L (98-107); Glucose 97 mg/dL (74-99); Lipase 126 U/L (23-300); Non-African American GFR(CKD) >90 (>60 ml/min/1.73 sqM); Sodium 139 mmol/L (137-145); Total Bilirubin 0.7 mg/dL (0.2-1.3); Total Protein 6.4 g/dL (6.3-8.2)
[2024-01-25 10:14] LABS: Appearance,Urine Cloudy (Clear); Bilirubin,Urine Negative (Negative); Blood,Urine Small (Negative); Color,Urine Yellow; Glucose,Urine (UA) Negative (Negative); Ketones,Urine Trace (Negative); Leukocyte Esterase,Urine Negative (Negative); Mucus,Urine Rare /hpf; Nitrite,Urine Negative (Negative); PH, Urine 6.5 (5.0-8.0); Protein,Urine Negative (Negative); RBC,Urine <1 /hpf (0-5); Specific Gravity,Urine 1.015 (1.001-1.035); Squamous Epithelial Cell,Urine 11 /hpf (0-4); WBC,Urine 1 /hpf (0-5)
[2024-01-25 10:16] LABS: AST 32 U/L (14-36); Alkaline Phosphatase 71 U/L (38-126); Potassium 4.3 mmol/L (3.5-5.1)
[2024-01-25] MEDS: ONDANSETRON 4 MG/2 ML VIAL IVP STA (10:21)
[2024-01-25] MEDS: SODIUM CHLORIDE 0.9% 1,000 ML IV STA ×2 (10:21→12:43)
[2024-01-25] MEDS: HYDROmorphone 1 MG/ML 1 ML SYRINGE IVP STA ×4 (10:22→14:13)
--- NOTE | 2024-01-25 11:01 | CT ---
EXAMINATION TYPE: CT abdomen pelvis w con CT DLP: 1682.7 mGycm, Automated exposure control for dose reduction was used. DATE OF EXAM: 01/25/2024 10:54 AM COMPARISON: 11/22/2022 CLINICAL INDICATION:Female, 43 years old with history of LLQ abd pain hx resection; LLQ abdominal esther n, hx resection TECHNIQUE: Axial CT abdomen pelvis w con;Sagittal and coronal reformats were created on a separate w orkstation. Contrast used:100 ml mL of Isovue 300 with IV Contrast, (none if empty) Oral contrast used: without Oral Contrast (none if empty) FINDINGS: LOWER CHEST: Unremarkable ABDOMEN LIVER: Unremarkable GALLBLADDER AND BILE DUCTS: The gallbladder is surgically absent. PANCREAS: Unremarkable. SPLEEN: Unremarkable. ADRENAL GLANDS: Unremarkable. KIDNEYS AND URETERS: No evidence of hydronephrosis or renal calculus. The ureters are unremarkable. PELVIS BLADDER: Unremarkable REPRODUCTIVE: Unremarkable. ABDOMEN & PELVIS STOMACH AND BOWEL: Postsurgical changes to the upper abdomen bowel. Post surgical changes to the left abdomen bowel Large amount stool throughout the colon. There is focal narrowing compatible with stricture at the a nastomotic site near the anorectal junction series 203 image 78 with upstream accumulation of stool. There is mild inflammation changes along the colonic wall series 200 image 61. There is a fingerlike outpouching posterior to the sacrum suggested evaluation without rectal contrast is limited. PERITONEUM/RETROPERITONEUM: No evidence of pneumoperitoneum or free fluid. VASCULATURE: No evidence of aortic aneurysm. MUSCULOSKELETAL: No acute osseous abnormalities LYMPH NODES: No gross evidence for lymphadenopathy. SOFT TISSUE/ABDOMINAL WALL: Unremarkable IMPRESSION: Anorectal junction suspected stricture at the anastomotic site with upstream dilation of stool. Finge rlike outpouching noticed near the anastomotic site anterior sacrum. There may be mild colitis of the segment of bowel with large amount stool in the segment/descending colon.
[2024-01-25] MEDS: LACTULOSE 20 GM/30 ML CUP PO ONE (11:23)
[2024-01-25] MEDS: NA PHOS,M-B/NA PHOS,DI-BA 133 ML ENEMA RECTAL STA (13:04)
[2024-01-25 13:10] VITALS: RESP 20
[2024-01-25 14:10] VITALS: BP 115/62; PULSE 52; TEMP 97.6
--- NOTE | 2024-01-26 08:29 | P.GSCN ---
History of Present Illness Consult date: 01/25/24 History of present illness: CHIEF COMPLAINT: Left lower quadrant abdominal pain HISTORY OF PRESENT ILLNESS: Selin Hightower is a 43-year-old female who is status post gregg-en-Y gastric bypass performed in August of 2012. She is 12 years postop. She is status post colectomy 2 years ago. She has chronic pain syndrome including recurrent intermittent abdominal pain. Patient has pre- existing colorectal anastomotic stricture which has been previously dilated. Patient reports she has been doing well for the past 6 months however symptoms have progressed in the past 3 weeks. Patient was scheduled to have an appointment with me yesterday however declined her appointment as she reports she was doing well. This morning, patient reports increased nausea including acute severe left lower quadrant abdominal pain. She reports decreased bowel habits. She reports decreased flatus. She presents to the emergency room with 10 out of 10 left lower quadrant crampy abdominal pain with spasms. She denies upper abdominal pain or dysphagia related to her gastric bypass. Her highest weight was 439 pounds for her 5 feet 6 inch frame. [place] body weight of 154 pounds. Her body mass index was 71.0. Her lowest weight was 223 pounds. She comes in to 230 pounds from 258 pounds, 2 years ago. She has lost 19 pounds in 2 years. Lifetime weight loss of 199 pounds. Lifetime percent excess weight loss 70 %. She is 86 pounds overweight. PAST MEDICAL HISTORY: 1. Super super morbid obesity. 2. Prior body mass index 71.0, initial 3. Panniculitis, resolved. 4. Hypothyroidism. 5. Osteoarthritis. 6. Prior history of depression. 7. History of varicose veins. 8. History of methicillin-resistant Staphylococcus aureus infection. 9. History of stroke. 10. Chronic pain syndrome 11. Generalized anxiety disorder 12. History of deep venous thrombosis 13. Seizure disorder 14. Migraine 15. Patent foramen ovale PAST SURGICAL HISTORY: 1. Appendectomy. 2. Gregg-en-Y gastric bypass. 3. . 4. Cholecystectomy. 5. Reconstruction of the right ankle. 6. Tonsillectomy. 7. Panniculectomy of the abdomen. 8. Colonoscopy. 9. Removal of cervical vertebra. 10. Tubal ligation 11. Sigmoid colectomy 12. Lysis of adhesions 13. Patent foramen ovale closure 14. Jejunostomy revision MEDICATIONS: Home Medications Medication Instructions Recorded Confirmed HYDROcodone/APAP 7.5-325MG [[place] 1 tab PO QID PRN 11/22/22 01/25/24 7.5-325] Levothyroxine Sodium 150 mcg PO DAILY 02/03/23 01/25/24 Ondansetron [Zofran] 4 mg PO Q12HR PRN 03/22/23 01/25/24 ALPRAZolam [Xanax] 0.5 mg PO BID PRN 01/25/24 01/25/24 Previous Rx's Medication Instructions Recorded Scopolamine 1 mg/72 Hr Patch 1 patch TRANSDERM Q72H #4 patch 01/03/24 [TransDerm Scop] Dicyclomine [Bentyl] 20 mg PO QID #120 tablet 01/25/24 Lactulose [Cephulac] 30 ml PO DAILY #1000 ml 01/25/24 ALLERGIES: Allergies Allergy/AdvReac Type Severity Reaction Status Date / Time latex Allergy Severe Anaphylaxis Verified 01/25/24 11:03 Penicillins Allergy Severe Anaphylaxis Verified 01/25/24 11:03 /Hives morphine Allergy Hives, Verified 01/25/24 11:03 ITCHING, Swelling NSAIDS (Non-Steroidal Allergy Hives/Gi Verified 01/25/24 11:03 Anti-Inflamma Issues SOCIAL HISTORY: Lifelong nontobacco user. She is with her at bedside. FAMILY HISTORY: Pertinent for morbid obesity including diabetes and dyslipidemia, also hypertension within her family. REVIEW OF SYSTEMS: CONSTITUTIONAL: Her highest weight was 439 pounds for her 5 feet 6 inch frame. Her body mass index was 71.0. Her lowest weight was 223 pounds. GASTROINTESTINAL: No reports of dumping syndrome. Reports change in bowel habits with increased constipation. Reports nausea, chronic. ENDOCRINE: Hypothyroidism. No reports of diabetes. MUSCULOSKELETAL: Osteoarthritis of right ankle, resolved. GENITOURINARY: History of pelvic pain, resolved. No kidney stones. HEENT: Denies any troubles with vision or hearing. CARDIOVASCULAR: No report of chest pain or heart attack. Prior history of DVT from the orthopedic procedures. RESPIRATORY: Prior history of dyspnea on exertion, resolved. No reports of sleep apnea. NEURO: No reports of stroke or seizure disorders in over 5 years. PSYCH: History of depression. No reports of anxiety or suicidal ideation. SKIN: Recurrent panniculitis resolved. History of rash. No skin cancer. PHYSICAL EXAM: VITAL SIGNS: 5 feet 6 inches, 240 pounds. Body mass index 39.9 Vital Signs Temp 97.6 F 01/25/24 14:10 Pulse 52 L 01/25/24 14:10 Resp 20 01/25/24 14:10 BP 115/62 01/25/24 14:10 Pulse Ox 100 01/25/24 14:10 FiO2 Intake & Output 01/25/24 01/26/24 01/26/24 18:59 06:59 18:59 Weight 108.862 kg GENERAL: Well-developed female in no acute distress. ABDOMEN: Well-healed pelvic incision from panniculectomy. Tender left lower quadrant pain. No diffuse peritonitis. HEENT: No scleral icterus. Extraocular movements grossly intact. No troubles with hearing. NECK: Supple with no lymphadenopathy. CHEST: Nonlabored respirations with equal bilateral excursion. MUSCULOSKELETAL: No clubbing, cyanosis or edema. NEURO: No focal or lateralizing signs. Cranial nerves 2 through 12 grossly within normal limits. PSYCH: Appropriate Affect. Alert and oriented to person, place and time. SKIN: Well perfused. Good skin turgor. LABS: Reviewed. WBC normal. No shift or leukocytosis. STUDIES: CT of the abdomen pelvis independently reviewed demonstrates moderate stool along the transverse descending colon. Anastomotic stricture identified within the pelvis. No free air. No free fluid. This is my independent interpretation. ASSESSMENT: 1. Acute on chronic left lower quadrant abdominal pain 2. Colorectal anastomosis with stricture 3. Large bowel obstruction, partial 4. Colorectal spasm 5. Osteoarthritis. 6. Prior history of depression. 7. History of varicose veins. 8. History of methicillin-resistant Staphylococcus aureus infection. 9. History of stroke. 10. Chronic pain syndrome 11. Generalized anxiety disorder 12. History of deep venous thrombosis 13. Seizure disorder 14. Migraine 15. Patent foramen ovale 16. Prior body mass index 71.0 to 39.9 17. Hypothyroidism. 18. Abnormal CT scan for descending colitis PLAN: 1. Patient has acute on chronic abdominal pain however findings consistent with colonic spasms. Recommend Bentyl 20 mg 4 times daily 2. Recommend fleets enema to evacuate the rectum 3. Lactulose 20 g daily for constipation. Patient advised to have loose stools to prevent constipation or for firm stools that will worsen obstruction. 4. She reports nausea and recommended IV fluid bolus total of 2 L normal saline 5. Due to her pre-existing history of chronic pain syndrome, may benefit from additional Dilaudid. 6. Close follow-up as outpatient at the bariatric center also advised. 7. Patient given options of colostomy creation versus revision of her colorectal anastomosis versus endoscopy with serial dilations. Patient elected for colorectal anastomosis revision as outpatient. 8. Shared decision making performed with patient for which outpatient follow-up selected. 9. Stable for discharge after IV fluid bolus, enema, and lactulose. Past Medical History Past Medical History: CVA/TIA, Deep Vein Thrombosis (DVT), GERD/Reflux, Neurologic Disorder, Osteoarthritis (OA), Seizure Disorder, Thyroid Disorder, Vascular Disorder Additional Past Medical History / Comment(s): HERNIATED CERVICAL DISCS C4-C5 WITH NECK PAIN. Right leg numbness and tingling with right foot drop from CVA 2016. HX SEIZURES- NONE SINCE 2005. ABD PAIN LEFT SIDE chronic. Migraines. Hx DVT in right leg 2007, bruises easy. Hx Intussusception. Hx fractured vertebrae. Varicose veins. Hx Panniculitis with surgery. Hypothyroid. Recurrent UTI's. Esophageal anastomatic stricture, hx dysphagia. Hiatal hernia. PUD. Hypoglycemia. Hx Intussusception of bowel. History of Any Multi-Drug Resistant Organisms: None Reported, MRSA Year Discovered:: 01/2008 MDRO Source:: right arm Past Surgical History: Adenoidectomy, Appendectomy, Back Surgery, Bariatric Surgery, Bowel Resection, Section, Cholecystectomy, Hernia Repair, Orthopedic Surgery, Tonsillectomy, Tubal Ligation Additional Past Surgical History / Comment(s): RECONSTRUCTION RIGHT KNEE, C- SECTION X3, GREGG-EN-Y(AUG 2012), panniculectomy, diagnostic laproscopy with lysis of adhesions X5, EGD with dilation, colonoscopies, hiatal hernia repair, C-5 removed May 17, 2017, NAVA, PFO closure with disc in heart 07/11/17, RECONSTRUCTION OF GREGG-EN-Y 2017, bowel blockage repaired 03/04/22, colonectomy, bowel resection X2, EGD. Past Anesthesia/Blood Transfusion Reactions: No Reported Reaction Additional Past Anesthesia/Blood Transfusion Reaction / Comm: No blood transfusion. Past Psychological History: Anxiety, Depression Smoking Status: Never smoker - Past Family History Mother Family Medical History: Cancer Additional Family Medical History / Comment(s): Mom has MS. breast and esphageal Medications and Allergies Home Medications Medication Instructions Recorded Confirmed Type HYDROcodone/APAP 7.5-325MG [[place] 1 tab PO QID PRN 11/22/22 01/25/24 History 7.5-325] Levothyroxine Sodium 150 mcg PO DAILY 02/03/23 01/25/24 History Ondansetron [Zofran] 4 mg PO Q12HR PRN 03/22/23 01/25/24 History Scopolamine 1 mg/72 Hr Patch 1 patch TRANSDERM Q72H #4 patch 01/03/24 01/25/24 Rx [TransDerm Scop] ALPRAZolam [Xanax] 0.5 mg PO BID PRN 01/25/24 01/25/24 History Dicyclomine [Bentyl] 20 mg PO QID #120 tablet 01/25/24 Rx Lactulose [Cephulac] 30 ml PO DAILY #1000 ml 01/25/24 Rx Allergies Allergy/AdvReac Type Severity Reaction Status Date / Time latex Allergy Severe Anaphylaxis Verified 01/25/24 11:03 Penicillins Allergy Severe Anaphylaxis Verified 01/25/24 11:03 /Hives morphine Allergy Hives, Verified 01/25/24 11:03 ITCHING, Swelling NSAIDS (Non-Steroidal Allergy Hives/Gi Verified 01/25/24 11:03 Anti-Inflamma Issues Surgical - Exam Vital Signs Temp Pulse Resp BP Pulse Ox 98.0 F 78 16 141/97 97 01/25/24 09:21 01/25/24 09:21 01/25/24 09:21 01/25/24 09:21 01/25/24 09:21 Results - Labs 01/25/24 09:43 01/25/24 09:43 Abnormal Lab Results - Last 24 Hours (Table) 01/25/24 01/25/24 Range/Units 09:43 10:02 Chloride 109 H (98-107) mmol/L Creatinine 0.39 L (0.52-1.04) mg/dL Urine Appearance Cloudy H (Clear) Urine Ketones Trace H (Negative) Urine Blood Small H (Negative) Ur Squamous Epith Cells 11 H (0-4) /hpf Urine Mucus Rare H (None) /hpf Diabetes panel 01/25/24 Range/Units 09:43 Sodium 139 (137-145) mmol/L Potassium 4.3 (3.5-5.1) mmol/L Chloride 109 H (98-107) mmol/L Carbon Dioxide 26 (22-30) mmol/L BUN 11 (7-17) mg/dL Creatinine 0.39 L (0.52-1.04) mg/dL Glucose 97 (74-99) mg/dL Calcium 9.0 (8.4-10.2) mg/dL AST 32 (14-36) U/L ALT 20 (4-34) U/L Alkaline Phosphatase 71 (38-126) U/L Total Protein 6.4 (6.3-8.2) g/dL Albumin 3.6 (3.5-5.0) g/dL Calcium panel 01/25/24 Range/Units 09:43 Calcium 9.0 (8.4-10.2) mg/dL Albumin 3.6 (3.5-5.0) g/dL Pituitary panel 01/25/24 Range/Units 09:43 Sodium 139 (137-145) mmol/L Potassium 4.3 (3.5-5.1) mmol/L Chloride 109 H (98-107) mmol/L Carbon Dioxide 26 (22-30) mmol/L BUN 11 (7-17) mg/dL Creatinine 0.39 L (0.52-1.04) mg/dL Glucose 97 (74-99) mg/dL Calcium 9.0 (8.4-10.2) mg/dL Adrenal panel 01/25/24 Range/Units 09:43 Sodium 139 (137-145) mmol/L Potassium 4.3 (3.5-5.1) mmol/L Chloride 109 H (98-107) mmol/L Carbon Dioxide 26 (22-30) mmol/L BUN 11 (7-17) mg/dL Creatinine 0.39 L (0.52-1.04) mg/dL Glucose 97 (74-99) mg/dL Calcium 9.0 (8.4-10.2) mg/dL Total Bilirubin 0.7 (0.2-1.3) mg/dL AST 32 (14-36) U/L ALT 20 (4-34) U/L Alkaline Phosphatase 71 (38-126) U/L Total Protein 6.4 (6.3-8.2) g/dL Albumin 3.6 (3.5-5.0) g/dL
== END 2024-01-25 14:23 | disposition home or self-care (01) ==
LOC: EC 09:18
DX: K62.4 Stenosis of anus and rectum (principal); K52.9 Noninfective gastroenteritis and colitis, unspecified; Z88.0 Allergy status to penicillin; Z88.5 Allergy status to narcotic agent; Z88.6 Allergy status to analgesic agent; Z91.040 Latex allergy status
CPT/HCPCS: 36415; 80053; 82150; 83605; 83690; 85025; 81001; 81025; 74177; 99285; 96374; 96375; 96376 ×3; 96361 ×2; J2405; J1170; Q9967

== ENCOUNTER 2024-02-16 07:06 | Inpatient (IN) | payer OTHER ==
[2024-02-13 12:26] VITALS: BMI 38.7
--- NOTE | 2024-02-14 19:37 | P.PN ---
Progress Note - Text Progress Note Date: 02/14/24 Patient contacted regarding prep including anticipated procedure. Review of using Sutab prep described to take at 12 PM and 6 PM. Patient advised should she have any abdominal pain come to the emergency room for further assessment. [place] prep including neomycin and Flagyl being sent to local pharmacy. All questions addressed.
[~2024-02-16 07:06] MED LIST changes: +HYDROmorphone 0.5 MG/0.5 ML SYRINGE IVP PRN; +LIDOCAINE 1% (10MG/ML) FOR IV START INTRADERMA PRN; +MIDAZOLAM 2 MG/2 ML VIAL IV PRN; -SODIUM CHLORIDE 0.9% 500 ML 500 ML in EMPTY BAG 1 BAG IV PRN
[2024-02-16] MEDS: IV FLUID CONTINUATION 1,000 ML IV ONE (10:00)
[2024-02-16] MEDS: MIDAZOLAM 2 MG/2 ML VIAL IVP ONE ×2 (10:25→10:32)
[2024-02-16 10:36] LABS: Basophils % (A) 1 %; Eosinophils # (A) 0.3 k/uL (0-0.7); Eosinophils % (A) 7 %; Lymphocytes # (A) 1.8 k/uL (1.0-4.8); Lymphocytes % (A) 38 %; MCH 27.9 pg (25.0-35.0); MCHC 30.8 g/dL (31.0-37.0); MCV 90.6 fL (80.0-100.0); Mean Platelet Volume 7.6; Monocytes # (A) 0.5 k/uL (0-1.0); Monocytes % (A) 9 %; Neutrophils # (A) 2.1 k/uL (1.3-7.7); Neutrophils % (A) 43 %; Platelet Count 197 k/uL (150-450); RBC 4.31 m/uL (3.80-5.40); RDW 13.9 % (11.5-15.5); WBC 4.9 k/uL (3.8-10.6)
[2024-02-16] MEDS: fentaNYL (PF) 50 MCG/ML 2 ML AMP IVP ONE (10:37)
[2024-02-16 10:46] LABS: ALT 24 U/L (4-34); AST 37 U/L (14-36); African American GFR (CKD) >90 (>60 ml/min/1.73 sqM); Albumin 3.9 g/dL (3.5-5.0); Alkaline Phosphatase 90 U/L (38-126); Anion Gap 4 mmol/L; Blood Urea Nitrogen 6 mg/dL (7-17); Calcium 8.8 mg/dL (8.4-10.2); Carbon Dioxide 23 mmol/L (22-30); Chloride 110 mmol/L (98-107); Glucose 83 mg/dL (74-99); Non-African American GFR(CKD) >90 (>60 ml/min/1.73 sqM); Potassium 4.4 mmol/L (3.5-5.1); Sodium 137 mmol/L (137-145); Total Bilirubin 0.5 mg/dL (0.2-1.3); Total Protein 6.6 g/dL (6.3-8.2)
[2024-02-16] MEDS: ACETAMINOPHEN TAB 500 MG TAB PO STA (10:49)
[2024-02-16] MEDS: ALVIMOPAN 12 MG CAPSULE PO STA (10:49)
[2024-02-16] MEDS: SCOPOLAMINE 1 MG/72 HR PATCH TRANSDERM STA (10:51)
[2024-02-16] MEDS: DEXAMETHASONE SOD PHOSPHATE 4 MG/ML 1 ML VIAL IV ONE (10:52)
[2024-02-16] MEDS: ONDANSETRON 4 MG/2 ML VIAL IVP ONE (10:52)
[2024-02-16] MEDS: LACTATED RINGERS 1,000 ML IV SCH (10:55)
[2024-02-16] MEDS ORDERED: NALOXONE 0.4 MG/ML 1 ML VIAL IV PRN (10:59)
--- NOTE | 2024-02-16 10:59 | P.ANPRN ---
Procedure Note - Anesthesia - Epidural/Spinal Epidural Continuous Time Out Performed: Yes Date of Procedure: 02/16/24 Procedure Start Time: 10:25 Procedure Stop Time: 10:30 Location of Patient: PreOp Indication: Acute Post-Operative Pain, Analgesia, Requested by Surgeon Sedation Type: Sedate with meaningful contact maintained Preparation: Sterile Prep Position: Sitting Catheter Depth at Skin (cm): 12 Catheter: Indwelling Narrative: test dose 4ml of 1.5% lidocaine with Epinephrine--Negative S/S. ca theter level L2-3 lev%l. AttemptX1. Blood Aspirated: No Pain Paresthesia on Injection Noted: No Events: Uneventful and Well Tolerated
--- NOTE | 2024-02-16 12:46 | P.GSHP ---
History of Present Illness H&P Date: 02/16/24 CHIEF COMPLAINT: Large bowel obstruction HISTORY OF PRESENT ILLNESS: The patient is a 43-year-old female who presents presents with chronic left lower quadrant abdominal pain due to partial large sherine wel obstruction. She has had intermittent chronic abdominal pain with near complete obstruction identified 3 weeks ago of her colorectal anastomosis. She presents for colon resection of anastomotic stricture. PAST MEDICAL HISTORY: Please see list. PAST SURGICAL HISTORY: Please see list. MEDICATIONS: Please see list. ALLERGIES: Please see list. SOCIAL HISTORY: No illicit drug use FAMILY HISTORY: No reports of Crohn disease or ulcerative colitis. REVIEW OF ORGAN SYSTEMS: CONSTITUTIONAL: Denies any fever or chills. HEENT: Denies any trouble with vision or nosebleeds. No difficulty swallowing. LYMPHATIC: The patient denies any lumps and bumps around the neck. ENDOCRINE: Denies any thyroid disorders. Has blood sugar glucose intolerance. RESPIRATORY: Denies pneumonia. Denies any troubles with breathing or dyspnea on exertion. CARDIOVASCULAR: Denies any chest pain, palpitations, or recent heart attacks. GASTROINTESTINAL: History of sigmoid volvulus GENITOURINARY: Denies increased urinary frequency. MUSCULOSKELETAL: Has back pain, stiffness, joint arthritis. NEUROLOGIC: Denies any numbness or tingling along the distal extremities. No seizure disorders or headaches. PSYCHIATRIC: Denies depression or suidical ideation. HEMATOLOGIC: Denies any abnormal bleeding or bruising. PHYSICAL EXAM: VITAL SIGNS: Stable GENERAL: Well-developed pleasant in no acute distress. HEENT: No scleral icterus. Extraocular movements grossly intact. Moist buccal mucosa. NECK: Supple without lymphadenopathy. CHEST: Unlabored respirations. Equal bilateral excursions. CARDIOVASCULAR: Regular rate and rhythm. Distal 2+ pulses. ABDOMEN: Soft, nontender, nondistended. MUSCULOSKELETAL: No clubbing, cyanosis, or edema. NERUO: Cranial nerves 2-12 grossly intact. PSYCH: Alert and oriented to person place and time. ASSESSMENT: 1. Large bowel obstruction due to colorectal stricture PLAN: 1. Benefits and risks of surgical robotic sigmoid resection was reviewed in detail. Robotic-assisted approach was also described. 2. Enhanced colon recovery program. 3. DVT prophylaxis. 4. Antibiotic prophylaxis. 5. Inpatient hospitalization greater than 2 nights. Past Medical History Past Medical History: CVA/TIA, Deep Vein Thrombosis (DVT), GERD/Reflux, Neurologic Disorder, Osteoarthritis (OA), Seizure Disorder, Thyroid Disorder, Vascular Disorder Additional Past Medical History / Comment(s): "Necrosis of bowel". HERNIATED CERVICAL DISCS C4-C5 WITH NECK PAIN. Right leg numbness and tingling with right foot drop from CVA 2016. HX SEIZURES- NONE SINCE 2005. CHRONIC LEFT LOWER ABD PAIN. Migraines. Hx DVT in right leg 2007, bruises easy. Hx Intussusception. Hx fractured vertebrae. Varicose veins. Hx Panniculitis with surgery. Hypothyroid. Recurrent UTI's. Esophageal anastomatic stricture, hx dysphagia. Hiatal hernia. PUD. Hypoglycemia. History of Any Multi-Drug Resistant Organisms: None Reported, MRSA Date of last positivie culture/infection: 01/2008 MDRO Source:: right arm Past Surgical History: Adenoidectomy, Appendectomy, Back Surgery, Bariatric Surgery, Bowel Resection, Section, Cholecystectomy, Hernia Repair, Orthopedic Surgery, Tonsillectomy, Tubal Ligation Additional Past Surgical History / Comment(s): RECONSTRUCTION RIGHT KNEE, C-S ECTION X3, RISA-EN-Y(AUG 2012), panniculectomy, diagnostic laproscopy with lysis of adhesions X5, EGD with dilation, colonoscopies, hiatal hernia repair, C-5 removed May 17, 2017, NAVA, PFO closure with disc in heart 07/11/17, RECONSTRUCTION OF RISA-EN-Y 2017, bowel blockage repaired 03/04/22, colectomy, bowel resection X2, EGD. Past Anesthesia/Blood Transfusion Reactions: No Reported Reaction Additional Past Anesthesia/Blood Transfusion Reaction / Comment(s): No blood transfusion. Past Psychological History: Anxiety, Depression Additional Psychological History / Comment(s): HX POST DEPRESSION. Smoking Status: Never smoker Past Alcohol Use History: Rare Additional Past Alcohol Use History / Comment(s): . Past Drug Use History: None Reported - Past Family History Mother Family Medical History: Cancer Additional Family Medical History / Comment(s): Mom has MS. breast and esphageal Medications and Allergies Home Medications Medication Instructions Recorded Confirmed Type HYDROcodone/APAP 7.5-325MG [[place] 1 tab PO QID PRN 11/22/22 02/16/24 History 7.5-325] Levothyroxine Sodium 150 mcg PO QAM 02/03/23 02/16/24 History Ondansetron [Zofran] 4 mg PO Q12HR PRN 03/22/23 02/16/24 History ALPRAZolam [Xanax] 0.5 mg PO BID PRN 01/25/24 02/16/24 History Dicyclomine [Bentyl] 20 mg PO QID #120 tablet 01/25/24 02/16/24 Rx Lactulose [Cephulac] 30 ml PO DAILY #1000 ml 01/25/24 02/16/24 Rx Omeprazole 40 mg PO HS 02/06/24 02/16/24 History Sucralfate [Carafate] 1 gm PO BID 02/06/24 02/16/24 History Scopolamine 1 mg/72 Hr Patch 1 patch TRANSDERM Q72H 02/13/24 02/16/24 History [TransDerm Scop] diazePAM [Valium] 2 mg PO HS 02/13/24 02/16/24 History Allergies Allergy/AdvReac Type Severity Reaction Status Date / Time latex Allergy Severe Anaphylaxis Verified 02/16/24 09:44 Penicillins Allergy Severe Anaphylaxis Verified 02/16/24 09:44 /Hives morphine Allergy Hives, Verified 02/16/24 09:44 ITCHING, Swelling NSAIDS (Non-Steroidal Allergy Hives/Gi Verified 02/16/24 09:44 Anti-Inflamma Issues Surgical - Exam Vital Signs Temp Pulse Resp BP Pulse Ox 98.1 F 80 16 118/58 93 L 02/16/24 09:55 02/16/24 09:55 02/16/24 09:55 02/16/24 09:55 02/16/24 09:55 Results - Labs 02/16/24 10:27 02/16/24 10:27 Abnormal Lab Results - Last 24 Hours (Table) 02/16/24 02/16/24 Range/Units 10:27 10:27 MCHC 30.8 L (31.0-37.0) g/dL Chloride 110 H (98-107) mmol/L BUN 6 L (7-17) mg/dL Creatinine 0.43 L (0.52-1.04) mg/dL AST 37 H (14-36) U/L Diabetes panel 02/16/24 Range/Units 10:27 Sodium 137 (137-145) mmol/L Potassium 4.4 (3.5-5.1) mmol/L Chloride 110 H (98-107) mmol/L Carbon Dioxide 23 (22-30) mmol/L BUN 6 L (7-17) mg/dL Creatinine 0.43 L (0.52-1.04) mg/dL Glucose 83 (74-99) mg/dL Calcium 8.8 (8.4-10.2) mg/dL AST 37 H (14-36) U/L ALT 24 (4-34) U/L Alkaline Phosphatase 90 (38-126) U/L Total Protein 6.6 (6.3-8.2) g/dL Albumin 3.9 (3.5-5.0) g/dL Calcium panel 02/16/24 Range/Units 10:27 Calcium 8.8 (8.4-10.2) mg/dL Albumin 3.9 (3.5-5.0) g/dL Pituitary panel 02/16/24 Range/Units 10:27 Sodium 137 (137-145) mmol/L Potassium 4.4 (3.5-5.1) mmol/L Chloride 110 H (98-107) mmol/L Carbon Dioxide 23 (22-30) mmol/L BUN 6 L (7-17) mg/dL Creatinine 0.43 L (0.52-1.04) mg/dL Glucose 83 (74-99) mg/dL Calcium 8.8 (8.4-10.2) mg/dL Adrenal panel 02/16/24 Range/Units 10:27 Sodium 137 (137-145) mmol/L Potassium 4.4 (3.5-5.1) mmol/L Chloride 110 H (98-107) mmol/L Carbon Dioxide 23 (22-30) mmol/L BUN 6 L (7-17) mg/dL Creatinine 0.43 L (0.52-1.04) mg/dL Glucose 83 (74-99) mg/dL Calcium 8.8 (8.4-10.2) mg/dL Total Bilirubin 0.5 (0.2-1.3) mg/dL AST 37 H (14-36) U/L ALT 24 (4-34) U/L Alkaline Phosphatase 90 (38-126) U/L Total Protein 6.6 (6.3-8.2) g/dL Albumin 3.9 (3.5-5.0) g/dL
[2024-02-16] MEDS: HEPARIN SODIUM,PORCINE 5,000 UNIT/ML 1 ML VIAL SQ STA (13:02)
[2024-02-16] MEDS ORDERED: NEOSTIGMINE 1 MG/ML 10 ML VIAL ONE (13:08)
[2024-02-16] MEDS ORDERED: fentaNYL (PF) 50 MCG/ML 2 ML AMP ONE (13:08)
[2024-02-16] MEDS ORDERED: LIDOCAINE 1% INJ 10MG/ML (20 ML MDV) ONE (13:08)
[2024-02-16] MEDS ORDERED: MIDAZOLAM 2 MG/2 ML VIAL ONE (13:08)
[2024-02-16] MEDS ORDERED: PROPOFOL 10 MG/ML 20 ML VIAL IV ONE (13:08)
[2024-02-16] MEDS ORDERED: KETAMINE HCL IN 0.9 % NACL 50 MG/5 ML SYRINGE ONE (13:08)
[2024-02-16] MEDS ORDERED: HYDROmorphone (PF) 1 MG/ML ONE (13:08)
[2024-02-16] MEDS: metroNIDAZOLE-NS PMX 500 MG in SALINE 1 100ML.BAG IVPB PRN (13:08)
[2024-02-16] MEDS ORDERED: ROCURONIUM 10 MG/ML (5 ML VIAL) IV ONE (13:08)
[2024-02-16] MEDS ORDERED: SUCCINYLCHOLINE CHLORIDE 200 MG/10 ML VIAL IV ONE (13:08)
[2024-02-16] MEDS ORDERED: GLYCOPYRROLATE 0.2 MG/ML 2 ML VIAL ONE (13:08)
[2024-02-16] MEDS: LIDOCAINE 1%-EPI 1:100,000 20 ML VIAL SQ ONE (13:51)
[2024-02-16] MEDS: LACTATED RINGERS 1,000 ML IV ONE (16:00)
[2024-02-16] MEDS ORDERED: BENZOCAINE/MENTHOL LOZENG 1 EACH LOZENGE MUCOUS MEM PRN (17:47)
--- NOTE | 2024-02-16 17:51 | P.OP ---
Date of Procedure: 02/16/24 Description of Procedure: SURGEON: CARLITA MATIAS MD PREOPERATIVE DIAGNOSES: 1. 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 Chronic pain syndrome 3. History of intra-abdominal adhesions 4. Morbid obesity due to excess calories, BMI 40.8 5. History of transient ischemic attack 6. History of deep venous thrombosis 7. History of cerebrovascular accident 8. Gastroesophageal reflux disease 9. Migraines 10. History of seizure disorder 11. Hypothyroidism 12. Generalized anxiety disorder 13. Depressive disorder 14. History of gastric bypass 15. Diverticulosis POSTOPERATIVE DIAGNOSES: 1. 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 Chronic pain syndrome 3. History of intra-abdominal adhesions 4. Morbid obesity due to excess calories, BMI 40.8 5. History of transient ischemic attack 6. History of deep venous thrombosis 7. History of cerebrovascular accident 8. Gastroesophageal reflux disease 9. Migraines 10. History of seizure disorder 11. Hypothyroidism 12. Generalized anxiety disorder 13. Depressive disorder 14. History of gastric bypass 15. Pelvic endometriosis 16. Constipation 17. Internal hernia OPERATION: 1. Robotic-assisted daVinci Xi laparoscopic sigmoid colectomy with low anterior resection using 29 mm Ethicon powered stapler 2. Intraoperative colonoscopy used for sigmoidoscopy 3. Robotic-assisted daVinci Xi laparoscopic closure of internal hernia, left upper quadrant, jejunojejunostomy 4. Robotic-assisted daVinci Xi laparoscopic ablation of pelvic endometriosis, left ovary and fallopian tube and right fallopian tube 5. Intraoperative colonic lavage, 1 L normal saline Anesthesia: GETA, local, regional Estimated Blood Loss (ml): 20 Pathology: 1. Sigmoid colon 2. EEA donuts Condition: stable Disposition: floor COMPLICATIONS: None. Operative Findings: 1. Ablation of pelvic endometriosis, left ovary and fallopian tube and right fallopian tube 2. Intraoperative colonic lavage, 1 L normal saline 3. Closure of internal hernia, left upper quadrant, jejunojejunostomy 4. No tension or torsion along the anastomosis 5. Doughnuts thick and both sides and viable 6. Negative leak test with viable anastomosis. INDICATIONS: The patient is a 43-year-old female who presents with chronic constipation, left lower quadrant abdominal pain and recent abnormal CT finding of stricture colorectal anastomosis. Despite conservative measures including dilation, patient reports worsening symptoms. Benefits and risks of surgical intervention was described in detail including infection, injury to the ureter, colostomy creation, possibility for additional surgery was discussed at length. Informed consent was obtained. All questions of the patient and family were answered. DESCRIPTION: In the preoperative area, an epidural was placed due to the patient's pre-existing chronic pain syndrome. Earlier the patient had undergone a bowel prep using the enhanced colon recovery program. The patient was transferred to the operating room and placed supine. After general induction, an intraoperative sigmoidoscopy was performed where moderate stool was found within the rectum. An intraoperative on table colonic lavage of 1 L normal saline was performed using soapsuds/chlorhexidine soap. The rectum was cleared of stool. The abdomen was prepped and draped in standard sterile fashion. Ioban was placed along the abdomen to minimize any contamination of skin floor. A Johnson catheter was placed. After a timeout protocol was performed, attention was then brought to the left upper quadrant whereby a 0 degree 5 mm laparoscopic trocar entry was performed. The abdominal cavity was entered and insufflated to 15 mmHg pressure, which was tolerated well. Diagnostic laparoscopy was unremarkable for severe abdominal adhesions. Next a robotic 12-mm trocar was placed along the right lateral abdominal wall 20 cm superior from the pelvis. Two 8 mm ports were placed along the upper abdomen. Ports were placed 10 cm apart from each other including 20 cm away from the target anatomy of the left pelvis. The 12-mm port was exchanged for an 8 mm robotic port at the left upper quadrant. The robot was docked along the left lateral abdomen. The patient was positioned in steep Trendelenburg position at 21-degrees. Using atraumatic graspers and vessel sealer, the robotic system was docked and primed as described. Instruments were interchanged by the blood bank assistant including hook cautery, needle crude oil driver, robotic stapler and vessel sealer. The robot stapler was prepared along the right lateral abdominal wall. The stapler 12-mm port was arranged along the right lateral abdominal wall. Along the pelvis, endometrial deposits involving the left ovary and fallopian tube was found including along the right fallopian tube. Findings were also consistent with location of pain. The endometrial deposits were ablated using electro-Bovie cautery. With these findings of endometriosis close to her anastomosis and enlarged uterus, risk of chronic inflammation and stricture were determined as the etiology of stricture. Next, attention was brought to identify the sigmoid colon. A stay suture using 3- 0 silk was placed along the anterior serosa just 1 cm proximal to the ileocolic anastomosis. The sigmoid mesentery was mobilized using a vessel sealer whereby the descending colon was marked and tagged. Using two robot stapler 60 mm green load, the proximal sigmoid colon was divided. The mesentery of the sigmoid colon was mobilized towards the pelvic brim and sacral promontory using a vessel sealer. Additionally, the sigmoid colon was mobilized onto the colon to minimize injury to the ureters. As the old anastomosis was on the rectum severe stricture, a new coloanal anastomosis was proposed. I went to the foot of the bed to confirm sizers and placement of 29-mm Ethicon powered stapler. I re-scrubbed into the case. The robotic arms were temporarily undocked. A 29-mm anvil was placed with a 3-0 silk sutured at the tip of the anvil senior manager asset protection. Then the anvil was placed via the left upper quadrant 12 mm port. All robotic arms were re-docked. I went back to the console. The staple line was opened using cautery. The anvil was entered into the proximal descending colon. The colotomy was closed using 60 mm green load. Next, the sharp tip of the anvil senior manager asset protection was brought through the staple line. The anvil senior manager asset protection was removed from the abdomen using empty clip appliers. I went to the foot of the bed to place the powered Ethicon 29 mm stapler via the rectum. The anvil and stapler were mated for 1 minute. The doughnuts were intact on both sides and thick. An intraoperative leak test was performed as I inserted the colonoscope to the anastomosis. Endoscopic images were obtained. Irrigation was placed in the pelvis and no air leaks were identified. Irrigation fluid was aspirated from the pelvis until dry. I went back to the console. Attention was brought to her gastric bypass procedure where internal hernia involving the jejunojejunostomy mesentery was identified. Small bowel was reduced from internal hernia. The mesentery was closed using green 2-0 absorbable V-Loc. The small bowel was investigated from the terminal ileum proximally to the jejunostomy and to the gastrojejunal anastomosis. Reconstruction of the jejunojejunostomy was identified and undisturbed. All sponges and needles were removed from the abdominal cavity. The robot was undocked. I re-scrubbed into the case. Via the left upper quadrant port, the sigmoid colon was removed using 15 mm Endo Catch bag. All sponges were removed from the abdominal cavity. The left upper quadrant incision was widened to 3-cm. No contamination had occurred throughout the case. The fascial defect was oversewn using 0 Vicryl and a Stone Britt. Next all pneumoperitoneum was evacuated from the abdominal cavity. The 8-mm trocar sites were reapproximated using 4-0 Monocryl in an interrupted subcuticular fashion. Local anesthetic was infiltrated to all wounds for postop analgesia. All incisions were also cleansed with diluted hydrogen peroxide. A silver Optifoam surgical dressing was placed over the colon extraction site. An abdominal binder was placed. Liquid glue was applied to the rest of the skin incisions. An abdominal binder was placed. The patient had tolerated the procedure well. The patient was extubated successfully. The patient was transferred to the postanesthesia care unit in stable condition. Intraoperative findings were described in detail to the patient's family.
[2024-02-16] MEDS: MEPERIDINE 50 MG/ML SYRINGE IVP STA (18:00)
[2024-02-16] MEDS: LIDOCAINE 2% (PF) 20 MG/ML 5 ML VIAL IV ONE (18:17)
[2024-02-16] MEDS: ROPIVACAINE 250 MG, HYDROMORPHONE (PF) 5 MG in SODIUM CHLORIDE 0.9% 200 ML EPIDURAL PRN (18:33)
[2024-02-16] MEDS: SODIUM CHLORIDE 0.9% 2,000 ML IV ONE (20:07)
[2024-02-16] MEDS: HEPARIN SODIUM,PORCINE 5,000 UNIT/ML 1 ML VIAL SQ SCH (20:24)
[2024-02-16] MEDS: FAMOTIDINE 20 MG/2 ML VIAL IV SCH (20:24)
[2024-02-16] MEDS: ONDANSETRON 4 MG/2 ML VIAL IVP STA (20:24)
[2024-02-16] MEDS: PANTOPRAZOLE 40 MG TABLET PO SCH (20:25)
[2024-02-16] MEDS: HYDROmorphone 1 MG/ML 1 ML SYRINGE IVP PRN (21:23)
[2024-02-16] MEDS: diazePAM 2 MG TAB PO SCH (22:24)
[2024-02-16] MEDS: SUCRALFATE 1 GM TAB PO SCH (22:24)
[2024-02-16] MEDS: SODIUM CHLORIDE 0.9% 1,000 ML IV SCH (22:25)
[2024-02-17] MEDS: METOCLOPRAMIDE 5 MG/ML 2 ML VIAL IVP PRN (04:41)
[2024-02-17] MEDS: LEVOTHYROXINE 75 MCG TAB PO SCH (07:01)
--- NOTE | 2024-02-17 07:36 | P.PN ---
Progress Note - Text Progress Note Date: 02/17/24 CHIEF COMPLAINT: Colon Obstruction HISTORY OF PRESENT ILLNESS: NAEO, resting comfortable. Afebrile. PHYSICAL EXAM: VITAL SIGNS: Reviewed CONSTITUTIONAL: Well developed and in no acute distress. EYES: Conjuctivae without sclera icterus. Extraocular movements grossly intact. HEAD, EARS, NOSE, THROAT: Moist buccal mucosa. Head is atraumatic, normocephalic. Hears conversational speech. No nasal drainage. RESPIRATORY: Non-labored respirations and equal bilateral excursions. CARDIOVASCULAR: Palpable 2+ radial pulses. ABDOMEN: No peritonitis. Generalized tenderness. Incisional TTP MUSCULOSKELETAL: No gross deformity of the lower extremities noted. No clubbing. No cyanosis. SKIN: Good skin turgor. Well perfused. NEUROLOGIC: Cranial nerves II through XII grossly intact. No focal or lateralizing signs. PSYCH: Appropriate affect. Alert and oriented to person, place and time. ASSESSMENT: 1. POD #1 LAR, closure internal hernia defect 2. LBO secondary to colonic stricture PLAN: 1. Low Fiber Diet 2. Monitor Bowel Function 3. Pain and Nausea Control 4. OOB, ambulate, IS 5. AM labs
[2024-02-17] MEDS: ALVIMOPAN 12 MG CAPSULE PO SCH (07:54)
[2024-02-17] MEDS: SIMETHICONE 40 MG/0.6 ML DROPS 2,000 MG/30 ML BOTTLE PO SCH ×2 (11:29→17:08)
[2024-02-17] MEDS: HYDROcodone/APAP 10-325MG 1 EACH TAB PO PRN (11:30)
[2024-02-17] MEDS: ALPRAZolam 0.5 MG TAB PO PRN (11:30)
[2024-02-18 08:56] LABS: Basophils % (A) 0 %; Eosinophils # (A) 0.3 k/uL (0-0.7); Eosinophils % (A) 5 %; HCT 32.7 % (34.0-46.0); HGB 10.3 gm/dL (11.4-16.0); Hypochromasia Slight; Lymphocytes # (A) 1.3 k/uL (1.0-4.8); Lymphocytes % (A) 20 %; MCHC 31.5 g/dL (31.0-37.0); MCV 92.1 fL (80.0-100.0); Mean Platelet Volume 8.4; Monocytes # (A) 0.5 k/uL (0-1.0); Monocytes % (A) 8 %; Neutrophils # (A) 4.2 k/uL (1.3-7.7); Neutrophils % (A) 65 %; Platelet Count 171 k/uL (150-450); RBC 3.55 m/uL (3.80-5.40); RDW 14.1 % (11.5-15.5); WBC 6.4 k/uL (3.8-10.6)
[2024-02-18 09:06] LABS: ALT 15 U/L (4-34); AST 26 U/L (14-36); African American GFR (CKD) >90 (>60 ml/min/1.73 sqM); Albumin 2.8 g/dL (3.5-5.0); Albumin/Globulin Ratio 1.2; Alkaline Phosphatase 57 U/L (38-126); Anion Gap 1 mmol/L; Blood Urea Nitrogen <2 mg/dL (7-17); Calcium 7.9 mg/dL (8.4-10.2); Carbon Dioxide 25 mmol/L (22-30); Chloride 111 mmol/L (98-107); Globulin 2.4 g/dL; Glucose 86 mg/dL (74-99); Non-African American GFR(CKD) >90 (>60 ml/min/1.73 sqM); Potassium 3.6 mmol/L (3.5-5.1); Sodium 137 mmol/L (137-145); Total Bilirubin 0.2 mg/dL (0.2-1.3); Total Protein 5.2 g/dL (6.3-8.2)
--- NOTE | 2024-02-18 11:34 | P.PN ---
Subjective Progress Note Date: 02/18/24 CHIEF COMPLAINT: Large bowel obstruction HISTORY OF PRESENT ILLNESS: The patient is a 43-year-old female admitted for large bowel obstruction and left lower quadrant abdominal pain. She is status post ablation of endometriosis left fallopian tube, ovary and uterus. Additionally she is status post closure of internal hernia left upper abdomen and colonic lavage with low anterior resection. She reports having immediate bowel movement on the day of surgery following her procedure. Epidural was re moved due to numbness of the leg and inability to walk. She is able to walk. She does report mild nausea today. Additionally, she has history of chronic pain. She reports no passage of flatus today. ROS: No reports of nausea and vomiting. Had bowel movement 2 days ago immediately after procedure. No fevers or chills. No new chest pain. No productive sputum PHYSICAL EXAM: VITAL SIGNS: Reviewed CONSTITUTIONAL: Well developed and in no acute distress. EYES: Conjuctivae without sclera icterus. Extraocular movements grossly intact. HEAD, EARS, NOSE, THROAT: Moist buccal mucosa. Head is atraumatic, normocephalic. Hears conversational speech. No nasal drainage. RESPIRATORY: Non-labored respirations and equal bilateral excursions. CARDIOVASCULAR: Palpable 2+ radial pulses. ABDOMEN: Abdominal binder present. No peritonitis. Appropriate left upper quadrant incisional pain. MUSCULOSKELETAL: No gross deformity of the lower extremities noted. No clubbing. No cyanosis. SKIN: Good skin turgor. Well perfused. NEUROLOGIC: Cranial nerves II through XII grossly intact. No focal or lateralizing signs. PSYCH: Appropriate affect. Alert and oriented to person, place and time. CLINICAL LABS: Reviewed. Hemoglobin 11.3, anemia ASSESSMENT: 1. Large bowel obstruction 2. Left upper quadrant internal hernia 3. Endometriosis left fallopian tube/ovary and pelvis 4. Chronic constipation 5. Chronic pain 6. Morbid obesity excess calories, BMI 40.6 7. History of gastric bypass PLAN: 1. I ordered labs earlier today for which no leukocytosis. 2. She reports no flatus today. Will start simethicone 100 mg 4 times daily 3. She has baseline history of chronic pain. Will add Flexeril 3 times daily 4. Will obtain abdominal x-ray to exclude ileus which is expected outcome after surgery 5. Disposition 24 hours for home Objective - Vital Signs Vital signs: Vital Signs Temp 98.7 F 02/18/24 07:39 Pulse 74 02/18/24 09:00 Resp 19 02/18/24 09:00 BP 145/89 02/18/24 07:39 Pulse Ox 98 02/18/24 09:23 FiO2 21 02/18/24 09:23 Intake & Output 02/17/24 02/18/24 02/18/24 18:59 06:59 18:59 Output Total 1200 Balance -1200 Output: Urine 1200 Uretheral (Johnson) 300 Other: Voiding Method Toilet Toilet # Voids 2 - Labs CBC & Chem 7: 02/18/24 08:39 02/18/24 08:39 Labs: Abnormal Lab Results - Last 24 Hours (Table) 02/18/24 02/18/24 Range/Units 08:39 08:39 RBC 3.55 L (3.80-5.40) m/uL Hgb 10.3 L (11.4-16.0) gm/dL Hct 32.7 L (34.0-46.0) % Chloride 111 H (98-107) mmol/L BUN <2 L (7-17) mg/dL Creatinine 0.46 L (0.52-1.04) mg/dL Calcium 7.9 L (8.4-10.2) mg/dL Total Protein 5.2 L (6.3-8.2) g/dL Albumin 2.8 L (3.5-5.0) g/dL
[2024-02-18] MEDS: CYCLOBENZAPRINE 10 MG TAB PO SCH (11:50)
[2024-02-18] MEDS: SIMETHICONE 40 MG/0.6 ML DROPS 2,000 MG/30 ML BOTTLE PO SCH (11:51)
--- NOTE | 2024-02-18 12:37 | XR ---
EXAMINATION TYPE: XR KUB DATE OF EXAM: 02/18/2024 12:08 PM CLINICAL INDICATION:Female, 43 years old with history of abdominal pain and ileus; [facility] COMPARISON: None. TECHNIQUE: One radiographic view of the abdomen was obtained. FINDINGS: The bowel gas pattern is nonspecific without dilated loops of small or large bowel. There i s no evidence for organomegaly or pneumoperitoneum. The osseous structures are intact. No abnormal calcifications are present. Fecal material and gas are demonstrated throughout the colon and rectum. Right upper quadrant cholecystectomy clips. IMPRESSION: Nonspecific bowel gas pattern without radiographic evidence for acute process.
[2024-02-19 08:01] VITALS: RESP 16; TEMP 98.4
[2024-02-19] MEDS: SCOPOLAMINE 1 MG/72 HR PATCH TRANSDERM SCH (10:33)
--- NOTE | 2024-02-19 12:29 | P.DS ---
Providers Date of admission: 02/16/24 17:11 Expected date of discharge: 02/19/24 Attending physician: Nallely Buatista Consults: 02/16/24 10:15 Consult Physician Routine Consulting Provider: [facility] Consult Reason/Comments: Epidural Do you want consulting provider notified?: Yes Primary care physician: Girish Dinh MD Hospital Course: Discharge diagnosis 1. Large bowel obstruction 2. Left upper quadrant internal hernia 3. Endometriosis left fallopian tube/ovary and pelvis 4. Chronic constipation 5. Chronic pain 6. Morbid obesity excess calories, BMI 40.6 7. History of gastric bypass Hospital course The patient is a 43-year-old female admitted for large bowel obstruction and left lower quadrant abdominal pain. She is status post ablation of endometriosis left fallopian tube, ovary and uterus. Additionally she is status post closure of internal hernia left upper abdomen and colonic lavage with low anterior resection. Patient tolerated surgery well. Her pain is controlled. She is tolerating diet. She is having bowel movements. She is afebrile. She has been up and ambulating. Denies any difficulty urinating. She is stable for discharge. Physician Neuropsychology Medical Consultant note has been reviewed by physician. Signing provider agrees with the documented findings, assessment, and plan of care. Procedures: OPERATION: 1. Robotic-assisted daVinci Xi laparoscopic sigmoid colectomy with low anterior resection using 29 mm Ethicon powered stapler 2. Intraoperative colonoscopy used for sigmoidoscopy 3. Robotic-assisted daVinci Xi laparoscopic closure of internal hernia, left upper quadrant, jejunojejunostomy 4. Robotic-assisted daVinci Xi laparoscopic ablation of pelvic endometriosis, left ovary and fallopian tube and right fallopian tube 5. Intraoperative colonic lavage, 1 L normal saline Anesthesia: GETA, local, regional Estimated Blood Loss (ml): 20 Pathology: 1. Sigmoid colon 2. EEA donuts Condition: stable Disposition: floor COMPLICATIONS: None. Operative Findings: 1. Ablation of pelvic endometriosis, left ovary and fallopian tube and right fallopian tube 2. Intraoperative colonic lavage, 1 L normal saline 3. Closure of internal hernia, left upper quadrant, jejunojejunostomy 4. No tension or torsion along the anastomosis 5. Doughnuts thick and both sides and viable 6. Negative leak test with viable anastomosis. Patient Condition at Discharge: Stable Plan - Discharge Summary Discharge Rx Participant: Yes New Discharge Prescriptions: New Simethicone 40 mg/0.6 ml Drops [Mylicon Drops] 100 mg PO PCHS ml Continue ALPRAZolam [Xanax] 0.5 mg PO BID PRN PRN Reason: Anxiety Sucralfate [Carafate] 1 gm PO BID Scopolamine 1 mg/72 Hr Patch [TransDerm Scop] 1 patch TRANSDERM Q72H HYDROcodone/APAP 7.5-325MG [[place] 7.5-325] 1 tab PO QID PRN PRN Reason: Pain Ondansetron [Zofran] 4 mg PO Q12HR PRN PRN Reason: Nausea Dicyclomine [Bentyl] 20 mg PO QID #120 tablet Omeprazole 40 mg PO HS Discontinued Lactulose [Cephulac] 30 ml PO DAILY #1000 ml No Action Levothyroxine Sodium [Synthroid] 75 mcg PO DAILY Discharge Medication List HYDROcodone/APAP 7.5-325MG [[place] 7.5-325] 1 tab PO QID PRN 11/22/22 [History] Ondansetron [Zofran] 4 mg PO Q12HR PRN 03/22/23 [History] ALPRAZolam [Xanax] 0.5 mg PO BID PRN 01/25/24 [History] Dicyclomine [Bentyl] 20 mg PO QID #120 tablet 01/25/24 [Rx] Omeprazole 40 mg PO HS 02/06/24 [History] Sucralfate [Carafate] 1 gm PO BID 02/06/24 [History] Scopolamine 1 mg/72 Hr Patch [TransDerm Scop] 1 patch TRANSDERM Q72H 02/13/24 [History] Simethicone 40 mg/0.6 ml Drops [Mylicon Drops] 100 mg PO PCHS ml 02/19/24 [Rx] Levothyroxine Sodium [Synthroid] 75 mcg PO DAILY 03/06/24 [History] [facility]Ref[place] [facility] [place] [place] [facility] 02/21/24 2:00 pm Patient Instructions/Handouts: *Surgery [facility] - Scopalamine Patch Instructions Activity/Diet/Wound Care/Special Instructions: Wear abdominal binder at all times for comfort. No lifting over 4 pounds in 4 weeks You May shower. No bath tub soaks for two weeks Avoid steak, tough meats and seeds such as raspberry seeds. Avoid broccoli Continue low fiber diet Use ice along incisions for the today to prevent swelling. Continue home pain medication regimen Hold on taking lactulose until seen by surgeon Discharge Disposition: HOME SELF-CARE
[2024-02-19 14:53] VITALS: BP 138/90; PULSE 70
== END 2024-02-19 16:04 | disposition home or self-care (01) | DRG 330 ==
LOC: OR 07:06 → 4SSUR 17:11
PROVIDERS: ADMIT Surgery Plastic and Reconstructive Surgery; ATTEND Surgery Plastic and Reconstructive Surgery
PROC: 0D1A4ZA Bypass Jejunum to Jejunum, Percutaneous Endoscopic Approach (ICD-10-PCS; 2024-02-16)
PROC: 0WQF4ZZ Repair Abdominal Wall, Percutaneous Endoscopic Approach (ICD-10-PCS; 2024-02-16)
PROC: 0DJD8ZZ Inspection of Lower Intestinal Tract, Via Natural or Artificial Opening Endoscopic (ICD-10-PCS; 2024-02-16)
PROC: 8E0W4CZ Robotic Assisted Procedure of Trunk Region, Percutaneous Endoscopic Approach (ICD-10-PCS; 2024-02-16)
PROC: 0DTN4ZZ Resection of Sigmoid Colon, Percutaneous Endoscopic Approach (ICD-10-PCS; principal; 2024-02-16 11:50)
DX: K66.0 Peritoneal adhesions (postprocedural) (postinfection) (principal); K56.690 Other partial intestinal obstruction; Z68.41 Body mass index [BMI] 40.0-44.9, adult; E03.9 Hypothyroidism, unspecified; E66.01 Morbid (severe) obesity due to excess calories; F32.A Depression, unspecified; G40.909 Epilepsy, unspecified, not intractable, without status epilepticus; F41.1 Generalized anxiety disorder; G43.909 Migraine, unspecified, not intractable, without status migrainosus; G89.4 Chronic pain syndrome; K21.9 Gastro-esophageal reflux disease without esophagitis; K57.30 Diverticulosis of large intestine without perforation or abscess without bleeding; K46.9 Unspecified abdominal hernia without obstruction or gangrene; N80.9 Endometriosis, unspecified; Z79.899 Other long term (current) drug therapy; Z86.718 Personal history of other venous thrombosis and embolism; Z86.73 Personal history of transient ischemic attack (TIA), and cerebral infarction without residual deficits; Z87.11 Personal history of peptic ulcer disease; Z87.440 Personal history of urinary (tract) infections; Z87.74 Personal history of (corrected) congenital malformations of heart and circulatory system; Z98.84 Bariatric surgery status; Z88.0 Allergy status to penicillin; Z88.5 Allergy status to narcotic agent; Z91.040 Latex allergy status
CPT/HCPCS: 74018; 80053; 85025; 88304; 94760

== ENCOUNTER 2024-03-06 14:26 | Observation (INO) | payer OTHER ==
[2024-03-06] MEDS ORDERED: IOPAMIDOL CONTRAST (ORAL USE) VIAL PO PRN (14:46)
--- NOTE | 2024-03-06 14:57 | ED ---
General Adult HPI - General Chief complaint: Abdominal Pain Stated complaint: abd pain/post op Time Seen by Provider: 03/06/24 14:30 Source: patient, RN notes reviewed, old records reviewed Mode of arrival: ambulatory Limitations: no limitations - History of Present Illness Initial comments: Is a 43-year-old female who presents to the emergency department stating that she has had a gastric bypass back in 2011. Patient recently had surgery with Dr. Bautista on 15 February. Patient states they did a colectomy they cleaned up some endometriosis and some other things that she cannot remember. Patient states she started having pain yesterday and is on the left lower quadrant and it continues to get worse today. Patient saw Dr. Bautista and Dr. Bautista wanted to come to the emergency department. Patient denies any vomiting or diarrhea. Patient denies any fever today but states she had 100.4 fever yesterday - Related Data Home Medications Medication Instructions Recorded Confirmed HYDROcodone/APAP 7.5-325MG [[place] 1 tab PO QID PRN 11/22/22 03/06/24 7.5-325] Ondansetron [Zofran] 4 mg PO Q12HR PRN 03/22/23 03/06/24 ALPRAZolam [Xanax] 0.5 mg PO BID PRN 01/25/24 03/06/24 Omeprazole 40 mg PO HS 02/06/24 03/06/24 Sucralfate [Carafate] 1 gm PO BID 02/06/24 03/06/24 Scopolamine 1 mg/72 Hr Patch 1 patch TRANSDERM Q72H 02/13/24 03/06/24 [TransDerm Scop] Levothyroxine Sodium [Synthroid] 75 mcg PO DAILY 03/06/24 03/06/24 Previous Rx's Medication Instructions Recorded Dicyclomine [Bentyl] 20 mg PO QID #120 tablet 01/25/24 Simethicone 40 mg/0.6 ml Drops 100 mg PO PCHS ml 02/19/24 [Mylicon Drops] Allergies Allergy/AdvReac Type Severity Reaction Status Date / Time latex Allergy Severe Anaphylaxis Verified 03/06/24 15:17 Penicillins Allergy Severe Anaphylaxis Verified 03/06/24 15:17 /Hives morphine Allergy Hives, Verified 03/06/24 15:17 ITCHING, Swelling NSAIDS (Non-Steroidal Allergy Hives/Gi Verified 03/06/24 15:17 Anti-Inflamma Issues Review of Systems ROS Statement: Those systems with pertinent positive or pertinent negative responses have been documented in the HPI. ROS Other: All systems not noted in ROS Statement are negative. Past Medical History Past Medical History: CVA/TIA, Deep Vein Thrombosis (DVT), GERD/Reflux, Neurologic Disorder, Osteoarthritis (OA), Seizure Disorder, Thyroid Disorder, Vascular Disorder Additional Past Medical History / Comment(s): "Necrosis of bowel". HERNIATED CERVICAL DISCS C4-C5 WITH NECK PAIN. Right leg numbness and tingling with right foot drop from CVA 2016. HX SEIZURES- NONE SINCE 2005. CHRONIC LEFT LOWER ABD PAIN. Migraines. Hx DVT in right leg 2007, bruises easy. Hx Intussusception. Hx fractured vertebrae. Varicose veins. Hx Panniculitis with surgery. Hypothyroid. Recurrent UTI's. Esophageal anastomatic stricture, hx dysphagia. Hiatal hernia. PUD. Hypoglycemia. History of Any Multi-Drug Resistant Organisms: None Reported, MRSA Date of last positivie culture/infection: 01/2008 MDRO Source:: right arm Past Surgical History: Adenoidectomy, Appendectomy, Back Surgery, Bariatric Andres paulette, Bowel Resection, Section, Cholecystectomy, Hernia Repair, Orthopedic Surgery, Tonsillectomy, Tubal Ligation Additional Past Surgical History / Comment(s): RECONSTRUCTION RIGHT KNEE, C- SECTION X3, RISA-EN-Y(AUG 2012), panniculectomy, diagnostic laproscopy with lysis of adhesions X5, EGD with dilation, colonoscopies, hiatal hernia repair, C-5 removed May 17, 2017, NAVA, PFO closure with disc in heart 07/11/17, RECONSTRUCTION OF RISA-EN-Y 2017, bowel blockage repaired 03/04/22, colectomy, bowel resection X2, EGD. Past Anesthesia/Blood Transfusion Reactions: No Reported Reaction Additional Past Anesthesia/Blood Transfusion Reaction / Comment(s): No blood transfusion. Past Psychological History: Anxiety, Depression Smoking Status: Never smoker Past Alcohol Use History: Rare Past Drug Use History: None Reported - Past Family History Mother Family Medical History: Cancer Additional Family Medical History / Comment(s): Mom has MS. breast and esphageal General Exam - General Exam Comments Initial Comments: GENERAL: Patient is well-developed and well-nourished. Patient is nontoxic and well- hydrated and is in mild distress. ENT: Neck is soft and supple. No significant lymphadenopathy is noted. Oropharynx is clear. Moist mucous membranes. Neck has full range of motion without eliciting any pain. EYES: The sclera were anicteric and conjunctiva were pink and moist. Extraocular movements were intact and pupils were equal round and reactive to light. Eyelids were unremarkable. PULMONARY: Unlabored respirations. Good breath sounds bilaterally. No audible rales rhonchi or wheezing was noted. CARDIOVASCULAR: There is a regular rate and rhythm without any murmurs gallops or rubs. ABDOMEN: Left-sided abdominal pain in the mid abdomen region into the flank SKIN: Skin is clear with no lesions or rashes and otherwise unremarkable. NEUROLOGIC: Patient is alert and oriented x3. Cranial nerves II through XII are grossly intact. Motor and sensory are also intact. Normal speech, volume and content. Symmetrical smile. MUSCULOSKELETAL: Normal extremities with adequate strength and full range of motion. No lower extremity swelling or edema. No calf tenderness. LYMPHATICS: No significant lymphadenopathy is noted PSYCHIATRIC: Normal psychiatric evaluation. Limitations: no limitations Course Vital Signs 03/06/24 14:27 Temperature 98.1 F Pulse Rate 65 Respiratory 18 Rate Blood Pressure 156/96 O2 Sat by Pulse 100 Oximetry Medical Decision Making - Medical Decision Making Was pt. sent in by a medical professional or institution (ELIER Em, ELECTRIC WELL LOGGING OPERATOR, urgent care, hospital, or half-way...) When possible be specific @ -No Did you speak to anyone other than the patient for history (EMS, parent, family, police, friend...)? What history was obtained from this source @ -No Did you review nursing and triage notes (agree or disagree)? Why? @ -I reviewed and agree with nursing and triage notes Were old charts reviewed (outside hosp., previous admission, EMS record, old EKG, old radiological studies, urgent care reports/EKG's, half-way records)? Report findings @ -No old charts were reviewed Differential Diagnosis? @ -Differential Abdominal Pain Women: Appendicitis, Cholecystitis, diverticulosis, ischemic bowel, pancreatitis, hepatitis, UTI, gastroenteritis, AAA, incarcerated hernia, bowel obstruction, constipation, inflammatory bowel, hepatitis, peptic ulcer disease, splenic infarction, perforated viscus, vulvitis, ovarian torsion, PID, kidney stone, placenta abruption, this is not meant to be an all-inclusive list EKG interpreted by me (3pts min.). @ -As above X-rays interpreted by me (1pt min.). @ -None done CT interpreted by me (1pt min.). @ -CT scan with oral and IV contrast showed no acute abnormality. U/S interpreted by me (1pt. min.). @ -None done What testing was considered but not performed or refused? (CT, X-rays, U/S, labs)? Why? @ -None What meds were considered but not given or refused? Why? @ -None Did you discuss the management of the patient with other professionals (professionals i.e. , PA, ELECTRIC WELL LOGGING OPERATOR, lab, RT, psych nurse, psychiatric social worker supervisor, hematology oncology consultant, teacher, security police officer, patient case manager)? Give summary @ -Spoke with Dr. Bautista she wanted to admit the patient 23-hour observation. Was smoking cessation discussed for >3mins.? @ -No Was critical care preformed (if so, how long)? @ -No Were there social determinants of health that impacted care today? How? (Homelessness, low income, unemployed, alcoholism, drug addiction, transportation, low edu. Level, literacy, decrease access to med. care, assisted, rehab)? @ -No Was there de-escalation of care discussed even if they declined (Discuss DNR or withdrawal of care, Hospice)? DNR status @ -No What co-morbidities impacted this encounter? (DM, HTN, Smoking, COPD, CAD, Cancer, CVA, ARF, Chemo, Hep., AIDS, mental health diagnosis, sleep apnea, morbid obesity)? @ -None Was patient admitted / discharged? Hospital course, mention meds given and route, prescriptions, significant lab abnormalities, going to OR and other pertinent info. @ -Patient CAT scan was normal lab work was essentially normal. Patient still complaining of abdominal pain. Undiagnosed new problem with uncertain prognosis? @ -No Drug Therapy requiring intensive monitoring for toxicity (Heparin, Nitro, Insulin, Cardizem)? @ -No Were any procedures done? @ -No Diagnosis/symptom? @ -Abdominal Acute, or Chronic, or Acute on Chronic? @ -Acute Uncomplicated (without systemic symptoms) or Complicated (systemic symptoms)? @ -Complicated Side effects of treatment? @ -No Exacerbation, Progression, or Severe Exacerbation? @ -No Poses a threat to life or bodily function? How? (Chest pain, [place], [place], pneumonia, PE, COPD, DKA, ARF, appy, cholecystitis, CVA, Diverticulitis, Homicidal, Suicidal, threat to staff... and all critical care pts) @ -No - Lab Data Result diagrams: 03/06/24 15:24 03/06/24 15:24 Lab Results 03/06/24 03/06/24 03/06/24 Range/Units 14:53 15:24 15:24 WBC 7.4 (3.8-10.6) k/uL RBC 4.17 (3.80-5.40) m/uL Hgb 11.7 (11.4-16.0) gm/dL Hct 37.5 (34.0-46.0) % MCV 89.9 (80.0-100.0) fL MCH 28.0 (25.0-35.0) pg MCHC 31.1 (31.0-37.0) g/dL RDW 14.3 (11.5-15.5) % Plt Count 318 (150-450) k/uL MPV 8.6 Neutrophils % 61 % Lymphocytes % 29 % Monocytes % 5 % Eosinophils % 2 % Basophils % 1 % Neutrophils # 4.5 (1.3-7.7) k/uL Lymphocytes # 2.1 (1.0-4.8) k/uL Monocytes # 0.4 (0-1.0) k/uL Eosinophils # 0.2 (0-0.7) k/uL Basophils # 0.1 (0-0.2) k/uL Hypochromasia Slight Sodium 137 (137-145) mmol/L Potassium 3.9 (3.5-5.1) mmol/L Chloride 104 (98-107) mmol/L Carbon Dioxide 25 (22-30) mmol/L Anion Gap 8 mmol/L BUN 11 (7-17) mg/dL Creatinine 0.60 (0.52-1.04) mg/dL Est GFR (CKD-EPI)AfAm >90 (>60 ml/min/1.73 sqM) Est GFR (CKD-EPI)NonAf >90 (>60 ml/min/1.73 sqM) Glucose 80 (74-99) mg/dL Plasma Lactic Acid Quintin (0.7-2.0) mmol/L Calcium 9.1 (8.4-10.2) mg/dL Total Bilirubin 0.7 (0.2-1.3) mg/dL AST 43 H (14-36) U/L ALT 20 (4-34) U/L Alkaline Phosphatase 77 (38-126) U/L Total Protein 7.2 (6.3-8.2) g/dL Albumin 4.4 (3.5-5.0) g/dL Amylase 38 (30-110) U/L Lipase 122 (23-300) U/L Urine Color Yellow Urine Appearance Clear (Clear) Urine pH 6.0 (5.0-8.0) Ur Specific [place] 1.032 (1.001-1.035) Urine Protein Negative (Negative) Urine Glucose (UA) Negative (Negative) Urine Ketones Negative (Negative) Urine Blood Negative (Negative) Urine Nitrite Negative (Negative) Urine Bilirubin Negative (Negative) Urine Urobilinogen <2.0 (<2.0) mg/dL Ur Leukocyte Esterase Negative (Negative) 03/06/24 Range/Units 15:24 WBC (3.8-10.6) k/uL RBC (3.80-5.40) m/uL Hgb (11.4-16.0) gm/dL Hct (34.0-46.0) % MCV (80.0-100.0) fL MCH (25.0-35.0) pg MCHC (31.0-37.0) g/dL RDW (11.5-15.5) % Plt Count (150-450) k/uL MPV Neutrophils % % Lymphocytes % % Monocytes % % Eosinophils % % Basophils % % Neutrophils # (1.3-7.7) k/uL Lymphocytes # (1.0-4.8) k/uL Monocytes # (0-1.0) k/uL Eosinophils # (0-0.7) k/uL Basophils # (0-0.2) k/uL Hypochromasia Sodium (137-145) mmol/L Potassium (3.5-5.1) mmol/L Chloride (98-107) mmol/L Carbon Dioxide (22-30) mmol/L Anion Gap mmol/L BUN (7-17) mg/dL Creatinine (0.52-1.04) mg/dL Est GFR (CKD-EPI)AfAm (>60 ml/min/1.73 sqM) Est GFR (CKD-EPI)NonAf (>60 ml/min/1.73 sqM) Glucose (74-99) mg/dL Plasma Lactic Acid Quintin 1.1 (0.7-2.0) mmol/L Calcium (8.4-10.2) mg/dL Total Bilirubin (0.2-1.3) mg/dL AST (14-36) U/L ALT (4-34) U/L Alkaline Phosphatase (38-126) U/L Total Protein (6.3-8.2) g/dL Albumin (3.5-5.0) g/dL Amylase (30-110) U/L Lipase (23-300) U/L Urine Color Urine Appearance (Clear) Urine pH (5.0-8.0) Ur Specific [place] (1.001-1.035) Urine Protein (Negative) Urine Glucose (UA) (Negative) Urine Ketones (Negative) Urine Blood (Negative) Urine Nitrite (Negative) Urine Bilirubin (Negative) Urine Urobilinogen (<2.0) mg/dL Ur Leukocyte Esterase (Negative) Disposition Clinical Impression: Abdominal pain Disposition: ADMITTED IP TO THIS [facility] Referrals: Nonstaff,Physician [Primary Care Provider] - 1-2 days Time of Disposition: 18:49
[2024-03-06 15:10] LABS: Appearance,Urine Clear (Clear); Bilirubin,Urine Negative (Negative); Blood,Urine Negative (Negative); Color,Urine Yellow; Glucose,Urine (UA) Negative (Negative); Ketones,Urine Negative (Negative); Leukocyte Esterase,Urine Negative (Negative); Nitrite,Urine Negative (Negative); Protein,Urine Negative (Negative); Specific Gravity,Urine 1.032 (1.001-1.035); Urobilinogen,Urine <2.0 mg/dL (<2.0)
[2024-03-06] MEDS: SODIUM CHLORIDE 0.9% 1,000 ML IV STA (15:24)
[2024-03-06] MEDS: ONDANSETRON 4 MG/2 ML VIAL IVP STA (15:24)
[2024-03-06] MEDS: HYDROmorphone 0.5 MG/0.5 ML SYRINGE IVP STA (15:25)
[2024-03-06 16:21] LABS: Basophils # (A) 0.1 k/uL (0-0.2); Basophils % (A) 1 %; Eosinophils # (A) 0.2 k/uL (0-0.7); Eosinophils % (A) 2 %; HCT 37.5 % (34.0-46.0); HGB 11.7 gm/dL (11.4-16.0); Hypochromasia Slight; Lymphocytes # (A) 2.1 k/uL (1.0-4.8); Lymphocytes % (A) 29 %; MCHC 31.1 g/dL (31.0-37.0); MCV 89.9 fL (80.0-100.0); Mean Platelet Volume 8.6; Monocytes # (A) 0.4 k/uL (0-1.0); Monocytes % (A) 5 %; Neutrophils # (A) 4.5 k/uL (1.3-7.7); Neutrophils % (A) 61 %; Platelet Count 318 k/uL (150-450); RBC 4.17 m/uL (3.80-5.40); RDW 14.3 % (11.5-15.5); WBC 7.4 k/uL (3.8-10.6)
[2024-03-06] MEDS: HYDROmorphone 1 MG/ML 1 ML SYRINGE IVP STA (16:29)
[2024-03-06 16:34] LABS: ALT 20 U/L (4-34); African American GFR (CKD) >90 (>60 ml/min/1.73 sqM); Amylase 38 U/L (30-110); Anion Gap 8 mmol/L; Blood Urea Nitrogen 11 mg/dL (7-17); Calcium 9.1 mg/dL (8.4-10.2); Carbon Dioxide 25 mmol/L (22-30); Chloride 104 mmol/L (98-107); Glucose 80 mg/dL (74-99); Lipase 122 U/L (23-300); Non-African American GFR(CKD) >90 (>60 ml/min/1.73 sqM); Sodium 137 mmol/L (137-145); Total Bilirubin 0.7 mg/dL (0.2-1.3)
[2024-03-06 16:43] LABS: Albumin 4.4 g/dL (3.5-5.0); Potassium 3.9 mmol/L (3.5-5.1); Total Protein 7.2 g/dL (6.3-8.2)
[2024-03-06 16:44] LABS: AST 43 U/L (14-36); Alkaline Phosphatase 77 U/L (38-126)
--- NOTE | 2024-03-06 18:18 | CT ---
EXAMINATION TYPE: CT abdomen pelvis w con DATE OF EXAM: 03/06/2024 COMPARISON: 01/25/2024 HISTORY: 43-year-old female with abdominal pain, recent bowel resection TECHNIQUE: Contiguous axial scanning of the abdomen and pelvis following administration of 100 ml Iso rose 300 IV contrast. Delayed images through the kidneys and coronal/sagittal reconstructions perform ed. CT DLP: 1408.6 mGycm Automated exposure control for dose reduction was used. FINDINGS: The heart is upper limits of normal in size without pericardial effusion. Lung bases clear without pl eural effusion. Prominence of bile duct is post cholecystectomy. Portal venous system is patent. No focal liver lesio n seen. Gallbladder surgically absent. Adrenal glands, kidneys, spleen, and pancreas show no gross abnormality. There is no dilated small sherine wel, free fluid, or free air. Post surgical change of Dalia-en-Y gastric bypass. There is staple line indicating resection and reana stomosis at the rectosigmoid junction. Interval second resection and reanastomosis distal sigmoid col on just adjacent. Mild sigmoid diverticulosis. No pericolic inflammatory change. Mild liquid stool w ithin the right side of the colon. Cluster prominent lymph nodes in the mid mesentery measuring up to 1.2 cm. For example, refer to a co richard image 30. Bladder urine distended. Uterus anteverted. Ovaries not well delineated from adjacent clustered bowel loops. No abnormal fluid collection in the pelvis or pelvic lymphadenopathy. Bones: Mild degenerative disc disease lower thoracic spine. No osseous destructive process. IMPRESSION: 1. SOME LIQUID STOOL IN THE RIGHT SIDE OF THE COLON AND CLUSTERED 2. MILDLY ENLARGED LYMPH NODES THROUGHOUT THE MID MESENTERY MEASURING UP TO 1.2 CM. FINDINGS MAY IMANI VANDANA AN ENTERITIS/MESENTERIC ADENITIS. 3. OTHERWISE, NO ACUTE INFLAMMATORY PROCESS IDENTIFIED IN THE ABDOMEN OR PELVIS TO EXPAND THE PATIENT 'S SYMPTOMS. 4. INTERVAL SURGERY AT THE SIGMOID COLON WITH RESECTION AND RE-ANASTOMOSIS. RESOLUTION OF THE PREVIOU S SIGMOID INFLAMMATION SEEN ON 01/25/2024.
[2024-03-06] MEDS ORDERED: ONDANSETRON 4 MG TAB PO PRN (18:50)
[2024-03-06] MEDS: SODIUM CHLORIDE 0.9% 1,000 ML IV ONE (19:07)
[2024-03-06] MEDS: HYDROcodone/APAP 7.5-325MG 1 EACH TAB PO PRN (19:30)
--- NOTE | 2024-03-06 20:19 | P.GSHP ---
History of Present Illness H&P Date: 03/06/24 CHIEF COMPLAINT: Abdominal pain HISTORY OF PRESENT ILLNESS: The patient is a 43-year-old female with recent history of sigmoid colectomy for large bowel obstruction/anastomotic stricture 3 weeks ago. She had been doing well at home until 3 days ago she developed acute onset left-sided abdominal pain of the upper to mid abdomen. She denies any pelvic pain. She denies rectal pain. She denies blood in stools. She reports normal soft bowel movements which is moderately improved since her surgery 2 weeks ago. She has pre-existing history of chronic pain including irritable bowel syndrome. She also has pre-existing history of intussusception, intra- abdominal adhesions. Patient was directed from the bariatric center to the emergency room due to risk of intussusception with her gastric bypass. She reports unintentional weight loss of 15 pounds in 3 weeks. PAST MEDICAL HISTORY: See list and reviewed PAST SURGICAL HISTORY: See list and reviewed MEDICATIONS: See list and reviewed ALLERGIES: See list and reviewed SOCIAL HISTORY: See list and reviewed FAMILY HISTORY: See list and reviewed REVIEW OF ORGAN SYSTEMS: CONSTITUTIONAL: No fevers or chills. Highest weight 476 pounds. Recent weight loss 15 pounds in 3 weeks, unintentional. EYES: Denies any trouble with vision. No glasses. HEENT: No difficulties with hearing. No nosebleeds. No difficulty swallowing. RESPIRATORY: Denies pneumonia. Denies any troubles with breathing or dyspnea on exertion. CARDIOVASCULAR: Denies any chest pain, palpitations, or recent heart attacks. GASTROINTESTINAL: Denies fatty food intolerance. Has improved bowel habits and surgery. History of gastric bypass in her bowel syndrome. Pre-existing history of ulcers. GENITOURINARY: Denies any blood in urine or increased urinary frequency. NEUROLOGICAL: History of stroke, chronic pain syndrome. MUSCULOSKELETAL: History of back pain, stiffness or joint arthritis. SKIN: No current skin cancer. No rash. PSYCHIATRIC: Denies current depression or suicidal thoughts. ENDOCRINE: Has hypothyroidism. Denies any blood sugar glucose intolerance. HEME/LYMPHATIC: Denies any lumps and bumps around the neck. Past deep venous thrombosis. ALLERGY/IMMUNOLOGY: No immunoglobulin therapy. No immune deficiencies. BREAST: Denies current breast lumps, pain or nipple discharge. PHYSICAL EXAM: VITALS: Reviewed CONSTITUTIONAL: Well developed and in no acute distress. EYES: Conjuctivae without sclera icterus. Extraocular movements grossly intact. HEAD, EARS, NOSE, THROAT: Moist buccal mucosa. Head is atraumatic, normocephalic. Hears conversational speech. No nasal drainage. NECK: Supple. No JV distention. No thyroidomegaly. RESPIRATORY: Non-labored respirations and equal bilateral excursions. No gross wheezes. CARDIOVASCULAR: Palpable 2+ radial pulses. ABDOMEN: Pinpoint tenderness left lateral mid abdomen. No diffuse peritonitis. LYMPH: No neck lymphadenopathy. MUSCULOSKELETAL: No clubbing cyanosis or edema SKIN: Warm and well perfused with good skin turgor. NEUROLOGIC: Cranial nerves II through XII grossly intact. No focal or lateralizing signs. PSYCH: Appropriate affect. Alert and oriented to person, place and time. Displays appropriate insight. CLINCAL LABS: Reviewed. WBC normal. IMAGING: Independently reviewed. CT of the abdomen pelvis independently reviewed demonstrates no mesenteric swirl to suggest internal hernia. Multiple moderate dilated lymph nodes involving the left lateral retroperitoneum consistent with mesenteric adenitis. This is my independent interpretation. No free air. Diffuse gas distention involving the small and large bowel without obstruction. RADIOLOGY: Report reviewed consistent with stool along the right colon. Multiple enlarged lymph nodes. RECORDS: previous old records reviewed from recent hospitalization 02/16/2024. ASSESSMENT: 1. Severe intractable left lateral abdominal pain due to mesenteric adenitis unrelated to recent surgery 2. History of chronic pain syndrome. 3. History of gastric bypass PLAN: 1. IV fluid hydration. 2. Overall supportive care for mesenteric adenitis including Toradol, gabapentin, Dilaudid for pain management. 3. Protonix 40 mg twice daily for GI protectant and pre-existing history of ulcers. 4. Observation due to severe intractable abdominal pain 5. May have diet as tolerated ADVANCE DIRECTIVE: In chart Past Medical History Past Medical History: CVA/TIA, Deep Vein Thrombosis (DVT), GERD/Reflux, Neurologic Disorder, Osteoarthritis (OA), Seizure Disorder, Thyroid Disorder, Vascular Disorder Additional Past Medical History / Comment(s): "Necrosis of bowel". HERNIATED CERVICAL DISCS C4-C5 WITH NECK PAIN. Right leg numbness and tingling with right foot drop from CVA 2017. HX SEIZURES- NONE SINCE 2005. CHRONIC LEFT LOWER ABD PAIN. Migraines. Hx DVT in right leg 2007, bruises easy. Hx Intussusception. Hx fractured vertebrae. Varicose veins. Hx Panniculitis with surgery. Hypothyroid. Recurrent UTI's. Esophageal anastomatic stricture, hx dysphagia. Hiatal hernia. PUD. Hypoglycemia. History of Any Multi-Drug Resistant Organisms: None Reported, MRSA Date of last positivie culture/infection: 01/2008 MDRO Source:: right arm Past Surgical History: Adenoidectomy, Appendectomy, Back Surgery, Bariatric Surgery, Bowel Resection, Section, Cholecystectomy, Hernia Repair, Orthopedic Surgery, Tonsillectomy, Tubal Ligation Additional Past Surgical History / Comment(s): RECONSTRUCTION RIGHT KNEE, X3, RISA-EN-Y(AUG 2012), panniculectomy, diagnostic laproscopy with lysis of adhesions X5, EGD with dilation, colonoscopies, hiatal hernia repair, C-5 removed May 17, 2017, NAVA, PFO closure with disc in heart 07/11/17, RECONSTRUCTION OF RISA-EN-Y 2016, bowel blockage repaired 03/04/22, colectomy, b owel resection X2, EGD. Past Anesthesia/Blood Transfusion Reactions: No Reported Reaction Additional Past Anesthesia/Blood Transfusion Reaction / Comment(s): No blood transfusion. Past Psychological History: Anxiety, Depression Smoking Status: Never smoker Past Alcohol Use History: Rare Past Drug Use History: None Reported - Past Family History Mother Family Medical History: Cancer Additional Family Medical History / Comment(s): Mom has MS. breast and esphageal Medications and Allergies Home Medications Medication Instructions Recorded Confirmed Type HYDROcodone/APAP 7.5-325MG [[place] 1 tab PO QID PRN 11/22/22 03/06/24 History 7.5-325] Ondansetron [Zofran] 4 mg PO Q12HR PRN 03/22/23 03/06/24 History ALPRAZolam [Xanax] 0.5 mg PO BID PRN 01/25/24 03/06/24 History Dicyclomine [Bentyl] 20 mg PO QID #120 tablet 01/25/24 03/06/24 Rx Omeprazole 40 mg PO HS 02/06/24 03/06/24 History Sucralfate [Carafate] 1 gm PO BID 02/06/24 03/06/24 History Scopolamine 1 mg/72 Hr Patch 1 patch TRANSDERM Q72H 02/13/24 03/06/24 History [TransDerm Scop] Simethicone 40 mg/0.6 ml Drops 100 mg PO PCHS ml 02/19/24 03/06/24 Rx [Mylicon Drops] Levothyroxine Sodium [Synthroid] 75 mcg PO DAILY 03/06/24 03/06/24 History Allergies Allergy/AdvReac Type Severity Reaction Status Date / Time latex Allergy Severe Anaphylaxis Verified 03/06/24 15:17 Penicillins Allergy Severe Anaphylaxis Verified 03/06/24 15:17 /Hives morphine Allergy Hives, Verified 03/06/24 15:17 ITCHING, Swelling NSAIDS (Non-Steroidal Allergy Hives/Gi Verified 03/06/24 15:17 Anti-Inflamma Issues Surgical - Exam Vital Signs Temp Pulse Resp BP Pulse Ox 98.1 F 65 18 156/96 100 03/06/24 14:27 03/06/24 14:27 03/06/24 14:27 03/06/24 14:27 03/06/24 14:27 Results - Labs 03/06/24 15:24 03/06/24 15:24 Abnormal Lab Results - Last 24 Hours (Table) 03/06/24 Range/Units 15:24 AST 43 H (14-36) U/L Diabetes panel 03/06/24 Range/Units 15:24 Sodium 137 (137-145) mmol/L Potassium 3.9 (3.5-5.1) mmol/L Chloride 104 (98-107) mmol/L Carbon Dioxide 25 (22-30) mmol/L BUN 11 (7-17) mg/dL Creatinine 0.60 (0.52-1.04) mg/dL Glucose 80 (74-99) mg/dL Calcium 9.1 (8.4-10.2) mg/dL AST 43 H (14-36) U/L ALT 20 (4-34) U/L Alkaline Phosphatase 77 (38-126) U/L Total Protein 7.2 (6.3-8.2) g/dL Albumin 4.4 (3.5-5.0) g/dL Calcium panel 03/06/24 Range/Units 15:24 Calcium 9.1 (8.4-10.2) mg/dL Albumin 4.4 (3.5-5.0) g/dL Pituitary panel 03/06/24 Range/Units 15:24 Sodium 137 (137-145) mmol/L Potassium 3.9 (3.5-5.1) mmol/L Chloride 104 (98-107) mmol/L Carbon Dioxide 25 (22-30) mmol/L BUN 11 (7-17) mg/dL Creatinine 0.60 (0.52-1.04) mg/dL Glucose 80 (74-99) mg/dL Calcium 9.1 (8.4-10.2) mg/dL Adrenal panel 03/06/24 Range/Units 15:24 Sodium 137 (137-145) mmol/L Potassium 3.9 (3.5-5.1) mmol/L Chloride 104 (98-107) mmol/L Carbon Dioxide 25 (22-30) mmol/L BUN 11 (7-17) mg/dL Creatinine 0.60 (0.52-1.04) mg/dL Glucose 80 (74-99) mg/dL Calcium 9.1 (8.4-10.2) mg/dL Total Bilirubin 0.7 (0.2-1.3) mg/dL AST 43 H (14-36) U/L ALT 20 (4-34) U/L Alkaline Phosphatase 77 (38-126) U/L Total Protein 7.2 (6.3-8.2) g/dL Albumin 4.4 (3.5-5.0) g/dL
[2024-03-06] MEDS ORDERED: PANTOPRAZOLE 40 MG TABLET PO SCH (21:00)
[2024-03-06] MEDS: SUCRALFATE 1 GM TAB PO SCH (22:18)
[2024-03-06] MEDS: PANTOPRAZOLE 40 MG TABLET PO SCH (22:18)
[2024-03-06] MEDS: GABAPENTIN 300 MG CAP PO SCH (22:18)
[2024-03-06] MEDS: ONDANSETRON 4 MG/2 ML VIAL IVP SCH (22:19)
[2024-03-06] MEDS: SODIUM CHLORIDE 0.9% 1,000 ML IV SCH (22:19)
[2024-03-06] MEDS: HYDROmorphone 1 MG/ML 1 ML SYRINGE IVP PRN (22:19)
[2024-03-06] MEDS: KETOROLAC 15 MG/ML 1 ML VIAL IVP SCH (23:28)
[2024-03-06] MEDS: DICYCLOMINE 20 MG TAB PO SCH (23:28)
[2024-03-06] MEDS: ALPRAZolam 0.5 MG TAB PO PRN (23:37)
[2024-03-07] MEDS: LEVOTHYROXINE 75 MCG TAB PO SCH (06:53)
[2024-03-07 08:44] VITALS: BP 104/69; PULSE 67; RESP 20; TEMP 98.5
--- NOTE | 2024-03-07 13:08 | P.PN ---
Subjective Progress Note Date: 03/07/24 CHIEF COMPLAINT: Abdominal pain HISTORY OF PRESENT ILLNESS: The patient is a 43-year-old female admitted for abdominal pain. CT scan was consistent with mesenteric adenitis. Patient was placed on a combination of gabapentin, Dilaudid, Toradol with Protonix. Her pain is improved. She is tolerating diet. She has an appetite. ROS: No reports of nausea and vomiting. No fevers or chills. No new chest pain. No productive sputum PHYSICAL EXAM: VITAL SIGNS: Reviewed CONSTITUTIONAL: Well developed and in no acute distress. EYES: Conjuctivae without sclera icterus. Extraocular movements grossly intact. HEAD, EARS, NOSE, THROAT: Moist buccal mucosa. Head is atraumatic, normocephalic. Hears conversational speech. No nasal drainage. RESPIRATORY: Non-labored respirations and equal bilateral excursions. CARDIOVASCULAR: Palpable 2+ radial pulses. ABDOMEN: No peritonitis. She is having bowel movements. MUSCULOSKELETAL: No gross deformity of the lower extremities noted. No clubbing. No cyanosis. SKIN: Good skin turgor. Well perfused. NEUROLOGIC: Cranial nerves II through XII grossly intact. No focal or lateralizing signs. PSYCH: Appropriate affect. Alert and oriented to person, place and time. CLINICAL LABS: Reviewed. WBC normal from yesterday. ASSESSMENT: 1. Intractable abdominal pain due to mesenteric adenitis PLAN: 1. Patient has clinically improved. At home, anti-inflammatory of ibuprofen 600 to 800 mg every 6 hours described. 2. Recommend GI protectant omeprazole 40 mg twice daily due to high risk of ulcerative gastritis and a presence of a gastric bypass 3. Patient advised not to return to work until March 11. 4. For chronic home pain med needs, may discuss with her primary care doctor adding gabapentin 600 mg 3 times daily 5. Patient reports chronically feeling cold. Will benefit from TSH adjustment 6. Overall, stable for discharge Objective - Vital Signs Vital signs: Vital Signs Temp 98.5 F 03/07/24 07:00 Pulse 67 03/07/24 07:00 Resp 20 03/07/24 08:32 BP 104/69 03/07/24 07:00 Pulse Ox 99 03/07/24 07:00 FiO2 Intake & Output 03/06/24 03/07/24 03/07/24 18:59 06:59 18:59 Intake Total 118 Balance 118 Weight 106.594 kg 106.594 kg Intake: Oral 118 Other: Voiding Method Toilet # Voids 3 - Labs CBC & Chem 7: 03/06/24 15:24 03/06/24 15:24 Labs: Abnormal Lab Results - Last 24 Hours (Table) 03/06/24 Range/Units 15:24 AST 43 H (14-36) U/L
--- NOTE | 2024-03-07 13:22 | P.DS ---
Providers Date of admission: 03/06/24 18:50 Expected date of discharge: 03/07/24 Attending physician: Nallely Bautista Primary care physician: Physician Nonsta Hospital Course: Diagnoses: 1. Intractable abdominal pain due to mesenteric adenitis 2. Chronic pain syndrome 3. History of intra-abdominal adhesions 4. Morbid obesity due to excess calories, BMI 40.8 5. History of transient ischemic attack 6. History of deep venous thrombosis 7. History of cerebrovascular accident 8. Gastroesophageal reflux disease 9. Migraines 10. History of seizure disorder 11. Hypothyroidism 12. Generalized anxiety disorder 13. Depressive disorder 14. History of gastric bypass 15. Pelvic endometriosis 16. Constipation 17. History of internal hernia COURSE: The patient is a 43-year-old female who presented with intractable sever e 10 out of 10 lower abdominal pain. Patient has personal history of recent colectomy. She has been doing very well since her colectomy however developed new left upper abdominal pain unrelated to her recent surgery. Patient was admitted for intractable left upper/mid abdominal pain x 3 days. Diagnostic studies including CT scan was consistent with mesenteric adenitis. Patient was placed on a combination of gabapentin, Dilaudid, Toradol with Protonix. Her pain is improved. She is tolerating diet. She has an appetite. Discharge instructions were reviewed with return to work for March 11. Prior to discharge, full bariatric labs advised due to malnutrition contributing to abdominal pain including hypothermia with chronic hypothyroidism uncontrolled. Discharge after labs obtained Patient Condition at Discharge: Stable Plan - Discharge Summary Discharge Rx Participant: No New Discharge Prescriptions: Continue ALPRAZolam [Xanax] 0.5 mg PO BID PRN PRN Reason: Anxiety Sucralfate [Carafate] 1 gm PO BID Scopolamine 1 mg/72 Hr Patch [TransDerm Scop] 1 patch TRANSDERM Q72H Simethicone 40 mg/0.6 ml Drops [Mylicon Drops] 100 mg PO PCHS ml HYDROcodone/APAP 7.5-325MG [[place] 7.5-325] 1 tab PO QID PRN PRN Reason: Pain Ondansetron [Zofran] 4 mg PO Q12HR PRN PRN Reason: Nausea Dicyclomine [Bentyl] 20 mg PO QID #120 tablet Discontinued Omeprazole 40 mg PO HS Levothyroxine Sodium [Synthroid] 75 mcg PO DAILY Discharge Medication List HYDROcodone/APAP 7.5-325MG [[place] 7.5-325] 1 tab PO QID PRN 11/22/22 [History] Ondansetron [Zofran] 4 mg PO Q12HR PRN 03/22/23 [History] ALPRAZolam [Xanax] 0.5 mg PO BID PRN 01/25/24 [History] Dicyclomine [Bentyl] 20 mg PO QID #120 tablet 01/25/24 [Rx] Sucralfate [Carafate] 1 gm PO BID 02/06/24 [History] Scopolamine 1 mg/72 Hr Patch [TransDerm Scop] 1 patch TRANSDERM Q72H 02/13/24 [History] Simethicone 40 mg/0.6 ml Drops [Mylicon Drops] 100 mg PO PCHS ml 02/19/24 [Rx] Follow up Appointment(s)/Referral(s): Nonstaff,Physician [Primary Care Provider] - 1-2 days
[2024-03-07 13:58] LABS: Prothrombin Time 10.8 sec (10.0-12.5)
[2024-03-07 15:53] LABS: T4, Free (Free Thyroxine) 0.86 ng/dL (0.78-2.19)
[2024-03-08 08:56] LABS: % Iron Saturation 6.27 (12.00-45.00); Chol/HDL Ratio 2.35 Ratio; Ferritin 14.6 ng/mL (10.0-291.0); Iron 25 UG/DL (50-170); LDL Cholesterol,Calculated 69.2 mg/dL (0.0-131.0); Total Iron Binding Capacity 399 UG/DL (228-460); VLDL Calculation 11.24 mg/dL (5.00-40.00)
[2024-03-12 08:10] LABS: Vitamin A 26 ug/dL (38-106)
[2024-03-13 12:33] LABS: Vit B1(Thiamine) 53 ug/L (38-122)
== END 2024-03-07 13:57 | disposition home or self-care (01) ==
LOC: EC 14:26 → 6NMEDSUR 18:50
PROVIDERS: ADMIT Surgery Plastic and Reconstructive Surgery; ATTEND Surgery Plastic and Reconstructive Surgery
DX: I88.0 Nonspecific mesenteric lymphadenitis (principal); G89.4 Chronic pain syndrome; E46 Unspecified protein-calorie malnutrition; K58.9 Irritable bowel syndrome, unspecified; N80.30 Endometriosis of pelvic peritoneum, unspecified; K59.00 Constipation, unspecified; K21.9 Gastro-esophageal reflux disease without esophagitis; G43.909 Migraine, unspecified, not intractable, without status migrainosus; G40.909 Epilepsy, unspecified, not intractable, without status epilepticus; E03.9 Hypothyroidism, unspecified; E66.01 Morbid (severe) obesity due to excess calories; Z68.41 Body mass index [BMI] 40.0-44.9, adult; F41.1 Generalized anxiety disorder; F32.A Depression, unspecified; Z79.890 Hormone replacement therapy; Z79.899 Other long term (current) drug therapy; Z88.5 Allergy status to narcotic agent; Z88.0 Allergy status to penicillin; Z88.6 Allergy status to analgesic agent; Z91.040 Latex allergy status; Z98.84 Bariatric surgery status; Z87.19 Personal history of other diseases of the digestive system; Z90.49 Acquired absence of other specified parts of digestive tract; Z86.73 Personal history of transient ischemic attack (TIA), and cerebral infarction without residual deficits; Z86.718 Personal history of other venous thrombosis and embolism
CPT/HCPCS: 96376 ×3; 96375 ×2; 96374; 99285; 36415; 84255; 84439; 84425; 80061; 80053; 84443; 82607; 82728; 82150; 82525; 82746; 83540; 83550; 83605; 83690; 84590; 85025; 85610; 81003; 82306; 83970; 83036; 74177; G0378 ×2; J2405 ×2; J1170 ×3; J1885 ×2; Q9967

== ENCOUNTER 2024-04-14 00:08 | Emergency (ER) | payer OTHER ==
[2024-04-14] MEDS ORDERED: HYDROcodone/APAP 7.5-325MG 1 EACH TAB ONE (02:33)
[2024-04-14] MEDS ORDERED: HYDROmorphone 0.5 MG/0.5 ML SYRINGE ONE ×2 (03:46→05:29)
--- NOTE | 2024-05-03 10:31 | CT ---
EXAM: CT Head Without Intravenous Contrast CLINICAL HISTORY: slurred speech, numbness from head to foot but able to walk, wont take piercings out. TECHNIQUE: Axial computed tomography images of the head/brain without intravenous contrast. CTDI is 49.2 mGy and DLP is 1138.8 mGy-cm. This CT exam was performed using one or more of the following dose reduction techniques: automated exposure control, adjustment of the mA and/or kV according to patient size, and/or use of iterative reconstruction technique. COMPARISON: No relevant prior studies available. FINDINGS: No acute intracranial hemorrhage. No midline shift or mass effect. The territorial diallo-white matter differentiation is maintained throughout. The ventricles and sulci are commensurate with age. The visualized orbits appear grossly unremarkable. The calvarium is intact. The visualized paranasal sinuses and mastoid air cells are grossly clear. IMPRESSION: No acute intracranial hemorrhage, midline shift, or mass effect. Radiologist: Bhargav Caldwell MD Electronically Signed: 04/14/24 03:22 Study ready at 02:25 and initial results transmitted at 03:22 [facility]
== END 2024-04-14 05:35 | disposition home or self-care (01) ==
LOC: EC 00:08
CPT/HCPCS: 36415; 70450; 85652; 93005; 96374; 96375; 99284

== ENCOUNTER → 2024-06-12 | Outpatient (CLI) | payer OTHER ==
[2024-06-12 15:36] VITALS: BP 128/86; PULSE 73; RESP 16; TEMP 98; BMI 41.3
--- NOTE | 2024-06-12 16:03 | P.BASOAP ---
Subjective Progress Note Date: 06/12/24 She needs hysterectomy. Needs robotic approach. Plan for referral to Dr. Alexus DICK. Needs referral for hysterectomy. Objective - Vital Signs Vital signs: Vital Signs Temp 98 F 06/12/24 15:20 Pulse 73 06/12/24 15:20 Resp 16 06/12/24 15:20 BP 128/86 06/12/24 15:20 Pulse Ox FiO2 Intake & Output 06/11/24 06/12/24 06/12/24 18:59 06:59 18:59 Weight 116.12 kg Assessment/Plan Plan: Date: 06/12/24 Initial Weight: 187.787 kg Initial BMI: 66.8 Current Weight: 116.12 kg Current BMI: 41.3 Type of Surgery: Total Volume in Band: Previous Volume: Volume Removed: Volume Added: Band Size:
== END ==
LOC: BARWHC3 14:11
PROVIDERS: ATTEND Surgery Plastic and Reconstructive Surgery
DX: E66.01 Morbid (severe) obesity due to excess calories (principal); Z68.41 Body mass index [BMI] 40.0-44.9, adult; Z88.0 Allergy status to penicillin; Z91.040 Latex allergy status; Z88.5 Allergy status to narcotic agent; Z88.6 Allergy status to analgesic agent
CPT/HCPCS: 99211

== ENCOUNTER → 2024-10-30 | Outpatient (CLI) | payer OTHER ==
[2024-10-30 15:04] VITALS: BP 137/53; PULSE 96; RESP 16; TEMP 98.2; BMI 44.6
--- NOTE | 2024-10-30 15:59 | P.BASOAP ---
Subjective Progress Note Date: 10/30/24 She was on saxenda. She was on adipex. She gained weight finally after hysterectomy. She had much endometriosis. She has gained weight 40 pounds. Endometriosis. She has troubles with swallowing. EGD and dilation. Needs rigid dilator. Objective - Vital Signs Vital signs: Vital Signs Temp 98.2 F 10/30/24 15:04 Pulse 96 10/30/24 15:04 Resp 16 10/30/24 15:04 BP 137/53 10/30/24 15:04 Pulse Ox FiO2 Intake & Output 10/29/24 10/30/24 10/30/24 18:59 06:59 18:59 Weight 125.645 kg Assessment/Plan Plan: Date: 10/30/24 Initial Weight: 187.787 kg Initial BMI: 66.8 Current Weight: 125.645 kg Current BMI: 44.6 Type of Surgery: Total Volume in Band: Previous Volume: Volume Removed: Volume Added: Band Size:
== END ==
LOC: BARWHC3 14:47
PROVIDERS: ATTEND Surgery Plastic and Reconstructive Surgery
DX: E66.01 Morbid (severe) obesity due to excess calories (principal); Z68.41 Body mass index [BMI] 40.0-44.9, adult; Z91.040 Latex allergy status; Z88.0 Allergy status to penicillin; Z88.5 Allergy status to narcotic agent; Z88.6 Allergy status to analgesic agent
CPT/HCPCS: 99211

== ENCOUNTER 2024-11-04 06:13 | Day surgery (SDC) | payer OTHER ==
[2024-10-31 15:47] VITALS: BMI 44.6
[~2024-11-04 06:13] MED LIST changes: -HYDROmorphone 0.5 MG/0.5 ML SYRINGE IVP PRN; +LACTATED RINGERS 1,000 ML IV SCH; -LIDOCAINE 1% (10MG/ML) FOR IV START INTRADERMA PRN; -MIDAZOLAM 2 MG/2 ML VIAL IV PRN
[2024-11-04 07:15] VITALS: RESP 16; TEMP 97
[2024-11-04] MEDS: IV FLUID CONTINUATION 1,000 ML IV ONE (07:23)
[2024-11-04] MEDS ORDERED: LIDOCAINE 1% INJ 10MG/ML (20 ML MDV) ONE (07:31)
[2024-11-04] MEDS ORDERED: KETAMINE HCL IN 0.9 % NACL 50 MG/5 ML SYRINGE ONE (07:31)
[2024-11-04] MEDS ORDERED: PROPOFOL 10 MG/ML 20 ML VIAL IV ONE (07:31)
--- NOTE | 2024-11-04 07:41 | P.GSHP ---
History of Present Illness H&P Date: 11/04/24 CHIEF COMPLAINT: Esophageal stricture HISTORY OF PRESENT ILLNESS: The patient is a 43-year-old female who presents reports dysphagia. Upper endoscopy was offered for further evaluation and management. PAST MEDICAL HISTORY: Please see list. PAST SURGICAL HISTORY: Please see list. MEDICATIONS: Please see list. ALLERGIES: Please see list. SOCIAL HISTORY: No illicit drug use FAMILY HISTORY: No reports of Crohn disease or ulcerative colitis. REVIEW OF ORGAN SYSTEMS: CONSTITUTIONAL: No reports of fevers or chills. GI: Denies any blood in stools or constipation. PHYSICAL EXAM: VITAL SIGNS: Stable GENERAL: Well-developed and pleasant in no acute distress. HEENT: No scleral icterus. Extraocular movements grossly intact. Moist buccal mucosa. NECK: Supple without lymphadenopathy. CHEST: Unlabored respirations. Equal bilateral excursions. CARDIOVASCULAR: Regular rate and rhythm. Distal 2+ pulses. ABDOMEN: Soft, nondistended. MUSCULOSKELETAL: No clubbing, cyanosis, or edema. ASSESSMENT: 1. Esophageal stricture PLAN: 1. Recommend proceeding with an upper endoscopy with rigid dilators. Past Medical History Past Medical History: CVA/TIA, Deep Vein Thrombosis (DVT), GERD/Reflux, Neurologic Disorder, Osteoarthritis (OA), Seizure Disorder, Thyroid Disorder, Vascular Disorder Additional Past Medical History / Comment(s): "Necrosis of bowel". HERNIATED CERVICAL DISCS C4-C5 WITH NECK PAIN. Right leg numbness and tingling with right foot drop related to dislocation of right knee torn mcl,acl,pcl,severed meniscis in 2007. CVA 2016 no deficits. CHRONIC LEFT LOWER ABD PAIN. Migraines. Hx DVT in right leg 2007, bruises easy.Anemia Hx Intussusception. Hx fractured vertebrae. Varicose veins. Hx Panniculitis with surgery. Hypothyroid. Recurrent UTI's. Esophageal anastomatic stricture, hx dysphagia. Hiatal hernia. PUD. Hypoglycemia. endometriosis. CVA 03/30/24- rt lower extremitiy numbness increased History of Any Multi-Drug Resistant Organisms: MRSA Date of last positivie culture/infection: 01/2008 MDRO Source:: right arm Past Surgical History: Adenoidectomy, Appendectomy, Back Surgery, Bariatric Surgery, Bowel Resection, Section, Cholecystectomy, Hernia Repair, Hysterectomy, Orthopedic Surgery, Tonsillectomy, Tubal Ligation Additional Past Surgical History / Comment(s): RECONSTRUCTION RIGHT KNEE 2014, X3, RISA-EN-Y(AUG 2012), panniculectomy 2014, diagnostic laproscopy with lysis of adhesions X7, EGD with dilation, colonoscopies, hiatal hernia repairx3, C-5 removed and fusion of c2-4 May 17 2017, NAVA, PFO closure with disc in heart 07/11/17, RECONSTRUCTION OF RISA-EN-Y 2017, bowel blockage repaired 03/04/22, colectomy x4 recent last 02/16/24, EGD Past Anesthesia/Blood Transfusion Reactions: No Reported Reaction Additional Past Anesthesia/Blood Transfusion Reaction / Comment(s): No blood transfusion. Smoking Status: Never smoker - Past Family History Mother Family Medical History: Cancer Additional Family Medical History / Comment(s): Mom has MS. breast and esphageal Medications and Allergies Home Medications Medication Instructions Recorded Confirmed Type HYDROcodone/APAP 7.5-325MG [[place] 1 tab PO QID PRN 11/22/22 11/04/24 History 7.5-325] Ondansetron [Zofran] 4 mg PO BID PRN 03/22/23 11/04/24 History ALPRAZolam [Xanax] 0.5 mg PO BID PRN 01/25/24 11/04/24 History Scopolamine 1 mg/72 Hr Patch 1 patch TRANSDERM Q72H 02/13/24 11/04/24 History [TransDerm Scop] Simethicone [Gas-X] 125 mg PO HS 03/27/24 11/04/24 History Butalb/Acetaminophen/Caffeine 1 capsule PO QID PRN 06/12/24 11/04/24 History [Fioricet 50-300-40 mg Capsule] Cyclobenzaprine [Flexeril] 10 mg PO TID 06/12/24 11/04/24 History Gabapentin 300 mg PO TID PRN 06/12/24 11/04/24 History Levothyroxine Sodium 100 mcg PO DAILY 10/30/24 11/04/24 History Sertraline [Zoloft] 50 mg PO TID 10/30/24 11/04/24 History estradioL [Estrace] 1 mg PO DAILY 10/30/24 11/04/24 History Allergies Allergy/AdvReac Type Severity Reaction Status Date / Time latex Allergy Severe Anaphylaxis Verified 11/04/24 07:17 Penicillins Allergy Severe Anaphylaxis Verified 11/04/24 07:17 /Hives morphine Allergy Hives, Verified 11/04/24 07:17 ITCHING, Swelling NSAIDS (Non-Steroidal Allergy Hives/Gi Verified 11/04/24 07:17 Anti-Inflamma Issues Surgical - Exam Vital Signs Temp Pulse Resp BP Pulse Ox 97 F L 67 16 142/70 100 11/04/24 06:38 11/04/24 06:38 11/04/24 06:38 11/04/24 06:38 11/04/24 06:38
[2024-11-04 08:18] VITALS: BP 152/84; PULSE 67
--- NOTE | 2024-11-04 08:56 | P.PCN ---
Date of Procedure: 11/04/24 Description of Procedure: PREOPERATIVE DIAGNOSIS: Dysphagia. POSTOPERATIVE DIAGNOSIS: Dysphagia. Upper esophageal stricture OPERATION: Esophagogastrojejunoscopy with rigid dilator over the guidewire 54 Fr with dilation SURGEON: Nallely Bautista MD ANESTHESIA: MAC. INDICATIONS: The patient is a 70-year-old female who presents with a history of dysphagia. Benefits and risks of the procedure were described. Informed consent was obtained. DESCRIPTION: The patient was brought into the endoscopy suite and laid in the left lateral decubitus position. After a timeout was confirmed, the procedure was initiated. An Olympus gastroscope was passed into the posterior oropharynx down into the gastric pouch. The scope was entered into the gastric pouch with gastrojejunal stenosis along the gastrojejunal anastomosis. Next using an Serbian rigid dilator, a guidewire was placed through the gastroscope. Next the scope was withdrawn. A 54-[place]ian rigid Serbian dilator was passed carefully along the posterior oropharynx to 45 cm and left in place for 2-3 minutes stretch. The dilator was withdrawn including the guidewire. The scope was reentered along the posterior oropharynx with no findings of full- thickness tear of the upper esophageal sphincter. No full-thickness injury was encountered. The GI tract was desufflated. The patient tolerated the procedure well. FINDINGS: Upper esophageal stenosis dilated 54 [place]ian Gastrojejunal anastomosis widely patent without ulcers RECOMMENDATIONS: Upper endoscopy as needed Plan - Discharge Summary Discharge Rx Participant: No New Discharge Prescriptions: Continue ALPRAZolam [Xanax] 0.5 mg PO BID PRN PRN Reason: Anxiety Scopolamine 1 mg/72 Hr Patch [TransDerm Scop] 1 patch TRANSDERM Q72H Cyclobenzaprine [Flexeril] 10 mg PO TID Butalb/Acetaminophen/Caffeine [Fioricet 50-300-40 mg Capsule] 1 capsule PO QID PRN PRN Reason: Migraine Headache Sertraline [Zoloft] 50 mg PO TID HYDROcodone/APAP 7.5-325MG [[place] 7.5-325] 1 tab PO QID PRN PRN Reason: Pain Ondansetron [Zofran] 4 mg PO BID PRN PRN Reason: Nausea Simethicone [Gas-X] 125 mg PO HS Gabapentin 300 mg PO TID PRN PRN Reason: Pain estradioL [Estrace] 1 mg PO DAILY Levothyroxine Sodium 100 mcg PO DAILY Discharge Medication List HYDROcodone/APAP 7.5-325MG [[place] 7.5-325] 1 tab PO QID PRN 11/22/22 [History] Ondansetron [Zofran] 4 mg PO BID PRN 03/22/23 [History] ALPRAZolam [Xanax] 0.5 mg PO BID PRN 01/25/24 [History] Scopolamine 1 mg/72 Hr Patch [TransDerm Scop] 1 patch TRANSDERM Q72H 02/13/24 [History] Simethicone [Gas-X] 125 mg PO HS 03/27/24 [History] Butalb/Acetaminophen/Caffeine [Fioricet 50-300-40 mg Capsule] 1 capsule PO QID PRN 06/12/24 [History] Cyclobenzaprine [Flexeril] 10 mg PO TID 06/12/24 [History] Gabapentin 300 mg PO TID PRN 06/12/24 [History] Levothyroxine Sodium 100 mcg PO DAILY 10/30/24 [History] Sertraline [Zoloft] 50 mg PO TID 10/30/24 [History] estradioL [Estrace] 1 mg PO DAILY 10/30/24 [History] Follow [facility]ment(s[facility] [place] [place] [facility] - As Needed Patient Instructions/Handouts: *Surgery [facility] - (Anesthesia) Discharge Instructions Outpatient Surgery, Esophageal Dilation (GEN) Activity/Diet/Wound Care/Special Instructions: Salt water gargle daily for 3 days. Warm beverages. Do not eat sharp foods for the next 3 days until after 11/09/2024 Discharge Disposition: HOME SELF-CARE
== END 2024-11-04 08:36 | disposition home or self-care (01) ==
LOC: ORWHC2ENDO 06:13
PROVIDERS: ATTEND Surgery Plastic and Reconstructive Surgery
DX: K22.2 Esophageal obstruction (principal); K21.9 Gastro-esophageal reflux disease without esophagitis; G40.909 Epilepsy, unspecified, not intractable, without status epilepticus; E03.9 Hypothyroidism, unspecified; Z86.73 Personal history of transient ischemic attack (TIA), and cerebral infarction without residual deficits; Z79.890 Hormone replacement therapy; Z88.0 Allergy status to penicillin; Z88.6 Allergy status to analgesic agent
CPT/HCPCS: 43248; J2003; J2704